=== PATIENT | male | born 1960 | race Caucasian/White ===

== ENCOUNTER 2016-11-28 10:08 | Emergency (ER) | payer OTHER ==
[2016-11-28 10:13] VITALS: RESP 18
--- NOTE | 2016-11-28 10:28 | ED ---
Skin/Abscess/FB HPI - General Chief complaint: Skin/Abscess/Foreign Body Stated complaint: [facility], hand injury Time Seen by Provider: 11/28/16 10:19 Source: patient, RN notes reviewed, old records reviewed Mode of arrival: ambulatory Limitations: no limitations - History of Present Illness Initial comments: This is a 56-year-old male presenting to emergency Department chief complaint of a laceration and pain over his left thumb. 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 Patient reports that he does have range of motion in his thumb. He was sent over here after seeing [facility]. Urine completed drug screen and call testing. Patient was sent here for further evaluation. Patient states that he is right-handed. She reports somewhat diminished sensation over the medial aspect of the thumb distal to the laceration. - Related Data Home Medications Medication Instructions Recorded Confirmed Divalproex Sodium [Depakote ER] 1,500 mg PO DAILY 12/03/13 11/28/16 OLANZapine [ZyPREXA] 10 mg PO DAILY 12/03/13 11/28/16 LORazepam [Ativan] 1 mg PO DAILY 05/15/14 11/28/16 Acetaminophen Tab [Tylenol Tab] 500 - 1,000 mg PO Q6H PRN 11/28/16 11/28/16 Previous Rx's Medication Instructions Recorded Ibuprofen [Motrin] 800 mg PO Q8HR PRN #30 tab 11/23/14 Allergies Allergy/AdvReac Type Severity Reaction Status Date / Time No Known Allergies Allergy Verified 11/28/16 10:48 Review of Systems ROS Statement: Those systems with pertinent positive or pertinent negative responses have been documented in the HPI. ROS Other: All systems not noted in ROS Statement are negative. Past Medical History Past Medical History: Hyperlipidemia Additional Past Medical History / Comment(s): Bipolar disorder, anxiety, SLEEP APNEA History of Any Multi-Drug Resistant Organisms: None Reported Past Surgical History: Appendectomy, Heart Catheterization, Hernia Repair, Orthopedic Surgery Past Anesthesia/Blood Transfusion Reactions: No Reported Reaction Past Psychological History: Anxiety, Bipolar, Depression Smoking Status: Never smoker Past Alcohol Use History: Occasional Past Drug Use History: None Reported - Past Family History Father Family Medical History: Myocardial Infarction ([place]) Additional Family Medical History / Comment(s): CABG AT AGE 50 Brother(s) Family Medical History: Coronary Artery Disease (CAD) Additional Family Medical History / Comment(s): CABG AT AGE 50 General Exam - General Exam Comments Initial Comments: This is a 56-year-old male. No acute distress. Limitations: no limitations Head exam: Present: atraumatic, normocephalic, normal inspection Eye exam: Present: normal appearance, PERRL, EOMI. Absent: scleral icterus, conjunctival injection, periorbital swelling ENT exam: Present: normal exam, mucous membranes moist Neck exam: Present: normal inspection. Absent: tenderness, meningismus, lymphadenopathy Respiratory exam: Present: normal lung sounds bilaterally. Absent: respiratory distress, wheezes, rales, rhonchi, stridor Cardiovascular Exam: Present: regular rate, normal rhythm, normal heart sounds. Absent: systolic murmur, diastolic murmur, rubs, gallop, clicks GI/Abdominal exam: Present: soft, normal bowel sounds. Absent: distended, tenderness, guarding, rebound, rigid Extremities exam: Present: normal inspection, full ROM, normal capillary refill , other (2cm laceration over left thumb. No ttendon involvement. ). Absent: tenderness, pedal edema, joint swelling, calf tenderness Back exam: Present: normal inspection Neurological exam: Present: alert, oriented X3, CN II-XII intact Psychiatric exam: Present: normal affect, normal mood Skin exam: Present: warm, dry, intact, normal color. Absent: rash Course Vital Signs 11/28/16 11/28/16 10:10 11:47 Temperature 98.0 F 98.1 F Pulse Rate 70 67 Respiratory 18 18 Rate Blood Pressure 161/93 147/90 O2 Sat by Pulse 98 95 Oximetry Procedures - Laceration Laceration #1 Indication: laceration Site: hand Size (cm): 1 Description: linear Depth: simple, single layer Anesthetic Used: lidocaine 1% Anesthesia Technique: local infiltration Amount (mls): 3 Pre-repair: wound explored, irrigated extensively Type of Sutures: nylon Size of Sutures: 5-0 Number of Sutures: 4 Technique: simple, interrupted Patient Tolerated Procedure: well, no complications Medical Decision Making - Medical Decision Making This is a 56-year-old male presenting to emergency Department chief complaint of a laceration and pain over his left thumb. 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 Patient reports that he does have range of motion in his thumb. Patient has no fracture of the thumb. Wound was irrigated and clsed with 4 suture. Discussed follow up with PCP and returning for any signs of infection. Patient will be started on keflex and given updated tetanus vaccine. Patient understands treatment plan and will comply - Radiology Data Radiology results: report reviewed Xray is negative for any fracture. Disposition Clinical Impression: Laceration of thumb Disposition: HOME SELF-CARE Condition: Good Instructions: Laceration (ED) Additional Instructions: Please return to the emergency room in 8-10 days to have sutures removed. Please leave wound covered for the first 24-48 hours and then leave open to air after that time. Please use clean soap and water to clean the suture area to prevent scabbing over the top of your sutures. Please watch for any signs of infection which may include but not limited to increased pain, swelling, redness , fever or chills. Please return to the emergency room if any signs of infection do occur. Please return to the emergency room for any other concerns or complications. Referrals: None,Stated [Primary Care Provider] - 1-2 days Time of Disposition: 11:39
[2016-11-28] MEDS ORDERED: DIPH,PERTUS(ACELL)TETVAC-LF 0.5 ML VIAL IM ONE (10:41)
--- NOTE | 2016-11-28 10:49 | XR ---
EXAMINATION TYPE: XR finger LT DATE OF EXAM: 11/28/2016 COMPARISON: NONE HISTORY: Crush injury laceration proximal phalanx TECHNIQUE: Three-view left thumb FINDINGS: There is a subtle lucency on the oblique view at the base of the distal phalanx. Cortical m argins appear smooth. An acute fracture is not felt to be present. Correlate with location of the pat ient's pain. Joint spaces appear preserved. A displaced fracture is not identified. No radiopaque fo reign bodies are evident. Follow-up study can be performed 7-10 days from acute trauma for continued pain. IMPRESSION: 1. Acute fracture is not identified. Follow-up can be performed as clinically indicated.
[2016-11-28 11:48] VITALS: BP 147/90; PULSE 67; TEMP 98.1
--- NOTE | 2016-11-30 07:40 | CDI ---
Documentation Clarification OP Dear RAZIA Arrington: Please do addendum to ED report that describes the laceration of the finger. Please include the length and depth of the repair. Thank you, Jennifer Morales Piece Dyeing Machine Tender If you have any question, Please contact satellite manager at [phone] [facility]
== END 2016-11-28 11:52 | disposition home or self-care (01) ==
LOC: EC 10:08
DX: S61.012A Laceration without foreign body of left thumb without damage to nail, initial encounter (principal); Z23 Encounter for immunization; E78.5 Hyperlipidemia, unspecified; F31.9 Bipolar disorder, unspecified; F41.9 Anxiety disorder, unspecified; Z79.899 Other long term (current) drug therapy; W26.8XXA Contact with other sharp object(s), not elsewhere classified, initial encounter; Y99.0 Civilian activity done for income or pay
CPT/HCPCS: 12001; 90471; 90715; 99283

== ENCOUNTER 2017-11-09 01:12 | Observation (INO) | payer BC ==
--- NOTE | 2017-11-09 01:13 | ED ---
General Adult HPI - General Stated complaint: chest pain Time Seen by Provider: 11/09/17 01:13 - History of Present Illness Initial comments: Davis is a 57-year-old male with past medical history listed below who presents to the emergency department today for evaluation of left-sided chest pain. 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 He reports that he has never had to move this many in one night. He states that while he was doing this task he began to experience some pressure in his chest and pain radiating to his left arm. He began to feel lightheaded and diaphoretic as though he couldn't catch his breath. He states that this scared him because his father had heart disease and at the age of 63 so he came to the ER for further evaluation. Patient reports that this episode occurred approximately one hour prior to arrival in the sitting in the ER has significantly reduced his chest discomfort, shortness of breath and lightheadedness. Patient has a history of hyperlipidemia and is currently untreated, he has no known history of hypertension or diabetes. He denies cigarette smoking or any recreational or illicit drug use. - Related Data Home Medications Medication Instructions Recorded Confirmed Divalproex Sodium [Depakote ER] 1,500 mg PO DAILY 12/03/13 11/09/17 OLANZapine [ZyPREXA] 10 mg PO DAILY 12/03/13 11/09/17 LORazepam [Ativan] 1 mg PO DAILY 05/15/14 11/09/17 Allergies Allergy/AdvReac Type Severity Reaction Status Date / Time No Known Allergies Allergy Verified 11/09/17 03:27 Review of Systems ROS Statement: Those systems with pertinent positive or pertinent negative responses have been documented in the HPI. ROS Other: All systems not noted in ROS Statement are negative. Past Medical History Past Medical History: Hyperlipidemia Additional Past Medical History / Comment(s): Bipolar disorder, anxiety, SLEEP APNEA History of Any Multi-Drug Resistant Organisms: None Reported Past Surgical History: Appendectomy, Heart Catheterization, Hernia Repair, Orthopedic Surgery Past Anesthesia/Blood Transfusion Reactions: No Reported Reaction Past Psychological History: Anxiety, Bipolar, Depression Smoking Status: Never smoker Past Alcohol Use History: Occasional Past Drug Use History: None Reported - Past Family History Father Family Medical History: Myocardial Infarction ([place]) Additional Family Medical History / Comment(s): CABG AT AGE 50 Brother(s) Family Medical History: Coronary Artery Disease (CAD) Additional Family Medical History / Comment(s): CABG AT AGE 50 Mother Family Medical History: Cancer Additional Family Medical History / Comment(s): Liver and abd CA, Breast CA General Exam Limitations: no limitations General appearance: alert, in no apparent distress Head exam: Present: atraumatic, normocephalic Eye exam: Present: normal appearance, PERRL ENT exam: Present: normal exam Neck exam: Present: normal inspection Respiratory exam: Absent: respiratory distress Cardiovascular Exam: Present: regular rate, normal rhythm GI/Abdominal exam: Present: soft. Absent: distended Rectal exam: Present: deferred Extremities exam: Present: normal inspection, full ROM. Absent: tenderness Back exam: Present: normal inspection Neurological exam: Present: alert, oriented X3 Psychiatric exam: Present: normal mood Skin exam: Present: warm, other (skin is pale and moist) Course Vital Signs 11/09/17 11/09/17 01:17 02:58 Temperature 97.6 F Pulse Rate 71 70 Respiratory 18 16 Rate Blood Pressure 149/91 122/76 O2 Sat by Pulse 96 99 Oximetry EKG Findings - EKG Comments: EKG Findings:: EKG obtained at 16 a.m. - rate is 74, rhythm is sinus, normal axis, normal intervals, [place] 184, QRS 92, QTc 424, ST elevations or depressions. No evidence of acute ischemia or infarction. Medical Decision Making - Medical Decision Making Patient was seen and evaluated, history was obtained from the patient Approximately 1 hour prior to arrival the patient experienced exertional chest pain, pressure with radiation to the left arm associated with diaphoresis and lightheadedness Patient with a history of obesity, hyperlipidemia and family history of heart disease Heart score - 4 for history and risk factors Cardiac workup ordered EKG with no significant Troponin negative Chest x-ray no acute findings Considering the patient's risk factors and concerning history I do feel that the patient requires evaluation by cardiology. Patient is in agreement to this. Care was discussed with patient's primary care physician Dr. Kirkland who accepts the patient to the observation unit with consult to cardiology. Admission orders placed. - Lab Data Result diagrams: 11/09/17 01:20 11/09/17 01:20 Lab Results 11/09/17 11/09/17 11/09/17 Range/Units 01:20 01:20 01:20 WBC 6.0 (3.8-10.6) k/uL RBC 5.11 (4.30-5.90) m/uL Hgb 16.4 (13.0-17.5) gm/dL Hct 47.2 (39.0-53.0) % MCV 92.3 (80.0-100.0) fL MCH 32.0 (25.0-35.0) pg MCHC 34.7 (31.0-37.0) g/dL RDW 12.5 (11.5-15.5) % Plt Count 174 (150-450) k/uL Neutrophils % 39 % Lymphocytes % 44 % Monocytes % 9 % Eosinophils % 3 % Basophils % 1 % Neutrophils # 2.3 (1.3-7.7) k/uL Lymphocytes # 2.7 (1.0-4.8) k/uL Monocytes # 0.6 (0-1.0) k/uL Eosinophils # 0.2 (0-0.7) k/uL Basophils # 0.1 (0-0.2) k/uL PT (9.0-12.0) sec INR (<1.2) APTT (22.0-30.0) sec Sodium 139 (137-145) mmol/L Potassium 4.8 (3.5-5.1) mmol/L Chloride 106 (98-107) mmol/L Carbon Dioxide 25 (22-30) mmol/L Anion Gap 8 mmol/L BUN 13 (9-20) mg/dL Creatinine 0.80 (0.66-1.25) mg/dL Est GFR (CKD-EPI)AfAm >90 (>60 ml/min/1.73 sqM) Est GFR (CKD-EPI)NonAf >90 (>60 ml/min/1.73 sqM) Glucose 105 H (74-99) mg/dL Calcium 9.7 (8.4-10.2) mg/dL Magnesium 2.0 (1.6-2.3) mg/dL Total Bilirubin 0.5 (0.2-1.3) mg/dL AST 50 (17-59) U/L ALT 94 H (21-72) U/L Alkaline Phosphatase 59 (38-126) U/L Total Creatine Kinase 173 H (55-170) U/L CK-MB (CK-2) 1.3 (0.0-2.4) ng/mL CK-MB (CK-2) Rel Index 0.8 Troponin I <0.012 (0.000-0.034) ng/mL NT-Pro-B Natriuret Pep pg/mL Total Protein 7.2 (6.3-8.2) g/dL Albumin 4.4 (3.5-5.0) g/dL 11/09/17 11/09/17 Range/Units 01:20 01:20 WBC (3.8-10.6) k/uL RBC (4.30-5.90) m/uL Hgb (13.0-17.5) gm/dL Hct (39.0-53.0) % MCV (80.0-100.0) fL MCH (25.0-35.0) pg MCHC (31.0-37.0) g/dL RDW (11.5-15.5) % Plt Count (150-450) k/uL Neutrophils % % Lymphocytes % % Monocytes % % Eosinophils % % Basophils % % Neutrophils # (1.3-7.7) k/uL Lymphocytes # (1.0-4.8) k/uL Monocytes # (0-1.0) k/uL Eosinophils # (0-0.7) k/uL Basophils # (0-0.2) k/uL PT 10.0 (9.0-12.0) sec INR 1.0 (<1.2) APTT 24.1 (22.0-30.0) sec Sodium (137-145) mmol/L Potassium (3.5-5.1) mmol/L Chloride (98-107) mmol/L Carbon Dioxide (22-30) mmol/L Anion Gap mmol/L BUN (9-20) mg/dL Creatinine (0.66-1.25) mg/dL Est GFR (CKD-EPI)AfAm (>60 ml/min/1.73 sqM) Est GFR (CKD-EPI)NonAf (>60 ml/min/1.73 sqM) Glucose (74-99) mg/dL Calcium (8.4-10.2) mg/dL Magnesium (1.6-2.3) mg/dL Total Bilirubin (0.2-1.3) mg/dL AST (17-59) U/L ALT (21-72) U/L Alkaline Phosphatase (38-126) U/L Total Creatine Kinase (55-170) U/L CK-MB (CK-2) (0.0-2.4) ng/mL CK-MB (CK-2) Rel Index Troponin I (0.000-0.034) ng/mL NT-Pro-B Natriuret Pep 15 pg/mL Total Protein (6.3-8.2) g/dL Albumin (3.5-5.0) g/dL Disposition Clinical Impression: Chest pain Disposition: ADMITTED IP TO THIS HOSP Decision Time: 03:30
[2017-11-09] MEDS ORDERED: ASPIRIN 81 MG PO STA (01:35)
[2017-11-09 01:43] LABS: Basophils # (A) 0.1 k/uL (0-0.2); Basophils % (A) 1 %; Eosinophils # (A) 0.2 k/uL (0-0.7); Eosinophils % (A) 3 %; HCT 47.2 % (39.0-53.0); HGB 16.4 gm/dL (13.0-17.5); Lymphocytes # (A) 2.7 k/uL (1.0-4.8); Lymphocytes % (A) 44 %; MCHC 34.7 g/dL (31.0-37.0); MCV 92.3 fL (80.0-100.0); Monocytes # (A) 0.6 k/uL (0-1.0); Monocytes % (A) 9 %; Neutrophils # (A) 2.3 k/uL (1.3-7.7); Neutrophils % (A) 39 %; Platelet Count 174 k/uL (150-450); RBC 5.11 m/uL (4.30-5.90); RDW 12.5 % (11.5-15.5)
[2017-11-09 01:51] LABS: Partial Thromboplastin Time 24.1 sec (22.0-30.0)
[2017-11-09 01:52] LABS: ALT 94 U/L (21-72); AST 50 U/L (17-59); Albumin 4.4 g/dL (3.5-5.0); Alkaline Phosphatase 59 U/L (38-126); Anion Gap 8 mmol/L; Blood Urea Nitrogen 13 mg/dL (9-20); Calcium 9.7 mg/dL (8.4-10.2); Carbon Dioxide 25 mmol/L (22-30); Chloride 106 mmol/L (98-107); Glucose 105 mg/dL (74-99); Potassium 4.8 mmol/L (3.5-5.1); Sodium 139 mmol/L (137-145); Total Bilirubin 0.5 mg/dL (0.2-1.3); Total Protein 7.2 g/dL (6.3-8.2)
[2017-11-09 01:55] LABS: Creatine Kinase 173 U/L (55-170)
--- NOTE | 2017-11-09 02:02 | XR ---
EXAMINATION TYPE: XR chest 2V DATE OF EXAM: 11/09/2017 COMPARISON: 11/08/2015 HISTORY: Short of breath TECHNIQUE: Frontal and lateral views of the chest are obtained. FINDINGS: Heart and mediastinum are normal. Lungs are clear. Diaphragm is normal. There are chest le ads. Bony thorax is intact. IMPRESSION: Normal chest. No change.
[2017-11-09 02:07] LABS: Creatine Kinase MB 1.3 ng/mL (0.0-2.4); Troponin I <0.012 ng/mL (0.000-0.034)
[2017-11-09] MEDS ORDERED: NALOXONE 0.4 MG/ML 1 ML VIAL IV PRN (02:49)
[2017-11-09] MEDS ORDERED: ACETAMINOPHEN TAB 325 MG TAB PO PRN (02:49)
[2017-11-09 03:36] VITALS: BMI 34.4
[2017-11-09 07:25] LABS: Creatine Kinase 128 U/L (55-170)
[2017-11-09 07:38] LABS: Creatine Kinase MB 1.1 ng/mL (0.0-2.4); Troponin I <0.012 ng/mL (0.000-0.034)
--- NOTE | 2017-11-09 08:01 | P.HPIM ---
History of Present Illness H&P Date: 11/09/17 Chief Complaint: Chest pressure This history and physical an 57-year-old white male came in after doing heavy lifting at work with significant chest pressure. There was radiation to left arm and diaphoresis noted. After evaluation however, the patient was stabilized. He is now admitted for angina type symptoms. He has significant family history of coronary bypass. Catheterization was supposedly done in 2014 which was normal. Review of Systems Constitutional: Denies chills, Denies fever Eyes: denies blurred vision, denies pain Ears, nose, mouth and throat: Denies headache, Denies sore throat Cardiovascular: Reports as per HPI, Reports chest pain, Reports dyspnea on exertion, Reports lightheadedness Respiratory: Denies cough Gastrointestinal: Denies abdominal pain, Denies diarrhea, Denies nausea, Denies vomiting Musculoskeletal: Denies myalgias 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 Past Anesthesia/Blood Transfusion Reactions: No Reported Reaction Past Psychological History: Anxiety, Bipolar, Depression Smoking Status: Never smoker Past Alcohol Use History: Occasional Past Drug Use History: None Reported - Past Family History Mother Family Medical History: Cancer Additional Family Medical History / Comment(s): Liver and abd CA, Breast CA Father Family Medical History: Myocardial Infarction ([place]) Additional Family Medical History / Comment(s): CABG AT AGE 50 Brother(s) Family Medical History: Coronary Artery Disease (CAD) Additional Family Medical History / Comment(s): CABG AT AGE 50 Medications and Allergies Home Medications Medication Instructions Recorded Confirmed Type Divalproex Sodium [Depakote ER] 1,500 mg PO DAILY 12/03/13 11/09/17 History OLANZapine [ZyPREXA] 10 mg PO DAILY 12/03/13 11/09/17 History LORazepam [Ativan] 1 mg PO DAILY 05/15/14 11/09/17 History Allergies Allergy/AdvReac Type Severity Reaction Status Date / Time No Known Allergies Allergy Verified 11/09/17 03:27 Physical Exam Vitals: Vital Signs Temp Pulse Pulse Resp BP BP BP 11/09/17 07:10 98.3 F 68 18 127/84 11/09/17 03:38 18 11/09/17 03:24 97.8 F 70 16 157/85 11/09/17 02:58 70 16 122/76 11/09/17 01:17 97.6 F 71 18 149/91 Pulse Ox 11/09/17 07:10 97 11/09/17 03:38 11/09/17 03:24 98 11/09/17 02:58 99 11/09/17 01:17 96 Intake and Output 11/08/17 11/09/17 11/09/17 22:59 06:59 14:59 Other: # Voids 1 Weight 108.8 kg - Constitutional General appearance: average body habitus - EENT Eyes: EOMI - Neck Neck: no lymphadenopathy - Respiratory Respiratory: bilateral: CTA - Cardiovascular Rhythm: regular Heart sounds: normal: S1, S2 Abnormal Heart Sounds: no S3 Gallop - Gastrointestinal General gastrointestinal: soft, no tenderness - Neurologic Neurologic: CNII-XII intact Results CBC & Chem 7: 11/09/17 01:20 11/09/17 01:20 Labs: Abnormal Lab Results - Last 24 Hours (Table) 11/09/17 11/09/17 Range/Units 01:20 01:20 Glucose 105 H (74-99) mg/dL ALT 94 H (21-72) U/L Total Creatine Kinase 173 H (55-170) U/L Thrombosis Risk Factor Assmnt - Choose All That Apply Each Factor Represents 1 point: Age 41-60 years Thrombosis Risk Factor Assessment Total Risk Factor Score: 1 Thrombosis Risk Factor Assessment Level: Low Risk Assessment and Plan (1) Chest pain Current Visit: Yes Status: Acute Code(s): R07.9 - CHEST PAIN, UNSPECIFIED SNOMED Code(s): 01461155 Plan: Cardiology is probably been consulted. Rule out myocardial infraction from a is a medical perspective. Echocardiogram and stress testing will most likely be done later today. Anticipate discharge in next 24 hours if stress testing is stable. Reconcile medications otherwise. The patient is otherwise full code.
[2017-11-09] MEDS ORDERED: DIVALPROEX ER 500 MG TAB.ER.24H PO SCH (09:00)
[2017-11-09] MEDS ORDERED: OLANZapine 10 MG TAB PO SCH (09:00)
[2017-11-09] MEDS ORDERED: LORazepam 1 MG TAB PO SCH (09:00)
--- NOTE | 2017-11-09 09:21 | ECHOF ---
Referral Reason:cp MEASUREMENTS -------- HEIGHT: 152.4 cm WEIGHT: 108.4 kg BP: 127/84 RVIDd: 2.6 cm (< 3.3) IVSd: 1.2 cm (0.6 - 1.1) LVIDd: 3.2 cm (3.9 - 5.3) LVPWd: 1.0 cm (0.6 - 1.1) IVSs: 1.5 cm LVIDs: 2.5 cm LVPWs: 2.0 cm LA Diam: 3.8 cm (2.7 - 3.8) Ao Diam: 3.3 cm (2.0 - 3.7) AV Cusp: 1.8 cm (1.5 - 2.6) LA Diam: 4.1 cm (2.7 - 3.8) MV EXCURSION: 19.436 mm (> 18.000) MV EF SLOPE: 91 mm/s (70 - 150) EPSS: 0.3 cm MV E Donnie: 0.53 m/s MV DecT: 173 ms MV A Donnie: 0.67 m/s MV E/A Ratio: 0.79 RAP: 5.00 mmHg RVSP: 16.77 mmHg FINDINGS -------- Sinus rhythm. This was a technically good study. LV size, wall thickness and systolic function are normal, with an EF greater than 55%. The left clementina tricular size is normal. The right ventricle is normal in size. The left atrial size is normal. The right atrial size is normal. The aortic valve is trileaflet, and appears structurally normal. No aortic stenosis or regurgitation. Mild mitral annular calcification present. Mild mitral regurgitation is present. Mild tricuspid regurgitation present. There is no evidence of pulmonary hypertension. The right v entricular systolic pressure, as measured by Doppler, is 16.77mmHg. There is no pulmonic regurgitation present. The aortic root size is normal. There is no pericardial effusion. CONCLUSIONS -------- 1. LV size, wall thickness and systolic function are normal, with an EF greater than 55%. 2. The left ventricular size is normal. 3. The right ventricle is normal in size. 4. The left atrial size is normal. 5. The right atrial size is normal. 6. The aortic valve is trileaflet, and appears structurally normal. No aortic stenosis or regurgitati on. 7. Mild mitral annular calcification present. 8. Mild mitral regurgitation is present. 9. Mild tricuspid regurgitation present. 10. There is no evidence of pulmonary hypertension. 11. The right ventricular systolic pressure, as measured by Doppler, is 16.77mmHg. 12. There is no pulmonic regurgitation present. 13. The aortic root size is normal. 14. There is no pericardial effusion. BAND LEADER: Orly Benito RDCS
--- NOTE | 2017-11-09 09:34 | P.CRDCN ---
History of Present Illness History of present illness: Mr. Salas is a pleasant 57-year-old male past medical history significant for dyslipidemia, anxiety, bipolar disorder and sleep apnea. He denies history of coronary artery disease. We've been asked to see him in consultation for symptoms of chest pain. 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 He was also short of breath and diaphoretic. He stopped what he was doing and got onto his [employer] to continue working he continued to feel the symptoms of chest pain he has to quit a bit of twisting of his body and he felt as if the pain was worse with movement however never completely went away when he sat still. He still has a level of discomfort in the described as an ache that is not reproducible on palpation or with movement. He denies associated palpitations, nausea, vomiting or dizziness. He underwent cardiac catheterization in [address] Gibson which revealed normal coronary arteries. EKG reveals sinus mechanism with no acute ST or T wave abnormalities noted. Chest x-ray is negative for acute cardiopulmonary process. Laboratory data reviewed, hemoglobin 16.4, platelets 174, sodium 139, potassium 4.8, magnesium 2.0, creatinine 0.8, creatinine enzymes negative 2, proBNP 15. Cardiac risk factors include significant family history with father and brother both having quadruple bypass in their 50s. Review of Systems At the time of my exam: CONSTITUTIONAL: Denies fever. Denies chills. EYES: Denies blurred vision. Denies vision changes. Denies eye pain. EARS, NOSE, MOUTH & THROAT: Denies headache. Denies sore throat. Denies ear pain. CARDIOVASCULAR: Complains of achy chest pain. Denies shortness of breath. Denies orthopnea. Denies PND. Denies palpitations. RESPIRATORY: Denies cough. GASTROINTESTINAL: Denies abdominal pain. Denies diarrhea. Denies constipation. Denies nausea. Denies vomiting. MUSCULOSKELETAL: Denies myalgias. INTEGUMENTARY: Denies pruitis. Denies rash. NEUROLOGIC: Denies numbness. Denies tingling. Denies weakness. PSYCHIATRIC: Denies anxiety. Denies depression. ENDOCRINE: Denies fatigue. Denies weight change. Denies polydipsia. Denies polyurina. GENITOURINARY: Denies burning, hematuria or urgency with micturation. HEMATOLOGIC: Denies history of anemia. Denies bleeding. 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 Past Anesthesia/Blood Transfusion Reactions: No Reported Reaction Past Psychological History: Anxiety, Bipolar, Depression Smoking Status: Never smoker Past Alcohol Use History: Occasional Past Drug Use History: None Reported - Past Family History Mother Family Medical History: Cancer Additional Family Medical History / Comment(s): Liver and abd CA, Breast CA Father Family Medical History: Myocardial Infarction ([place]) Additional Family Medical History / Comment(s): CABG AT AGE 50 Brother(s) Family Medical History: Coronary Artery Disease (CAD) Additional Family Medical History / Comment(s): CABG AT AGE 50 Medications and Allergies Home Medications Medication Instructions Recorded Confirmed Type Divalproex Sodium [Depakote ER] 1,500 mg PO DAILY 12/03/13 11/09/17 History OLANZapine [ZyPREXA] 10 mg PO DAILY 12/03/13 11/09/17 History LORazepam [Ativan] 1 mg PO DAILY PRN 05/15/14 11/09/17 History Allergies Allergy/AdvReac Type Severity Reaction Status Date / Time No Known Allergies Allergy Verified 11/09/17 08:07 Physical Exam Vitals: Vital Signs Temp Pulse Pulse Resp BP BP BP 11/09/17 07:10 98.3 F 68 18 127/84 11/09/17 03:38 18 11/09/17 03:24 97.8 F 70 16 157/85 11/09/17 02:58 70 16 122/76 11/09/17 01:17 97.6 F 71 18 149/91 Pulse Ox 11/09/17 07:10 97 11/09/17 03:38 11/09/17 03:24 98 11/09/17 02:58 99 11/09/17 01:17 96 Intake and Output 11/08/17 11/09/17 11/09/17 22:59 06:59 14:59 Other: # Voids 1 Weight 108.8 kg Blood pressure 127/84 heart rate 68 afebrile maintaining oxygen saturation GENERAL: This is a 57-year-old male in no apparent distress at the time of my examination. HEENT: Head is atraumatic, normocephalic. Pupils are equal, round. Sclerae anicteric. Conjunctivae are clear. Mucous membranes of the mouth are moist. Neck is supple. There is no jugular venous distention. No carotid bruit is heard. LUNGS: Clear to auscultation no wheezes, rales or rhonchi. No chest wall tenderness is noted on palpation or with deep breathing. HEART: Regular rate and rhythm without murmurs, rubs or gallops. S1 and S2 heard. ABDOMEN: Soft, nontender. Bowel sounds are heard. No organomegaly noted. EXTREMITIES: No evidence of peripheral edema and no calf tenderness noted. VASCULAR: Radial and dorsalis pedis pulses palpated, no evidence of clubbing. NEUROLOGIC: Patient is awake, alert and oriented x3. Results 11/09/17 01:20 11/09/17 01:20 Cardiac Enzymes 11/09/17 11/09/17 11/09/17 Range/Units 01:20 01:20 06:48 AST 50 (17-59) U/L CK-MB (CK-2) 1.3 1.1 (0.0-2.4) ng/mL Troponin I <0.012 <0.012 (0.000-0.034) ng/mL Coagulation 11/09/17 Range/Units 01:20 PT 10.0 (9.0-12.0) sec APTT 24.1 (22.0-30.0) sec CBC 11/09/17 Range/Units 01:20 WBC 6.0 (3.8-10.6) k/uL RBC 5.11 (4.30-5.90) m/uL Hgb 16.4 (13.0-17.5) gm/dL Hct 47.2 (39.0-53.0) % Plt Count 174 (150-450) k/uL Comprehensive Metabolic Panel 11/09/17 Range/Units 01:20 Sodium 139 (137-145) mmol/L Potassium 4.8 (3.5-5.1) mmol/L Chloride 106 (98-107) mmol/L Carbon Dioxide 25 (22-30) mmol/L BUN 13 (9-20) mg/dL Creatinine 0.80 (0.66-1.25) mg/dL Glucose 105 H (74-99) mg/dL Calcium 9.7 (8.4-10.2) mg/dL AST 50 (17-59) U/L ALT 94 H (21-72) U/L Alkaline Phosphatase 59 (38-126) U/L Total Protein 7.2 (6.3-8.2) g/dL Albumin 4.4 (3.5-5.0) g/dL Current Medications Generic Name Dose Route Start Last Admin Trade Name Freq PRN Reason Stop Dose Admin Acetaminophen 650 mg 11/09/17 02:49 Tylenol Tab PO Q6HR PRN Mild Pain or Fever > 100.5 Naloxone HCl 0.2 mg 11/09/17 02:49 Narcan IV Q2M PRN Opioid Reversal Intake and Output 11/08/17 11/09/17 11/09/17 22:59 06:59 14:59 Other: # Voids 1 Weight 108.8 kg 11/09/17 01:20 11/09/17 01:20 Assessment and Plan Assessment: ASSESSMENT Chest pain, atypical. An acute coronary event has been ruled out with no EKG evidence of ischemia and negative cardiac enzymes. Possibility of viscous skeletal component although associated diaphoresis and shortness of breath atypical. Significant family history of coronary artery disease PLAN Obtain 2-D echocardiogram and Doppler study to assess cardiac structure and function. Perform stress echocardiogram to assess for stress induced cardiac ischemia. Stress test is normal he is stable from a cardiac perspective. Thank you kindly for this consultation. The above impression and plan of care have been discussed and directed by the signing physician. Daisy Parmar, nurse practitioner, acting as scribe for signing physician.
[2017-11-09] MEDS ORDERED: DOBUTamine DRIP for NUC MED 500 MG in DEXTROSE/WATER 1 250ML.BAG IV ONE (10:06)
[2017-11-09] MEDS ORDERED: ATROPINE SULFATE 0.1 MG/ML 10ML SYRINGE ONE (10:45)
--- NOTE | 2017-11-09 11:28 | ECHOS ---
STRESS ECHOCARDIOGRAM INDICATIONS: Chest pain. BASELINE HEART RATE: 80 BASELINE BLOOD PRESSURE: 135/71 MAXIMUM HEART RATE: 144 MAXIMUM BLOOD PRESSURE: 212/90 85% MPHR: 139 100% MPHR: 164 MAXIMUM STAGE REACHED: IV TOTAL EXERCISE TIME: 12:10 INDICATION: Chest pain. CLINICAL INFORMATION: Baseline EKG shows sinus rhythm, normal axis, normal intervals. Patient was given intravenous dobutamine over a period of 12 minutes as per protocol. Also received 0.5 mg of atropine and attained 89% of predicted maximal heart rate without chest pain or diagnostic ST-segment depression. Baseline echo shows normal left ventricular size, wall motion, and systolic function. Post dobutamine infusion, there is normal hyperdynamic response of all segments of myocardium noted. CONCLUSION: 1. Negative stress test by EKG criteria. 2. Negative dobutamine echo. MMODL / IJN: [id number] /
[2017-11-09 13:38] LABS: Cholesterol 195 mg/dL (<200); HDL Cholesterol 41 mg/dL (40-60); LDL Cholesterol,Calculated 96 mg/dL (0-99); Triglycerides 291 mg/dL (<150)
[2017-11-09 14:07] LABS: Creatine Kinase MB 0.9 ng/mL (0.0-2.4)
[2017-11-09 14:09] LABS: Troponin I 0.044 ng/mL (0.000-0.034)
[2017-11-10 03:30] VITALS: PULSE 76; RESP 16
--- NOTE | 2017-11-10 08:02 | P.DS ---
Providers Date of admission: 11/09/17 02:51 Attending physician: Cristofer Kirkland Consults: 11/09/17 02:50 Consult Physician Urgent Consulting Provider: [facility] Consult Reason/Comments: chest pain, high risk Do you want consulting provider notified?: Yes Primary care physician: Stated None - Discharge Diagnosis(es) (1) Chest pain Current Visit: Yes Status: Acute Hospital Course: This discharge summary 7-year-old white male essentially admitted for angina. The patient ended up having to be made stress echo which did not show significant coronary artery issue. The patient was watched overnight just to make sure there was no overt change in his enzymatic troponin. The patient is now stable and will be discharged once cleared by cardiology. Patient Condition at Discharge: Stable Plan - Discharge Summary New Discharge Prescriptions: No Action Divalproex Sodium [Depakote ER] 1,500 mg PO DAILY OLANZapine [ZyPREXA] 10 mg PO DAILY LORazepam [Ativan] 1 mg PO DAILY PRN PRN Reason: Anxiety Discharge Medication List Divalproex Sodium [Depakote ER] 1,500 mg PO DAILY 12/03/13 [History] OLANZapine [ZyPREXA] 10 mg PO DAILY 12/03/13 [History] LORazepam [Ativan] 1 mg PO DAILY PRN 05/15/14 [History] Follow up Appointment(s)/Referral(s): None,Stated [Primary Care Provider] - 1 Week Discharge Disposition: HOME SELF-CARE
--- NOTE | 2017-11-10 08:44 | CONS ---
CONSULTATION Davis is a 57-year-old gentleman who is admitted to hospital with atypical chest pain and underwent a dobutamine stress echo yesterday. His dobutamine stress test was negative for ischemia. Patient has remained symptom-free since yesterday. His troponins were less than 0.012, 0.012. However, the subsequent 2 troponins came back at 0.04 and 0.03. The exact etiology for the mild troponin elevation is unclear. Patient has an LDL cholesterol of 96. I talked to patient about his treatment options including an invasive angiography for definitive diagnosis and both the patient and I have opted for watchful waiting and medical therapy at this time. If he has any further episodes of chest pain, I will consider cardiac catheterization on him. PHYSICAL EXAM: Today he is afebrile. Vital signs are stable. Chest exam reveals good air entry bilaterally. Heart exam reveals first and second heart sounds. No gallop. No murmur. Abdomen is soft, nontender. Exam of extremities did not reveal any edema. Peripheral pulses are felt. ASSESSMENT: 1. Atypical chest pain, seems musculoskeletal. 2. Mild troponin elevation of unclear clinical significance. Patient is symptom-free this morning. His dobutamine echo is unremarkable. I am going to discharge the patient home on an aspirin and sublingual nitroglycerin on p.r.n. basis and start him on a small dose of beta earline. I will re-evaluate him in my office in a week's time. If he has chest pains, especially if they become typical, will consider cardiac catheterization on him. MMODL / IJN: [id number] /
[2017-11-10 08:48] VITALS: BP 146/78; TEMP 98.5
[2017-11-10] MEDS ORDERED: ASPIRIN 81 MG PO SCH (09:00)
[2017-11-10] MEDS ORDERED: METOPROLOL SUCCINATE (ER) 50 MG TAB.ER.24H PO SCH (09:00)
== END 2017-11-10 09:39 | disposition home or self-care (01) ==
LOC: EC 01:12 → 3OBS 02:51
PROVIDERS: ADMIT Family Medicine; ATTEND Family Medicine
DX: R07.89 Other chest pain (principal); R07.2 Precordial pain; R42 Dizziness and giddiness; R61 Generalized hyperhidrosis; R06.02 Shortness of breath; R77.8 Other specified abnormalities of plasma proteins; Z82.49 Family history of ischemic heart disease and other diseases of the circulatory system; E78.5 Hyperlipidemia, unspecified; F31.9 Bipolar disorder, unspecified; F41.9 Anxiety disorder, unspecified; G47.30 Sleep apnea, unspecified; Z79.899 Other long term (current) drug therapy; Z80.0 Family history of malignant neoplasm of digestive organs; Z80.3 Family history of malignant neoplasm of breast; E66.9 Obesity, unspecified; Z68.34 Body mass index [BMI] 34.0-34.9, adult; X50.0XXA Overexertion from strenuous movement or load, initial encounter; Y99.0 Civilian activity done for income or pay
CPT/HCPCS: 99285; 36415; 93005; 93306; 93351; 83880; 80061; 80053; 82550; 82553; 83735; 84484; 85025; 85610; 85730; 71046; G0378 ×2; J1250; J0461

== ENCOUNTER 2018-01-17 15:46 | Emergency (ER) | payer BC ==
[2018-01-17] MEDS ORDERED: ONDANSETRON 4 MG ODT STARTER PACK 2 TAB BTL PO STA (16:19)
[2018-01-17] MEDS ORDERED: PANTOPRAZOLE 40 MG/10 ML VIAL IVP STA (16:21)
--- NOTE | 2018-01-17 16:42 | ED ---
Abdominal Pain HPI - General Chief Complaint: Abdominal Pain Stated Complaint: Nauseated Time Seen by Provider: 01/17/18 16:00 Source: patient, RN notes reviewed, old records reviewed Mode of arrival: ambulatory Limitations: no limitations - History of Present Illness Initial Comments: 57-year-old male since return today to complain of nausea. He states that he had spaghetti and Benadryl to symptoms which seem to cause some GI upset. He states he's had no vomiting episodes and no diarrhea. He did take Pepto-Bismol with no relief. Patient's surgical history includes appendectomy and cholecystectomy. He states that he has some epigastric discomfort. He denies any recent fever or chills. Denies any back pain. - Related Data Home Medications Medication Instructions Recorded Confirmed Divalproex Sodium [Depakote ER] 1,500 mg PO HS 12/03/13 01/17/18 OLANZapine [ZyPREXA] 10 mg PO HS 12/03/13 01/17/18 LORazepam [Ativan] 1 mg PO HS PRN 05/15/14 01/17/18 Ibuprofen 800 mg PO Q6H PRN 01/17/18 01/17/18 Previous Rx's Medication Instructions Recorded Famotidine [Pepcid] 20 mg PO BID #20 tablet 01/17/18 Ondansetron Odt [Zofran Odt] 4 mg PO Q8HR PRN #12 tab 01/17/18 Allergies Allergy/AdvReac Type Severity Reaction Status Date / Time No Known Allergies Allergy Verified 01/17/18 16:05 Review of Systems ROS Statement: Those systems with pertinent positive or pertinent negative responses have been documented in the HPI. ROS Other: All systems not noted in ROS Statement are negative. 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 Past Anesthesia/Blood Transfusion Reactions: No Reported Reaction Past Psychological History: Anxiety, Bipolar, Depression Smoking Status: Never smoker Past Alcohol Use History: Occasional Past Drug Use History: None Reported - Past Family History Mother Family Medical History: Cancer Additional Family Medical History / Comment(s): Liver and abd CA, Breast CA Father Family Medical History: Myocardial Infarction ([place]) Additional Family Medical History / Comment(s): CABG AT AGE 50 Brother(s) Family Medical History: Coronary Artery Disease (CAD) Additional Family Medical History / Comment(s): CABG AT AGE 50 General Exam Limitations: no limitations Course Vital Signs 01/17/18 15:50 Temperature 98.0 F Pulse Rate 71 Respiratory 20 Rate Blood Pressure 134/81 O2 Sat by Pulse 95 Oximetry Medical Decision Making - Lab Data Result diagrams: 01/17/18 16:50 01/17/18 16:50 Lab Results 01/17/18 01/17/18 01/17/18 Range/Units 16:50 16:50 16:50 WBC 3.7 L (3.8-10.6) k/uL RBC 4.51 (4.30-5.90) m/uL Hgb 14.9 (13.0-17.5) gm/dL Hct 42.2 (39.0-53.0) % MCV 93.6 (80.0-100.0) fL MCH 33.0 (25.0-35.0) pg MCHC 35.3 (31.0-37.0) g/dL RDW 12.4 (11.5-15.5) % Plt Count 134 L (150-450) k/uL Neutrophils % 42 % Lymphocytes % 41 % Monocytes % 10 % Eosinophils % 3 % Basophils % 1 % Neutrophils # 1.6 (1.3-7.7) k/uL Lymphocytes # 1.5 (1.0-4.8) k/uL Monocytes # 0.4 (0-1.0) k/uL Eosinophils # 0.1 (0-0.7) k/uL Basophils # 0.0 (0-0.2) k/uL Sodium 140 (137-145) mmol/L Potassium 4.6 (3.5-5.1) mmol/L Chloride 110 H (98-107) mmol/L Carbon Dioxide 23 (22-30) mmol/L Anion Gap 7 mmol/L BUN 12 (9-20) mg/dL Creatinine 0.77 (0.66-1.25) mg/dL Est GFR (CKD-EPI)AfAm >90 (>60 ml/min/1.73 sqM) Est GFR (CKD-EPI)NonAf >90 (>60 ml/min/1.73 sqM) Glucose 135 H (74-99) mg/dL Calcium 8.8 (8.4-10.2) mg/dL Total Bilirubin 0.7 (0.2-1.3) mg/dL AST 55 (17-59) U/L ALT 48 (21-72) U/L Alkaline Phosphatase 48 (38-126) U/L Total Protein 6.4 (6.3-8.2) g/dL Albumin 3.6 (3.5-5.0) g/dL Lipase 503 H (23-300) U/L Urine Color Light Yellow Urine Appearance Clear (Clear) Urine pH 7.0 (5.0-8.0) Ur Specific [place] 1.005 (1.001-1.035) Urine Protein Negative (Negative) Urine Glucose (UA) Negative (Negative) Urine Ketones Negative (Negative) Urine Blood Negative (Negative) Urine Nitrite Negative (Negative) Urine Bilirubin Negative (Negative) Urine Urobilinogen <2.0 (<2.0) mg/dL Ur Leukocyte Esterase Trace H (Negative) Urine RBC <1 (0-5) /hpf Urine WBC <1 (0-5) /hpf Disposition Clinical Impression: Gastritis, Elevated lipase, Nausea Disposition: HOME SELF-CARE Condition: Good Instructions: Gastritis (ED) Additional Instructions: Patient should have clear liquid diet for the next 24-48 hours. Follow-up with PCP rechecking was lipase levels. Return to emergency department if any alarming signs or symptoms occur. Prescriptions: Famotidine [Pepcid] 20 mg PO BID #20 tablet Ondansetron Odt [Zofran Odt] 4 mg PO Q8HR PRN #12 tab PRN Reason: Nausea Is patient prescribed a controlled substance at d/c from ED?: No Referrals: Cristofer Kirkland MD [Primary Care Provider] - 1-2 days Time of Disposition: 17:36
[2018-01-17 17:12] LABS: Appearance,Urine Clear (Clear); Bilirubin,Urine Negative (Negative); Blood,Urine Negative (Negative); Color,Urine Light Yellow; Glucose,Urine (UA) Negative (Negative); Ketones,Urine Negative (Negative); Leukocyte Esterase,Urine Trace (Negative); Nitrite,Urine Negative (Negative); Protein,Urine Negative (Negative); RBC,Urine <1 /hpf (0-5); Specific Gravity,Urine 1.005 (1.001-1.035); Urobilinogen,Urine <2.0 mg/dL (<2.0); WBC,Urine <1 /hpf (0-5)
[2018-01-17 17:18] LABS: ALT 48 U/L (21-72); AST 55 U/L (17-59); Albumin 3.6 g/dL (3.5-5.0); Alkaline Phosphatase 48 U/L (38-126); Anion Gap 7 mmol/L; Blood Urea Nitrogen 12 mg/dL (9-20); Calcium 8.8 mg/dL (8.4-10.2); Carbon Dioxide 23 mmol/L (22-30); Chloride 110 mmol/L (98-107); Glucose 135 mg/dL (74-99); Lipase 503 U/L (23-300); Potassium 4.6 mmol/L (3.5-5.1); Sodium 140 mmol/L (137-145); Total Bilirubin 0.7 mg/dL (0.2-1.3); Total Protein 6.4 g/dL (6.3-8.2)
[2018-01-17 17:29] LABS: Basophils % (A) 1 %; Eosinophils # (A) 0.1 k/uL (0-0.7); Eosinophils % (A) 3 %; HCT 42.2 % (39.0-53.0); HGB 14.9 gm/dL (13.0-17.5); Lymphocytes # (A) 1.5 k/uL (1.0-4.8); Lymphocytes % (A) 41 %; MCHC 35.3 g/dL (31.0-37.0); MCV 93.6 fL (80.0-100.0); Mean Platelet Volume 7.9; Monocytes # (A) 0.4 k/uL (0-1.0); Monocytes % (A) 10 %; Neutrophils # (A) 1.6 k/uL (1.3-7.7); Neutrophils % (A) 42 %; Platelet Count 134 k/uL (150-450); RBC 4.51 m/uL (4.30-5.90); RDW 12.4 % (11.5-15.5); WBC 3.7 k/uL (3.8-10.6)
[2018-01-17 18:16] VITALS: BP 125/86; PULSE 60; RESP 16; TEMP 97.9
== END 2018-01-17 18:18 | disposition home or self-care (01) ==
LOC: EC 15:46
DX: K29.70 Gastritis, unspecified, without bleeding (principal); R74.8 Abnormal levels of other serum enzymes; F31.9 Bipolar disorder, unspecified; F41.9 Anxiety disorder, unspecified; Z90.49 Acquired absence of other specified parts of digestive tract; Z98.890 Other specified postprocedural states; Z79.899 Other long term (current) drug therapy
CPT/HCPCS: 36415; 80053; 83690; 85025; 81001; 99284; 96374; S0119; C9113

== ENCOUNTER 2018-05-14 05:04 | Emergency (ER) | payer BC, OTHER ==
[2018-05-14 05:10] VITALS: BP 125/70; PULSE 71; RESP 20; TEMP 97.9
[2018-05-14] MEDS ORDERED: predniSONE 20 MG TAB PO STA (05:41)
[2018-05-14] MEDS ORDERED: diphenhydrAMINE 50 MG CAP PO STA (05:42)
--- NOTE | 2018-05-14 05:45 | ED ---
Skin/Abscess/FB HPI - General Chief complaint: Skin/Abscess/Foreign Body Stated complaint: Rash Time Seen by Provider: 05/14/18 05:17 Source: patient, family Mode of arrival: ambulatory - History of Present Illness Initial comments: This patient is 57-year-old man who presents with complaint of severe itching to the left forearm. To some extent the right forearm is also affected but the left is worse right. 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 Symptoms have been going on for number days now. Patient has not had any other symptoms. MD complaint: rash -: days(s) Tetanus Up to Date: yes Location: LUE, RUE Severity: severe Quality: other (Itching) Consistency: constant Improves with: none Worsens with: none Associated symptoms: denies other symptoms - Related Data Home Medications Medication Instructions Recorded Confirmed Divalproex Sodium [Depakote ER] 1,500 mg PO HS 12/03/13 05/14/18 OLANZapine [ZyPREXA] 10 mg PO HS 12/03/13 05/14/18 LORazepam [Ativan] 1 mg PO HS PRN 05/15/14 05/14/18 Ibuprofen 800 mg PO Q6H PRN 01/17/18 05/14/18 Previous Rx's Medication Instructions Recorded Famotidine [Pepcid] 20 mg PO BID #20 tablet 01/17/18 Triamcinolone 0.5% Cream [Kenalog 1 applic TOPICAL TID #15 gm 05/14/18 0.5% Cream] predniSONE 60 mg PO DAILY #30 tab 05/14/18 Allergies Allergy/AdvReac Type Severity Reaction Status Date / Time No Known Allergies Allergy Verified 05/14/18 05:09 Review of Systems ROS Statement: Those systems with pertinent positive or pertinent negative responses have been documented in the HPI. ROS Other: All systems not noted in ROS Statement are negative. 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 Past Anesthesia/Blood Transfusion Reactions: No Reported Reaction Past Psychological History: Anxiety, Bipolar, Depression Smoking Status: Never smoker Past Alcohol Use History: Occasional Past Drug Use History: None Reported - Past Family History Mother Family Medical History: Cancer Additional Family Medical History / Comment(s): Liver and abd CA, Breast CA Father Family Medical History: Myocardial Infarction ([place]) Additional Family Medical History / Comment(s): CABG AT AGE 50 Brother(s) Family Medical History: Coronary Artery Disease (CAD) Additional Family Medical History / Comment(s): CABG AT AGE 50 General Exam General appearance: alert, in no apparent distress Head exam: Present: atraumatic, normocephalic ENT exam: Present: normal oropharynx, mucous membranes moist Respiratory exam: Present: normal lung sounds bilaterally. Absent: respiratory distress, wheezes, rales, rhonchi, stridor Cardiovascular Exam: Present: regular rate, normal rhythm, normal heart sounds. Absent: systolic murmur, diastolic murmur, rubs, gallop Skin exam: Present: warm, dry, intact, rash (Patient has contact dermatitis to the bilateral forearms, left is worse than right.) Course Vital Signs 05/14/18 05:06 Temperature 97.9 F Pulse Rate 71 Respiratory 20 Rate Blood Pressure 125/70 O2 Sat by Pulse 96 Oximetry Medical Decision Making - Medical Decision Making Patient's 57-year-old man with contact dermatitis to the bilateral forearms. We discussed reducing his exposure, and he will wear long sleeve shirt at work. Also will give a dose of oral steroids here to reduce his symptoms and then change to topical. Discussed further care and follow-up. Disposition Clinical Impression: Contact dermatitis Disposition: HOME SELF-CARE Condition: Good Instructions (If sedation given, give patient instructions): Contact Dermatitis (ED) Prescriptions: predniSONE 60 mg PO DAILY #30 tab Triamcinolone 0.5% Cream [Kenalog 0.5% Cream] 1 applic TOPICAL TID #15 gm Is patient prescribed a controlled substance at d/c from ED?: No Referrals: Cristofer Kirkland MD [Primary Care Provider] - 1-2 days
== END 2018-05-14 05:51 | disposition home or self-care (01) ==
LOC: EC 05:04
DX: L25.9 Unspecified contact dermatitis, unspecified cause (principal); G47.30 Sleep apnea, unspecified; F31.9 Bipolar disorder, unspecified; Z95.818 Presence of other cardiac implants and grafts; Z79.899 Other long term (current) drug therapy
CPT/HCPCS: 99282; J7512

== ENCOUNTER 2018-11-06 01:11 | Emergency (ER) | payer OTHER ==
--- NOTE | 2018-11-06 02:48 | ED ---
Abdominal Pain HPI - General Chief Complaint: Abdominal Pain Stated Complaint: Nausea Time Seen by Provider: 11/06/18 02:26 Source: patient, RN notes reviewed, old records reviewed Mode of arrival: ambulatory Limitations: no limitations - History of Present Illness Initial Comments: This is a 38-year-old male the ER for evaluation. Patient bowel pain and distention with nausea inability to vomiting. Patient has history of hiatal hernia repair, states it to be tonight and that upset his stomach, symptoms of been episodic but progressively worsened tonight. No fevers. No change in bowel movements. MD Complaint: abdominal pain -: hour(s) Location: epigastric Radiation: epigastric Migration to: epigastric Severity: mild Severity scale (1-10): 3 Quality: aching Consistency: constant Improves With: nothing Worsens With: nothing Associated Symptoms: nausea - Related Data Home Medications Medication Instructions Recorded Confirmed Divalproex Sodium [Depakote ER] 1,500 mg PO HS 12/03/13 05/14/18 OLANZapine [ZyPREXA] 10 mg PO HS 12/03/13 05/14/18 LORazepam [Ativan] 1 mg PO HS PRN 05/15/14 05/14/18 Ibuprofen 800 mg PO Q6H PRN 01/17/18 05/14/18 Previous Rx's Medication Instructions Recorded Famotidine [Pepcid] 20 mg PO BID #20 tablet 01/17/18 Triamcinolone 0.5% Cream [Kenalog 1 applic TOPICAL TID #15 gm 05/14/18 0.5% Cream] predniSONE 60 mg PO DAILY #30 tab 05/14/18 Allergies Allergy/AdvReac Type Severity Reaction Status Date / Time No Known Allergies Allergy Verified 11/06/18 01:23 Review of Systems ROS Statement: Those systems with pertinent positive or pertinent negative responses have been documented in the HPI. ROS Other: All systems not noted in ROS Statement are negative. 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 Past Anesthesia/Blood Transfusion Reactions: No Reported Reaction Past Psychological History: Anxiety, Bipolar, Depression Smoking Status: Never smoker Past Alcohol Use History: Occasional Past Drug Use History: None Reported - Past Family History Mother Family Medical History: Cancer Additional Family Medical History / Comment(s): Liver and abd CA, Breast CA Father Family Medical History: Myocardial Infarction ([place]) Additional Family Medical History / Comment(s): CABG AT AGE 50 Brother(s) Family Medical History: Coronary Artery Disease (CAD) Additional Family Medical History / Comment(s): CABG AT AGE 50 General Exam - General Exam Comments Initial Comments: No tenderness Limitations: no limitations General appearance: alert, in no apparent distress Head exam: Present: atraumatic, normocephalic, normal inspection Eye exam: Present: normal appearance, PERRL, EOMI. Absent: scleral icterus, conjunctival injection, periorbital swelling ENT exam: Present: normal exam, mucous membranes moist Neck exam: Present: normal inspection. Absent: tenderness, meningismus, lymphadenopathy Respiratory exam: Present: normal lung sounds bilaterally. Absent: respiratory distress, wheezes, rales, rhonchi, stridor Cardiovascular Exam: Present: regular rate, normal rhythm, normal heart sounds. Absent: systolic murmur, diastolic murmur, rubs, gallop, clicks GI/Abdominal exam: Present: soft, normal bowel sounds. Absent: distended, tenderness, guarding, rebound, rigid Extremities exam: Present: normal inspection, full ROM, normal capillary refill. Absent: tenderness, pedal edema, joint swelling, calf tenderness Back exam: Present: normal inspection Neurological exam: Present: alert, oriented X3, CN II-XII intact Psychiatric exam: Present: normal affect, normal mood Skin exam: Present: warm, dry, intact, normal color. Absent: rash Course Vital Signs 11/06/18 11/06/18 01:21 04:47 Temperature 98 F 98.2 F Pulse Rate 67 70 Respiratory 18 19 Rate Blood Pressure 155/96 148/95 O2 Sat by Pulse 95 98 Oximetry Medical Decision Making - Medical Decision Making 38 male the ER for evaluation of bowel pain. History of bowel pain in surgery secondary to hiatal hernia. He believes is having is acting up. X-rays negative. Symptoms are improved and patient can be discharged home - Radiology Data Radiology results: report reviewed (XR abdominal series is negative for acute disease), image reviewed Disposition Clinical Impression: Abdominal pain, Nausea & vomiting Disposition: HOME SELF-CARE Condition: Good Instructions (If sedation given, give patient instructions): Acute Nausea and Vomiting (ED), Abdominal Pain (ED) Is patient prescribed a controlled substance at d/c from ED?: No Referrals: None,Stated [Primary Care Provider] - 1-2 days
[2018-11-06] MEDS ORDERED: ONDANSETRON 4 MG ODT STARTER PACK 2 TAB BTL PO STA (03:22)
[2018-11-06] MEDS ORDERED: SIMETHICONE 40 MG/0.6 ML DROPS 2,000 MG/30 ML BOTTLE PO STA (03:22)
[2018-11-06] MEDS ORDERED: ONDANSETRON ODT 4 MG TAB PO STA (03:22)
[2018-11-06] MEDS ORDERED: ACET/COD 300 MG/30 MG STARTER PACK 6 TAB BTL PO STA (04:41)
[2018-11-06 04:49] VITALS: BP 148/95; PULSE 70; RESP 19; TEMP 98.2
--- NOTE | 2018-11-06 06:26 | XR ---
INDICATION: Abdominal pain COMPARISON: Abdominal radiograph 12/23/14 FINDINGS: Upright frontal view of the chest and upright and supine frontal views of the abdomen are reviewed. The lungs are clear. The cardiac and mediastinal contours are normal. No evidence of extraluminal air under the diaphragms. The abdominal films demonstrate a nonspecific, nonobstructive bowel gas pattern. No bowel distention or air-fluid levels. There has been previous cholecystectomy. There are surgical clips projecting over the region of the gastroesophageal junction. There are phleboliths in the pelvis. Regional skeleton appears intact. IMPRESSION: Nonspecific, nonobstructive bowel gas pattern.
== END 2018-11-06 04:49 | disposition home or self-care (01) ==
LOC: EC 01:11
DX: R10.13 Epigastric pain (principal); R11.2 Nausea with vomiting, unspecified; F31.9 Bipolar disorder, unspecified; F41.9 Anxiety disorder, unspecified; Z79.899 Other long term (current) drug therapy; Z90.49 Acquired absence of other specified parts of digestive tract; Z98.890 Other specified postprocedural states
CPT/HCPCS: 74022; 99284; S0119

== ENCOUNTER 2018-12-03 18:47 | Observation (INO) | payer OTHER ==
[2018-12-03] MEDS ORDERED: ASPIRIN 81 MG PO STA (19:21)
[2018-12-03] MEDS ORDERED: NITROGLYCERIN SL TABS 0.4 MG TAB SUBLINGUAL STA (19:21)
[2018-12-03 19:30] LABS: Basophils # (A) 0.1 k/uL (0-0.2); Basophils % (A) 1 %; Eosinophils # (A) 0.2 k/uL (0-0.7); Eosinophils % (A) 3 %; HCT 48.4 % (39.0-53.0); HGB 16.6 gm/dL (13.0-17.5); Lymphocytes # (A) 2.8 k/uL (1.0-4.8); Lymphocytes % (A) 42 %; MCH 32.3 pg (25.0-35.0); MCHC 34.3 g/dL (31.0-37.0); Mean Platelet Volume 8.4; Monocytes # (A) 0.5 k/uL (0-1.0); Monocytes % (A) 7 %; Neutrophils % (A) 45 %; Platelet Count 185 k/uL (150-450); RBC 5.15 m/uL (4.30-5.90); RDW 12.6 % (11.5-15.5); WBC 6.6 k/uL (3.8-10.6)
[2018-12-03 19:39] LABS: ALT 50 U/L (21-72); AST 34 U/L (17-59); African American GFR (CKD) >90 (>60 ml/min/1.73 sqM); Albumin 4.2 g/dL (3.5-5.0); Alkaline Phosphatase 65 U/L (38-126); Anion Gap 10 mmol/L; Blood Urea Nitrogen 14 mg/dL (9-20); Calcium 8.9 mg/dL (8.4-10.2); Carbon Dioxide 21 mmol/L (22-30); Chloride 105 mmol/L (98-107); Glucose 176 mg/dL (74-99); Potassium 4.3 mmol/L (3.5-5.1); Sodium 136 mmol/L (137-145); Total Bilirubin 0.4 mg/dL (0.2-1.3); Total Protein 7.1 g/dL (6.3-8.2)
--- NOTE | 2018-12-03 19:39 | ED ---
Chest Pain HPI - General Source: patient Mode of arrival: ambulatory Limitations: no limitations <Markell Sims - Last Filed: 12/03/18 21:21> <Edyta Prado - Last Filed: 12/10/18 22:48> - General Chief Complaint: Chest Pain Stated Complaint: chest pain, heart Hx Time Seen by Provider: 12/03/18 18:59 - History of Present Illness Initial Comments: Patient is a 58-year-old male with history of hypercholesterolemia is presenting to emergency Department with a chief complaint of chest pressure. Patient reports a gradual onset of chest pressure/tightness approximately 7 hours ago that has not resolved. Patient reports he initially developed right upper extremity pain that progressed into left-sided chest discomfort. Patient also reports increased chest discomfort with full inspiration. Patient reports the pressure as increased on exertion and alleviated at rest. At time of onset patient reports diaphoresis but denies nausea or vomiting. Patient really reports lightheadedness but no dizziness. Patient reports a family history of cardiac vascular disease. Patient is not a smoker or diabetic. Patient does not take any statins for cholesterol. Patient had 2 previous cardiac catheterizations. Patient did not take any medication to alleviate the symptoms. Patient denies cough, back pain, abdominal pain. (Markell Sims) - Related Data Home Medications Medication Instructions Recorded Confirmed Divalproex Sodium [Depakote ER] 1,500 mg PO HS 12/03/13 12/03/18 OLANZapine [ZyPREXA] 10 mg PO HS 12/03/13 12/03/18 LORazepam [Ativan] 1 mg PO HS PRN 05/15/14 12/03/18 Previous Rx's Medication Instructions Recorded Aspirin 81 mg PO DAILY 30 Days #30 tab 12/04/18 Atorvastatin [Lipitor] 20 mg PO HS 30 Days #30 tab 12/04/18 Pantoprazole [Protonix] 40 mg PO AC-BID 30 Days #60 12/04/18 tablet. Allergies Allergy/AdvReac Type Severity Reaction Status Date / Time No Known Allergies Allergy Verified 12/03/18 19:51 Review of Systems ROS Other: All systems not noted in ROS Statement are negative. <Markell Sims - Last Filed: 12/03/18 21:21> ROS Other: All systems not noted in ROS Statement are negative. <Edyta Prado - Last Filed: 12/10/18 22:48> ROS Statement: Those systems with pertinent positive or pertinent negative responses have been documented in the HPI. EKG Findings - EKG Comments: EKG Findings:: Normal sinus rhythm. 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 Past Anesthesia/Blood Transfusion Reactions: No Reported Reaction Past Psychological History: Anxiety, Bipolar, Depression Smoking Status: Never smoker Past Alcohol Use History: Occasional Past Drug Use History: None Reported - Past Family History Mother Family Medical History: Cancer Additional Family Medical History / Comment(s): Liver and abd CA, Breast CA Father Family Medical History: Myocardial Infarction ([place]) Additional Family Medical History / Comment(s): CABG AT AGE 50 Brother(s) Family Medical History: Coronary Artery Disease (CAD) Additional Family Medical History / Comment(s): CABG AT AGE 50 <Markell Sims - Last Filed: 12/03/18 21:21> General Exam Limitations: no limitations General appearance: alert, in no apparent distress Head exam: Present: atraumatic, normocephalic, normal inspection Eye exam: Present: normal appearance, PERRL, EOMI. Absent: conjunctival injection Pupils: Present: normal accommodation ENT exam: Present: normal exam, normal oropharynx, mucous membranes moist, TM's normal bilaterally, normal external ear exam Neck exam: Present: normal inspection, full ROM. Absent: lymphadenopathy, thyromegaly Respiratory exam: Present: normal lung sounds bilaterally. Absent: wheezes, chest wall tenderness (Nonreproducible chest discomfort) Cardiovascular Exam: Present: regular rate, normal rhythm, normal heart sounds GI/Abdominal exam: Present: soft, normal bowel sounds. Absent: tenderness, guarding Extremities exam: Present: normal inspection, full ROM, normal capillary refill, other (+2 dorsalis pedis and posterior tibialis bilaterally. +2 ulnar radial pulses bilaterally.) Back exam: Present: normal inspection, full ROM. Absent: CVA tenderness (R), CVA tenderness (L) Neurological exam: Present: alert, oriented X3 Psychiatric exam: Present: normal affect, normal mood Skin exam: Present: warm, intact, normal color <Markell Sims - Last Filed: 12/03/18 21:21> Course Vital Signs 12/03/18 12/03/18 12/03/18 18:52 18:55 19:55 Temperature 97.8 F Pulse Rate 70 66 73 Pulse Rate [ 69 Manugrapher ] Respiratory 18 18 18 Rate Blood Pressure 138/88 121/76 119/66 O2 Sat by Pulse 97 95 Oximetry 12/03/18 12/04/18 23:00 03:00 Temperature 98.1 F Pulse Rate 68 61 Pulse Rate [ Manugrapher ] Respiratory 18 18 Rate Blood Pressure 116/80 128/81 O2 Sat by Pulse 98 98 Oximetry Chest Pain [facility] [place] - Differential Diagnosis ACS - Wells Criteria Clinical Symptoms of DVT: (0) No No Alternative Diagnosis: (0) No Immobilization of Surgery in Previous 4 Weeks: (0) No Previous DVT/PE: (0) No Hemoptysis: (0) No Malignancy: (0) No <Markell Sims - Last Filed: 12/03/18 21:21> <Edyta Prado - Last Filed: 12/10/18 22:48> - [facility] [place] Patient is a 58-year-old male with history of hypercholesterolemia is presenting to emergency Department with a chief complaint of chest tightness. Patient has developed chest tightness, dullness at noon. Patient reports that discomfort is exertional but nonreproducible with palpation. Patient denies syncope, nausea or vomiting.EKG performed and is indicative of normal sinus rhythm. CBC, CMP and troponins are unremarkable. Chest x-ray is unremarkable. Patient has a hard score 5. Patient will be admitted for serial troponins. Patient does not have a primary care. Patient is not treated for hypercholesterolemia. Patient also has a family history of cardiovascular disease. Case was discussed with Dr. Prado. Admitting physician is Dr Forbes. Cardiology consulted. (Markell Sims) I was available for consultation in the emergency department. The history and physical exam were done by the midlevel provider. I was consulted for this patient's care. I reviewed the case midlevel provider and based on their presentation of the patient, I agree with the assessment, medical decision making and plan of care as documented. I evaluated the patient myself and agreed with overnight admission. I called and discussed the case with Dr. Thomas who did accept admission of the patient. We will consult cardiology. Chart was dictated using [employer] software. Attempts were made to correct any dictation errors however some typographical errors may persist. (Edyta Prado) Disposition Is patient prescribed a controlled substance at d/c from ED?: No Time of Disposition: 21:25 <Markell Sims - Last Filed: 12/03/18 21:21> <Edyta Prado - Last Filed: 12/10/18 22:48> Clinical Impression: Chest pain Disposition: ADMITTED IP TO THIS HOSP Condition: Good
[2018-12-03 19:40] LABS: INR 0.9 (<1.2); Partial Thromboplastin Time 25.7 sec (22.0-30.0); Prothrombin Time 10.1 sec (9.0-12.0)
--- NOTE | 2018-12-03 20:22 | XR ---
EXAMINATION TYPE: XR chest 2V DATE OF EXAM: 12/03/2018 COMPARISON: November 09, 2017 HISTORY: Chest pain TECHNIQUE: Frontal and lateral views of the chest are obtained. FINDINGS: Heart and mediastinum are normal. Lungs are clear. Diaphragm is normal. Bony thorax appear s normal. There are chest leads. IMPRESSION: Normal chest. No change.
[2018-12-03] MEDS ORDERED: MORPHINE SULFATE 4 MG/ML SYRINGE IV PRN (21:06)
[2018-12-03] MEDS ORDERED: HYDROmorphone 0.5 MG/0.5 ML SYRINGE IVP PRN (21:06)
[2018-12-03] MEDS ORDERED: IBUPROFEN 400 MG TAB PO PRN (21:06)
[2018-12-03] MEDS ORDERED: ACETAMINOPHEN TAB 325 MG TAB PO PRN (21:06)
[2018-12-03] MEDS ORDERED: ONDANSETRON 4 MG/2 ML VIAL IVP PRN (21:06)
[2018-12-03] MEDS ORDERED: NALOXONE 0.4 MG/ML 1 ML VIAL IV PRN (21:06)
--- NOTE | 2018-12-03 23:13 | P.HPIM ---
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 He experienced some chest discomfort that started today after his big lunch. He tried to rest at home he initially experienced chest pressure left-sided nonradiating rated at 7 out of 10 in severity however with rest started to go down to 4 he decided to go to work at 4 PM however while doing his job he started feeling short of breath sweaty requiring fans and lightheaded he denies any nausea or vomiting. Reports that the pain was around 4-7 described it as pressure-like left-sided nonradiating gets worse with his activity at work and improves a little bit with rest patient for which decided to come to the hospital for evaluation worried that he's having heart attack. Patient had a negative stress test that was done 1 year ago. He denies taking any aspirin or statin at home. At our facility his EKG was unremarkable, vital signs were stable, labs were unremarkable. Review of Systems Pertinent positives as noted in HPI. 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 Past Anesthesia/Blood Transfusion Reactions: No Reported Reaction Past Psychological History: Anxiety, Bipolar, Depression Smoking Status: Never smoker Past Alcohol Use History: Occasional Past Drug Use History: None Reported - Past Family History Mother Family Medical History: Cancer Additional Family Medical History / Comment(s): Liver and abd CA, Breast CA Father Family Medical History: Myocardial Infarction ([place]) Additional Family Medical History / Comment(s): CABG AT AGE 50 Brother(s) Family Medical History: Coronary Artery Disease (CAD) Additional Family Medical History / Comment(s): CABG AT AGE 50 Medications and Allergies Home Medications Medication Instructions Recorded Confirmed Type Divalproex Sodium [Depakote ER] 1,500 mg PO HS 12/03/13 12/03/18 History OLANZapine [ZyPREXA] 10 mg PO HS 12/03/13 12/03/18 History LORazepam [Ativan] 1 mg PO HS PRN 05/15/14 12/03/18 History Allergies Allergy/AdvReac Type Severity Reaction Status Date / Time No Known Allergies Allergy Verified 12/03/18 19:51 Physical Exam Vitals: Vital Signs Temp Pulse Pulse Resp BP Pulse Ox 12/03/18 19:55 73 18 119/66 95 12/03/18 18:55 66 69 18 121/76 12/03/18 18:52 97.8 F 70 18 138/88 97 Intake and Output 12/03/18 12/03/18 12/03/18 06:59 14:59 22:59 Other: Weight 113.398 kg Constitutional: No acute distress, conversant, pleasant Eyes: Anicteric sclerae, moist conjunctiva, no lid-lag Pupils equal round reactive to light ENMT: NC/AT Oropharynx clear, no erythema, or exudates Neck: Supple, FROM, no masses, or JVD No carotid bruits No thyromegaly Lungs: Clear to auscultation Clear to percussion Normal respiratory effort, no accessory muscle use Cardiovascular: Heart regular in rate and rhythm, No murmurs, gallops, or rubs No peripheral edema Abdominal: Soft Nontender, no guarding, rebound or rigidity Abdomen moving with respiration Normoactive bowel sounds No hepatomegaly, No splenomegaly No palpable mass No abdominal wall hernia noted Skin: Normal temperature, tone, texture, turgor No induration No subcutaneous nodules No rash, lesions No ulcers Extremities: No digital cyanosis No clubbing Pedal pulses intact and symmetrical Radial pulses intact and symmetrical No calf tenderness Psychiatric: Alert and oriented to person, place and time Appropriate affect fair judgment Neuro Muscles Strength 5/5 in all 4 extremities Sensation to light touch grossly present throughout Cranial nerves II-XII grossly intact No focal sensory deficits Lymphatics: no palpable cervical or supraclavicular , or inguinal lymph nodes Results CBC & Chem 7: 12/03/18 19:10 12/03/18 19:10 Labs: Abnormal Lab Results - Last 24 Hours (Table) 12/03/18 Range/Units 19:10 Sodium 136 L (137-145) mmol/L Carbon Dioxide 21 L (22-30) mmol/L Glucose 176 H (74-99) mg/dL Assessment and Plan Assessment: 58-year-old male with history of hyperlipidemia not on statin patient doesn't take any aspirin at home patient admitted under observation with anticipated length of stay less than 48 hours due to chest pain rule out acute coronary syndrome. Plan: Chest pain rule out acute coronary syndrome Hyperlipidemia Obesity Plan cafeteria monitor Trend cardiac enzymes Cardiology evaluation Aspirin and statin DVT prophylaxis heparin subcu 3 times a day Preformed a thorough record review from recent hospitalization one year ago patient had stress test done and was negative CODE STATUS full code Discussed with: Patient, ER, RN Anticipated discharge: Less than [address]: Home A total of 60 minutes was spent on the care of this complex patient more than 50% of the time was spent in counseling and care coordination.
[2018-12-03] MEDS ORDERED: ATORVASTATIN 20 MG TAB PO SCH (23:15)
[2018-12-04] MEDS ORDERED: PANTOPRAZOLE 40 MG TABLET PO SCH (08:45)
[2018-12-04] MEDS ORDERED: ASPIRIN 325 MG TAB PO SCH (09:00)
[2018-12-04 09:13] VITALS: RESP 17
[2018-12-04 09:44] VITALS: BMI 35.9
[2018-12-04 10:00] LABS: Cholesterol 193 mg/dL (<200); HDL Cholesterol 43 mg/dL (40-60); LDL Cholesterol,Calculated 103 mg/dL (0-99); Triglycerides 233 mg/dL (<150)
--- NOTE | 2018-12-04 10:31 | P.PN ---
Subjective Progress Note Date: 12/04/18 Patient reports that he is feeling better as the he is being laying in bed for the past 14 hours and there is no such feeling of tightness in the chest, diaphoresis, dizziness or lightheadedness. Patient admits to drinking 4-6 L of caffeinated diet Pepsi on a daily basis and he stated that this could be the reason of his symptoms but reported that this never happened in the past so that prompted him to come to the emergency Department for further evaluation and workup. Patient stated that he has been seen by the nurse practitioner working with the peripatologist but no recommendation were given yet. Nurses report no other issues with him. Patient troponins 2 negative third set is pending. Patient's significant other was updated per his verbal consent. Objective - Vital Signs Vital signs: Vital Signs Temp 98.1 F 12/04/18 08:25 Pulse 67 12/04/18 08:25 Resp 17 12/04/18 08:25 BP 143/78 12/04/18 09:13 Pulse Ox 98 12/04/18 08:25 Intake & Output 12/03/18 12/04/18 12/04/18 18:59 06:59 18:59 Weight 113.398 kg Other: Voiding Method Toilet # Voids 1 - Constitutional General appearance: Present: cooperative, no acute distress - EENT Eyes: Present: EOMI, normal appearance ENT: Present: hearing grossly normal, NA/AT - Neck Neck: Present: normal ROM. Absent: lymphadenopathy, rigidity, stridor, thyromegaly - Respiratory Respiratory: bilateral: CTA, negative: rales, rhonchi, wheezing - Cardiovascular Rhythm: regular Heart sounds: normal: S1, S2 Abnormal Heart Sounds: Absent: systolic murmur, diastolic murmur, S3 Gallop, S4 Gallop - Gastrointestinal General gastrointestinal: Present: normal bowel sounds, soft. Absent: distended, rigid, tenderness - Integumentary Integumentary: Present: normal, normal turgor. Absent: cellulitis, rash, ulcer - Neurologic Neurologic: Present: CNII-XII intact. Absent: focal deficits - Psychiatric Psychiatric: Present: A&O x's 3, appropriate affect, intact judgment & insight - Allied health notes Allied health notes reviewed: nursing - Labs CBC & Chem 7: 12/03/18 19:10 12/03/18 19:10 Labs: Abnormal Lab Results - Last 24 Hours (Table) 12/03/18 12/04/18 Range/Units 19:10 09:00 Sodium 136 L (137-145) mmol/L Carbon Dioxide 21 L (22-30) mmol/L Glucose 176 H (74-99) mg/dL Triglycerides 233 H (<150) mg/dL LDL Cholesterol, Calc 103 H (0-99) mg/dL Assessment and Plan (1) Chest pain Current Visit: Yes Status: Acute Priority: High Code(s): R07.9 - CHEST PAIN, UNSPECIFIED SNOMED Code(s): 07566773 (2) Hyperlipidemia Current Visit: Yes Status: Acute Priority: Medium Code(s): E78.5 - HYPERLIPIDEMIA, UNSPECIFIED SNOMED Code(s): 80047772 (3) Obesity Current Visit: Yes Status: Acute Priority: Medium Code(s): E66.9 - O BESITY, UNSPECIFIED SNOMED Code(s): 219789288 Plan: Patient's third set of troponin will be checked today and there we will wait for cardiology recommendations. I'll the patient can have inpatient workup versus outpatient workup (more appropriate). Patient was counseled in detail regarding avoiding caffeinated products and switching/transitioning from caffeinated soft drinks to decaffeinated once. Patient verbalizes understanding and will try to switch after discharge. Time with Patient: Less than 30
[2018-12-04] MEDS: HEPARIN SODIUM,PORCINE 5,000 UNIT/ML 1 ML VIAL SQ SCH ×2 (10:59→11:46)
[2018-12-04 13:09] VITALS: BP 161/68; PULSE 69; TEMP 98.2
--- NOTE | 2018-12-04 13:14 | P.CRDCN ---
History of Present Illness History of present illness: This is a pleasant 58-year-old male past medical history significant for dyslipidemia, obstructive sleep apnea, hiatal hernia status post repair. We have been asked to see him in consultation secondary to chest discomfort. He states he just underwent a heart catheterization at [facility] that was negative for obstructive disease. He states yesterday while at work he felt a heavy pressure sensation in the left precordial region that radiated across his chest to his right arm. This pain occurred about proximally 30 minutes after eating a baked potato. No specific aggravating or alleviating factor. He continues to have chest pressure at the time of my exam. He also states that during the course of this he felt light headed like he was going to pass out. He is seen and examined sitting up in bed in no acute distress. EKG reveals sinus mechanism with no acute ST or T-wave abnormalities. Chest x-ray is negative for an acute cardiopulmonary process. Laboratory data reviewed, CBC unremarkable, sodium 136, potassium 4.3, creatinine 0.89, magnesium 2.0, cardiac enzymes negative 3, LDL 103, HDL 43. He takes no daily cardiac medications. Most recent echocardiogram obtained November 2017 reveals preserved LV systolic function with ejection fraction 55%. At the time of my exam: CONSTITUTIONAL: Denies fever. Denies chills. EYES: Denies blurred vision. Denies vision changes. Denies eye pain. EARS, NOSE, MOUTH & THROAT: Denies headache. Denies sore throat. Denies ear pain. CARDIOVASCULAR: Denies chest pain. Denies shortness of breath. Denies orthopnea. Denies PND. Denies palpitations. RESPIRATORY: Denies cough. GASTROINTESTINAL: Denies abdominal pain. Denies diarrhea. Denies constipation. Denies nausea. Denies vomiting. MUSCULOSKELETAL: Denies myalgias. INTEGUMENTARY: Denies pruitis. Denies rash. NEUROLOGIC: Denies numbness. Denies tingling. Denies weakness. PSYCHIATRIC: Denies anxiety. Denies depression. ENDOCRINE: Denies fatigue. Denies weight change. Denies polydipsia. Denies polyurina. GENITOURINARY: Denies burning, hematuria or urgency with micturation. HEMATOLOGIC: Denies history of anemia. Denies bleeding. Blood pressure 152/81 heart rate 67 afebrile maintaining oxygen saturation on room air GENERAL: This is a 58-year-old male in no apparent distress at the time of my examination. Obese. HEENT: Head is atraumatic, normocephalic. Pupils are equal, round. Sclerae anicteric. Conjunctivae are clear. Mucous membranes of the mouth are moist. Neck is supple. There is no jugular venous distention. No carotid bruit is heard. LUNGS: Clear to auscultation no wheezes, rales or rhonchi. No chest wall tenderness is noted on palpation or with deep breathing. HEART: Regular rate and rhythm without murmurs, rubs or gallops. S1 and S2 heard. ABDOMEN: Soft, nontender. Bowel sounds are heard. No organomegaly noted. EXTREMITIES: No evidence of peripheral edema and no calf tenderness noted. VASCULAR: Radial and dorsalis pedis pulses palpated, no evidence of clubbing. NEUROLOGIC: Patient is awake, alert and oriented x3. ASSESSMENT Chest pain, atypical. An acute coronary event has been ruled out. PLAN An acute coronary event has been ruled out. Check for orthostatic changes. Obtain report of recent cardiac catheterization. Symptoms suggestive of possible esophageal spasm and gastroesophageal reflux disease. Give Protonix 40 mg twice a day. Increase activity and ambulation in the halls and assess for exertional chest discomfort. If he has no exertional chest discomfort he may be discharged home on Protonix. Thank you kindly for this consultation. Nurse Practitioner note has been reviewed, I agree with a documented findings and plan of care. Patient was seen and examined. 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 Past Anesthesia/Blood Transfusion Reactions: No Reported Reaction Past Psychological History: Anxiety, Bipolar, Depression Smoking Status: Never smoker Past Alcohol Use History: Occasional Past Drug Use History: None Reported - Past Family History Mother Family Medical History: Cancer Additional Family Medical History / Comment(s): Liver and abd CA, Breast CA Father Family Medical History: Myocardial Infarction ([place]) Additional Family Medical History / Comment(s): CABG AT AGE 50 Brother(s) Family Medical History: Coronary Artery Disease (CAD) Additional Family Medical History / Comment(s): CABG AT AGE 50 Medications and Allergies Home Medications Medication Instructions Recorded Confirmed Type Divalproex Sodium [Depakote ER] 1,500 mg PO HS 12/03/13 12/03/18 History OLANZapine [ZyPREXA] 10 mg PO HS 12/03/13 12/03/18 History LORazepam [Ativan] 1 mg PO HS PRN 05/15/14 12/03/18 History Allergies Allergy/AdvReac Type Severity Reaction Status Date / Time No Known Allergies Allergy Verified 12/03/18 19:51 Physical Exam Vitals: Vital Signs Temp Pulse Pulse Resp BP Pulse Ox 12/04/18 03:00 98.1 F 61 18 128/81 98 12/03/18 23:00 68 18 116/80 98 12/03/18 19:55 73 18 119/66 95 12/03/18 18:55 66 69 18 121/76 12/03/18 18:52 97.8 F 70 18 138/88 97 Intake and Output 12/03/18 12/04/18 12/04/18 22:59 06:59 14:59 Other: Weight 113.398 kg Results 12/03/18 19:10 12/03/18 19:10 Cardiac Enzymes 12/03/18 12/03/18 12/04/18 Range/Units 19:10 19:10 00:58 AST 34 (17-59) U/L Troponin I <0.012 <0.012 (0.000-0.034) ng/mL Coagulation 12/03/18 Range/Units 19:10 PT 10.1 (9.0-12.0) sec APTT 25.7 (22.0-30.0) sec CBC 12/03/18 Range/Units 19:10 WBC 6.6 (3.8-10.6) k/uL RBC 5.15 (4.30-5.90) m/uL Hgb 16.6 (13.0-17.5) gm/dL Hct 48.4 (39.0-53.0) % Plt Count 185 (150-450) k/uL Comprehensive Metabolic Panel 12/03/18 Range/Units 19:10 Sodium 136 L (137-145) mmol/L Potassium 4.3 (3.5-5.1) mmol/L Chloride 105 (98-107) mmol/L Carbon Dioxide 21 L (22-30) mmol/L BUN 14 (9-20) mg/dL Creatinine 0.89 (0.66-1.25) mg/dL Glucose 176 H (74-99) mg/dL Calcium 8.9 (8.4-10.2) mg/dL AST 34 (17-59) U/L ALT 50 (21-72) U/L Alkaline Phosphatase 65 (38-126) U/L Total Protein 7.1 (6.3-8.2) g/dL Albumin 4.2 (3.5-5.0) g/dL Current Medications Generic Name Dose Route Start Last Admin Trade Name Freq PRN Reason Stop Dose Admin Acetaminophen 650 mg 12/03/18 21:06 Tylenol Tab PO Q6HR PRN Mild Pain or Fever > 100.5 Aspirin 325 mg 12/04/18 09:00 Aspirin PO DAILY JOSE Atorvastatin Calcium 20 mg 12/03/18 23:15 12/03/18 23:54 Lipitor PO 20 mg HS JOSE Administration Heparin Sodium (Porcine) 5,000 unit 12/04/18 00:00 Heparin SQ Q8HR JOSE Hydromorphone HCl 0.5 mg 12/03/18 21:06 Dilaudid IVP Q3HR PRN Moderate Pain Ibuprofen 400 mg 12/03/18 21:06 Motrin PO Q6HR PRN Mild Pain or Fever > 100.5 Morphine Sulfate 4 mg 12/03/18 21:06 Morphine Sulfate (Inj) IV Q4HR PRN Severe Pain Naloxone HCl 0.2 mg 12/03/18 21:06 Narcan IV Q2M PRN Opioid Reversal Ondansetron HCl 4 mg 12/03/18 21:06 Zofran IVP Q8HR PRN Nausea And Vomiting Intake and Output 12/03/18 12/04/18 12/04/18 22:59 06:59 14:59 Other: Weight 113.398 kg 12/03/18 19:10 12/03/18 19:10
--- NOTE | 2018-12-04 15:22 | P.DS ---
Providers Date of admission: 12/03/18 21:22 Expected date of discharge: 12/04/18 Attending physician: Rico Hidalgo MD Consults: 12/03/18 21:06 Consult Physician Stat Consulting Provider: Gerda Beasley Consult Reason/Comments: Chest pain Do you want consulting provider notified?: Yes Primary care physician: Stated None - Discharge Diagnosis(es) (1) Chest pain Current Visit: Yes Status: Acute Priority: High (2) Hyperlipidemia Current Visit: Yes Status: Acute Priority: Medium (3) Obesity Current Visit: Yes Status: Acute Priority: Medium Hospital Course: Patient was admitted to the hospital under observation status to rule out acute chronic syndrome which was ruled out. He was also referred to cardiology service for further evaluation and management of his atypical chest pain and his presyncopal symptoms. Patient clinically improves significantly with the rest and hydration and was seen by cardiology services who recommended to have patient ambulate in the hallways and if no recurrent symptoms are reported and patient can be discharged home. Recommendation was that this could be esophageal spasms from high caffeine intake in the form of pop that he consumes at least 4-6 lit/day. Patient will be started on proton pump inhibitor for dose for one month and then depending upon his symptoms will be addressed by the PCP. Patient was counseled regarding how to taper himself off caffeinated soft drinks to decaffeinated once and then to slowly take him off all carbonated soft drinks. Patient verbalizes understanding and we'll try to get himself off caffeinated soft drinks after discharge. Patient was also started on low-dose statin which will be continued at discharge and which will need to be further evaluated by the PCP for continuation thereafter. Pertinent Studies: None Procedures: None Patient Condition at Discharge: Good Plan - Discharge Summary Discharge Rx Participant: No New Discharge Prescriptions: New Aspirin 81 mg PO DAILY 30 Days #30 tab Atorvastatin [Lipitor] 20 mg PO HS 30 Days #30 tab Pantoprazole [Protonix] 40 mg PO AC-BID 30 Days #60 tablet. Continue Divalproex Sodium [Depakote ER] 1,500 mg PO HS OLANZapine [ZyPREXA] 10 mg PO HS LORazepam [Ativan] 1 mg PO HS PRN PRN Reason: Anxiety Discharge Medication List Divalproex Sodium [Depakote ER] 1,500 mg PO HS 12/03/13 [History] OLANZapine [ZyPREXA] 10 mg PO HS 12/03/13 [History] LORazepam [Ativan] 1 mg PO HS PRN 05/15/14 [History] Aspirin 81 mg PO DAILY 30 Days #30 tab 12/04/18 [Rx] Atorvastatin [Lipitor] 20 mg PO HS 30 Days #30 tab 12/04/18 [Rx] Pantoprazole [Protonix] 40 mg PO AC-BID 30 Days #60 tablet. 12/04/18 [Rx] Follow up Appointment(s)/Referral(s): None,Stated [Primary Care Provider] - 1-2 days Patient Instructions/Handouts: Chest Pain (ED) Activity/Diet/Wound Care/Special Instructions: Resume usual activities as tolerated.
== END 2018-12-04 16:10 ==
LOC: EC 18:47 → 1SOBS 21:22
PROVIDERS: ADMIT Internal Medicine; ATTEND Internal Medicine
DX: R07.89 Other chest pain (principal); R07.2 Precordial pain; M79.601 Pain in right arm; R55 Syncope and collapse; R61 Generalized hyperhidrosis; R42 Dizziness and giddiness; E78.5 Hyperlipidemia, unspecified; E78.00 Pure hypercholesterolemia, unspecified; F31.9 Bipolar disorder, unspecified; F41.9 Anxiety disorder, unspecified; G47.33 Obstructive sleep apnea (adult) (pediatric); Z79.899 Other long term (current) drug therapy; E66.9 Obesity, unspecified; Z68.35 Body mass index [BMI] 35.0-35.9, adult; Z80.3 Family history of malignant neoplasm of breast; Z82.49 Family history of ischemic heart disease and other diseases of the circulatory system; Z80.0 Family history of malignant neoplasm of digestive organs
CPT/HCPCS: 96372; 99285; 36415; 93005; 80061; 80053; 83735; 84484 ×2; 85025; 85610; 85730; 71046; G0378 ×2; J1644

== ENCOUNTER 2019-03-17 20:44 | Emergency (ER) | payer OTHER ==
[2019-03-17 20:51] VITALS: BP 147/85; PULSE 72; RESP 22; TEMP 98.4
--- NOTE | 2019-03-17 21:13 | ED ---
General Adult HPI - General Chief complaint: Upper Respiratory Infection Stated complaint: cold Time Seen by Provider: 03/17/19 20:54 Source: patient, family Mode of arrival: ambulatory Limitations: no limitations - History of Present Illness Initial comments: Patient is a 58-year-old male presenting to emergency Department with a chief complaint of sinus congestion and cough. Patient reports his symptoms have been ongoing for a little over a week. He reports maxillary sinus pressure with an occasional frontal pressure and states he has a left-sided headache especially with pressure behind his left eye. Patient also reports occasional epistaxis especially after attempting to blow his nose multiple times. Patient does report yellow drainage. Patient has cough with no sputum production. Denies smoking COPD or asthma. Denies taking medication. No wheezing, shortness of breath, or chest pain. - Related Data Home Medications Medication Instructions Recorded Confirmed Divalproex Sodium [Depakote ER] 1,500 mg PO HS 12/03/13 12/03/18 OLANZapine [ZyPREXA] 10 mg PO HS 12/03/13 12/03/18 LORazepam [Ativan] 1 mg PO HS PRN 05/15/14 12/03/18 Previous Rx's Medication Instructions Recorded Aspirin 81 mg PO DAILY 30 Days #30 tab 12/04/18 Atorvastatin [Lipitor] 20 mg PO HS 30 Days #30 tab 12/04/18 Pantoprazole [Protonix] 40 mg PO AC-BID 30 Days #60 12/04/18 tablet. Amoxicillin/Potassium Clav 1 tab PO Q12HR #20 tab 03/17/19 [Augmentin 875-125 Tablet] Amoxicillin/Potassium Clav 1 tab PO Q12HR #20 tab 03/17/19 [Augmentin 875-125 Tablet] Amoxicillin/Potassium Clav 1 tab PO Q12HR #20 tab 03/17/19 [Augmentin 875-125 Tablet] Allergies Allergy/AdvReac Type Severity Reaction Status Date / Time No Known Allergies Allergy Verified 03/17/19 20:51 Review of Systems ROS Statement: Those systems with pertinent positive or pertinent negative responses have been documented in the HPI. ROS Other: All systems not noted in ROS Statement are negative. 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 Past Anesthesia/Blood Transfusion Reactions: No Reported Reaction Past Psychological History: Anxiety, Bipolar, Depression Smoking Status: Never smoker Past Alcohol Use History: Occasional Past Drug Use History: None Reported - Past Family History Mother Family Medical History: Cancer Additional Family Medical History / Comment(s): Liver and abd CA, Breast CA Father Family Medical History: Myocardial Infarction ([place]) Additional Family Medical History / Comment(s): CABG AT AGE 50 Brother(s) Family Medical History: Coronary Artery Disease (CAD) Additional Family Medical History / Comment(s): CABG AT AGE 50 General Exam Limitations: no limitations General appearance: alert, in no apparent distress Head exam: Present: atraumatic, normocephalic, normal inspection Eye exam: Present: normal appearance Pupils: Present: normal accommodation ENT exam: Present: normal exam, normal oropharynx (Yellow drainage from her nose), mucous membranes moist, TM's normal bilaterally, normal external ear exam Neck exam: Present: normal inspection, full ROM. Absent: tenderness, lymphadenopathy Respiratory exam: Present: normal lung sounds bilaterally. Absent: respiratory distress, wheezes, rales Cardiovascular Exam: Present: regular rate, normal rhythm, normal heart sounds Extremities exam: Present: normal inspection, full ROM Back exam: Present: normal inspection, full ROM Neurological exam: Present: alert, oriented X3 Psychiatric exam: Present: normal affect, normal mood Skin exam: Present: warm, dry, intact, normal color Course Vital Signs 03/17/19 20:48 Temperature 98.4 F Pulse Rate 72 Respiratory 22 Rate Blood Pressure 147/85 O2 Sat by Pulse 97 Oximetry Medical Decision Making - Medical Decision Making Patient is a 58-year-old male presenting to the emergency room with chief complaint of sinus congestion and cough. Exam patient does have moderate maxillary sinus tenderness and only mild frontal sinus tenderness. He does have yellow nasal discharge. No signs of epistaxis at this time. Rest of physical examination is unremarkable. I suspect epistaxis to be secondary to the repetitive blowing of the nose. Chest x-rays unremarkable. I suspect the patient has a sinus infection. Patient will be treated with Augmentin. Strict return parameters were discussed the patient was understanding and agreeable. Case discussed with physician. Disposition Clinical Impression: Sinusitis, acute maxillary Disposition: HOME SELF-CARE Condition: Stable Instructions (If sedation given, give patient instructions): Sinusitis (ED) Additional Instructions: Please take prescribed medication as directed. Please follow with primary care. Please return to emergency department if symptoms worsen. Prescriptions: Amoxicillin/Potassium Clav [Augmentin 875-125 Tablet] 1 tab PO Q12HR #20 tab Amoxicillin/Potassium Clav [Augmentin 875-125 Tablet] 1 tab PO Q12HR #20 tab Amoxicillin/Potassium Clav [Augmentin 875-125 Tablet] 1 tab PO Q12HR #20 tab Is patient prescribed a controlled substance at d/c from ED?: No Referrals: None,Stated [Primary Care Provider] - 1-2 days Time of Disposition: 21:54
--- NOTE | 2019-03-17 21:27 | XR ---
EXAMINATION TYPE: XR chest 2V DATE OF EXAM: 03/17/2019 COMPARISON: NONE HISTORY: Cough TECHNIQUE: Frontal and lateral views of the chest are obtained. FINDINGS: There is no focal air space opacity, pleural effusion, or pneumothorax seen. The cardiac silhouette size is within normal limits. The osseous structures are intact. Gaseous distention of s tomach. Right upper quadrant clips likely from prior cholecystectomy. IMPRESSION: No acute cardiopulmonary process.
[2019-03-17] MEDS ORDERED: AMOXIC-POT CLAV 875MG STARTER 2 EACH TABLET PO STA (21:52)
== END 2019-03-17 22:00 | disposition home or self-care (01) ==
LOC: EC 20:44
DX: J01.00 Acute maxillary sinusitis, unspecified (principal); F31.9 Bipolar disorder, unspecified; F41.9 Anxiety disorder, unspecified; Z79.899 Other long term (current) drug therapy
CPT/HCPCS: 71046; 99283

== ENCOUNTER 2019-04-12 12:55 | Emergency (ER) | payer OTHER ==
[2019-04-12 13:24] VITALS: BP 112/72; PULSE 67; RESP 18; TEMP 97.8
--- NOTE | 2019-04-12 15:38 | ED ---
Lower Extremity Injury HPI - General Chief Complaint: Extremity Injury, Lower Stated Complaint: L buttox muscle pain Source: patient Mode of arrival: wheelchair Limitations: no limitations - History of Present Illness Initial Comments: 58-year-old male presents today for chief complaint of left mid buttock pain that shoots down the posterior leg. Patient states this morning woke up with left posterior buttock pain that radiates down his leg sharp burning sensation. Patient denies any low back pain direct trauma or injury. Patient denies fever denies IV drug use history of osteoporosis chronic steroid use or cancer. Patient denies loss of bowel bladder control urinary retention loss of sensation or weakness of the lower extremities patient states he is able to ambulate. Patient denies experiencing this in the past. Patient denies a change to the skin denies any areas of redness. Remaining review of systems negative upon arrival patient is ambulatory appears well, but uncomfortable with specific positions. - Related Data Home Medications Medication Instructions Recorded Confirmed Divalproex Sodium [Depakote ER] 1,500 mg PO HS 12/03/13 12/03/18 OLANZapine [ZyPREXA] 10 mg PO HS 12/03/13 12/03/18 LORazepam [Ativan] 1 mg PO HS PRN 05/15/14 12/03/18 Previous Rx's Medication Instructions Recorded Aspirin 81 mg PO DAILY 30 Days #30 tab 12/04/18 Atorvastatin [Lipitor] 20 mg PO HS 30 Days #30 tab 12/04/18 Pantoprazole [Protonix] 40 mg PO AC-BID 30 Days #60 12/04/18 tablet. Amoxicillin/Potassium Clav 1 tab PO Q12HR #20 tab 03/17/19 [Augmentin 875-125 Tablet] Amoxicillin/Potassium Clav 1 tab PO Q12HR #20 tab 03/17/19 [Augmentin 875-125 Tablet] Amoxicillin/Potassium Clav 1 tab PO Q12HR #20 tab 03/17/19 [Augmentin 875-125 Tablet] predniSONE 50 mg PO DAILY 4 Days #4 tab 04/12/19 Allergies Allergy/AdvReac Type Severity Reaction Status Date / Time No Known Allergies Allergy Verified 04/12/19 13:20 Review of Systems ROS Statement: Those systems with pertinent positive or pertinent negative responses have been documented in the HPI. ROS Other: All systems not noted in ROS Statement are negative. 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 Past Anesthesia/Blood Transfusion Reactions: No Reported Reaction Past Psychological History: Anxiety, Bipolar, Depression Smoking Status: Never smoker Past Alcohol Use History: Occasional Past Drug Use History: None Reported - Past Family History Mother Family Medical History: Cancer Additional Family Medical History / Comment(s): Liver and abd CA, Breast CA Father Family Medical History: Myocardial Infarction ([place]) Additional Family Medical History / Comment(s): CABG AT AGE 50 Brother(s) Family Medical History: Coronary Artery Disease (CAD) Additional Family Medical History / Comment(s): CABG AT AGE 50 General Exam - General Exam Comments Initial Comments: General: The patient is awake and alert, in no distress, and does not appear acutely ill. Eye: Pupils are equal, round and reactive to light, extra-ocular movements are intact. No nystagmus. There is normal conjunctiva bilaterally. No signs of icterus. Cardiovascular: There is a regular rate and rhythm. No murmur, rub or gallop is appreciated. Respiratory: Lungs are clear to auscultation, respirations are non-labored, breath sounds are equal. No wheezes, stridor, rales, or rhonchi. Gastrointestinal: Soft, non-distended, non-tender abdomen without masses or organomegaly noted. T Musculoskeletal: Normal inspection lumbar spine no midline or paravertebral tenderness to patient of the thoracic or lumbar spine. Normal inspection of the buttock bilaterally no skin changes. Patient is tender to palpation of the center of the buttock. He states it causes shooting pain down the leg. Normal ROM of the LE b/l, pain with flexion/extension of the hip of the left leg. Strength 5/5. Sensation intact of the LE including the saddle region. DP and posterior tibial pulses equal bilaterally 2+. Neurological: A&O x 3. CN II-XII intact, There are no obvious motor or sensory deficits. Coordination appears grossly intact. Speech is normal. Skin: Skin is warm and dry and no rashes or lesions are noted. No LE edema/swelling. Psychiatric: Cooperative, appropriate mood & affect, normal judgment. Limitations: no limitations Course Vital Signs 04/12/19 13:22 Temperature 97.8 F Pulse Rate 67 Respiratory 18 Rate Blood Pressure 112/72 O2 Sat by Pulse 96 Oximetry Medical Decision Making - Medical Decision Making 58-year-old male presenting today for chief complaint of left buttock pain. History appears consistent status, versus piriformis syndrome. There is no skin abnormalities noted on skin or neurovascular examination proximal and distal to complaint. Patient is able to ambulate-patient given medications in ER. PResription of prednisone patient is to begin tomorrow, i discussed risk of taking nsaids and steroids, and encouraged patient to avoid this and take tylenol instead. Patient verbalized understanding and is agreeable to outpatient PCP f/u and return parameters as discussed. Discussed case attending provider who is agreeable care plan at discharge at this time. Disposition Clinical Impression: Sciatica, Left buttock pain Disposition: HOME SELF-CARE Condition: Good Instructions (If sedation given, give patient instructions): Sciatica (ED), Piriformis Syndrome (ED) Additional Instructions: Please use medication as discussed. Please follow-up with family doctor in the next 2 days. Please return to emergency room if the symptoms increase or worsen or for any other concerns. Prescriptions: predniSONE 50 mg PO DAILY 4 Days #4 tab Is patient prescribed a controlled substance at d/c from ED?: No Referrals: None,Stated [Primary Care Provider] - 1-2 days Time of Disposition: 15:38
[2019-04-12] MEDS ORDERED: ACET/COD 300 MG/30 MG STARTER PACK 6 TAB BTL PO STA (15:39)
== END 2019-04-12 16:36 | disposition home or self-care (01) ==
LOC: EC 12:55
DX: M54.32 Sciatica, left side (principal); F31.9 Bipolar disorder, unspecified; Z79.899 Other long term (current) drug therapy
CPT/HCPCS: 99283

== ENCOUNTER 2019-06-04 20:14 | Inpatient (IN) | payer OTHER ==
--- NOTE | 2019-06-04 20:49 | ED ---
Psych HPI - General Chief Complaint: Psychiatric Symptoms Stated Complaint: suicidal thoughts Time Seen by Provider: 06/04/19 20:27 Source: patient, police, RN notes reviewed, old records reviewed Mode of arrival: ambulatory - History of Present Illness Initial Comments: Is a 59-year-old male DF for evaluation patient with us today for evaluation regarding psychiatric illness feels depressed feels that he wants to take an overdose and kill himself. He states increased stress family members at home. No recent drug or alcohol abuse MD Complaint: suicidal ideation, feels depressed -: days(s) Associated Psychiatric Symptoms: depression History of same: No Quality: constant Improves With: none Worsens With: medication Context: not taking psychiatric medications Associated Symptoms: denies other symptoms Treatments Prior to Arrival: placed on mental health hold If Self Harm: admits thoughts of self harm - Related Data Home Medications Medication Instructions Recorded Confirmed Divalproex Sodium [Depakote ER] 1,500 mg PO HS 12/03/13 06/05/19 OLANZapine [ZyPREXA] 10 mg PO HS 12/03/13 06/05/19 LORazepam [Ativan] 1 mg PO HS 05/15/14 06/05/19 Allergies Allergy/AdvReac Type Severity Reaction Status Date / Time No Known Allergies Allergy Verified 06/05/19 04:28 Review of Systems ROS Statement: Those systems with pertinent positive or pertinent negative responses have been documented in the HPI. ROS Other: All systems not noted in ROS Statement are negative. 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 Past Anesthesia/Blood Transfusion Reactions: No Reported Reaction Past Psychological History: Anxiety, Bipolar, Depression Smoking Status: Never smoker Past Alcohol Use History: Occasional Past Drug Use History: Marijuana - Past Family History Mother Family Medical History: Cancer Additional Family Medical History / Comment(s): Liver and abd CA, Breast CA Father Family Medical History: Myocardial Infarction ([place]) Additional Family Medical History / Comment(s): CABG AT AGE 50 Brother(s) Family Medical History: Coronary Artery Disease (CAD) Additional Family Medical History / Comment(s): CABG AT AGE 50 General Exam Limitations: no limitations General appearance: alert, in no apparent distress Head exam: Present: atraumatic, normocephalic, normal inspection Eye exam: Present: normal appearance, PERRL, EOMI. Absent: scleral icterus, conjunctival injection, periorbital swelling ENT exam: Present: normal exam, mucous membranes moist Neck exam: Present: normal inspection. Absent: tenderness, meningismus, lymphadenopathy Respiratory exam: Present: normal lung sounds bilaterally. Absent: respiratory distress, wheezes, rales, rhonchi, stridor Cardiovascular Exam: Present: regular rate, normal rhythm, normal heart sounds. Absent: systolic murmur, diastolic murmur, rubs, gallop, clicks GI/Abdominal exam: Present: soft, normal bowel sounds. Absent: distended, tenderness, guarding, rebound, rigid Extremities exam: Present: normal inspection, full ROM, normal capillary refill. Absent: tenderness, pedal edema, joint swelling, calf tenderness Back exam: Present: normal inspection Neurological exam: Present: alert, oriented X3, CN II-XII intact Psychiatric exam: Present: normal affect, normal mood Skin exam: Present: warm, dry, intact, normal color. Absent: rash Course Vital Signs 06/04/19 20:19 Temperature 98.4 F Pulse Rate 75 Respiratory 18 Rate Blood Pressure 185/87 O2 Sat by Pulse 97 Oximetry - Reevaluation(s) Reevaluation #1: Medical records reviewed Patient made medically clear for psychiatric evaluation Medical Decision Making - Medical Decision Making 59 male to the ER for evaluation patient seen and evaluated psychiatry deemed needed inpatient hospitalization. Patient will admit for psychiatric evaluation and treatment - Lab Data Result diagrams: 06/06/19 07:42 06/06/19 07:42 Lab Results 06/04/19 Range/Units 20:30 Urine Opiates Screen Not Detected (NotDetected) Ur Oxycodone Screen Not Detected (NotDetected) Urine Methadone Screen Not Detected (NotDetected) Ur Propoxyphene Screen Not Detected (NotDetected) Ur Barbiturates Screen Not Detected (NotDetected) U Tricyclic Antidepress Not Detected (NotDetected) Ur Phencyclidine Scrn Not Detected (NotDetected) Ur Amphetamines Screen Not Detected (NotDetected) U Methamphetamines Scrn Not Detected (NotDetected) U Benzodiazepines Scrn Not Detected (NotDetected) Urine Cocaine Screen Not Detected (NotDetected) U Marijuana (THC) Screen Not Detected (NotDetected) Disposition Clinical Impression: Depression, Suicidal ideation Disposition: TRANSFER TO PSYCH HOSP/UNIT Condition: Fair Is patient prescribed a controlled substance at d/c from ED?: No
[2019-06-04 20:55] LABS: Amphetamine Screen,Urine Not Detected (NotDetected); Barbiturate Screen,Urine Not Detected (NotDetected); Benzodiazepines Screen,Urine Not Detected (NotDetected); Cocaine Screen,Urine Not Detected (NotDetected); Methadone Screen, Urine Not Detected (NotDetected); Opiate Screen,Urine Not Detected (NotDetected); Oxycodone Screen, Urine Not Detected (NotDetected); Phencyclidine Screen,Urine Not Detected (NotDetected); Tricyclic Antidepressant,Urine Not Detected (NotDetected); Urn Cannabinoid Scrn Not Detected (NotDetected)
[2019-06-05] MEDS ORDERED: ACETAMINOPHEN TAB 325 MG TAB PO PRN (01:01)
[2019-06-05] MEDS ORDERED: MAG HYDROX/AL HYDROX/SIMETH 30 ML CUP PO PRN (01:01)
[2019-06-05] MEDS ORDERED: MAGNESIUM HYDROXIDE 2,400 MG/10 ML CUP PO PRN (01:01)
[2019-06-05] MEDS ORDERED: LORazepam 2 MG/ML INJ IM PRN (01:04)
[2019-06-05] MEDS: LORazepam 1 MG TAB PO PRN (02:27)
[2019-06-05] MEDS ORDERED: ZIPRASIDONE 20 MG VIAL IM PRN (12:24)
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
[2019-06-05] MEDS: lamoTRIgine 25 MG TAB PO SCH ×2 (12:53→21:54)
[2019-06-05] MEDS ORDERED: DIVALPROEX ER 500 MG TAB.ER.24H PO SCH (21:00)
[2019-06-05 21:32] LABS: Hemoglobin A1C 4.7 % (4.0-6.0)
[2019-06-05] MEDS: OLANZapine 10 MG TAB PO SCH (21:54)
[2019-06-06 09:03] LABS: ALT 36 U/L (4-49); AST 29 U/L (17-59); African American GFR (CKD) >90 (>60 ml/min/1.73 sqM); Albumin 3.8 g/dL (3.5-5.0); Alkaline Phosphatase 56 U/L (38-126); Anion Gap 6 mmol/L; Blood Urea Nitrogen 16 mg/dL (9-20); Carbon Dioxide 26 mmol/L (22-30); Chloride 106 mmol/L (98-107); Cholesterol 187 mg/dL (<200); Glucose 96 mg/dL (74-99); HDL Cholesterol 46 mg/dL (40-60); LDL Cholesterol,Calculated 106 mg/dL (0-99); Non-African American GFR(CKD) >90 (>60 ml/min/1.73 sqM); Potassium 4.2 mmol/L (3.5-5.1); Sodium 138 mmol/L (137-145); Total Bilirubin 0.6 mg/dL (0.2-1.3); Total Protein 6.7 g/dL (6.3-8.2); Triglycerides 173 mg/dL (<150)
[2019-06-06 09:06] LABS: Basophils # (A) 0.1 k/uL (0-0.2); Basophils % (A) 1 %; Eosinophils # (A) 0.4 k/uL (0-0.7); Eosinophils % (A) 5 %; HCT 45.3 % (39.0-53.0); HGB 15.5 gm/dL (13.0-17.5); Lymphocytes # (A) 3.8 k/uL (1.0-4.8); Lymphocytes % (A) 48 %; MCH 32.1 pg (25.0-35.0); MCHC 34.2 g/dL (31.0-37.0); Mean Platelet Volume 8.7; Monocytes # (A) 0.4 k/uL (0-1.0); Monocytes % (A) 5 %; Neutrophils % (A) 38 %; Platelet Count 191 k/uL (150-450); RBC 4.82 m/uL (4.30-5.90); RDW 12.2 % (11.5-15.5); WBC 7.9 k/uL (3.8-10.6)
[2019-06-06] MEDS: lamoTRIgine 25 MG TAB PO SCH (09:10)
--- NOTE | 2019-06-06 11:08 | P.PN ---
Progress Note - Text Progress Note Date: 06/06/19 Interval History: Patient was seen wandering the hallway near the nurse's desk and was directable and agreeable to be corrected in the office. He states that he slept better last night and appears to be less tearful this morning. He spoke cheerfully about his coming to visit him last night and claims that most of his family is missing him and he feels bad about what has happened. Patient states that he feels his mood has been gradually improving and claims that "I can think clearer about what happened" and states that his mind doesn't feel as foggy anymore. Patient claims that he has been trying to go to groups and work on his coping skills. He admits to fair energy during the day and good appetite. At this time patient denies any suicidal or homical ideations, intent or plan. Patient denies any auditory, visual hallucinations and denies any paranoia or delusions. Patient denies any side effects from the medications and has been compliant with meds. Patient denies any rash at this time. Mental Status Exam: General Appearance: Patient appears to be stated age is alert, well-built, and attempts to cooperate. Improving hygiene. Behavior: Patient is calmly seated without any agitated behavior. Less irritable today. Speech: Patient's speech is fluent and nonpressured. Mood/Affect: Mood is improving mildly, affect is congruent and less tearful. Suicidality/Homicidality: Patient denies having any suicidal or homicidal ideation intent or plan. Perceptions: Patient denies any visual hallucinations and denies any auditory hallucinations Though content/process: There is no evidence of any delusional thought content and thought process is linear and goal-directed. Memory and concentration: AOX3, grossly intact for the purposes of this session Judgment and insight: Improving mildly. Assessment Bipolar disorder, currently depressed. Plan: -Patient continues to meet criteria for inpatient psychiatric admission for symptom stabilization and safety. Patient has signed adult voluntary form and medication consent and was placed in patient's chart. -Medications: Continue with Zyprexa 10 mg daily at bedtime for mood stabilization/irritability. Will increase Lamictal to 50 mg daily +25 mg daily at bedtime for mood stabilization/depression. At this time patient denies any rash on his skin and is continuing to monitor it. -When necessary Ativan and Geodon for agitation/aggression. -NRT -not need this patient does not smoke -SW on board for discharge planning. Encourage patient to participate in groups to work on coping skills. We'll likely discharge home early next week.
--- NOTE | 2019-06-06 12:06 | P.CONS ---
History of Present Illness - Reason for Consult Consult date: 06/05/19 - History of Present Illness The patient is a 59 yo M with a PMH of HLD (noncompliant with medications) who presented to the ED due to depression and suicidal ideation. The patient reported that he had been having difficulty with his social life with his relationship with his and daughter's boyfriend. He had noted that he had gotten into many arguments and had been feeling down about himself. He was seen and evaluated in the mental health unit on 06/05. He denied any additional complaints. He denied chest pain, shortness breath, nausea, vomiting, fever, or chills. Patient had an an extensive evaluation in the emergency room with laboratory evaluation showed a WBC count of 7.9, hemoglobin 15.5, platelets 191, sodium 138, potassium 4.2, BUN 16, creatinine 0.89, A1c 4.7, and LDL 106. Review of Systems Pertinent positives and negatives as discussed in HPI, a complete review of sys tems was performed and all other systems are negative. 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 He is independent. Smoking Status: Never smoker Past Alcohol Use History: Occasional Past Drug Use History: Marijuana Additional Drug Use History / Comment(s): Pt states he did participate in illegal drugs over 25 yrs ago-none since. - Past Family History Mother Family Medical History: Cancer Additional Family Medical History / Comment(s): Liver and abd CA, Breast CA Father Family Medical History: Myocardial Infarction ([place]) Additional Family Medical History / Comment(s): CABG AT AGE 50 Brother(s) Family Medical History: Coronary Artery Disease (CAD) Additional Family Medical History / Comment(s): CABG AT AGE 50 Medications and Allergies Home Medications Medication Instructions Recorded Confirmed Type Divalproex Sodium [Depakote ER] 1,500 mg PO HS 12/03/13 06/05/19 History OLANZapine [ZyPREXA] 10 mg PO HS 12/03/13 06/05/19 History LORazepam [Ativan] 1 mg PO HS 05/15/14 06/05/19 History Allergies Allergy/AdvReac Type Severity Reaction Status Date / Time No Known Allergies Allergy Verified 06/05/19 04:28 Physical Exam Vitals: Vital Signs Temp Pulse Pulse Resp BP BP Pulse Ox 06/05/19 01:52 98.0 F 72 16 150/97 97 06/04/19 20:19 98.4 F 75 18 185/87 97 Intake and Output 06/05/19 06/05/19 06/05/19 06:59 14:59 22:59 Other: Weight 104.44 kg General: non toxic, no distress, appears at stated age, obese Derm: no unusual rashes/lesions no unusual ecchymoses, warm, dry Head: atraumatic, normocephalic, symmetric Eyes: EOMI, no lid lag, anicteric sclera, pupils equal round reactive to light ENT: Nose and ears atraumatic, no thrush, no pharyngeal erythema Neck: No thyromegaly, no cervical lymphadenopathy, trachea midline, supple Mouth: no lip lesion, mucus membranes moist Cardiovascular: S1S2 reg, no murmur, positive posterior tibial pulse bilateral, no edema, capillary refill less than 2 seconds Lungs: CTA bilateral, no rhonchi, no rales , no accessory muscle use Abdominal: soft, nontender to palpation, no guarding, no appreciable organomegaly, normal bowel sounds Ext: no gross muscle atrophy, muscle strength 5 out of 5 in all 4 extremities grossly, no contractures, Neuro: CN II-XI grossly intact, light touch intact all 4 extremities, finger to nose within normal limits, Psych: Alert, oriented, appropriate affect Results CBC & Chem 7: 06/06/19 07:42 06/06/19 07:42 Assessment and Plan Plan: Depression and suicidal ideation -As per psychiatry HLD -Borderline LDL -Recommended f/u with PMD upon discharge Obesity -Advised on importance of lifestyle modifications Thank you for allowing us to participate in the care of this patient. We will follow peripherally. Do not hesitate to contact us with questions. Someone can be reached from the [facility] hospitalist group at all hours of the day at [phone].
[2019-06-06] MEDS ORDERED: lamoTRIgine 25 MG TAB PO SCH (21:00)
[2019-06-06] MEDS: OLANZapine 10 MG TAB PO SCH (22:03)
[2019-06-07] MEDS: LORazepam 1 MG TAB PO PRN (08:36)
--- NOTE | 2019-06-07 08:42 | XR ---
EXAMINATION TYPE: XR chest 1V portable DATE OF EXAM: 06/07/2019 COMPARISON: 03/17/2019 HISTORY: Chest pain and pressure. Shortness of breath. TECHNIQUE: Single frontal view of the chest is obtained. FINDINGS: There are low lung volumes exaggerating the pulmonary vasculature. There is no focal air sp alla opacity, pleural effusion, or pneumothorax seen. The cardiac silhouette size is within normal li mits. The osseous structures are intact. IMPRESSION: Hypoventilatory lungs. No acute process.
[2019-06-07 09:16] LABS: ALT 44 U/L (4-49); AST 34 U/L (17-59); African American GFR (CKD) >90 (>60 ml/min/1.73 sqM); Albumin 4.6 g/dL (3.5-5.0); Alkaline Phosphatase 68 U/L (38-126); Anion Gap 10 mmol/L; Blood Urea Nitrogen 15 mg/dL (9-20); Calcium 9.6 mg/dL (8.4-10.2); Carbon Dioxide 24 mmol/L (22-30); Chloride 105 mmol/L (98-107); Glucose 111 mg/dL (74-99); Non-African American GFR(CKD) >90 (>60 ml/min/1.73 sqM); Potassium 4.1 mmol/L (3.5-5.1); Sodium 139 mmol/L (137-145); Total Bilirubin 0.8 mg/dL (0.2-1.3); Total Protein 7.8 g/dL (6.3-8.2)
[2019-06-07] MEDS ORDERED: MELATONIN 3 MG TABLET PO PRN (10:27)
--- NOTE | 2019-06-07 10:32 | P.PN ---
Progress Note - Text Progress Note Date: 06/07/19 Interval History: Patient was seen laying in bed this morning and was directable and agreeable to speak with literary writer in the office. Patient appeared to be somewhat lethargic this morning and states that he just took an Ativan 2 hours ago due to anxiety. He states that he woke up early this morning and felt really "off" and described having abdominal pain and feeling nauseous. Chest x-ray and EKG were completed along with troponins at that time. He states that he did not sleep well last nig ht and states that "something was off with my CPAP" And states that it was not working well last night. He claims that yesterday was a much better day for him and also states that he missed breakfast this morning due to feeling tired. Patient was more future oriented this morning. Patient states that he feels his mood has been gradually improving. Patient claims that he has been trying to go to groups and work on his coping skills. He admits to fair energy during the day and good appetite. At this time patient denies any suicidal or homical ideations, intent or plan. Patient denies any auditory, visual hallucinations and denies any paranoia or delusions. Patient denies any side effects from the medications and has been compliant with meds. Patient denies any rash at this time. Mental Status Exam: General Appearance: Patient appears to be stated age is alert, well-built, and attempts to cooperate. Improving hygiene. Fair eye contact. Behavior: Patient is calmly seated without any agitated behavior. Lethargic. Speech: Patient's speech is fluent and nonpressured. Mood/Affect: Mood is improving mildly, affect is congruent Suicidality/Homicidality: Patient denies having any suicidal or homicidal ideation intent or plan. Perceptions: Patient denies any visual hallucinations and denies any auditory hallucinations Though content/process: There is no evidence of any delusional thought content and thought process is linear and goal-directed. [place]. Memory and concentration: AOX3, grossly intact for the purposes of this session Judgment and insight: Improving mildly. Assessment Bipolar disorder, currently depressed. Plan: -Patient continues to meet criteria for inpatient psychiatric admission for symptom stabilization and safety. Patient has signed adult voluntary form and medication consent and was placed in patient's chart. -Medications: Continue with Zyprexa 10 mg daily at bedtime for mood stabilization/irritability. Will continue with Lamictal to 50 mg daily +25 mg daily at bedtime for mood stabilization/depression for today and tomorrow the dose is ordered to be increased to 50 mg twice a day. At this time patient denies any rash on his skin and is continuing to monitor it. -When necessary Ativan and Geodon for agitation/aggression. -Chest x-ray appears to be negative on 06/07, vital signs reviewed. Will review ECG and awaiting troponins. -NRT -not need this patient does not smoke -SW on board for discharge planning. Encourage patient to participate in groups to work on coping skills. We'll likely discharge home early next week.
[2019-06-07] MEDS: lamoTRIgine 25 MG TAB PO SCH (10:55)
[2019-06-07] MEDS ORDERED: lamoTRIgine 25 MG TAB PO SCH (21:00)
[2019-06-07] MEDS: OLANZapine 10 MG TAB PO SCH (21:16)
[2019-06-08] MEDS: lamoTRIgine 25 MG TAB PO SCH ×2 (09:25→21:17)
--- NOTE | 2019-06-08 10:35 | P.PN ---
Progress Note - Text Progress Note Date: 06/08/19 Interval history: Patient is seen in cross coverage today. He reports that he slept well last night. He describes his mood is doing much better. He does describe some tiredness, does not seem to describe any other possible psychotropic medication side effects at this point in time. He talks about having visiting with his connor. Mental status exam: He is alert and cooperative with the interview. His speech is fluent, not rapid or pressured. His mood is improved. His affect shows range. He denies any thoughts of harm to self or others. He denies any bothersome/paranoid thoughts. He denies any hallucinations. Plan: Patient will be maintained on current psychotropic medication regimen. We'll continue to monitor his ongoing response to treatment on monitor for any medication side effects.
[2019-06-08] MEDS: OLANZapine 10 MG TAB PO SCH (21:17)
[2019-06-09 00:57] VITALS: RESP 16
[2019-06-09] MEDS: LORazepam 1 MG TAB PO PRN ×2 (02:05→20:04)
[2019-06-09] MEDS: lamoTRIgine 25 MG TAB PO SCH ×2 (08:57→20:03)
--- NOTE | 2019-06-09 10:54 | P.PN ---
Progress Note - Text Progress Note Date: 06/09/19 Interval history: Patient is seen in [facility] today again. He says he didn't fall asleep until about 4:30 last night. He does describe feeling tired, also received a when necessary Ativan it sounds. He does describe having a runny nose, at home he typically takes a Benadryl which helps. We discussed concern about adding another medication which can cause sedation. I did discuss Plumas nasal spray with him which he refuses at this time, relays that it doesn't help him. He does feel like he'll be ready for discharge tomorrow. He did have a visit with his last night. Mental status exam: He is cooperative with the interview. He does describe feeling tired. He describes his mood is overall improved. He does not verbalize any thoughts of harm to self or others. No evidence of psychosis or agitation. Plan: Patient be maintained on current psychotropic medication regimen. Continue to monitor for any medication side effects and monitor his ongoing response to treatment.
[2019-06-09] MEDS: OLANZapine 10 MG TAB PO SCH (20:02)
[2019-06-10 07:12] VITALS: BP 133/85; PULSE 69; TEMP 97.5
[2019-06-10] MEDS: lamoTRIgine 25 MG TAB PO SCH (08:44)
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
== END 2019-06-10 13:11 | disposition home or self-care (01) | DRG 885 ==
LOC: EC 20:14 → 3MHU 06-05 00:50
PROVIDERS: ADMIT Psychiatry & Neurology Psychiatry; ATTEND Psychiatry & Neurology Psychiatry
DX: F31.30 Bipolar disorder, current episode depressed, mild or moderate severity, unspecified (principal); R45.851 Suicidal ideations; R45.850 Homicidal ideations; E78.5 Hyperlipidemia, unspecified; F41.9 Anxiety disorder, unspecified; G47.33 Obstructive sleep apnea (adult) (pediatric); M62.838 Other muscle spasm; E66.9 Obesity, unspecified; Z68.34 Body mass index [BMI] 34.0-34.9, adult; Z91.14 Patient's other noncompliance with medication regimen; Z79.899 Other long term (current) drug therapy; Z90.49 Acquired absence of other specified parts of digestive tract; Z82.49 Family history of ischemic heart disease and other diseases of the circulatory system; Z80.3 Family history of malignant neoplasm of breast; Z80.0 Family history of malignant neoplasm of digestive organs; Z80.8 Family history of malignant neoplasm of other organs or systems
CPT/HCPCS: 71045; 80053; 80061; 80164; 80306; 82075; 83036; 84443; 84484; 85025; 99285

== ENCOUNTER → 2019-07-29 | Outpatient (CLI) | payer OTHER ==
[2019-07-29 09:26] LABS: Basophils % (A) 1 %; Eosinophils # (A) 0.4 k/uL (0-0.7); Eosinophils % (A) 6 %; HCT 48.8 % (39.0-53.0); HGB 16.6 gm/dL (13.0-17.5); Lymphocytes # (A) 2.4 k/uL (1.0-4.8); Lymphocytes % (A) 37 %; MCH 32.1 pg (25.0-35.0); MCHC 34.1 g/dL (31.0-37.0); MCV 94.2 fL (80.0-100.0); Mean Platelet Volume 8.4; Monocytes # (A) 0.5 k/uL (0-1.0); Monocytes % (A) 8 %; Neutrophils % (A) 46 %; Platelet Count 184 k/uL (150-450); RBC 5.18 m/uL (4.30-5.90); RDW 12.9 % (11.5-15.5); WBC 6.4 k/uL (3.8-10.6)
[2019-07-29 15:33] LABS: African American GFR (CKD) 108.7 (60.0-200.0); Albumin 4.2 g/dL (3.80-4.90); Albumin/Globulin Ratio 1.91 (1.60-3.17); Anion Gap 10.4 mmol/L (4.00-12.00); BUN/Creat Ratio 12.22 Ratio (12.00-20.00); Carbon Dioxide 25.6 mmol/L (21.6-31.8); Chol/HDL Ratio 4.39; Globulin 2.2 g/dL (1.6-3.3); LDL Cholesterol,Calculated 113.2 mg/dL (0.0-131.0); Non-African American GFR(CKD) 93.8 (60.0-200.0); Potassium 4.6 mmol/L (3.5-5.5); Total Bilirubin 0.3 mg/dL (0.2-1.2); Total Protein 6.4 g/dL (6.2-8.2); VLDL Calculation 52.8 mg/dL (5.00-40.00)
[2019-07-29 22:13] LABS: Hemoglobin A1C 5.3 % (4.0-6.0)
== END | disposition home or self-care (01) ==
LOC: LABWHC1 08:45
PROVIDERS: ATTEND Psychiatry & Neurology Psychiatry
DX: Z51.81 Encounter for therapeutic drug level monitoring (principal); Z79.899 Other long term (current) drug therapy
CPT/HCPCS: 36415; 80053; 80061; 80156; 80299; 83036; 84439; 84443; 85025

== ENCOUNTER 2019-09-19 19:37 | Emergency (ER) | payer OTHER ==
[2019-09-19] MEDS ORDERED: MECLIZINE 12.5 MG TAB PO STA (20:20)
--- NOTE | 2019-09-19 20:35 | ED ---
Dizziness HPI - General Chief Complaint: Dizziness Stated Complaint: Dizziness Time Seen by Provider: 09/19/19 20:01 Source: patient Mode of arrival: ambulatory Limitations: no limitations - History of Present Illness Initial Comments: Patient is a 59-year-old male presenting to the emergency Department with complaints of dizziness is intermittent for the past 2-3 days. Patient states he had the same similar episodes approximately 6 months ago and then they went away. Patient denies any trauma or falls. He states he feels some mild sinus pressure and pressure behind his eyes and then he has an episode of lightheadedness. Patient states these episodes last for approximately 20 seconds. He states it is a different feeling than "if you stand up too fast." It is not brought in by turning head to quickly, but rather changing positions. He denies any headaches, changes in vision, chest pain, shortness of breath. He denies any recent illness, congestion, cough. He denies any recent fever, chills, nausea, vomiting. He has no further complaints at this time. - Related Data Previous Rx's Medication Instructions Recorded Melatonin 3 mg PO HS PRN tablet 06/10/19 OLANZapine [ZyPREXA] 10 mg PO HS 28 Days tab 06/10/19 lamoTRIgine [LaMICtal] 100 mg PO DAILY 28 Days tab 06/10/19 Allergies Allergy/AdvReac Type Severity Reaction Status Date / Time No Known Allergies Allergy Verified 09/19/19 20:00 Review of Systems ROS Statement: Those systems with pertinent positive or pertinent negative responses have been documented in the HPI. ROS Other: All systems not noted in ROS Statement are negative. 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 Past Anesthesia/Blood Transfusion Reactions: No Reported Reaction Past Psychological History: Anxiety, Bipolar, Depression Smoking Status: Never smoker Past Alcohol Use History: Occasional Past Drug Use History: None Reported - Past Family History Mother Family Medical History: Cancer Additional Family Medical History / Comment(s): Liver and abd CA, Breast CA Father Family Medical History: Myocardial Infarction (DC) Additional Family Medical History / Comment(s): CABG AT AGE 50 Brother(s) Family Medical History: Coronary Artery Disease (CAD) Additional Family Medical History / Comment(s): CABG AT AGE 50 General Exam - General Exam Comments Initial Comments: GENERAL: Well-appearing, well-nourished and in no acute distress. HEAD: Atraumatic, normocephalic. EYES: Pupils equal round and reactive to light, extraocular movements intact, sclera anicteric, conjunctiva are normal. ENT: TMs normal, nares patent, oropharynx clear without exudates. Moist mucous membranes. NECK: Normal range of motion, supple without lymphadenopathy or JVD. LUNGS: Breath sounds clear to auscultation bilaterally and equal. No wheezes rales or rhonchi. HEART: Regular rate and rhythm without murmurs, rubs or gallops. ABDOMEN: Soft, nontender, normoactive bowel sounds. No guarding, no rebound. No masses appreciated. : Deferred EXTREMITIES: Normal range of motion, no pitting or edema. No clubbing or cyanosis. Strength is 5 out of 5 upper and lower extremities. NEUROLOGICAL: Cranial nerves II through XII grossly intact. Normal speech, normal gait. PSYCH: Normal mood, normal affect. SKIN: Warm, Dry, normal turgor, no rashes or lesions noted. Limitations: no limitations Course Vital Signs 09/19/19 09/19/19 09/19/19 19:57 20:37 21:49 Temperature 98.1 F 98.4 F Pulse Rate 72 69 69 Respiratory 18 17 17 Rate Blood Pressure 161/103 134/104 148/95 O2 Sat by Pulse 96 95 97 Oximetry EKG Findings - EKG Comments: EKG Findings:: EKG shows normal sinus rhythm, incomplete RBBB, no signs of acute ischemia. Similar to previous EKG on 06/07/2019. Ventricular rate 70, NE interval 204, QTC 423. Medical Decision Making - Medical Decision Making Patient is a 59-year-old male here for intermittent dizziness mostly upon changing positions. He has no other complaints. Vitals are stable here. Lab work including EKG shows no acute findings. Patient was given a dose of meclizine in the ER. He has been symptom free while in the ER. I did discuss with patient that this is may be related to vertigo. I did recommend continuing with meclizine for symptom treatment as well as trying Claritin for possible fluid in the ears. I will give patient ENT referral. Patient is agreement with this plan of care. Return parameters were discussed with the patient he verbalized understanding. Case discussed with Dr. Cornell. - Lab Data Result diagrams: 09/19/19 20:25 09/19/19 20:25 Lab Results 09/19/19 09/19/19 09/19/19 Range/Units 20:25 20:25 20:25 WBC 7.5 (3.8-10.6) k/uL RBC 5.19 (4.30-5.90) m/uL Hgb 16.5 (13.0-17.5) gm/dL Hct 49.1 (39.0-53.0) % MCV 94.7 (80.0-100.0) fL MCH 31.7 (25.0-35.0) pg MCHC 33.5 (31.0-37.0) g/dL RDW 12.6 (11.5-15.5) % Plt Count 214 (150-450) k/uL Neutrophils % 53 % Lymphocytes % 31 % Monocytes % 7 % Eosinophils % 6 % Basophils % 1 % Neutrophils # 3.9 (1.3-7.7) k/uL Lymphocytes # 2.4 (1.0-4.8) k/uL Monocytes # 0.5 (0-1.0) k/uL Eosinophils # 0.4 (0-0.7) k/uL Basophils # 0.1 (0-0.2) k/uL Sodium 138 (137-145) mmol/L Potassium 4.3 (3.5-5.1) mmol/L Chloride 109 H (98-107) mmol/L Carbon Dioxide 19 L (22-30) mmol/L Anion Gap 10 mmol/L BUN 16 (9-20) mg/dL Creatinine 0.86 (0.66-1.25) mg/dL Est GFR (CKD-EPI)AfAm >90 (>60 ml/min/1.73 sqM) Est GFR (CKD-EPI)NonAf >90 (>60 ml/min/1.73 sqM) Glucose 94 (74-99) mg/dL Calcium 9.3 (8.4-10.2) mg/dL Total Bilirubin 0.5 (0.2-1.3) mg/dL AST 38 (17-59) U/L ALT 59 H (4-49) U/L Alkaline Phosphatase 73 (38-126) U/L Troponin I <0.012 (0.000-0.034) ng/mL Total Protein 7.5 (6.3-8.2) g/dL Albumin 4.5 (3.5-5.0) g/dL Urine Color Urine Appearance (Clear) Urine pH (5.0-8.0) Ur Specific [place] (1.001-1.035) Urine Protein (Negative) Urine Glucose (UA) (Negative) Urine Ketones (Negative) Urine Blood (Negative) Urine Nitrite (Negative) Urine Bilirubin (Negative) Urine Urobilinogen (<2.0) mg/dL Ur Leukocyte Esterase (Negative) Urine RBC (0-5) /hpf Urine WBC (0-5) /hpf 09/19/19 Range/Units 20:33 WBC (3.8-10.6) k/uL RBC (4.30-5.90) m/uL Hgb (13.0-17.5) gm/dL Hct (39.0-53.0) % MCV (80.0-100.0) fL MCH (25.0-35.0) pg MCHC (31.0-37.0) g/dL RDW (11.5-15.5) % Plt Count (150-450) k/uL Neutrophils % % Lymphocytes % % Monocytes % % Eosinophils % % Basophils % % Neutrophils # (1.3-7.7) k/uL Lymphocytes # (1.0-4.8) k/uL Monocytes # (0-1.0) k/uL Eosinophils # (0-0.7) k/uL Basophils # (0-0.2) k/uL Sodium (137-145) mmol/L Potassium (3.5-5.1) mmol/L Chloride (98-107) mmol/L Carbon Dioxide (22-30) mmol/L Anion Gap mmol/L BUN (9-20) mg/dL Creatinine (0.66-1.25) mg/dL Est GFR (CKD-EPI)AfAm (>60 ml/min/1.73 sqM) Est GFR (CKD-EPI)NonAf (>60 ml/min/1.73 sqM) Glucose (74-99) mg/dL Calcium (8.4-10.2) mg/dL Total Bilirubin (0.2-1.3) mg/dL AST (17-59) U/L ALT (4-49) U/L Alkaline Phosphatase (38-126) U/L Troponin I (0.000-0.034) ng/mL Total Protein (6.3-8.2) g/dL Albumin (3.5-5.0) g/dL Urine Color Light Yellow Urine Appearance Clear (Clear) Urine pH 5.5 (5.0-8.0) Ur Specific [place] 1.013 (1.001-1.035) Urine Protein Negative (Negative) Urine Glucose (UA) Negative (Negative) Urine Ketones Negative (Negative) Urine Blood Negative (Negative) Urine Nitrite Negative (Negative) Urine Bilirubin Negative (Negative) Urine Urobilinogen <2.0 (<2.0) mg/dL Ur Leukocyte Esterase Moderate H (Negative) Urine RBC 1 (0-5) /hpf Urine WBC 1 (0-5) /hpf Disposition Clinical Impression: Dizziness, Vertigo Disposition: HOME SELF-CARE Condition: Stable Instructions (If sedation given, give patient instructions): Dizziness (ED) Additional Instructions: Please return to the Emergency Department if symptoms worsen or any other concerns. Follow-up with ENT as discussed. Trial of meclizine for symptoms. Is patient prescribed a controlled substance at d/c from ED?: No Referrals: Hayley Weaver DO [Primary Care Provider] - 1-2 days Surinder Sandoval DO [Doctor of Osteopathic Medicine] - 1-2 days
[2019-09-19 20:40] VITALS: PULSE 69; RESP 17
[2019-09-19 20:42] LABS: Basophils # (A) 0.1 k/uL (0-0.2); Basophils % (A) 1 %; Eosinophils # (A) 0.4 k/uL (0-0.7); Eosinophils % (A) 6 %; HCT 49.1 % (39.0-53.0); HGB 16.5 gm/dL (13.0-17.5); Lymphocytes # (A) 2.4 k/uL (1.0-4.8); Lymphocytes % (A) 31 %; MCH 31.7 pg (25.0-35.0); MCHC 33.5 g/dL (31.0-37.0); MCV 94.7 fL (80.0-100.0); Mean Platelet Volume 8.5; Monocytes # (A) 0.5 k/uL (0-1.0); Monocytes % (A) 7 %; Neutrophils # (A) 3.9 k/uL (1.3-7.7); Neutrophils % (A) 53 %; Platelet Count 214 k/uL (150-450); RBC 5.19 m/uL (4.30-5.90); RDW 12.6 % (11.5-15.5); WBC 7.5 k/uL (3.8-10.6)
[2019-09-19 20:46] LABS: Appearance,Urine Clear (Clear); Bilirubin,Urine Negative (Negative); Blood,Urine Negative (Negative); Color,Urine Light Yellow; Glucose,Urine (UA) Negative (Negative); Ketones,Urine Negative (Negative); Leukocyte Esterase,Urine Moderate (Negative); Nitrite,Urine Negative (Negative); PH, Urine 5.5 (5.0-8.0); Protein,Urine Negative (Negative); RBC,Urine 1 /hpf (0-5); Specific Gravity,Urine 1.013 (1.001-1.035); Urobilinogen,Urine <2.0 mg/dL (<2.0); WBC,Urine 1 /hpf (0-5)
[2019-09-19 20:50] LABS: ALT 59 U/L (4-49); AST 38 U/L (17-59); African American GFR (CKD) >90 (>60 ml/min/1.73 sqM); Albumin 4.5 g/dL (3.5-5.0); Alkaline Phosphatase 73 U/L (38-126); Anion Gap 10 mmol/L; Blood Urea Nitrogen 16 mg/dL (9-20); Calcium 9.3 mg/dL (8.4-10.2); Carbon Dioxide 19 mmol/L (22-30); Chloride 109 mmol/L (98-107); Glucose 94 mg/dL (74-99); Non-African American GFR(CKD) >90 (>60 ml/min/1.73 sqM); Potassium 4.3 mmol/L (3.5-5.1); Sodium 138 mmol/L (137-145); Total Bilirubin 0.5 mg/dL (0.2-1.3); Total Protein 7.5 g/dL (6.3-8.2)
[2019-09-19 21:52] VITALS: BP 148/95; TEMP 98.4
== END 2019-09-19 21:49 | disposition home or self-care (01) ==
LOC: EC 19:37
DX: R42 Dizziness and giddiness (principal); Z95.5 Presence of coronary angioplasty implant and graft
CPT/HCPCS: 36415; 80053; 81001; 84484; 85025; 93005; 99284

== ENCOUNTER 2019-09-26 23:03 | Emergency (ER) | payer OTHER ==
--- NOTE | 2019-09-26 23:49 | ED ---
Nausea/Vomiting/Diarrhea HPI - General Chief complaint: Nausea/Vomiting/Diarrhea Stated complaint: Nausea, fatigue Time Seen by Provider: 09/26/19 23:22 Source: patient, family Mode of arrival: ambulatory Limitations: no limitations - History of Present Illness Initial comments: This patient is a 59-year-old man who presents with complaint of nausea. The patient states that he also may have had a low-grade temperature earlier at work tonight. The patient was concerned as he did have exposure to his grandson who had a fever approximately 103. He states that he was holding the child while his mother administered ibuprofen and that this was approximately 3 PM. Symptoms started tonight while at work. He does state that the nausea is a little bit better and he did want to take some water to see if that helps. He is not having any accompanying abdominal pain. No vomiting or diarrhea. No change in urination. No scrotal swelling or testicular pain. No sinus symptoms or cough. MD complaint: nausea -: hour(s) Severity scale (1-10): 0 Improves with: none Worsens with: none Context: sick contacts Associated Symptoms: denies other symptoms - Related Data Previous Rx's Medication Instructions Recorded Melatonin 3 mg PO HS PRN tablet 06/10/19 OLANZapine [ZyPREXA] 10 mg PO HS 28 Days tab 06/10/19 lamoTRIgine [LaMICtal] 100 mg PO DAILY 28 Days tab 06/10/19 Ondansetron Odt [Zofran ODT] 4 mg PO Q8HR PRN #10 tab 09/27/19 Allergies Allergy/AdvReac Type Severity Reaction Status Date / Time No Known Allergies Allergy Verified 09/26/19 23:20 Review of Systems ROS Statement: Those systems with pertinent positive or pertinent negative responses have been documented in the HPI. ROS Other: All systems not noted in ROS Statement are negative. Constitutional: Reports: fever (Low-grade) Eyes: Denies: eye discharge ENT: Denies: throat pain, congestion Respiratory: Denies: cough, dyspnea Cardiovascular: Denies: chest pain, palpitations Gastrointestinal: Reports: nausea. 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 Past Anesthesia/Blood Transfusion Reactions: No Reported Reaction Past Psychological History: Anxiety, Bipolar, Depression Smoking Status: Never smoker Past Alcohol Use History: Occasional Past Drug Use History: None Reported - Past Family History Mother Family Medical History: Cancer Additional Family Medical History / Comment(s): Liver and abd CA, Breast CA Father Family Medical History: Myocardial Infarction ([place]) Additional Family Medical History / Comment(s): CABG AT AGE 50 Brother(s) Family Medical History: Coronary Artery Disease (CAD) Additional Family Medical History / Comment(s): CABG AT AGE 50 General Exam Limitations: no limitations General appearance: alert, in no apparent distress Head exam: Present: atraumatic, normocephalic Eye exam: Present: normal appearance. Absent: scleral icterus, conjunctival injection ENT exam: Present: normal oropharynx Neck exam: Present: normal inspection Respiratory exam: Present: normal lung sounds bilaterally. Absent: respiratory distress, wheezes, rales, rhonchi, stridor Cardiovascular Exam: Present: regular rate, normal rhythm, normal heart sounds. Absent: systolic murmur, diastolic murmur, rubs, gallop GI/Abdominal exam: Present: soft. Absent: distended, tenderness, guarding, rebound, mass Extremities exam: Present: normal inspection, normal capillary refill. Absent: pedal edema, calf tenderness Back exam: Present: normal inspection. Absent: CVA tenderness (R), CVA tenderness (L) Neurological exam: Present: alert Skin exam: Present: warm, dry, intact, normal color. Absent: rash Course Vital Signs 09/26/19 23:16 Temperature 98.5 F Pulse Rate 74 Respiratory 20 Rate Blood Pressure 138/86 O2 Sat by Pulse 95 Oximetry - Reevaluation(s) Reevaluation #1: 09/27/19 00:38 I discussed the results with the patient including the urine ketones, and he states that he has not really eaten much today, consistent with the ketones. Medical Decision Making - Lab Data Result diagrams: 09/27/19 00:00 09/27/19 00:00 Lab Results 09/26/19 09/27/19 09/27/19 Range/Units 23:53 00:00 00:00 WBC 7.9 (3.8-10.6) k/uL RBC 5.25 (4.30-5.90) m/uL Hgb 17.3 (13.0-17.5) gm/dL Hct 49.7 (39.0-53.0) % MCV 94.7 (80.0-100.0) fL MCH 32.9 (25.0-35.0) pg MCHC 34.8 (31.0-37.0) g/dL RDW 12.5 (11.5-15.5) % Plt Count 214 (150-450) k/uL Neutrophils % 49 % Lymphocytes % 37 % Monocytes % 8 % Eosinophils % 4 % Basophils % 1 % Neutrophils # 3.9 (1.3-7.7) k/uL Lymphocytes # 2.9 (1.0-4.8) k/uL Monocytes # 0.6 (0-1.0) k/uL Eosinophils # 0.3 (0-0.7) k/uL Basophils # 0.1 (0-0.2) k/uL Sodium 137 (137-145) mmol/L Potassium 4.0 (3.5-5.1) mmol/L Chloride 105 (98-107) mmol/L Carbon Dioxide 23 (22-30) mmol/L Anion Gap 9 mmol/L BUN 12 (9-20) mg/dL Creatinine 0.97 (0.66-1.25) mg/dL Est GFR (CKD-EPI)AfAm >90 (>60 ml/min/1.73 sqM) Est GFR (CKD-EPI)NonAf 86 (>60 ml/min/1.73 sqM) Glucose 95 (74-99) mg/dL Calcium 9.3 (8.4-10.2) mg/dL Total Bilirubin 0.8 (0.2-1.3) mg/dL AST 48 (17-59) U/L ALT 75 H (4-49) U/L Alkaline Phosphatase 86 (38-126) U/L Total Protein 7.9 (6.3-8.2) g/dL Albumin 4.8 (3.5-5.0) g/dL Urine Color Yellow Urine Appearance Clear (Clear) Urine pH 6.0 (5.0-8.0) Ur Specific Serafina 1.022 (1.001-1.035) Urine Protein Negative (Negative) Urine Glucose (UA) Negative (Negative) Urine Ketones 1+ H (Negative) Urine Blood Negative (Negative) Urine Nitrite Negative (Negative) Urine Bilirubin Negative (Negative) Urine Urobilinogen <2.0 (<2.0) mg/dL Ur Leukocyte Esterase Small H (Negative) Urine RBC 1 (0-5) /hpf Urine WBC 2 (0-5) /hpf Ur Squamous Epith Cells <1 (0-4) /hpf Urine Mucus Occasional H (None) /hpf Disposition Clinical Impression: Nausea Disposition: HOME SELF-CARE Condition: Good Instructions (If sedation given, give patient instructions): Acute Nausea and Vomiting (ED) Prescriptions: Ondansetron Odt [Zofran ODT] 4 mg PO Q8HR PRN #10 tab PRN Reason: Nausea Is patient prescribed a controlled substance at d/c from ED?: No Referrals: Hayley Weaver DO [Primary Care Provider] - 1-2 days
[2019-09-27 00:08] LABS: Basophils # (A) 0.1 k/uL (0-0.2); Basophils % (A) 1 %; Eosinophils # (A) 0.3 k/uL (0-0.7); Eosinophils % (A) 4 %; HCT 49.7 % (39.0-53.0); HGB 17.3 gm/dL (13.0-17.5); Lymphocytes # (A) 2.9 k/uL (1.0-4.8); Lymphocytes % (A) 37 %; MCH 32.9 pg (25.0-35.0); MCHC 34.8 g/dL (31.0-37.0); MCV 94.7 fL (80.0-100.0); Mean Platelet Volume 8.2; Monocytes # (A) 0.6 k/uL (0-1.0); Monocytes % (A) 8 %; Neutrophils # (A) 3.9 k/uL (1.3-7.7); Neutrophils % (A) 49 %; Platelet Count 214 k/uL (150-450); RBC 5.25 m/uL (4.30-5.90); RDW 12.5 % (11.5-15.5); WBC 7.9 k/uL (3.8-10.6)
[2019-09-27 00:19] LABS: ALT 75 U/L (4-49); AST 48 U/L (17-59); African American GFR (CKD) >90 (>60 ml/min/1.73 sqM); Albumin 4.8 g/dL (3.5-5.0); Alkaline Phosphatase 86 U/L (38-126); Anion Gap 9 mmol/L; Blood Urea Nitrogen 12 mg/dL (9-20); Calcium 9.3 mg/dL (8.4-10.2); Carbon Dioxide 23 mmol/L (22-30); Chloride 105 mmol/L (98-107); Glucose 95 mg/dL (74-99); Non-African American GFR(CKD) 86 (>60 ml/min/1.73 sqM); Sodium 137 mmol/L (137-145); Total Bilirubin 0.8 mg/dL (0.2-1.3); Total Protein 7.9 g/dL (6.3-8.2)
[2019-09-27 00:23] LABS: Appearance,Urine Clear (Clear); Bilirubin,Urine Negative (Negative); Blood,Urine Negative (Negative); Color,Urine Yellow; Glucose,Urine (UA) Negative (Negative); Ketones,Urine 1+ (Negative); Leukocyte Esterase,Urine Small (Negative); Mucus,Urine Occasional /hpf; Nitrite,Urine Negative (Negative); Protein,Urine Negative (Negative); RBC,Urine 1 /hpf (0-5); Specific Gravity,Urine 1.022 (1.001-1.035); Squamous Epithelial Cell,Urine <1 /hpf (0-4); Urobilinogen,Urine <2.0 mg/dL (<2.0); WBC,Urine 2 /hpf (0-5)
--- NOTE | 2019-09-27 00:27 | XR ---
EXAMINATION TYPE: XR chest 2V DATE OF EXAM: 09/27/2019 COMPARISON: 06/07/2019 HISTORY: Fever TECHNIQUE: 2 views FINDINGS: Heart and mediastinum are normal. Lungs are clear. Diaphragm is normal. Bony thorax appears normal. IMPRESSION: Normal chest. No change compared to old exam.
[2019-09-27 00:54] VITALS: BP 127/91; PULSE 81; RESP 18; TEMP 98.3
== END 2019-09-27 00:54 | disposition home or self-care (01) ==
LOC: EC 23:03
DX: R11.0 Nausea (principal); R82.4 Acetonuria; R50.9 Fever, unspecified; R53.83 Other fatigue; Z90.49 Acquired absence of other specified parts of digestive tract; Z95.5 Presence of coronary angioplasty implant and graft
CPT/HCPCS: 36415; 71046; 80053; 81001; 85025; 99283

== ENCOUNTER → 2019-10-14 | Outpatient (CLI) | payer OTHER ==
[2019-10-14 10:36] LABS: Basophils # (A) 0.1 k/uL (0-0.2); Basophils % (A) 1 %; Eosinophils # (A) 0.6 k/uL (0-0.7); Eosinophils % (A) 7 %; HCT 48.5 % (39.0-53.0); HGB 16.6 gm/dL (13.0-17.5); Lymphocytes # (A) 2.9 k/uL (1.0-4.8); Lymphocytes % (A) 34 %; MCH 32.6 pg (25.0-35.0); MCHC 34.2 g/dL (31.0-37.0); MCV 95.1 fL (80.0-100.0); Mean Platelet Volume 8.5; Monocytes # (A) 0.5 k/uL (0-1.0); Monocytes % (A) 6 %; Neutrophils # (A) 4.3 k/uL (1.3-7.7); Neutrophils % (A) 50 %; Platelet Count 194 k/uL (150-450); RDW 12.6 % (11.5-15.5); WBC 8.6 k/uL (3.8-10.6)
[2019-10-14 11:06] LABS: Potassium 3.7 mmol/L (3.5-5.1)
== END | disposition home or self-care (01) ==
LOC: LABPAT 09:12
PROVIDERS: ATTEND Orthopaedic Surgery
DX: Z01.818 Encounter for other preprocedural examination (principal); M65.332 Trigger finger, left middle finger; M65.342 Trigger finger, left ring finger
CPT/HCPCS: 36415; 80051; 85025

== ENCOUNTER 2019-10-31 12:26 | Day surgery (SDC) | payer OTHER ==
[2019-10-30 10:39] VITALS: BMI 35.9
--- NOTE | 2019-10-30 16:38 | HP ---
HISTORY AND PHYSICAL DATE OF SURGERY: 10/31/2019 Davis Salas is a 59-year-old patient seen with symptomatic left middle finger and left ring finger trigger fingers. After treatment options were discussed, he elected to proceed with surgical release A1 pulleys of both of those digits. Consent was obtained. PAST MEDICAL HISTORY: Depression. PAST SURGICAL HISTORY: Appendectomy, cholecystectomy, herniorrhaphy. DAILY MEDICATIONS: Tegretol. ALLERGIES: None. SOCIAL HISTORY: Denies current tobacco use. PHYSICAL EVALUATION OF THE LEFT HAND: He is tender along the areas of the A1 deep, left middle finger, left ring finger. There is clicking, catching of both of those digits. His perfusion sensation are intact distally. His distal neurovascular exam is intact. Radiographs of the left hand revealed no osseous abnormality. IMPRESSION: 1. Left middle finger trigger finger. 2. Left ring finger trigger finger. PLAN: 1. Release A1 deep, left middle finger. 2. Release A1 deep, left ring finger. MMODL / IJN: [id number] /
[~2019-10-31 12:26] MED LIST: ONDANSETRON 4 MG/2 ML VIAL IVP ONE; fentaNYL (PF) 50 MCG/ML 2 ML AMP IV PRN
[2019-10-31 12:52] VITALS: TEMP 98
[2019-10-31] MEDS ORDERED: ONDANSETRON 4 MG/2 ML VIAL ONE (12:59)
[2019-10-31] MEDS: LACTATED RINGERS 1,000 ML IV SCH ×2 (13:02→14:10)
[2019-10-31] MEDS ORDERED: LIDOCAINE 1% (10MG/ML) FOR IV START INTRADERMA ONE (13:03)
[2019-10-31] MEDS ORDERED: fentaNYL (PF) 50 MCG/ML 2 ML AMP ONE (14:15)
[2019-10-31] MEDS ORDERED: LIDOCAINE 1% INJ 10MG/ML (20 ML MDV) ONE (14:15)
[2019-10-31] MEDS ORDERED: MIDAZOLAM 2 MG/2 ML VIAL ONE (14:15)
[2019-10-31] MEDS ORDERED: PROPOFOL 10 MG/ML 20 ML VIAL IV ONE (14:15)
[2019-10-31] MEDS ORDERED: BUPIVACAINE (PF) 0.25% 30 ML VIAL SQ ONE (14:20)
--- NOTE | 2019-10-31 14:49 | P.OP ---
Date of Procedure: 10/31/19 Preoperative Diagnosis: 1. Left middle finger trigger finger 2. Left ring finger trigger finger Postoperative Diagnosis: Same Procedure(s) Performed: 1. Release A1 deep left middle finger 2. Release A1 deep left ring finger Anesthesia: MAC, local Surgeon: Itz Ivey Estimated Blood Loss (ml): 0 Pathology: none sent Condition: stable Disposition: PACU Indications for Procedure: 51-year-old patient seen with symptomatic left middle finger and left ring finger trigger fingers. After having treatment options discussed with him, he elected to proceed with surgical release and consent was obtained. Operative Findings: See description of procedure Description of Procedure: The patient was taken to the operative suite. The patient received IV sedation by the department of anesthesia. A well-padded tourniquet was placed on the proximal left upper extremity. Left upper extremity was prepped and draped in the normal sterile orthopedic fashion. The extremity was elevated and the tourniquet was insufflated to 250. I infiltrated both the proposed incision sites with 5 mL quarter percent plain Marcaine. Totaling 10 mL quarter percent plain Marcaine. When sufficient local analgesia was noted an incision was made along the area A1 deep left middle finger. I bluntly dissected down to the A1 deep. Identified the A1 deep. I released A1 deep. There was good complete release the deep noted with good excursion of the tendon with no triggering or catching. I now made an incision in the area A1 deep left ring finger. I dissected down to the A1 deep site. I identified the A1 deep. I released the A1 deep. There was good complete release of A1 deep. There was good excursion tendon without triggering or catching. Both wounds were irrigated. Both incisions were repaired with nylon suture. Sterile dressings were applied. The tourniquet was released with immediate capillary refill of all digits noted. The patient was awakened, transferred to recovery stable condition.
[2019-10-31 15:25] VITALS: BP 149/88; PULSE 59; RESP 18
== END 2019-10-31 15:38 | disposition home or self-care (01) ==
LOC: OR 12:26
PROVIDERS: ATTEND Orthopaedic Surgery
DX: M65.332 Trigger finger, left middle finger (principal); M65.342 Trigger finger, left ring finger; Z90.49 Acquired absence of other specified parts of digestive tract; Z98.890 Other specified postprocedural states; K21.9 Gastro-esophageal reflux disease without esophagitis; G47.33 Obstructive sleep apnea (adult) (pediatric); Z99.89 Dependence on other enabling machines and devices; F41.9 Anxiety disorder, unspecified; F31.9 Bipolar disorder, unspecified; Z79.899 Other long term (current) drug therapy; Z88.8 Allergy status to other drugs, medicaments and biological substances
CPT/HCPCS: 26055 ×2; J2250; J0690; J2405; J2001; J3010; J2704

== ENCOUNTER 2019-11-22 15:49 | Emergency (ER) | payer OTHER ==
[2019-11-22 16:10] VITALS: BP 128/83; PULSE 67; RESP 16; TEMP 98.2
[2019-11-22] MEDS ORDERED: KETOROLAC 15 MG/ML 1 ML VIAL IM STA (16:47)
--- NOTE | 2019-11-22 16:52 | ED ---
Upper Extremity HPI - General Chief Complaint: Extremity Injury, Upper Stated Complaint: L Arm Pain Time Seen by Provider: 11/22/19 16:32 Source: patient Mode of arrival: ambulatory Limitations: no limitations - History of Present Illness Initial Comments: Patient is 51-year-old male presenting to emergency Department with a chief complaint of left thumb pain. Patient states he has tetanus follow on his left upper extremity. Patient reports he had a trigger finger release surgery performed and was off work for about 2 weeks. 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 Patient states now his developed inflammation and left lateral epicondyle which she suspects it is secondary to restarting his work. Denies any numbness or tingling. Denies taking medication to alleviate the symptoms. - Related Data Home Medications Medication Instructions Recorded Confirmed OLANZapine [OLANZapine Odt] 15 mg PO 0530 10/30/19 10/31/19 carBAMazepine [TEGretol] 100 mg PO Q12H 10/30/19 10/31/19 Previous Rx's Medication Instructions Recorded HYDROcodone/APAP 5-325MG [[place] 1 tab PO Q6HR PRN 3 Days #12 tab 10/31/19 5-325] Allergies Allergy/AdvReac Type Severity Reaction Status Date / Time lamotrigine [From Lamictal] Allergy Confusion,D Verified 11/22/19 16:10 LUCIANARICECILE ON,RAYMOND NT, Review of Systems ROS Statement: Those systems with pertinent positive or pertinent negative responses have been documented in the HPI. ROS Other: All systems not noted in ROS Statement are negative. 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 Past Anesthesia/Blood Transfusion Reactions: No Reported Reaction Past Psychological History: Anxiety, Bipolar, Depression Smoking Status: Never smoker Past Alcohol Use History: Occasional Past Drug Use History: None Reported - Past Family History Mother Family Medical History: Cancer Additional Family Medical History / Comment(s): Liver and abd CA, Breast CA Father Family Medical History: Myocardial Infarction ([place]) Additional Family Medical History / Comment(s): CABG AT AGE 50 Brother(s) Family Medical History: Coronary Artery Disease (CAD) Additional Family Medical History / Comment(s): CABG AT AGE 50 General Exam Limitations: no limitations General appearance: alert, in no apparent distress Head exam: Present: atraumatic, normocephalic, normal inspection Eye exam: Present: normal appearance, PERRL Pupils: Present: normal accommodation ENT exam: Present: normal exam, normal oropharynx, mucous membranes moist, TM's normal bilaterally Neck exam: Present: normal inspection, full ROM. Absent: tenderness Respiratory exam: Present: normal lung sounds bilaterally. Absent: respiratory distress, wheezes Cardiovascular Exam: Present: regular rate, normal rhythm, normal heart sounds Extremities exam: Present: full ROM (Limited range of motion with full extension), tenderness (Tenderness along the lateral epicondyle on the left upper extremity), normal capillary refill, other (+2 ulnar radial pulses bilateral. Sensation intact. Strength 5/5 left upper extremity.). Absent: normal inspection (Mild erythema to left elbow) Back exam: Present: normal inspection, full ROM. Absent: tenderness Neurological exam: Present: alert, oriented X3 Psychiatric exam: Present: normal affect, normal mood Skin exam: Present: warm, dry, intact, normal color Course Vital Signs 11/22/19 16:07 Temperature 98.2 F Pulse Rate 67 Respiratory 16 Rate Blood Pressure 128/83 O2 Sat by Pulse 95 Oximetry Medical Decision Making - Medical Decision Making Patient is a 59-year-old male presenting to the emergency department with chief complaint of left arm pain. On exam patient has tenderness of the lateral of the condyle. Patient returned back to work after having immobilization of the l eft hand secondary to trigger finger release surgery. He does have a repetitive job where he goes back and forth quite a bit which has caused him to develop the pain there. I suspect patient has lateral epicondylitis. Patient was given anti-inflammatories and ice was applied. X-ray reveals degenerative spurring in both the radial cuticular and the ulna trochlear joints. Babatunde wrap was applied. Patient was advised to follow with clerical support specialist. Strict return prescribed were thoroughly discussed patient is worsening agreeable. Case discussed with physician. Disposition Clinical Impression: Lateral epicondylitis of left elbow, Left arm pain Disposition: HOME SELF-CARE Condition: Stable Instructions (If sedation given, give patient instructions): Tennis Elbow (ED) Additional Instructions: Follow-up with clerical support specialist. Return to emergency department if symptoms worsen. Is patient prescribed a controlled substance at d/c from ED?: No Referrals: Hayley Weaver DO [Primary Care Provider] - 1-2 days Enzo Pineda, PAC [PHYSICIAN LIFESTYLE COORDINATOR] - 1-2 days Time of Disposition: 17:37
--- NOTE | 2019-11-22 17:15 | XR ---
EXAMINATION TYPE: XR forearm LT DATE OF EXAM: 11/22/2019 COMPARISON: NONE HISTORY: 51-year-old male left forearm injury TECHNIQUE: 2 views FINDINGS: Corticated bone fragments at the ulnocarpal joint region. No acute fracture is identified. No elbow j oint effusion. IMPRESSION: No acute osseous abnormality seen. Either an accessory ossicles or sequela of remote injury at the ul cuauhtemoc styloid process of the wrist.
--- NOTE | 2019-11-22 17:22 | XR ---
EXAMINATION TYPE: XR elbow complete LT DATE OF EXAM: 11/22/2019 COMPARISON: NONE HISTORY: 59-year-old male left elbow injury, pain TECHNIQUE: 3 views FINDINGS: There is some mild degenerative spurring at the radial head and some spurring at the coronoid process of the proximal ulna as well. No elbow joint effusion. No acute fracture, subluxation, or dislocatio n seen. IMPRESSION: Degenerative spurring at both radiocapitellar and ulnotrochlear joints. No elbow joint effusion or ac chloe osseous abnormality seen.
== END 2019-11-22 17:55 | disposition home or self-care (01) ==
LOC: EC 15:49
DX: M77.12 Lateral epicondylitis, left elbow (principal); M79.602 Pain in left arm; F41.9 Anxiety disorder, unspecified; F31.9 Bipolar disorder, unspecified; M79.645 Pain in left finger(s); Z79.899 Other long term (current) drug therapy; Z88.8 Allergy status to other drugs, medicaments and biological substances
CPT/HCPCS: 73080; 73090; 96372; 99283; J1885

== ENCOUNTER 2020-01-20 01:27 | Emergency (ER) | payer OTHER ==
[2020-01-20 01:43] VITALS: BP 174/97; PULSE 73; RESP 16; TEMP 97.9
[2020-01-20] MEDS ORDERED: FLUORESCEIN STRIPS 1 MG STRIP LEFT EYE ONE (01:44)
--- NOTE | 2020-01-20 01:47 | ED ---
Eye Problem HPI - General Chief complaint: Eye Problems Stated complaint: Eye Problems Time Seen by Provider: 01/20/20 01:47 Source: patient Mode of arrival: ambulatory Limitations: no limitations - History of Present Illness Initial comments: Davis is a 59-year-old male who presents to the ER today for evaluation of right- sided eye pain. Patient reports that approximately 10 years ago he had a foreign body in his eye and it was retained. Patient reports that since that time he occasionally has episodes of eye pain. Patient states yesterday began r ubbing his eye and felt as though he scratched it. Since that time he reports feeling like there something in his eye he feels scratchy and feels like there is too much pressure in his eyeball. Patient denies any vision changes but does report photosensitivity. Denies any associated headache. - Related Data Home Medications Medication Instructions Recorded Confirmed OLANZapine [OLANZapine Odt] 15 mg PO 0530 10/30/19 10/31/19 carBAMazepine [TEGretol] 100 mg PO Q12H 10/30/19 10/31/19 Previous Rx's Medication Instructions Recorded HYDROcodone/APAP 5-325MG [[place] 1 tab PO Q6HR PRN 3 Days #12 tab 10/31/19 5-325] Allergies Allergy/AdvReac Type Severity Reaction Status Date / Time lamotrigine [From Lamictal] Allergy Confusion,D Verified 01/20/20 01:43 ASHU ON,RAYMOND NT, Review of Systems ROS Statement: Those systems with pertinent positive or pertinent negative responses have been documented in the HPI. ROS Other: All systems not noted in ROS Statement are negative. 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 Past Anesthesia/Blood Transfusion Reactions: No Reported Reaction Past Psychological History: Anxiety, Bipolar, Depression Smoking Status: Never smoker Past Alcohol Use History: Occasional Past Drug Use History: None Reported - Past Family History Mother Family Medical History: Cancer Additional Family Medical History / Comment(s): Liver and abd CA, Breast CA Father Family Medical History: Myocardial Infarction ([place]) Additional Family Medical History / Comment(s): CABG AT AGE 50 Brother(s) Family Medical History: Coronary Artery Disease (CAD) Additional Family Medical History / Comment(s): CABG AT AGE 50 General Exam - General Exam Comments Initial Comments: Physical Exam GENERAL: Patient is well-developed and well-nourished. Patient appears uncomfortable HENT: Normocephalic, Atraumatic. EYES: PERRL, EOMI Fluriscene staining reveals an approximately 2 mm corneal abrasion in the 9 o'clock position PULMONARY: Unlabored respirations. CARDIOVASCULAR: RRR Warm and well perfused extremities ABDOMEN: Non-distended SKIN: No rashes or bruising : Deferred NEUROLOGIC: Alert and oriented Normal speech Normal gait MUSCULOSKELETAL: Moving all extremities with no apparent injury PSYCHIATRIC: No SI/HI Limitations: no limitations Course Vital Signs 01/20/20 01:40 Temperature 97.9 F Pulse Rate 73 Respiratory 16 Rate Blood Pressure 174/97 O2 Sat by Pulse 95 Oximetry Medical Decision Making - Medical Decision Making The patient was seen and evaluated history was obtained from patient Physical exam does reveal a corneal abrasion Sure checked using [facility], pressure in the right eye was noted to be 10, 10, 9 No signs of acute glaucoma Patient to be discharged home with erythromycin ointment will contact Dr Olivares later today Disposition Clinical Impression: Corneal abrasion Disposition: HOME SELF-CARE Condition: Stable Additional Instructions: Call Dr Olivares today for follow up Is patient prescribed a controlled substance at d/c from ED?: No Referrals: Hayley Weaver DO [Primary Care Provider] - 1-2 days Gunner Olivares MD [STAFF PHYSICIAN] - 1-2 days
[2020-01-20] MEDS ORDERED: ERYTHROMYCIN 5 MG/GM OPHTH OINT 3.5 GM TUBE RIGHT EYE STA (02:21)
== END 2020-01-20 02:37 | disposition home or self-care (01) ==
LOC: EC 01:27
DX: S05.01XA Injury of conjunctiva and corneal abrasion without foreign body, right eye, initial encounter (principal); F41.9 Anxiety disorder, unspecified; F31.9 Bipolar disorder, unspecified; Z79.899 Other long term (current) drug therapy; Z88.8 Allergy status to other drugs, medicaments and biological substances; Z95.5 Presence of coronary angioplasty implant and graft; X58.XXXA Exposure to other specified factors, initial encounter; Y93.89 Activity, other specified
CPT/HCPCS: 99283

== ENCOUNTER → 2020-01-29 | Outpatient (CLI) | payer OTHER ==
--- NOTE | 2020-01-29 14:26 | XR ---
EXAMINATION TYPE: XR elbow complete LT DATE OF EXAM: 01/29/2020 CLINICAL HISTORY: Lifting injury yesterday. Pain to mid left elbow. TECHNIQUE: Frontal, lateral and oblique images of the left elbow are obtained. COMPARISON: Left elbow radiograph 11/22/2019. FINDINGS: There is no acute fracture/dislocation evident in the left elbow. No abnormal fat pad sig ns are seen. Small olecranon spur. The overlying soft tissue appears unremarkable. IMPRESSION: There is no acute fracture or dislocation in the left elbow.
== END | disposition home or self-care (01) ==
LOC: RADXRMAIN 14:02
PROVIDERS: ATTEND Emergency Medicine
DX: M77.12 Lateral epicondylitis, left elbow (principal)

== ENCOUNTER → 2020-02-14 | Outpatient (CLI) | payer OTHER ==
--- NOTE | 2020-02-14 15:42 | XR ---
EXAMINATION TYPE: XR elbow complete RT DATE OF EXAM: 02/14/2020 COMPARISON: None HISTORY: Pain TECHNIQUE: Three-view right elbow FINDINGS: Radius aligns normally with the humerus. Posterior olecranon spur is present. No acute frac ture or dislocation is evident. Anterior fat pad is normal. No elevation of posterior fat pad is evid ent. IMPRESSION: 1. Normal three-view right elbow. 2. Follow-up exams can be performed 7-10 days from acute trauma for continued pain.
== END | disposition home or self-care (01) ==
LOC: RADXRMAIN 15:28
PROVIDERS: ATTEND Emergency Medicine
DX: M77.11 Lateral epicondylitis, right elbow (principal)

== ENCOUNTER 2020-03-28 08:53 | Emergency (ER) | payer OTHER ==
[2020-03-28 08:57] VITALS: PULSE 77; RESP 18; TEMP 97.6
[2020-03-28] MEDS ORDERED: ACET/COD 300 MG/30 MG STARTER PACK 6 TAB BTL PO STA (09:08)
[2020-03-28] MEDS ORDERED: AMOXIC-POT CLAV 875MG STARTER PACK 2 TAB BTL PO STA (09:08)
--- NOTE | 2020-03-28 09:13 | ED ---
ENT HPI - General Chief complaint: Dental/Oral Stated complaint: Tooth pain Time Seen by Provider: 03/28/20 08:58 Source: patient Mode of arrival: ambulatory Limitations: no limitations - History of Present Illness Initial comments: Asians 59-year-old male presents to the ER today for evaluation for right lower dental pain. Patient reports one month ago he had multiple molars removed. He states afterwards he noted some swelling and followed up with dentist who said was normal. He states over the past day he is noticed increased pain and swelling to the right lower molar and is concerned for infection. He denies any drainage trismus. Denies any difficulty swallowing. Patient reports no other complaints at this time. He has not been on antibiotics. - Related Data Home Medications Medication Instructions Recorded Confirmed OLANZapine [OLANZapine Odt] 15 mg PO 0530 10/30/19 10/31/19 carBAMazepine [TEGretol] 100 mg PO Q12H 10/30/19 10/31/19 Previous Rx's Medication Instructions Recorded HYDROcodone/APAP 5-325MG [[place] 1 tab PO Q6HR PRN 3 Days #12 tab 10/31/19 5-325] Amoxicillin/Potassium Clav 1 tab PO BID 10 Days #20 tab 03/28/20 [Augmentin 875-125 Tablet] Ibuprofen [Motrin] 600 mg PO Q6HR PRN #20 tab 03/28/20 L.acidoph,Paracasei, B.lactis 1 each PO DAILY #10 capsule 03/28/20 [Probiotic] Allergies Allergy/AdvReac Type Severity Reaction Status Date / Time lamotrigine [From Lamictal] Allergy Confusion,D Verified 03/28/20 08:57 ASHU ON,RAYMOND NT, Review of Systems ROS Statement: Those systems with pertinent positive or pertinent negative responses have been documented in the HPI. ROS Other: All systems not noted in ROS Statement are negative. 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 Past Anesthesia/Blood Transfusion Reactions: No Reported Reaction Past Psychological History: Anxiety, Bipolar, Depression Smoking Status: Never smoker Past Alcohol Use History: Occasional Past Drug Use History: None Reported - Past Family History Mother Family Medical History: Cancer Additional Family Medical History / Comment(s): Liver and abd CA, Breast CA Father Family Medical History: Myocardial Infarction ([place]) Additional Family Medical History / Comment(s): CABG AT AGE 50 Brother(s) Family Medical History: Coronary Artery Disease (CAD) Additional Family Medical History / Comment(s): CABG AT AGE 50 General Exam - General Exam Comments Initial Comments: 59-year-old male. Alert and oriented. No acute distress. Limitations: no limitations General appearance: alert, in no apparent distress Head exam: Present: atraumatic, normocephalic, normal inspection Eye exam: Present: normal appearance ENT exam: Present: normal exam. Absent: mucous membranes moist (Patient has swelling over the right lower jaw and internal examination suture removal of the right lower molars. There is some erythema and induration over the right gumline. No palpable abscess to drain at this time.) Neck exam: Present: normal inspection. Absent: tenderness, meningismus, lymphadenopathy Respiratory exam: Present: normal lung sounds bilaterally. Absent: respiratory distress, wheezes, rales, rhonchi, stridor Cardiovascular Exam: Present: regular rate, normal rhythm, normal heart sounds. Absent: systolic murmur, diastolic murmur, rubs, gallop, clicks GI/Abdominal exam: Present: soft, normal bowel sounds. Absent: distended, tenderness, guarding, rebound, rigid Back exam: Present: normal inspection Neurological exam: Present: alert, oriented X3, CN II-XII intact Psychiatric exam: Present: normal affect, normal mood Course Vital Signs 03/28/20 08:54 Temperature 97.6 F Pulse Rate 77 Respiratory 18 Rate Blood Pressure 154/102 O2 Sat by Pulse 99 Oximetry Medical Decision Making - Medical Decision Making [id number] male presents today with right-sided dental pain. He had right molars removed approximately 10. Symptoms he may be developing dental or gingival infection from where the molars were removed. There is no drainable abscess at this time. At this time Patient will be started on Augmentin. I did offer her incision and drainage of possible abscess but Patient declines this at this time. Discussed if there was more evidence of infection to return to the ER for reevaluation for possible drainage at that time and to follow-up with his dentist. Patient understands treatment plan will comply. Disposition Clinical Impression: Pain, dental Disposition: HOME SELF-CARE Condition: Good Instructions (If sedation given, give patient instructions): Toothache (ED), Dental Abscess (ED) Additional Instructions: Patient was to do Listerine rinses. Take the antibiotic as prescribed, motrin and tylenol for pain. Return to emergency department if the area of swelling becomes worse that may need drainage at that time. Patient can follow-up with your dentist. [facility] [place] [address] [place] [address] [phone] (existing clients only) For new clients: [phone] 1st consult: $50 (includes Xrays) Usually 30% less then private dentist for visits after. [employer] Have to pay $50 for Xrays anmd rest is covered. [phone] Prescriptions: Amoxicillin/Potassium Clav [Augmentin 875-125 Tablet] 1 tab PO BID 10 Days #20 tab Ibuprofen [Motrin] 600 mg PO Q6HR PRN #20 tab PRN Reason: Pain L.acidoph,Paracasei, B.lactis [Probiotic] 1 each PO DAILY #10 capsule Is patient prescribed a controlled substance at d/c from ED?: No Referrals: Hayley Weaver DO [Primary Care Provider] - 1-2 days Time of Disposition: 09:11
[2020-03-28 09:25] VITALS: BP 142/102
== END 2020-03-28 09:26 | disposition home or self-care (01) ==
LOC: EC 08:53
DX: K08.89 Other specified disorders of teeth and supporting structures (principal); Z53.29 Procedure and treatment not carried out because of patient's decision for other reasons; Z79.899 Other long term (current) drug therapy; Z88.8 Allergy status to other drugs, medicaments and biological substances
CPT/HCPCS: 99282

== ENCOUNTER → 2020-04-17 | Outpatient (CLI) | payer OTHER ==
[2020-04-17 15:30] LABS: Basophils # (A) 0.1 k/uL (0-0.2); Basophils % (A) 1 %; Eosinophils # (A) 0.3 k/uL (0-0.7); Eosinophils % (A) 2 %; HCT 49.4 % (39.0-53.0); HGB 16.8 gm/dL (13.0-17.5); Lymphocytes % (A) 19 %; MCH 33.1 pg (25.0-35.0); MCV 97.4 fL (80.0-100.0); Monocytes # (A) 0.7 k/uL (0-1.0); Monocytes % (A) 6 %; Neutrophils # (A) 7.8 k/uL (1.3-7.7); Neutrophils % (A) 71 %; Platelet Count 228 k/uL (150-450); RBC 5.07 m/uL (4.30-5.90); RDW 12.7 % (11.5-15.5)
[2020-04-17 15:52] LABS: Potassium 4.3 mmol/L (3.5-5.1)
== END | disposition home or self-care (01) ==
LOC: LABPAT 14:37
PROVIDERS: ATTEND Orthopaedic Surgery
DX: M65.351 Trigger finger, right little finger (principal)
CPT/HCPCS: 36415; 80051; 85025

== ENCOUNTER 2020-04-26 23:31 | Emergency (ER) | payer OTHER ==
[2020-04-26 23:42] VITALS: RESP 20
[2020-04-26] MEDS ORDERED: KETOROLAC 15 MG/ML 1 ML VIAL IM STA (23:45)
[2020-04-26] MEDS ORDERED: MORPHINE SULFATE 4 MG/ML SYRINGE IM STA (23:45)
[2020-04-26] MEDS ORDERED: KETOROLAC 15 MG/ML 1 ML VIAL ONE (23:51)
[2020-04-26] MEDS ORDERED: AMOXIC-POT CLAV 875MG STARTER PACK 2 TAB BTL PO STA (23:58)
[2020-04-26] MEDS ORDERED: ACET/COD 300 MG/30 MG STARTER PACK 6 TAB BTL PO STA (23:58)
--- NOTE | 2020-04-26 23:59 | ED ---
General Adult HPI - General Chief complaint: Dental/Oral Stated complaint: r tooth pain Source: patient Mode of arrival: ambulatory Limitations: no limitations - History of Present Illness Initial comments: 59-year-old male patient presents to the emergency department today for evaluation of right sided dental pain. Patient states symptoms started approximately 4 hours ago. States he did have a short period of pain a couple of days ago but it did resolve. Patient states he did have tooth removed from the area approximately 6 weeks ago. Patient states that he was doing fine until a few days ago when symptoms started. He denies any fever or chills. Denies any facial swelling. Denies any trismus or difficulty swallowing. Denies nausea or vomiting. Patient denies any recent rash, cough, shortness of breath, chest pain, abdominal pain, diarrhea, constipation, back pain, numbness, tingling, dizziness, weakness, hematuria, dysuria, urinary urgency, urinary frequency, headache, visual changes, or any other complaints. - Related Data Home Medications Medication Instructions Recorded Confirmed OLANZapine [OLANZapine Odt] 15 mg PO 0530 10/30/19 10/31/19 carBAMazepine [TEGretol] 100 mg PO Q12H 10/30/19 10/31/19 Previous Rx's Medication Instructions Recorded HYDROcodone/APAP 5-325MG [[place] 1 tab PO Q6HR PRN 3 Days #12 tab 10/31/19 5-325] Amoxicillin/Potassium Clav 1 tab PO BID 10 Days #20 tab 03/28/20 [Augmentin 875-125 Tablet] Ibuprofen [Motrin] 600 mg PO Q6HR PRN #20 tab 03/28/20 L.acidoph,Paracasei, B.lactis 1 each PO DAILY #10 capsule 03/28/20 [Probiotic] Acetaminophen-Codeine 300-30mg 1 tab PO Q6H PRN #12 tablet 04/26/20 [Tylenol #3] Amoxic-Pot Clav 875-125Mg 1 tab PO Q12HR #20 tablet 04/26/20 [Augmentin 875-125] Allergies Allergy/AdvReac Type Severity Reaction Status Date / Time No Known Allergies Allergy Verified 04/26/20 23:49 Review of Systems ROS Statement: Those systems with pertinent positive or pertinent negative responses have been documented in the HPI. ROS Other: All systems not noted in ROS Statement are negative. 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 Past Anesthesia/Blood Transfusion Reactions: No Reported Reaction Past Psychological History: Anxiety, Bipolar, Depression Smoking Status: Never smoker Past Alcohol Use History: Occasional Past Drug Use History: None Reported - Past Family History Mother Family Medical History: Cancer Additional Family Medical History / Comment(s): Liver and abd CA, Breast CA Father Family Medical History: Myocardial Infarction ([place]) Additional Family Medical History / Comment(s): CABG AT AGE 50 Brother(s) Family Medical History: Coronary Artery Disease (CAD) Additional Family Medical History / Comment(s): CABG AT AGE 50 General Exam Limitations: no limitations General appearance: alert, in no apparent distress, other (This is a well- developed, well-nourished adult male patient in no acute distress. Vital signs upon presentation are temperature 97.9F, pulse 75, respirations 20, blood pressure 172/101, pulse ox 96% on room air.) ENT exam: Present: normal exam, normal oropharynx, mucous membranes moist, other (Patient has dental caries, borderline dentition. He does have areas where dental extraction has taken place, no erythema, no swelling.) Neck exam: Present: normal inspection, full ROM. Absent: tenderness, meningismus, lymphadenopathy Respiratory exam: Present: normal lung sounds bilaterally. Absent: respiratory distress, wheezes, rales, rhonchi, stridor Cardiovascular Exam: Present: regular rate, normal rhythm, normal heart sounds. Absent: systolic murmur, diastolic murmur, rubs, gallop, clicks Neurological exam: Present: alert, oriented X3, CN II-XII intact Psychiatric exam: Present: normal affect, normal mood Skin exam: Present: warm, dry, intact, normal color. Absent: rash Course Vital Signs 04/26/20 04/27/20 23:39 00:44 Temperature 97.9 F 98.2 F Pulse Rate 75 78 Respiratory 20 20 Rate Blood Pressure 172/101 156/88 O2 Sat by Pulse 96 98 Oximetry Medical Decision Making - Medical Decision Making 59-year-old male patient presents to the emergency department today for evaluation of right-sided dental pain. Physical examination is unremarkable. No evidence for dental abscess. He did have recent dental extraction. We will treat with pain medication and antibiotics Reina instructed follow up with dentistry as soon as possible. Return parameters were discussed in detail. He verbalizes understanding and agrees with this plan. Disposition Clinical Impression: Pain, dental Disposition: HOME SELF-CARE Condition: Good Instructions (If sedation given, give patient instructions): Toothache (ED) Additional Instructions: Follow-up with dentistry as soon as possible. Take medications as directed. Follow-up through primary care physician for recheck in 1-2 days. Return to the emergency department immediately for any new, worsening, or concerning symptoms. Prescriptions: Amoxic-Pot Clav 875-125Mg [Augmentin 875-125] 1 tab PO Q12HR #20 tablet Acetaminophen-Codeine 300-30mg [Tylenol #3] 1 tab PO Q6H PRN #12 tablet PRN Reason: Pain Is patient prescribed a controlled substance at d/c from ED?: Yes When asked, does pt state using other controlled substances?: No If prescribed controlled substance>3 days was MAPS reviewed?: Prescribed <3 Days If opioid is for acute pain is fill amount 7 days or less?: Yes If Rx opioid, was Start Talking consent form obtained?: Yes Referrals: Hayley Weaver DO [Primary Care Provider] - 1-2 days Time of Disposition: 23:59
[2020-04-27 00:45] VITALS: BP 156/88; PULSE 78; TEMP 98.2
== END 2020-04-27 00:44 | disposition home or self-care (01) ==
LOC: EC 23:31
DX: K08.89 Other specified disorders of teeth and supporting structures (principal); Z79.899 Other long term (current) drug therapy
CPT/HCPCS: 99282; J1885

== ENCOUNTER 2020-04-29 17:39 | Emergency (ER) | payer OTHER ==
[2020-04-29 17:44] VITALS: BP 171/96; PULSE 96; RESP 18; TEMP 97.9
--- NOTE | 2020-04-29 18:53 | ED ---
General Adult HPI - General Chief complaint: Skin/Abscess/Foreign Body Stated complaint: rash Time Seen by Provider: 04/29/20 18:09 Source: patient Mode of arrival: ambulatory Limitations: no limitations - History of Present Illness Initial comments: 59-year-old male presents to the emergency department for a chief. Patient states he had a rash around his back yesterday and has spread to all over his body. States that it is very itchy. States that showering makes this worse. Patient did start to new medications 2 days before this started. They were Augmentin and Tylenol 3 for dental infection. Patient has an appointment with his dentist tomorrow. Patient denies any swelling of the lips tongue or throat. Denies shortness of breath. Denies fevers.Patient has no other complaints at this time including shortness of breath, chest pain, abdominal pain, nausea or vomiting, headache, or visual changes. - Related Data Home Medications Medication Instructions Recorded Confirmed OLANZapine [OLANZapine Odt] 15 mg PO 0530 10/30/19 10/31/19 carBAMazepine [TEGretol] 100 mg PO Q12H 10/30/19 10/31/19 Previous Rx's Medication Instructions Recorded HYDROcodone/APAP 5-325MG [[place] 1 tab PO Q6HR PRN 3 Days #12 tab 10/31/19 5-325] Amoxicillin/Potassium Clav 1 tab PO BID 10 Days #20 tab 03/28/20 [Augmentin 875-125 Tablet] Ibuprofen [Motrin] 600 mg PO Q6HR PRN #20 tab 03/28/20 L.acidoph,Paracasei, B.lactis 1 each PO DAILY #10 capsule 03/28/20 [Probiotic] Acetaminophen-Codeine 300-30mg 1 tab PO Q6H PRN #12 tablet 04/26/20 [Tylenol #3] Amoxic-Pot Clav 875-125Mg 1 tab PO Q12HR #20 tablet 04/26/20 [Augmentin 875-125] Clindamycin [Cleocin] 300 mg PO Q8H 7 Days #42 cap 04/29/20 Allergies Allergy/AdvReac Type Severity Reaction Status Date / Time lamotrigine [From Lamictal] Allergy Confusion Verified 04/29/20 17:44 Review of Systems ROS Statement: Those systems with pertinent positive or pertinent negative responses have been documented in the HPI. ROS Other: All systems not noted in ROS Statement are negative. 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 Past Anesthesia/Blood Transfusion Reactions: No Reported Reaction Past Psychological History: Anxiety, Bipolar, Depression Smoking Status: Never smoker Past Alcohol Use History: Occasional Past Drug Use History: None Reported - Past Family History Mother Family Medical History: Cancer Additional Family Medical History / Comment(s): Liver and abd CA, Breast CA Father Family Medical History: Myocardial Infarction ([place]) Additional Family Medical History / Comment(s): CABG AT AGE 50 Brother(s) Family Medical History: Coronary Artery Disease (CAD) Additional Family Medical History / Comment(s): CABG AT AGE 50 General Exam Limitations: no limitations General appearance: alert Head exam: Present: atraumatic Eye exam: Present: normal appearance, PERRL, EOMI ENT exam: Present: normal exam, mucous membranes moist Neck exam: Present: normal inspection, full ROM. Absent: tenderness, meningismus, lymphadenopathy Respiratory exam: Present: normal lung sounds bilaterally. Absent: respiratory distress, wheezes, rales, rhonchi, stridor Cardiovascular Exam: Present: regular rate, normal rhythm, normal heart sounds. Absent: systolic murmur, diastolic murmur, rubs, gallop, clicks GI/Abdominal exam: Present: soft, normal bowel sounds. Absent: distended, tenderness, guarding, rebound, rigid Skin exam: Present: other (Patient has erythematous plaque like lesions that coalesce worst on the low back consistent with hives. These are blanchable.) Course Vital Signs 04/29/20 17:41 Temperature 97.9 F Pulse Rate 96 Respiratory 18 Rate Blood Pressure 171/96 O2 Sat by Pulse 98 Oximetry Medical Decision Making - Medical Decision Making Patient started 2 new medications 2 days before he developed hives. Rash is consistent with hives given appearance, worsening with heat, and pruritus. Has not taken Benadryl. However he is driving home so will take this when he gets home. I did discontinue the 2 new medications Augmentin and Tylenol 3 although it is impossible to tell which medication cause this reaction. We will start patient on clindamycin instead. He will follow up with his dentist tomorrow. He will follow-up with his doctor as well. He will return for any worsening symptoms such as swelling of the lips tongue or throat. Disposition Clinical Impression: Urticaria Disposition: HOME SELF-CARE Condition: Good Instructions (If sedation given, give patient instructions): Urticaria (ED) Additional Instructions: Your rash is consistent with hives. Take Benadryl for itching but do not drive while taking this. Try to use cool water for bathing as heat will worsen this. Discontinue Tylenol 3 and Augmentin. Start clindamycin instead. Follow-up with your doctor. If you develop worsening symptoms or any swelling of the lips tongue or throat return to the emergency room. Prescriptions: Clindamycin [Cleocin] 300 mg PO Q8H 7 Days #42 cap Is patient prescribed a controlled substance at d/c from ED?: No Referrals: Hayley Weaver DO [Primary Care Provider] - 1-2 days Time of Disposition: 18:52
== END 2020-04-29 19:02 | disposition home or self-care (01) ==
LOC: EC 17:39
DX: L50.9 Urticaria, unspecified (principal); F32.9 Major depressive disorder, single episode, unspecified; Z79.899 Other long term (current) drug therapy; Z88.8 Allergy status to other drugs, medicaments and biological substances
CPT/HCPCS: 99282

== ENCOUNTER → 2020-05-26 | Outpatient (CLI) | payer OTHER ==
--- NOTE | 2020-05-26 20:33 | CT ---
EXAMINATION TYPE: CT facial bones w con DATE OF EXAM: 05/26/2020 COMPARISON: None HISTORY: abscess post tooth extraction, facial numbness CT DLP: 569.1 mGycm CONTRAST: 100 mL of Isovue 300 The paranasal sinuses are examined in the axial plane at 2 mm thick sections. Reconstructed images i n the coronal plane were obtained. There is dental amalgam scatter artifact. There is mild mucosal thickening within the left maxillary sinus. All mucosal thickenings within sca ttered ethmoid air cells. The sphenoid sinuses are clear. The frontal sinuses are clear. Mastoid a ir cells are clear. The septum is evaluated. There is septal deviation to the left. The ostiomeatal units are patent. No discrete abscess is identified. IMPRESSIONS: 1. Scattered minimal mucosal thickening left maxillary sinus and bilateral ethmoid air cells. 2. No discrete abscess is identified.
== END | disposition home or self-care (01) ==
LOC: RADCTMAIN 16:47
PROVIDERS: ATTEND Internal Medicine Infectious Disease
DX: J34.89 Other specified disorders of nose and nasal sinuses (principal); Z88.0 Allergy status to penicillin; Z88.8 Allergy status to other drugs, medicaments and biological substances
CPT/HCPCS: 70487; Q9967

== ENCOUNTER 2020-06-07 10:11 | Emergency (ER) | payer OTHER ==
[2020-06-07 10:21] VITALS: BP 186/102; PULSE 72; RESP 20; TEMP 98.6
[2020-06-07] MEDS ORDERED: HYDROmorphone 1 MG/ML 1 ML SYRINGE IM STA (10:32)
--- NOTE | 2020-06-07 10:44 | ED ---
Fall HPI - General Chief Complaint: Fall Stated Complaint: fall/shoulder pain Time Seen by Provider: 06/07/20 10:22 Source: patient, RN notes reviewed Mode of arrival: ambulatory Limitations: no limitations - History of Present Illness Initial Comments: 60-year-old male presents emergency Department chief complaint of slip and fall on Monday. Patient states he slipped on some ice he states he didn't twist his ankle was ankle has improved he states he fell onto his left shoulder mental left mid upper arm pain. Patient states he can move states is very painful. Patient states that he no head injury no loss conscious. Patient states he took some pain medication which was getting him through the day but states that the pain has become unbearable. No significant swelling or discoloration of his left arm. Chest pain abdominal pain. No shortness breath. - Related Data Home Medications Medication Instructions Recorded Confirmed OLANZapine [OLANZapine Odt] 15 mg PO 0530 10/30/19 10/31/19 carBAMazepine [TEGretol] 100 mg PO Q12H 10/30/19 10/31/19 Previous Rx's Medication Instructions Recorded HYDROcodone/APAP 5-325MG [[place] 1 tab PO Q6HR PRN 3 Days #12 tab 10/31/19 5-325] Amoxicillin/Potassium Clav 1 tab PO BID 10 Days #20 tab 03/28/20 [Augmentin 875-125 Tablet] Ibuprofen [Motrin] 600 mg PO Q6HR PRN #20 tab 03/28/20 L.acidoph,Paracasei, B.lactis 1 each PO DAILY #10 capsule 03/28/20 [Probiotic] Acetaminophen-Codeine 300-30mg 1 tab PO Q6H PRN #12 tablet 04/26/20 [Tylenol #3] Amoxic-Pot Clav 875-125Mg 1 tab PO Q12HR #20 tablet 04/26/20 [Augmentin 875-125] Clindamycin [Cleocin] 300 mg PO Q8H 7 Days #42 cap 04/29/20 HYDROcodone/APAP 5-325MG [[place] 5] 1 each PO Q6HR PRN #12 tab 06/07/20 Ibuprofen [Motrin] 600 mg PO Q8HR PRN #30 tab 06/07/20 Allergies Allergy/AdvReac Type Severity Reaction Status Date / Time lamotrigine [From Lamictal] Allergy Confusion Verified 06/07/20 10:21 Review of Systems ROS Statement: Those systems with pertinent positive or pertinent negative responses have been documented in the HPI. ROS Other: All systems not noted in ROS Statement are negative. 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 Past Anesthesia/Blood Transfusion Reactions: No Reported Reaction Past Psychological History: Anxiety, Bipolar, Depression Smoking Status: Never smoker Past Alcohol Use History: Occasional Past Drug Use History: None Reported - Past Family History Mother Family Medical History: Cancer Additional Family Medical History / Comment(s): Liver and abd CA, Breast CA Father Family Medical History: Myocardial Infarction ([place]) Additional Family Medical History / Comment(s): CABG AT AGE 50 Brother(s) Family Medical History: Coronary Artery Disease (CAD) Additional Family Medical History / Comment(s): CABG AT AGE 50 General Exam Limitations: no limitations General appearance: alert, in no apparent distress Head exam: Present: atraumatic, normocephalic, normal inspection Eye exam: Present: normal appearance, PERRL, EOMI. Absent: scleral icterus, conjunctival injection, periorbital swelling ENT exam: Present: normal exam, normal oropharynx, mucous membranes moist Neck exam: Present: normal inspection, full ROM. Absent: tenderness, meningismus, lymphadenopathy Respiratory exam: Present: normal lung sounds bilaterally. Absent: respiratory distress, wheezes, rales, rhonchi, stridor Cardiovascular Exam: Present: regular rate, normal rhythm, normal heart sounds. Absent: systolic murmur, diastolic murmur, rubs, gallop, clicks Extremities exam: Present: other (Tenderness to left mid humeral region neurovascular intact patient does have good range of motion but reports moderate discomfort.) Back exam: Present: full ROM, tenderness, paraspinal tenderness, vertebral tenderness Course Vital Signs 06/07/20 10:19 Temperature 98.6 F Pulse Rate 72 Respiratory 20 Rate Blood Pressure 186/102 O2 Sat by Pulse 99 Oximetry Medical Decision Making - Medical Decision Making X-rays reviewed, no acute fracture dislocation patient injuries concern for ligamentous or muscle tear. Patient will be placed in a sling will follow-up with orthopedics this week was provided pain relief is neurovascularly intact return parameters were discussed. Disposition Clinical Impression: Fall, Left shoulder strain Disposition: HOME SELF-CARE Condition: Stable Instructions (If sedation given, give patient instructions): Shoulder Sprain (ED) Additional Instructions: Please follow-up with orthopedics for further evaluation.Please return to the Emergency Department if symptoms worsen or any other concerns. Prescriptions: Ibuprofen [Motrin] 600 mg PO Q8HR PRN #30 tab PRN Reason: Pain HYDROcodone/APAP 5-325MG [Bromide 5] 1 each PO Q6HR PRN #12 tab PRN Reason: Pain Is patient prescribed a controlled substance at d/c from ED?: Yes When asked, does pt state using other controlled substances?: No If prescribed controlled substance>3 days was MAPS reviewed?: Prescribed <3 Days If opioid is for acute pain is fill amount 7 days or less?: Yes If Rx opioid, was Start Talking consent form obtained?: Yes Referrals: Hayley Weaver DO [Primary Care Provider] - 1-2 days Tal Murry MD [STAFF PHYSICIAN] - 1-2 days Time of Disposition: 11:07
--- NOTE | 2020-06-07 11:52 | XR ---
EXAMINATION TYPE: XR humerus LT DATE OF EXAM: 06/07/2020 CLINICAL HISTORY: Pain. TECHNIQUE: Two views of the left humerus are obtained. COMPARISON: Left elbow x-ray January 29, 2020. FINDINGS: There is no acute fracture or dislocation seen in the left humerus. The left shoulder breanna nt appears within normal limits. Visualized portion of the left elbow joint show some spurring. The o verlying soft tissue appears within normal limits. IMPRESSION: As above.
== END 2020-06-07 11:15 | disposition home or self-care (01) ==
LOC: EC 10:11
DX: S46.912A Strain of unspecified muscle, fascia and tendon at shoulder and upper arm level, left arm, initial encounter (principal); W00.0XXA Fall on same level due to ice and snow, initial encounter; E78.5 Hyperlipidemia, unspecified; F31.9 Bipolar disorder, unspecified; F41.9 Anxiety disorder, unspecified; Z90.49 Acquired absence of other specified parts of digestive tract; Z95.5 Presence of coronary angioplasty implant and graft
CPT/HCPCS: 73060; 99283; 96372; J1170

== ENCOUNTER 2020-06-24 08:18 | Emergency (ER) | payer OTHER ==
[2020-06-24 08:42] VITALS: BP 144/94; PULSE 77; RESP 18; TEMP 98
--- NOTE | 2020-06-24 09:01 | ED ---
Upper Extremity HPI - General Chief Complaint: Extremity Injury, Upper Stated Complaint: L Shoulder Injury Time Seen by Provider: 06/24/20 08:43 Source: patient, RN notes reviewed Mode of arrival: ambulatory Limitations: no limitations - History of Present Illness Initial Comments: This a 60-year-old male presents emergency Department chief complaint of left shoulder pain. Patient's had pain for last 3 weeks after a fall. Patient states that he slipped on some ice and fell. Patient was seen in the ER and negative x-rays. Patient follow-up with Dr. Ivey and which she is instructed to have an MRI. Patient states he is scheduled for an MRI 5 days ago but states that he received phone call stating this was unable to be completed. He states he surgical back but no answer. Patient states is a follow-up appointment on Monday with orthopedics but states he still has not had his MRI. He states that it's very painful when he tries to sleep or when he moves it. He is [id number]. Patient states that he has limited range of motion secondary to pain patient offers no other complaints aside no paresthesias. - Related Data Home Medications Medication Instructions Recorded Confirmed OLANZapine [OLANZapine Odt] 15 mg PO 0530 10/30/19 10/31/19 carBAMazepine [TEGretol] 100 mg PO Q12H 10/30/19 10/31/19 Previous Rx's Medication Instructions Recorded HYDROcodone/APAP 5-325MG [[place] 1 tab PO Q6HR PRN 3 Days #12 tab 10/31/19 5-325] Amoxicillin/Potassium Clav 1 tab PO BID 10 Days #20 tab 03/28/20 [Augmentin 875-125 Tablet] Ibuprofen [Motrin] 600 mg PO Q6HR PRN #20 tab 03/28/20 L.acidoph,Paracasei, B.lactis 1 each PO DAILY #10 capsule 03/28/20 [Probiotic] Acetaminophen-Codeine 300-30mg 1 tab PO Q6H PRN #12 tablet 04/26/20 [Tylenol #3] Amoxic-Pot Clav 875-125Mg 1 tab PO Q12HR #20 tablet 04/26/20 [Augmentin 875-125] Clindamycin [Cleocin] 300 mg PO Q8H 7 Days #42 cap 04/29/20 HYDROcodone/APAP 5-325MG [[place] 5] 1 each PO Q6HR PRN #12 tab 06/07/20 Ibuprofen [Motrin] 600 mg PO Q8HR PRN #30 tab 06/07/20 HYDROcodone/APAP 10-325MG [[place] 1 tab PO Q6HR PRN 3 Days #12 tab 06/24/20 10-325] Allergies Allergy/AdvReac Type Severity Reaction Status Date / Time amoxicillin Allergy Rash/Hives Verified 06/24/20 08:42 lamotrigine [From Lamictal] Allergy Confusion Verified 06/24/20 08:42 Review of Systems ROS Statement: Those systems with pertinent positive or pertinent negative responses have been documented in the HPI. ROS Other: All systems not noted in ROS Statement are negative. 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 Past Anesthesia/Blood Transfusion Reactions: No Reported Reaction Past Psychological History: Anxiety, Bipolar, Depression Smoking Status: Never smoker Past Alcohol Use History: Occasional Past Drug Use History: None Reported - Past Family History Mother Family Medical History: Cancer Additional Family Medical History / Comment(s): Liver and abd CA, Breast CA Father Family Medical History: Myocardial Infarction ([place]) Additional Family Medical History / Comment(s): CABG AT AGE 50 Brother(s) Family Medical History: Coronary Artery Disease (CAD) Additional Family Medical History / Comment(s): CABG AT AGE 50 General Exam Limitations: no limitations General appearance: alert, in no apparent distress Head exam: Present: atraumatic, normocephalic, normal inspection Eye exam: Present: normal appearance, PERRL, EOMI. Absent: scleral icterus, conjunctival injection, periorbital swelling ENT exam: Present: normal exam, normal oropharynx, mucous membranes moist Neck exam: Present: normal inspection, full ROM. Absent: tenderness, meningismus, lymphadenopathy Respiratory exam: Present: normal lung sounds bilaterally. Absent: respiratory distress, wheezes, rales, rhonchi, stridor Cardiovascular Exam: Present: regular rate, normal rhythm, normal heart sounds. Absent: systolic murmur, diastolic murmur, rubs, gallop, clicks Extremities exam: Present: other (Left shoulder limited range of motion secondary to pain. [employer] Strength equal bilaterally neurovascular intact with cap refill less than 2 seconds of all digits. There is tenderness over the anterior she'll lateral portion no posterior shoulder or scapular tenderness) Back exam: Present: full ROM. Absent: tenderness Neurological exam: Present: alert, oriented X3, reflexes normal. Absent: motor sensory deficit Skin exam: Present: warm, dry, intact, normal color. Absent: rash Course Vital Signs 06/24/20 08:38 Temperature 98.0 F Pulse Rate 77 Respiratory 18 Rate Blood Pressure 144/94 O2 Sat by Pulse 95 Oximetry Medical Decision Making - Medical Decision Making 60-year-old presented for left shoulder pain which is been ongoing and old injury. I did contact MRI and they stated that his insurance has not arthritis his MRI. He has no emergent medical condition for similar MRI. Patient has a follow-up appointment on Monday with his orthopedic surgeon. Patient provided pain relief will be discharged in stable condition. Disposition Clinical Impression: Unspecified injury of muscle(s) and tendon(s) of the rotator cuff of left shoulder, initial encounter Disposition: HOME SELF-CARE Condition: Stable Instructions (If sedation given, give patient instructions): Rotator Cuff Injury (ED) Additional Instructions: Please return to the Emergency Department if symptoms worsen or any other concerns. Prescriptions: HYDROcodone/APAP 10-325MG [[place] 10-325] 1 tab PO Q6HR PRN 3 Days #12 tab PRN Reason: pain Is patient prescribed a controlled substance at d/c from ED?: Yes When asked, does pt state using other controlled substances?: No If prescribed controlled substance>3 days was MAPS reviewed?: Prescribed <3 Days If opioid is for acute pain is fill amount 7 days or less?: Yes If Rx opioid, was Start Talking consent form obtained?: Yes Referrals: Sapna Bishop DO [Primary Care Provider] - 1-2 days Time of Disposition: 09:12
[2020-06-24] MEDS ORDERED: HYDROcodone/APAP 10-325MG 1 EACH TAB PO ONE (09:14)
== END 2020-06-24 09:29 | disposition home or self-care (01) ==
LOC: EC 08:18
DX: S46.002A Unspecified injury of muscle(s) and tendon(s) of the rotator cuff of left shoulder, initial encounter (principal); E78.5 Hyperlipidemia, unspecified; G47.30 Sleep apnea, unspecified; F41.9 Anxiety disorder, unspecified; Z79.1 Long term (current) use of non-steroidal anti-inflammatories (NSAID); W00.0XXA Fall on same level due to ice and snow, initial encounter
CPT/HCPCS: 99283

== ENCOUNTER 2020-06-28 00:39 | Emergency (ER) | payer OTHER ==
--- NOTE | 2020-06-28 00:50 | ED ---
SOB HPI - General Chief Complaint: Shortness of Breath Stated Complaint: SOB Time Seen by Provider: 06/28/20 00:49 Source: patient, RN notes reviewed, old records reviewed Mode of arrival: ambulatory Limitations: no limitations - History of Present Illness Initial Comments: This is a 60-year-old male DF for evaluation patient Dese for evaluation regards to shortness of breath cough and congestion. He isn't bodyaches and pains. No fevers. Patient has no significant history of breathing difficulty patient has never smoked he does have sleep apnea but no significant history of heart disease. No no recent travel history or sick contacts, mild cough MD Complaint: shortness of breath, cough -: days(s) (2) Severity: mild Quality: aching Consistency: constant Improves With: nothing Worsens With: exertion, movement Known History Of: other (none) Context: recent URI, recent illness Associated Symptoms: cough, sputum production Treatments Prior to Arrival: none - Related Data Home Medications Medication Instructions Recorded Confirmed OLANZapine [OLANZapine Odt] 15 mg PO 0530 10/30/19 10/31/19 carBAMazepine [TEGretol] 100 mg PO Q12H 10/30/19 10/31/19 Previous Rx's Medication Instructions Recorded HYDROcodone/APAP 5-325MG [[place] 1 tab PO Q6HR PRN 3 Days #12 tab 10/31/19 5-325] Amoxicillin/Potassium Clav 1 tab PO BID 10 Days #20 tab 03/28/20 [Augmentin 875-125 Tablet] Ibuprofen [Motrin] 600 mg PO Q6HR PRN #20 tab 03/28/20 L.acidoph,Paracasei, B.lactis 1 each PO DAILY #10 capsule 03/28/20 [Probiotic] Acetaminophen-Codeine 300-30mg 1 tab PO Q6H PRN #12 tablet 04/26/20 [Tylenol #3] Amoxic-Pot Clav 875-125Mg 1 tab PO Q12HR #20 tablet 04/26/20 [Augmentin 875-125] Clindamycin [Cleocin] 300 mg PO Q8H 7 Days #42 cap 04/29/20 HYDROcodone/APAP 5-325MG [[place] 5] 1 each PO Q6HR PRN #12 tab 06/07/20 Ibuprofen [Motrin] 600 mg PO Q8HR PRN #30 tab 06/07/20 HYDROcodone/APAP 10-325MG [[place] 1 tab PO Q6HR PRN 3 Days #12 tab 06/24/20 10-325] Allergies Allergy/AdvReac Type Severity Reaction Status Date / Time amoxicillin Allergy Rash/Hives Verified 06/28/20 00:45 lamotrigine [From Lamictal] Allergy Confusion Verified 06/28/20 00:45 Review of Systems ROS Statement: Those systems with pertinent positive or pertinent negative responses have been documented in the HPI. ROS Other: All systems not noted in ROS Statement are negative. 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 Past Anesthesia/Blood Transfusion Reactions: No Reported Reaction Past Psychological History: Anxiety, Bipolar, Depression Smoking Status: Never smoker Past Alcohol Use History: None Reported Past Drug Use History: None Reported - Past Family History Mother Family Medical History: Cancer Additional Family Medical History / Comment(s): Liver and abd CA, Breast CA Father Family Medical History: Myocardial Infarction ([place]) Additional Family Medical History / Comment(s): CABG AT AGE 50 Brother(s) Family Medical History: Coronary Artery Disease (CAD) Additional Family Medical History / Comment(s): CABG AT AGE 50 General Exam General appearance: alert, in no apparent distress Head exam: Present: atraumatic, normocephalic, normal inspection Eye exam: Present: normal appearance, PERRL, EOMI. Absent: scleral icterus, conjunctival injection, periorbital swelling ENT exam: Present: normal exam, mucous membranes moist Neck exam: Present: normal inspection. Absent: tenderness, meningismus, l ymphadenopathy Respiratory exam: Present: normal lung sounds bilaterally. Absent: respiratory distress, wheezes, rales, rhonchi, stridor Cardiovascular Exam: Present: regular rate, normal rhythm, normal heart sounds. Absent: systolic murmur, diastolic murmur, rubs, gallop, clicks GI/Abdominal exam: Present: soft, normal bowel sounds. Absent: distended, tenderness, guarding, rebound, rigid Extremities exam: Present: normal inspection, full ROM, normal capillary refill. Absent: tenderness, pedal edema, joint swelling, calf tenderness Back exam: Present: normal inspection Neurological exam: Present: alert, oriented X3, CN II-XII intact Psychiatric exam: Present: normal affect, normal mood Skin exam: Present: warm, dry, intact, normal color. Absent: rash Course Vital Signs 06/28/20 06/28/20 06/28/20 00:41 01:50 02:13 Temperature 97.4 F L Pulse Rate 76 68 68 Respiratory 17 16 Rate Blood Pressure 146/87 141/70 O2 Sat by Pulse 95 97 Oximetry - Reevaluation(s) Reevaluation #1: 06/28/20 01:01 Medical record is reviewed Reevaluation #2: 06/28/20 03:06 Patient pulse ox monitored here in the ER with no change even with movement. Reevaluation #3: 06/28/20 03:06 Patient is in no distress denying any significant current complaints Reevaluation #4: 06/28/20 03:06 Patient is informed of results, Questions have been answered Medical Decision Making - Medical Decision Making 60 male to the ER for evaluation of severe shortness of breath. Patient has no significant travel history sick contacts, x-ray CT chest negative here in the ER labwork is normal patient can be discharged home - Lab Data Result diagrams: 06/28/20 01:38 06/28/20 01:38 Lab Results 06/28/20 06/28/20 06/28/20 Range/Units 00:52 01:38 01:38 WBC 7.3 (3.8-10.6) k/uL RBC 4.89 (4.30-5.90) m/uL Hgb 16.5 (13.0-17.5) gm/dL Hct 46.3 (39.0-53.0) % MCV 94.7 (80.0-100.0) fL MCH 33.7 (25.0-35.0) pg MCHC 35.6 (31.0-37.0) g/dL RDW 12.7 (11.5-15.5) % Plt Count 165 (150-450) k/uL MPV 8.0 Neutrophils % 53 % Lymphocytes % 33 % Monocytes % 8 % Eosinophils % 4 % Basophils % 1 % Neutrophils # 3.9 (1.3-7.7) k/uL Lymphocytes # 2.4 (1.0-4.8) k/uL Monocytes # 0.5 (0-1.0) k/uL Eosinophils # 0.3 (0-0.7) k/uL Basophils # 0.1 (0-0.2) k/uL PT 9.4 (9.0-12.0) sec INR 0.9 (<1.2) APTT 22.4 (22.0-30.0) sec D-Dimer 0.30 (<0.60) mg/L FEU Sodium (137-145) mmol/L Potassium (3.5-5.1) mmol/L Chloride (98-107) mmol/L Carbon Dioxide (22-30) mmol/L Anion Gap mmol/L BUN (9-20) mg/dL Creatinine (0.66-1.25) mg/dL Est GFR (CKD-EPI)AfAm (>60 ml/min/1.73 sqM) Est GFR (CKD-EPI)NonAf (>60 ml/min/1.73 sqM) Glucose (74-99) mg/dL Plasma Lactic Acid Bryan (0.7-2.0) mmol/L Calcium (8.4-10.2) mg/dL Magnesium (1.6-2.3) mg/dL Total Bilirubin (0.2-1.3) mg/dL AST (17-59) U/L ALT (4-49) U/L Alkaline Phosphatase (38-126) U/L Lactate Dehydrogenase (313-618) U/L Creatine Kinase (55-170) U/L C-Reactive Protein (<10.0) mg/L NT-Pro-B Natriuret Pep pg/mL Total Protein (6.3-8.2) g/dL Albumin (3.5-5.0) g/dL Coronavirus (PCR) Not Detected (Not Detectd) 06/28/20 06/28/20 06/28/20 Range/Units 01:38 01:38 01:38 WBC (3.8-10.6) k/uL RBC (4.30-5.90) m/uL Hgb (13.0-17.5) gm/dL Hct (39.0-53.0) % MCV (80.0-100.0) fL MCH (25.0-35.0) pg MCHC (31.0-37.0) g/dL RDW (11.5-15.5) % Plt Count (150-450) k/uL MPV Neutrophils % % Lymphocytes % % Monocytes % % Eosinophils % % Basophils % % Neutrophils # (1.3-7.7) k/uL Lymphocytes # (1.0-4.8) k/uL Monocytes # (0-1.0) k/uL Eosinophils # (0-0.7) k/uL Basophils # (0-0.2) k/uL PT (9.0-12.0) sec INR (<1.2) APTT (22.0-30.0) sec D-Dimer (<0.60) mg/L FEU Sodium 137 (137-145) mmol/L Potassium 3.9 (3.5-5.1) mmol/L Chloride 107 (98-107) mmol/L Carbon Dioxide 22 (22-30) mmol/L Anion Gap 8 mmol/L BUN 13 (9-20) mg/dL Creatinine 0.67 (0.66-1.25) mg/dL Est GFR (CKD-EPI)AfAm >90 (>60 ml/min/1.73 sqM) Est GFR (CKD-EPI)NonAf >90 (>60 ml/min/1.73 sqM) Glucose 121 H (74-99) mg/dL Plasma Lactic Acid Bryan 1.5 (0.7-2.0) mmol/L Calcium 9.3 (8.4-10.2) mg/dL Magnesium 2.2 (1.6-2.3) mg/dL Total Bilirubin 0.4 (0.2-1.3) mg/dL AST 44 (17-59) U/L ALT 78 H (4-49) U/L Alkaline Phosphatase 91 (38-126) U/L Lactate Dehydrogenase (313-618) U/L Creatine Kinase 128 (55-170) U/L C-Reactive Protein (<10.0) mg/L NT-Pro-B Natriuret Pep 20 pg/mL Total Protein 7.3 (6.3-8.2) g/dL Albumin 4.4 (3.5-5.0) g/dL Coronavirus (PCR) (Not Detectd) 06/28/20 Range/Units 01:38 WBC (3.8-10.6) k/uL RBC (4.30-5.90) m/uL Hgb (13.0-17.5) gm/dL Hct (39.0-53.0) % MCV (80.0-100.0) fL MCH (25.0-35.0) pg MCHC (31.0-37.0) g/dL RDW (11.5-15.5) % Plt Count (150-450) k/uL MPV Neutrophils % % Lymphocytes % % Monocytes % % Eosinophils % % Basophils % % Neutrophils # (1.3-7.7) k/uL Lymphocytes # (1.0-4.8) k/uL Monocytes # (0-1.0) k/uL Eosinophils # (0-0.7) k/uL Basophils # (0-0.2) k/uL PT (9.0-12.0) sec INR (<1.2) APTT (22.0-30.0) sec D-Dimer (<0.60) mg/L FEU Sodium (137-145) mmol/L Potassium (3.5-5.1) mmol/L Chloride (98-107) mmol/L Carbon Dioxide (22-30) mmol/L Anion Gap mmol/L BUN (9-20) mg/dL Creatinine (0.66-1.25) mg/dL Est GFR (CKD-EPI)AfAm (>60 ml/min/1.73 sqM) Est GFR (CKD-EPI)NonAf (>60 ml/min/1.73 sqM) Glucose (74-99) mg/dL Plasma Lactic Acid Bryan (0.7-2.0) mmol/L Calcium (8.4-10.2) mg/dL Magnesium (1.6-2.3) mg/dL Total Bilirubin (0.2-1.3) mg/dL AST (17-59) U/L ALT (4-49) U/L Alkaline Phosphatase (38-126) U/L Lactate Dehydrogenase 510 (313-618) U/L Creatine Kinase (55-170) U/L C-Reactive Protein <5.0 (<10.0) mg/L NT-Pro-B Natriuret Pep pg/mL Total Protein (6.3-8.2) g/dL Albumin (3.5-5.0) g/dL Coronavirus (PCR) (Not Detectd) - EKG Data -: EKG Interpreted by Me (EKG is sinus rhythm 66 [place] 210 QRS 92 QTC 425) - Radiology Data Radiology results: report reviewed (Chest x-ray and CT chest negative for acute disease), image reviewed Disposition Clinical Impression: Obesity, Dyspnea Disposition: HOME SELF-CARE Condition: Good Instructions (If sedation given, give patient instructions): Dyspnea (ED) Is patient prescribed a controlled substance at d/c from ED?: No Referrals: Sapna Bishop DO [Primary Care Provider] - 1-2 days
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
[2020-06-28] MEDS ORDERED: SODIUM CHLORIDE 0.9% 1,000 ML IV STA (01:27)
[2020-06-28] MEDS ORDERED: IPRATROPIUM-ALBUTEROL 3 ML NEB INHALATION STA (01:27)
[2020-06-28 01:50] LABS: Basophils # (A) 0.1 k/uL (0-0.2); Basophils % (A) 1 %; Eosinophils # (A) 0.3 k/uL (0-0.7); Eosinophils % (A) 4 %; HCT 46.3 % (39.0-53.0); HGB 16.5 gm/dL (13.0-17.5); Lymphocytes # (A) 2.4 k/uL (1.0-4.8); Lymphocytes % (A) 33 %; MCH 33.7 pg (25.0-35.0); MCHC 35.6 g/dL (31.0-37.0); MCV 94.7 fL (80.0-100.0); Monocytes # (A) 0.5 k/uL (0-1.0); Monocytes % (A) 8 %; Neutrophils # (A) 3.9 k/uL (1.3-7.7); Neutrophils % (A) 53 %; Platelet Count 165 k/uL (150-450); RBC 4.89 m/uL (4.30-5.90); RDW 12.7 % (11.5-15.5); WBC 7.3 k/uL (3.8-10.6)
[2020-06-28 01:52] VITALS: RESP 16
[2020-06-28 02:06] LABS: D-Dimer 0.3 mg/L FEU (<0.60); INR 0.9 (<1.2); Partial Thromboplastin Time 22.4 sec (22.0-30.0); Prothrombin Time 9.4 sec (9.0-12.0)
--- NOTE | 2020-06-28 02:23 | CT ---
EXAM: CT Angiography Chest With Intravenous Contrast CLINICAL HISTORY: Shortness of breath. TECHNIQUE: Axial computed tomographic angiography images of the chest with intravenous contrast. CTDI is 20.97 mGy and DLP is 600.6 mGy-cm. This CT exam was performed using one or more of the following dose reduction techniques: automated exposure control, adjustment of the mA and/or kV according to patient size, and/or use of iterative reconstruction technique. MIP reconstructed images were created and reviewed. COMPARISON: 06/28/2020. FINDINGS: Pulmonary arteries: Central pulmonary arteries are within normal limits. Peripheral branch of the pulmonary arteries are within normal is. Aorta: Thoracic aorta is unremarkable. No thoracic aortic aneurysm. Lungs: Minimal subsegmental atelectasis is noted in the mid lower lung zones. The airways patent. No mass. Pleural space: Unremarkable. No significant effusion. No pneumothorax. Heart: Unremarkable. No cardiomegaly. No significant pericardial effusion. No evidence of RV dysfunction. Thyroid: Thyroid gland is unremarkable. Bones/joints: No acute fracture. No dislocation. Soft tissues: Unremarkable. Lymph nodes: Unremarkable. No enlarged lymph nodes. Liver: Fatty infiltration of the liver. Other findings: Hypoaeration. IMPRESSION: 1. No central peripheral pulmonary emboli detected. 2. Hypoaeration.
[2020-06-28 02:37] LABS: C Reactive Protein <5.0 mg/L (<10.0); LDH 510 U/L (313-618)
[2020-06-28 02:58] LABS: ALT 78 U/L (4-49); AST 44 U/L (17-59); African American GFR (CKD) >90 (>60 ml/min/1.73 sqM); Albumin 4.4 g/dL (3.5-5.0); Alkaline Phosphatase 91 U/L (38-126); Anion Gap 8 mmol/L; Blood Urea Nitrogen 13 mg/dL (9-20); Calcium 9.3 mg/dL (8.4-10.2); Carbon Dioxide 22 mmol/L (22-30); Chloride 107 mmol/L (98-107); Creatine Kinase 128 U/L (55-170); Glucose 121 mg/dL (74-99); Magnesium 2.2 mg/dL (1.6-2.3); Non-African American GFR(CKD) >90 (>60 ml/min/1.73 sqM); Potassium 3.9 mmol/L (3.5-5.1); Sodium 137 mmol/L (137-145); Total Bilirubin 0.4 mg/dL (0.2-1.3); Total Protein 7.3 g/dL (6.3-8.2)
[2020-06-28 03:32] VITALS: BP 150/84; PULSE 63; TEMP 98
== END 2020-06-28 03:25 | disposition home or self-care (01) ==
LOC: EC 00:39
DX: E66.9 Obesity, unspecified (principal); R06.00 Dyspnea, unspecified; E78.5 Hyperlipidemia, unspecified; G47.30 Sleep apnea, unspecified; Z20.822 Contact with and (suspected) exposure to COVID-19; F32.9 Major depressive disorder, single episode, unspecified
CPT/HCPCS: 36415; 94640; 93005; 85379; 83880; 80053; 82550; 83605; 83615; 83735; 84484; 85025; 85610; 85730; 86140; 87635; 71045; 71275; 99285; 96360; Q9967

== ENCOUNTER → 2020-07-13 | Outpatient (CLI) | payer OTHER | END | disposition home or self-care (01) | LOC: RADMRIMAIN 14:42 | PROVIDERS: ATTEND Orthopaedic Surgery | DX: M25.512 Pain in left shoulder (principal) ==

== ENCOUNTER → 2020-08-03 | Outpatient (CLI) | payer OTHER ==
--- NOTE | 2020-08-04 04:29 | MR ---
EXAMINATION TYPE: MR shoulder LT wo con DATE OF EXAM: 08/03/2020 COMPARISON: None HISTORY: Left shoulder pain and limited range of movement for 6 weeks due to falling on ice. Multiplanar multiecho imaging of the left shoulder was performed without contrast. The biceps tendon is intact. Subscapularis tendon is intact. [place] appear intact. There is increased signal in the large area of the supraspinatus tendon near the attachment on the gr eater tuberosity of the humerus. There is no retraction. I do not see definite full-thickness defect. There is some fluid signal in the greater tuberosity humerus consistent with edema and degenerative cyst formation. This measures 1 cm. There is minor spurring at the AC joint. There is no significant subacromial impingement. There is no evidence of a fracture. Scapula is intact. IMPRESSION: There is some increased fluid signal in the supraspinatus tendon consistent with tendinitis. No full- thickness tear. Increased signal in the greater tuberosity consistent with edema that could be bone bruise are degene rative cyst formation. No fracture seen. No significant subacromial impingement.
== END | disposition home or self-care (01) ==
LOC: RADMRIMAIN 17:36
PROVIDERS: ATTEND Orthopaedic Surgery
DX: M25.512 Pain in left shoulder (principal)

== ENCOUNTER → 2020-08-25 | Outpatient (CLI) | payer OTHER ==
[2020-08-25 15:28] LABS: Basophils # (A) 0.09 X 10*3/uL (0.00-0.10); Basophils % (A) 1.3 %; Eosinophils # (A) 0.45 X 10*3/uL (0.04-0.35); Eosinophils % (A) 6.6 %; HCT 47.4 % (39.6-50.0); HGB 16.5 g/dL (13.0-17.0); Lymphocytes # (A) 2.21 X 10*3/uL (0.90-5.00); Lymphocytes % (A) 32.5 %; MCH 32.7 pg (27.0-32.0); MCHC 34.8 g/dL (32.0-37.0); MCV 93.9 fL (80.0-97.0); Mean Platelet Volume 11.8 fL (9.5-12.2); Monocytes # (A) 0.71 X 10*3/uL (0.20-1.00); Monocytes % (A) 10.5 %; Neutrophils % (A) 48.7 %; Platelet Count 217 X 10*3/uL (140-440); RBC 5.05 X 10*6/uL (4.40-5.60); RDW 11.9 % (11.5-14.5); WBC 6.79 X 10*3/uL (4.50-10.00)
[2020-08-25 17:10] LABS: Hemoglobin A1C 5.1 % (4.0-6.0)
[2020-08-25 18:33] LABS: African American GFR (CKD) 95.1 (60.0-200.0); Albumin 4.5 g/dL (3.80-4.90); Albumin/Globulin Ratio 1.8 (1.60-3.17); Anion Gap 14.5 mmol/L (4.00-12.00); Calcium 9.1 mg/dL (8.7-10.3); Carbon Dioxide 18.5 mmol/L (21.6-31.8); Chol/HDL Ratio 7.24; Globulin 2.5 g/dL (1.6-3.3); Potassium 4.2 mmol/L (3.5-5.5); Total Bilirubin 0.4 mg/dL (0.2-1.2)
[2020-08-25 22:19] LABS: Carbamazepine (Tegretol) 4.8 ug/mL (4.0-12.0)
== END | disposition home or self-care (01) ==
LOC: LABWHC1 09:38
PROVIDERS: ATTEND Psychiatry & Neurology Psychiatry
DX: Z79.899 Other long term (current) drug therapy (principal)
CPT/HCPCS: 36415; 80053; 80061; 80156; 80299; 83036; 83721; 84439; 84443; 85025

== ENCOUNTER 2020-08-29 13:00 | Emergency (ER) | payer OTHER ==
[2020-08-29 13:09] VITALS: BP 175/94; PULSE 74; RESP 18; TEMP 97.6
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
== END 2020-08-29 14:02 | disposition home or self-care (01) ==
LOC: EC 13:00
DX: M25.521 Pain in right elbow (principal); E78.5 Hyperlipidemia, unspecified; G47.30 Sleep apnea, unspecified; V43.52XA Car driver injured in collision with other type car in traffic accident, initial encounter; Y92.410 Unspecified street and highway as the place of occurrence of the external cause
CPT/HCPCS: 99283

== ENCOUNTER 2020-10-28 13:24 | Emergency (ER) | payer OTHER ==
[2020-10-28 13:29] VITALS: BP 150/90; PULSE 69; RESP 17; TEMP 98
[2020-10-28] MEDS ORDERED: ACET/COD 300 MG/30 MG STARTER PACK 6 TAB BTL PO STA (13:44)
--- NOTE | 2020-10-28 13:45 | ED ---
Back Pain HPI - General Chief Complaint: Back Pain/Injury Stated Complaint: Back Pain Time Seen by Provider: 10/28/20 13:31 Source: patient, RN notes reviewed Limitations: no limitations - History of Present Illness Initial Comments: 60-year-old male presents emergency Department with chief complaint of back pain. 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 Patient states that last night 7 he twisted and felt a strain in his back. Patient states that he felt some tightening his back he denies any bowel bladder incontinence or retention or saddle anesthesias no pain rates on his legs. Patient states that he has no pain at rest only pain with movement. - Related Data Home Medications Medication Instructions Recorded Confirmed OLANZapine [OLANZapine Odt] 15 mg PO 0530 10/30/19 10/31/19 carBAMazepine [TEGretol] 100 mg PO Q12H 10/30/19 10/31/19 Previous Rx's Medication Instructions Recorded HYDROcodone/APAP 5-325MG [[place] 1 tab PO Q6HR PRN 3 Days #12 tab 10/31/19 5-325] Amoxicillin/Potassium Clav 1 tab PO BID 10 Days #20 tab 03/28/20 [Augmentin 875-125 Tablet] Ibuprofen [Motrin] 600 mg PO Q6HR PRN #20 tab 03/28/20 L.acidoph,Paracasei, B.lactis 1 each PO DAILY #10 capsule 03/28/20 [Probiotic] Acetaminophen-Codeine 300-30mg 1 tab PO Q6H PRN #12 tablet 04/26/20 [Tylenol #3] Amoxic-Pot Clav 875-125Mg 1 tab PO Q12HR #20 tablet 04/26/20 [Augmentin 875-125] Clindamycin [Cleocin] 300 mg PO Q8H 7 Days #42 cap 04/29/20 HYDROcodone/APAP 5-325MG [[place] 5] 1 each PO Q6HR PRN #12 tab 06/07/20 Ibuprofen [Motrin] 600 mg PO Q8HR PRN #30 tab 06/07/20 HYDROcodone/APAP 10-325MG [[place] 1 tab PO Q6HR PRN 3 Days #12 tab 06/24/20 10-325] Cyclobenzaprine [Flexeril] 10 mg PO TID PRN #15 tab 10/28/20 Ibuprofen [Motrin] 600 mg PO Q8HR PRN #20 tab 10/28/20 Allergies Allergy/AdvReac Type Severity Reaction Status Date / Time amoxicillin Allergy Rash/Hives Verified 10/28/20 13:29 lamotrigine [From Lamictal] Allergy Confusion Verified 10/28/20 13:29 Review of Systems ROS Statement: Those systems with pertinent positive or pertinent negative responses have been documented in the HPI. ROS Other: All systems not noted in ROS Statement are negative. 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, esphogus reconstruction Past Anesthesia/Blood Transfusion Reactions: No Reported Reaction Past Psychological History: Anxiety, Bipolar, Depression Smoking Status: Never smoker Past Alcohol Use History: Occasional Past Drug Use History: None Reported - Past Family History Mother Family Medical History: Cancer Additional Family Medical History / Comment(s): Liver and abd CA, Breast CA Father Family Medical History: Myocardial Infarction ([place]) Additional Family Medical History / Comment(s): CABG AT AGE 50 Brother(s) Family Medical History: Coronary Artery Disease (CAD) Additional Family Medical History / Comment(s): CABG AT AGE 50 General Exam Limitations: no limitations General appearance: alert, in no apparent distress Head exam: Present: atraumatic, normocephalic, normal inspection Neck exam: Present: normal inspection, full ROM. Absent: tenderness, meningismus, lymphadenopathy Respiratory exam: Present: normal lung sounds bilaterally. Absent: respiratory distress, wheezes, rales, rhonchi, stridor Cardiovascular Exam: Present: regular rate, normal rhythm, normal heart sounds. Absent: systolic murmur, diastolic murmur, rubs, gallop, clicks GI/Abdominal exam: Present: soft, normal bowel sounds. Absent: distended, tenderness, guarding, rebound, rigid Extremities exam: Present: normal inspection, full ROM. Absent: tenderness, pedal edema, calf tenderness Back exam: Present: normal inspection, full ROM, tenderness, muscle spasm, paraspinal tenderness. Absent: vertebral tenderness Neurological exam: Present: alert, oriented X3, CN II-XII intact, reflexes normal. Absent: motor sensory deficit Course Vital Signs 10/28/20 13:26 Temperature 98.0 F Pulse Rate 69 Respiratory 17 Rate Blood Pressure 150/90 O2 Sat by Pulse 94 L Oximetry Medical Decision Making - Medical Decision Making Patient presented for back strain. Patient has no red flag symptoms. He is neurologically intact. Patient right pain control, muscle relaxers will follow- up with workman's injury and return for worsening change symptoms. Disposition Clinical Impression: Back strain Disposition: HOME SELF-CARE Condition: Stable Instructions (If sedation given, give patient instructions): Low Back Strain (ED), Thoracic Back Strain (ED) Additional Instructions: Please return to the Emergency Department if symptoms worsen or any other concerns. Prescriptions: Cyclobenzaprine [Flexeril] 10 mg PO TID PRN #15 tab PRN Reason: Muscle Spasm Ibuprofen [Motrin] 600 mg PO Q8HR PRN #20 tab PRN Reason: Pain Is patient prescribed a controlled substance at d/c from ED?: No Referrals: Chris Bishop MD [Primary Care Provider] - 1-2 days Time of Disposition: 13:44
== END 2020-10-28 13:59 | disposition home or self-care (01) ==
LOC: EC 13:24
DX: S39.012A Strain of muscle, fascia and tendon of lower back, initial encounter (principal); X58.XXXA Exposure to other specified factors, initial encounter; E78.5 Hyperlipidemia, unspecified; G47.30 Sleep apnea, unspecified; Z99.81 Dependence on supplemental oxygen; Z95.5 Presence of coronary angioplasty implant and graft; F32.9 Major depressive disorder, single episode, unspecified
CPT/HCPCS: 99283

== ENCOUNTER 2020-12-01 05:42 | Observation (INO) | payer OTHER ==
[2020-12-01] MEDS ORDERED: MORPHINE SULFATE 4 MG/ML SYRINGE IV PRN (05:44)
[2020-12-01] MEDS ORDERED: NITROGLYCERIN SL TABS 0.4 MG TAB SUBLINGUAL PRN (05:44)
--- NOTE | 2020-12-01 05:46 | ED ---
Chest Pain HPI - General Stated Complaint: Chest Pain Time Seen by Provider: 12/01/20 05:44 - Related Data Home Medications Medication Instructions Recorded Confirmed OLANZapine [OLANZapine Odt] 15 mg PO 0530 10/30/19 10/31/19 carBAMazepine [TEGretol] 100 mg PO Q12H 10/30/19 10/31/19 Previous Rx's Medication Instructions Recorded HYDROcodone/APAP 5-325MG [[place] 1 tab PO Q6HR PRN 3 Days #12 tab 10/31/19 5-325] Amoxicillin/Potassium Clav 1 tab PO BID 10 Days #20 tab 03/28/20 [Augmentin 875-125 Tablet] Ibuprofen [Motrin] 600 mg PO Q6HR PRN #20 tab 03/28/20 L.acidoph,Paracasei, B.lactis 1 each PO DAILY #10 capsule 03/28/20 [Probiotic] Acetaminophen-Codeine 300-30mg 1 tab PO Q6H PRN #12 tablet 04/26/20 [Tylenol #3] Amoxic-Pot Clav 875-125Mg 1 tab PO Q12HR #20 tablet 04/26/20 [Augmentin 875-125] Clindamycin [Cleocin] 300 mg PO Q8H 7 Days #42 cap 04/29/20 HYDROcodone/APAP 5-325MG [[place] 5] 1 each PO Q6HR PRN #12 tab 06/07/20 Ibuprofen [Motrin] 600 mg PO Q8HR PRN #30 tab 06/07/20 HYDROcodone/APAP 10-325MG [[place] 1 tab PO Q6HR PRN 3 Days #12 tab 06/24/20 10-325] Cyclobenzaprine [Flexeril] 10 mg PO TID PRN #15 tab 10/28/20 Ibuprofen [Motrin] 600 mg PO Q8HR PRN #20 tab 10/28/20 Allergies Allergy/AdvReac Type Severity Reaction Status Date / Time amoxicillin Allergy Rash/Hives Verified 10/28/20 13:29 lamotrigine [From Lamictal] Allergy Confusion Verified 10/28/20 13:29 Review of Systems ROS Statement: Those systems with pertinent positive or pertinent negative responses have been documented in the HPI. ROS Other: All systems not noted in ROS Statement are negative. 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, esphogus reconstruction Past Anesthesia/Blood Transfusion Reactions: No Reported Reaction Past Psychological History: Anxiety, Bipolar, Depression Smoking Status: Never smoker Past Alcohol Use History: Occasional Past Drug Use History: None Reported - Past Family History Mother Family Medical History: Cancer Additional Family Medical History / Comment(s): Liver and abd CA, Breast CA Father Family Medical History: Myocardial Infarction ([place]) Additional Family Medical History / Comment(s): CABG AT AGE 50 Brother(s) Family Medical History: Coronary Artery Disease (CAD) Additional Family Medical History / Comment(s): CABG AT AGE 50 Disposition Clinical Impression: Chest pain Disposition: ADMITTED IP TO THIS [facility] Condition: Undetermined Is patient prescribed a controlled substance at d/c from ED?: No Referrals: Chris Bishop MD [Primary Care Provider] - 1-2 days
[2020-12-01 08:45] VITALS: RESP 16
[2020-12-01] MEDS ORDERED: amLODIPine 5 MG TAB PO SCH (09:00)
[2020-12-01] MEDS ORDERED: ATORVASTATIN 10 MG TAB PO SCH (09:00)
--- NOTE | 2020-12-01 09:34 | P.CRDCN ---
History of Present Illness History of present illness: HISTORY OF PRESENTING ILLNESS This is a pleasant 60-year-old male past medical history significant for hypertension, dyslipidemia and bipolar disorder. 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 He did see Dr. Gibson in 2015 underwent cardiac catheterization revealing no significant CAD. We have been asked to see in consultation for chest pain. Went to an outside facility with symptoms of sharp discomfort in the midsternal region that radiated to the right anterior chest wall intermittently. He continues to have discomfort that is relieved only by IV morphine. Currently his pain is 3 out of 10. It is mildly reproducible with deep inspiration. He denies associated shortness of breath, dizziness, palpitations, nausea, vomiting or diaphoresis. There are no old records from [facility]. EKG obtained here reveals sinus bradycardia heart rate of 55. There are no acute ST or T wave abnormalities noted. Laboratory data obtained here, troponin negative 1. Current daily cardiac medications include atorvastatin 10 mg daily, prazosin 1 mg at bedtime as needed and amlodipine/benazepril 5/10 mg daily. REVIEW OF SYSTEMS At the time of my exam: CONSTITUTIONAL: Denies fever or chills. CARDIOVASCULAR: Complains of chest pain. Denies shortness of breath, orthopnea, PND or palpitations. RESPIRATORY: Denies cough. GASTROINTESTINAL: Denies abdominal pain, diarrhea, constipation, nausea or v omiting. MUSCULOSKELETAL: Denies myalgias. NEUROLOGIC: Denies numbness, tingling, headache or weakness. ENDOCRINE: Denies fatigue, weight change, polydipsia or polyurina. GENITOURINARY: Denies burning, hematuria or urgency with micturation. HEMATOLOGIC: Denies history of anemia or bleeding. PHYSICAL EXAMINATION Blood pressure 146/85 heart rate 56 afebrile and maintaining oxygen saturation on room air. CONSTITUTIONAL: No apparent distress. HEENT: Head is normocephalic. Pupils are equal, round. Sclerae anicteric. Mucous membranes of the mouth are moist. No JVD. No carotid bruit. CHEST EXAMINATION: Lungs are clear to auscultation. No chest wall tenderness is noted on palpation or with deep breathing. HEART EXAMINATION: Regular rate and rhythm. S1, S2 heard. No murmurs, gallops or rub. ABDOMEN: Soft, nontender. EXTREMITIES: 2+ peripheral pulses, no lower extremity edema and no calf tenderness. NEUROLOGIC EXAMINATION: Patient is awake, alert and oriented x3. ASSESSMENT Chest pain, atypical Hypertension Dyslipidemia Bipolar disorder PLAN Pain is atypical for angina. Patient had a normal cardiac catheterization in 2015 and a normal stress test in 2018. Pain seems to be related to underlying musculoskeletal injury. Echocardiogram has been obtained and will be reviewed. Patient can be discharged this afternoon after serial troponins. Follow-up in the office with Dr. Garcia next week. Thank you kindly for this consultation. Nurse Practitioner note has been reviewed, I agree with a documented findings and plan of care. Patient was seen and examined. 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, esphogus reconstruction Past Anesthesia/Blood Transfusion Reactions: No Reported Reaction Past Psychological History: Anxiety, Bipolar, Depression Smoking Status: Never smoker Past Alcohol Use History: Occasional Past Drug Use History: None Reported - Past Family History Mother Family Medical History: Cancer Additional Family Medical History / Comment(s): Liver and abd CA, Breast CA Father Family Medical History: Myocardial Infarction ([place]) Additional Family Medical History / Comment(s): CABG AT AGE 50 Brother(s) Family Medical History: Coronary Artery Disease (CAD) Additional Family Medical History / Comment(s): CABG AT AGE 50 Medications and Allergies Home Medications Medication Instructions Recorded Confirmed Type Atorvastatin Calcium [Lipitor] 10 mg PO DAILY 12/01/20 12/01/20 History Baclofen 10 mg PO BID PRN 12/01/20 12/01/20 History FLUoxetine HCL [PROzac] 20 mg PO DAILY@1200 12/01/20 12/01/20 History OLANZapine 20 mg PO DAILY 12/01/20 12/01/20 History Prazosin [Minipress] 1 mg PO HS PRN 12/01/20 12/01/20 History amLODIPine BESYLATE/BENAZEPRIL 1 cap PO DAILY 12/01/20 12/01/20 History [Lotrel 5-10 MG] carBAMazepine [TEGretol XR] 200 mg PO BID 12/01/20 12/01/20 History Allergies Allergy/AdvReac Type Severity Reaction Status Date / Time amoxicillin Allergy Rash/Hives Verified 12/01/20 08:21 lamotrigine [From Lamictal] AdvReac Confusion Verified 12/01/20 08:21 Physical Exam Vitals: Vital Signs Temp Pulse Resp BP Pulse Ox 12/01/20 05:55 97.9 F 58 L 18 144/98 95 Intake and Output 11/30/20 12/01/20 12/01/20 22:59 06:59 14:59 Other: Weight 117.934 kg Results Cardiac Enzymes 12/01/20 Range/Units 06:42 Troponin I <0.012 (0.000-0.034) ng/mL Current Medications Generic Name Dose Route Start Last Admin Trade Name Freq PRN Reason Stop Dose Admin Aspirin 325 mg 12/02/20 09:00 Aspirin 325 Mg Tab PO DAILY JOSE Morphine Sulfate 4 mg 12/01/20 05:44 Morphine Sulfate 4 Mg/Ml Syringe IV Q4HR PRN Chest Pain Nitroglycerin 0.4 mg 12/01/20 05:44 Nitroglycerin Sl Tabs 0.4 Mg Tab SUBLINGUAL Q5M PRN Chest Pain Intake and Output 11/30/20 12/01/20 12/01/20 22:59 06:59 14:59 Other: Weight 117.934 kg
[2020-12-01 09:39] LABS: African American GFR (CKD) >90 (>60 ml/min/1.73 sqM); Anion Gap 7 mmol/L; Blood Urea Nitrogen 15 mg/dL (9-20); Carbon Dioxide 25 mmol/L (22-30); Chloride 106 mmol/L (98-107); Glucose 94 mg/dL (74-99); Non-African American GFR(CKD) >90 (>60 ml/min/1.73 sqM); Sodium 138 mmol/L (137-145)
[2020-12-01 11:21] VITALS: BP 131/85; PULSE 68; TEMP 98.5
--- NOTE | 2020-12-01 11:27 | ECHOF ---
Referral Reason:cp MEASUREMENTS -------- HEIGHT: 157.5 cm WEIGHT: 117.9 kg BP: RVIDd: 2.9 cm (< 3.3) IVSd: 1.4 cm (0.6 - 1.1) LVIDd: 4.4 cm (3.9 - 5.3) LVPWd: 1.5 cm (0.6 - 1.1) IVSs: 1.8 cm LVIDs: 3.9 cm LVPWs: 1.4 cm LA Diam: 4.1 cm (2.7 - 3.8) Ao Diam: 3.2 cm (2.0 - 3.7) AV Cusp: 2.4 cm (1.5 - 2.6) MV EXCURSION: 18.742 mm (> 18.000) MV EF SLOPE: 111 mm/s (70 - 150) EPSS: 0.1 cm MV E Donnie: 0.59 m/s MV DecT: 193 ms MV A Donnie: 0.61 m/s MV E/A Ratio: 0.97 RAP: 5.00 mmHg RVSP: 19.09 mmHg FINDINGS -------- Sinus rhythm. Morbid Obesity The left ventricular size is normal. There is moderate concentric left ventricular hypertrophy. O verall left ventricular systolic function is normal with, an EF between 55 - 60 %. The right ventricle is normal in size. The left atrium is mildly dilated. The right atrial size is normal. There is mild aortic valve sclerosis. There is no evidence of aortic regurgitation. Mild mitral regurgitation is present. Mild tricuspid regurgitation present. Right ventricular systolic pressure is normal at < 35 mmHg. There is no pulmonic regurgitation present. Echo free space represents a pericardial fat pad. CONCLUSIONS -------- 1. The left ventricular size is normal. 2. There is moderate concentric left ventricular hypertrophy. 3. Overall left ventricular systolic function is normal with, an EF between 55 - 60 %. 4. The right ventricle is normal in size. 5. The left atrium is mildly dilated. 6. The right atrial size is normal. 7. There is mild aortic valve sclerosis. 8. Mild mitral regurgitation is present. 9. Mild tricuspid regurgitation present. 10. Echo free space represents a pericardial fat pad. 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
[2020-12-01 20:28] LABS: Chol/HDL Ratio 5.09
[2020-12-02] MEDS ORDERED: ASPIRIN 325 MG TAB PO SCH (09:00)
[2020-12-02] MEDS ORDERED: ASPIRIN 81 MG PO SCH (09:00)
== END 2020-12-01 11:37 | disposition home or self-care (01) ==
LOC: EC 05:42 → 1SOBS 05:44
PROVIDERS: ADMIT Family Medicine; ATTEND Family Medicine
DX: R07.89 Other chest pain (principal); I10 Essential (primary) hypertension; E78.5 Hyperlipidemia, unspecified; R00.1 Bradycardia, unspecified; F31.9 Bipolar disorder, unspecified; F41.9 Anxiety disorder, unspecified; G47.30 Sleep apnea, unspecified; Z98.890 Other specified postprocedural states; Z79.899 Other long term (current) drug therapy; Z88.0 Allergy status to penicillin; Z90.49 Acquired absence of other specified parts of digestive tract; Z80.3 Family history of malignant neoplasm of breast; Z82.49 Family history of ischemic heart disease and other diseases of the circulatory system; Z80.0 Family history of malignant neoplasm of digestive organs
CPT/HCPCS: 99285; 93005; 93306; 80061; 80048; 84484; G0378

== ENCOUNTER 2021-01-28 03:28 | Emergency (ER) | payer OTHER ==
[2021-01-28] MEDS ORDERED: TOPICAL SKIN ADHESIVE 1 EACH AMP TOPICAL ONE (04:06)
--- NOTE | 2021-01-28 04:06 | XR ---
EXAMINATION TYPE: XR hand complete LT DATE OF EXAM: 01/28/2021 COMPARISON: NONE HISTORY: Laceration at the base of the thumb TECHNIQUE: 3 views FINDINGS: I see no fracture nor dislocation. Metacarpals are intact. Carpal bones are intact. There i s minor spurring at the DIP joints. IMPRESSION: Minor degenerative changes. No fracture. No evidence of foreign body.
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
[2021-01-28] MEDS ORDERED: Acetaminophen-Codeine 300-30mg TAB PO STA (04:15)
[2021-01-28] MEDS ORDERED: CEPHALEXIN 500MG STARTER PACK 4 CAP BTL PO STA (04:15)
[2021-01-28] MEDS ORDERED: CEPHALEXIN 500 MG CAP PO STA (04:15)
[2021-01-28] MEDS ORDERED: ACET/COD 300 MG/30 MG STARTER PACK 6 TAB BTL PO STA (04:15)
[2021-01-28 04:50] VITALS: BP 138/78; PULSE 67; RESP 20; TEMP 97.7
== END 2021-01-28 04:49 | disposition home or self-care (01) ==
LOC: EC 03:28
DX: S61.412A Laceration without foreign body of left hand, initial encounter (principal); E78.5 Hyperlipidemia, unspecified; F41.9 Anxiety disorder, unspecified; F31.9 Bipolar disorder, unspecified; Z90.49 Acquired absence of other specified parts of digestive tract; X78.1XXA Intentional self-harm by knife, initial encounter
CPT/HCPCS: 12001; 99283

== ENCOUNTER 2021-03-24 03:48 | Emergency (ER) | payer OTHER ==
[2021-03-24 03:55] VITALS: RESP 18; TEMP 97.6
[2021-03-24] MEDS ORDERED: SODIUM CHLORIDE 0.9% 1,000 ML IV STA (04:32)
[2021-03-24] MEDS ORDERED: MECLIZINE 12.5 MG TAB PO STA (04:33)
[2021-03-24] MEDS ORDERED: METOCLOPRAMIDE 5 MG/ML 2 ML VIAL IVP STA (04:33)
--- NOTE | 2021-03-24 04:35 | ED ---
General Adult HPI - General Chief complaint: Nausea/Vomiting/Diarrhea Stated complaint: Nausea, dizziness, wants Covid test Time Seen by Provider: 03/24/21 04:07 Source: patient, RN notes reviewed Mode of arrival: ambulatory Limitations: no limitations - History of Present Illness Initial comments: Patient is a pleasant 40-year-old male presenting to the emergency department with concerns for dizziness. Onset of symptoms was when he woke around 8:00 last night. 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 Patient feels dizzy like spinning type sensation. Patient did vomit twice. No headache. No ear problems. No history of similar symptoms previously. Symptoms are positional. - Related Data Home Medications Medication Instructions Recorded Confirmed Atorvastatin Calcium [Lipitor] 10 mg PO DAILY 12/01/20 12/01/20 Baclofen 10 mg PO BID PRN 12/01/20 12/01/20 FLUoxetine HCL [PROzac] 20 mg PO DAILY@1200 12/01/20 12/01/20 OLANZapine 20 mg PO DAILY 12/01/20 12/01/20 Prazosin [Minipress] 1 mg PO HS PRN 12/01/20 12/01/20 amLODIPine BESYLATE/BENAZEPRIL 1 cap PO DAILY 12/01/20 12/01/20 [Lotrel 5-10 MG] carBAMazepine [TEGretol XR] 200 mg PO BID 12/01/20 12/01/20 Allergies Allergy/AdvReac Type Severity Reaction Status Date / Time amoxicillin Allergy Rash/Hives Verified 03/24/21 03:54 lamotrigine [From Lamictal] AdvReac Confusion Verified 03/24/21 03:54 Review of Systems ROS Statement: Those systems with pertinent positive or pertinent negative responses have been documented in the HPI. ROS Other: All systems not noted in ROS Statement are negative. Constitutional: Denies: fever Eyes: Denies: eye pain ENT: Denies: ear pain Respiratory: Denies: cough Cardiovascular: Denies: chest pain Endocrine: Denies: fatigue Gastrointestinal: Denies: abdominal pain Genitourinary: Denies: dysuria Musculoskeletal: Denies: back pain Skin: Denies: rash Neurological: Reports: vertigo. 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, esphogus reconstruction Past Anesthesia/Blood Transfusion Reactions: No Reported Reaction Past Psychological History: Anxiety, Bipolar, Depression Smoking Status: Never smoker Past Alcohol Use History: Occasional Past Drug Use History: None Reported - Past Family History Mother Family Medical History: Cancer Additional Family Medical History / Comment(s): Liver and abd CA, Breast CA Father Family Medical History: Myocardial Infarction ([place]) Additional Family Medical History / Comment(s): CABG AT AGE 50 Brother(s) Family Medical History: Coronary Artery Disease (CAD) Additional Family Medical History / Comment(s): CABG AT AGE 50 General Exam Limitations: no limitations General appearance: alert, in no apparent distress Head exam: Present: normocephalic Eye exam: Present: normal appearance, PERRL, EOMI ENT exam: Present: TM's normal bilaterally Neck exam: Present: normal inspection Respiratory exam: Present: normal lung sounds bilaterally Cardiovascular Exam: Present: regular rate, normal rhythm GI/Abdominal exam: Present: soft. Absent: tenderness Extremities exam: Present: normal inspection Neurological exam: Present: alert, oriented X3, CN II-XII intact. Absent: motor sensory deficit Expanded Neurological exam: Present: protecting the airway Speech: Present: fluid speech Cranial nerves: EOM's Intact: Normal Cerebellar function: Finger to Nose: Normal Sensory exam: Upper Extremity Light Touch: Normal, Lower Extremity Light Touch: Normal Motor strength exam: RUE: 5, LUE: 5, RLE: 5, LLE: 5 Eye Response: (4) open spontaneously Motor Response: (6) obeys commands Verbal Response: (5) oriented Psychiatric exam: Present: normal affect, normal mood Skin exam: Present: normal color Course Vital Signs 03/24/21 03:52 Temperature 97.6 F Pulse Rate 70 Respiratory 18 Rate Blood Pressure 159/102 O2 Sat by Pulse 98 Oximetry Medical Decision Making - Medical Decision Making Patient reevaluated and symptom-free. Patient updated on results and need for follow-up. - Lab Data Result diagrams: 03/24/21 04:51 12/15/21 04:51 Lab Results 03/24/21 03/24/21 03/24/21 Range/Units 04:51 04:51 04:51 WBC 7.0 (3.8-10.6) k/uL RBC 4.98 (4.30-5.90) m/uL Hgb 16.8 (13.0-17.5) gm/dL Hct 49.0 (39.0-53.0) % MCV 98.3 (80.0-100.0) fL MCH 33.8 (25.0-35.0) pg MCHC 34.3 (31.0-37.0) g/dL RDW 12.7 (11.5-15.5) % Plt Count 210 (150-450) k/uL MPV 8.1 Neutrophils % 57 % Lymphocytes % 29 % Monocytes % 7 % Eosinophils % 4 % Basophils % 1 % Neutrophils # 4.0 (1.3-7.7) k/uL Lymphocytes # 2.0 (1.0-4.8) k/uL Monocytes # 0.5 (0-1.0) k/uL Eosinophils # 0.3 (0-0.7) k/uL Basophils # 0.0 (0-0.2) k/uL PT 10.0 (9.0-12.0) sec INR 0.9 (<1.2) APTT 23.2 (22.0-30.0) sec Sodium (137-145) mmol/L Potassium (3.5-5.1) mmol/L Chloride (98-107) mmol/L Carbon Dioxide (22-30) mmol/L Anion Gap mmol/L BUN (9-20) mg/dL Creatinine (0.66-1.25) mg/dL Est GFR (CKD-EPI)AfAm (>60 ml/min/1.73 sqM) Est GFR (CKD-EPI)NonAf (>60 ml/min/1.73 sqM) Glucose (74-99) mg/dL Calcium (8.4-10.2) mg/dL Total Bilirubin (0.2-1.3) mg/dL AST (17-59) U/L ALT (4-49) U/L Alkaline Phosphatase (38-126) U/L Total Protein (6.3-8.2) g/dL Albumin (3.5-5.0) g/dL Coronavirus (PCR) Not Detected (Not Detectd) 03/24/21 Range/Units 04:51 WBC (3.8-10.6) k/uL RBC (4.30-5.90) m/uL Hgb (13.0-17.5) gm/dL Hct (39.0-53.0) % MCV (80.0-100.0) fL MCH (25.0-35.0) pg MCHC (31.0-37.0) g/dL RDW (11.5-15.5) % Plt Count (150-450) k/uL MPV Neutrophils % % Lymphocytes % % Monocytes % % Eosinophils % % Basophils % % Neutrophils # (1.3-7.7) k/uL Lymphocytes # (1.0-4.8) k/uL Monocytes # (0-1.0) k/uL Eosinophils # (0-0.7) k/uL Basophils # (0-0.2) k/uL PT (9.0-12.0) sec INR (<1.2) APTT (22.0-30.0) sec Sodium 138 (137-145) mmol/L Potassium 3.9 (3.5-5.1) mmol/L Chloride 106 (98-107) mmol/L Carbon Dioxide 26 (22-30) mmol/L Anion Gap 6 mmol/L BUN 10 (9-20) mg/dL Creatinine 0.73 (0.66-1.25) mg/dL Est GFR (CKD-EPI)AfAm >90 (>60 ml/min/1.73 sqM) Est GFR (CKD-EPI)NonAf >90 (>60 ml/min/1.73 sqM) Glucose 96 (74-99) mg/dL Calcium 8.7 (8.4-10.2) mg/dL Total Bilirubin 0.3 (0.2-1.3) mg/dL AST 39 (17-59) U/L ALT 70 H (4-49) U/L Alkaline Phosphatase 79 (38-126) U/L Total Protein 6.4 (6.3-8.2) g/dL Albumin 3.7 (3.5-5.0) g/dL Coronavirus (PCR) (Not Detectd) - Radiology Data Radiology results: report reviewed (Computed tomography scan of brain shows no acute process) Disposition Clinical Impression: Vertigo Disposition: HOME SELF-CARE Condition: Stable Instructions (If sedation given, give patient instructions): Acute Nausea and Vomiting (ED), Vertigo (ED) Additional Instructions: Please follow-up with primary care physician in the next day or 2 for recheck. [id number] Antivert if needed for dizziness. Return for vomiting, increased dizziness, weakness or confusion, worsening symptoms or any other concerns. Is patient prescribed a controlled substance at d/c from ED?: No Referrals: Chris Bishop MD [Primary Care Provider] - 1-2 days Time of Disposition: 06:03
[2021-03-24 05:25] LABS: Basophils % (A) 1 %; Eosinophils # (A) 0.3 k/uL (0-0.7); Eosinophils % (A) 4 %; HGB 16.8 gm/dL (13.0-17.5); Lymphocytes % (A) 29 %; MCH 33.8 pg (25.0-35.0); MCHC 34.3 g/dL (31.0-37.0); MCV 98.3 fL (80.0-100.0); Mean Platelet Volume 8.1; Monocytes # (A) 0.5 k/uL (0-1.0); Monocytes % (A) 7 %; Neutrophils % (A) 57 %; Platelet Count 210 k/uL (150-450); RBC 4.98 m/uL (4.30-5.90); RDW 12.7 % (11.5-15.5)
--- NOTE | 2021-03-24 05:37 | CT ---
EXAMINATION TYPE: CT brain wo con DATE OF EXAM: 03/24/2021 COMPARISON: None HISTORY: vertigo CT DLP: 1142.4 mGycm Automated exposure control for dose reduction was used. Ventricles have normal size. There is no mass effect nor midline shift. There is no sign of intracran ial hemorrhage. Calvarium is intact. The skull base is intact. There is normal aeration of the mastoi d sinuses. IMPRESSION: Negative unenhanced head CT scan.
[2021-03-24 05:38] LABS: ALT 70 U/L (4-49); AST 39 U/L (17-59); African American GFR (CKD) >90 (>60 ml/min/1.73 sqM); Albumin 3.7 g/dL (3.5-5.0); Alkaline Phosphatase 79 U/L (38-126); Anion Gap 6 mmol/L; Blood Urea Nitrogen 10 mg/dL (9-20); Calcium 8.7 mg/dL (8.4-10.2); Carbon Dioxide 26 mmol/L (22-30); Chloride 106 mmol/L (98-107); Glucose 96 mg/dL (74-99); Non-African American GFR(CKD) >90 (>60 ml/min/1.73 sqM); Potassium 3.9 mmol/L (3.5-5.1); Sodium 138 mmol/L (137-145); Total Bilirubin 0.3 mg/dL (0.2-1.3); Total Protein 6.4 g/dL (6.3-8.2)
[2021-03-24 05:39] LABS: INR 0.9 (<1.2); Partial Thromboplastin Time 23.2 sec (22.0-30.0)
[2021-03-24 06:46] VITALS: BP 147/91; PULSE 74
== END 2021-03-24 06:45 | disposition home or self-care (01) ==
LOC: EC 03:48
DX: R42 Dizziness and giddiness (principal); Z20.822 Contact with and (suspected) exposure to COVID-19; I10 Essential (primary) hypertension; E78.5 Hyperlipidemia, unspecified; F31.9 Bipolar disorder, unspecified; F41.9 Anxiety disorder, unspecified; Z79.899 Other long term (current) drug therapy
CPT/HCPCS: 36415; 80053; 85025; 85610; 85730; 87635; 70450; 99284; 96374; 96361; J2765

== ENCOUNTER 2021-06-27 18:05 | Emergency (ER) | payer OTHER ==
[2021-06-27 18:21] VITALS: TEMP 98.4
[2021-06-27] MEDS ORDERED: SODIUM CHLORIDE 0.9% 1,000 ML IV STA (19:09)
[2021-06-27] MEDS ORDERED: diphenhydrAMINE 50 MG/ML 1 ML VIAL IVP STA (19:09)
[2021-06-27] MEDS ORDERED: PANTOPRAZOLE 40 MG/10 ML VIAL IVP STA (19:09)
[2021-06-27] MEDS ORDERED: ONDANSETRON 4 MG/2 ML VIAL IVP STA (19:09)
[2021-06-27] MEDS ORDERED: MORPHINE SULFATE 4 MG/ML SYRINGE IV STA (19:09)
[2021-06-27 19:33] LABS: Basophils # (A) 0.2 k/uL (0-0.2); Basophils % (A) 2 %; Eosinophils # (A) 0.3 k/uL (0-0.7); Eosinophils % (A) 4 %; HGB 16.9 gm/dL (13.0-17.5); Lymphocytes # (A) 2.8 k/uL (1.0-4.8); Lymphocytes % (A) 33 %; MCH 32.9 pg (25.0-35.0); MCHC 34.5 g/dL (31.0-37.0); MCV 95.2 fL (80.0-100.0); Mean Platelet Volume 8.1; Monocytes # (A) 0.6 k/uL (0-1.0); Monocytes % (A) 7 %; Neutrophils # (A) 4.4 k/uL (1.3-7.7); Neutrophils % (A) 52 %; Platelet Count 239 k/uL (150-450); RBC 5.15 m/uL (4.30-5.90); RDW 12.5 % (11.5-15.5); WBC 8.4 k/uL (3.8-10.6)
--- NOTE | 2021-06-27 19:36 | ED ---
General Adult HPI - General Chief complaint: Abdominal Pain Stated complaint: Abd pain Time Seen by Provider: 06/27/21 19:00 Source: patient, RN notes reviewed, old records reviewed Mode of arrival: ambulatory Limitations: no limitations - History of Present Illness Initial comments: Patient is a 61-year-old male with past medical history remarkable for cholecystectomy, appendectomy, hypertension, sleep apnea presents with Department complaining of worsening right upper quadrant abdominal pain. Patient states he has had this pain before and it usually will go away. However today it is more persistent. Is been there for 3 or 4 days. Scribes as an achy pain located in the right upper quadrant that does not radiate. Denies any right shoulder pain associated with it. Denies any shortness of breath. Denies any dysuria or hematuria. Denies any constipation or diarrhea. Denies any nausea or vomiting but does endorse lack of appetite. Denies any fevers, chills, sick contacts. His no other acute complaints at this time. Presents as he is concerned because the pain is not improved. - Related Data Home Medications Medication Instructions Recorded Confirmed Atorvastatin Calcium [Lipitor] 10 mg PO DAILY 12/01/20 06/27/21 Baclofen 10 mg PO BID PRN 12/01/20 06/27/21 OLANZapine 20 mg PO HS 12/01/20 06/27/21 carBAMazepine [TEGretol XR] 200 mg PO BID 12/01/20 06/27/21 Hydrochlorothiazide 12.5 mg PO DAILY 06/27/21 06/27/21 [hydroCHLOROthiazide] amLODIPine BESYLATE/BENAZEPRIL 1 cap PO DAILY 06/27/21 06/27/21 [Lotrel 10-40 MG] busPIRone HCl [Buspar] 10 mg PO DAILY 06/27/21 06/27/21 Previous Rx's Medication Instructions Recorded Famotidine 10 mg PO DAILY 7 Days #7 tab 06/27/21 Mag Hydrox/Al Hydrox/Simeth 30 ml PO BID PRN #300 ml 06/27/21 [Maalox] Allergies Allergy/AdvReac Type Severity Reaction Status Date / Time amoxicillin Allergy Rash/Hives Verified 06/27/21 20:12 lamotrigine [From Lamictal] AdvReac Confusion Verified 06/27/21 20:12 Review of Systems ROS Statement: Those systems with pertinent positive or pertinent negative responses have been documented in the HPI. Review of Systems: CONST: Denies fever EYES: Denies blurry vision ENT: Denies nasal congestion C/V: Denies Chest pain RESP: Denies shortness of breath GI: Endorses abdominal pain : Denies dysuria SKIN: Denies rash. MSK: Denies joint pain. NEURO: Denies headache ROS Other: All systems not noted in ROS Statement are negative. 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, esphogus reconstruction Past Anesthesia/Blood Transfusion Reactions: No Reported Reaction Past Psychological History: Anxiety, Bipolar, Depression Smoking Status: Never smoker Past Alcohol Use History: Occasional Past Drug Use History: None Reported - Past Family History Mother Family Medical History: Cancer Additional Family Medical History / Comment(s): Liver and abd CA, Breast CA Father Family Medical History: Myocardial Infarction ([place]) Additional Family Medical History / Comment(s): CABG AT AGE 50 Brother(s) Family Medical History: Coronary Artery Disease (CAD) Additional Family Medical History / Comment(s): CABG AT AGE 50 General Exam - General Exam Comments Initial Comments: General: Appears in no acute distress. HEAD: Normal with no signs of head trauma. EYES: PERRLA, EOMI, conjunctiva normal, no discharge. ENT: Hearing grossly intact, normal oropharynx. RESPIRATORY: Clear breath sounds bilaterally. No wheezes, rales, or rhonchi. C/V: Regular rate and rhythm. S1 and S2 auscultated, no edema, peripheral pulses 2+ and intact throughout ABD: Abdomen is soft, nondistended. Patient is mildly tender to palpation in the right upper quadrant as well as epigastric region. No CVA tenderness to percussion. No rebound tenderness. No peritoneal signs. No guarding. EXT: Normal range of motion, no obvious deformity SKIN: No rashes or lesions observed on exposed skin. NEURO: Alert and oriented 4. Limitations: no limitations Course Vital Signs 06/27/21 06/27/21 18:19 20:24 Temperature 98.4 F Pulse Rate 76 61 Respiratory 16 18 Rate Blood Pressure 152/82 155/77 O2 Sat by Pulse 96 94 L Oximetry Medical Decision Making - Medical Decision Making Based on the patient's presentation and physical exam, I'm concerned for possible troponin pathology for his current symptoms. He'll receive a GI cocktail in addition to abdominal laboratory studies. We also obtain a screening EKG and troponin As the patient is having epigastric abdominal pain is of the age for atypical presentation for ACS is possible. CT abdomen and pelvis will be obtained. Patient was in agreement this plan. Patient's EKG shows no signs of acute ischemia. Laboratory studies are remarkable for a mildly elevated ALT of 62. Negative troponin. Urinalysis does show large amount leukocyte esterase as well as 26 WBCs but no clinical signs of UTI no nitrites and rare bacteria. Remainder the labs are unremarkable. CT abdomen and pelvis showed no acute intra-abdominal process. There are bilateral fat filled little hernias, but no other findings. On reevaluation come patient is feeling improved. He is tolerating oral intake. His no other acute complaints at this time. Discussed results with him. Believe it is safer and be discharged home with possible EGD outpatient. Patient was in agreement this plan. He will follow-up with his PCP for EGD referral. I will provide the patient with a prescription for famotidine, Maalox. I instructed the patient to follow up with their PCP in the next 3 days. I explained that the patient should return to the emergency department if they experience any worsening symptoms. Strict return precautions were discussed with the patient. The patient expressed understanding of these instructions. I answered all questions that the patient had. The patient was discharged home in good condition with their prescriptions and follow up information. - Lab Data Result diagrams: 06/27/21 19:23 06/27/21 19:23 Lab Results 06/27/21 06/27/21 06/27/21 Range/Units 19:23 19:23 19:23 WBC 8.4 (3.8-10.6) k/uL RBC 5.15 (4.30-5.90) m/uL Hgb 16.9 (13.0-17.5) gm/dL Hct 49.0 (39.0-53.0) % MCV 95.2 (80.0-100.0) fL MCH 32.9 (25.0-35.0) pg MCHC 34.5 (31.0-37.0) g/dL RDW 12.5 (11.5-15.5) % Plt Count 239 (150-450) k/uL MPV 8.1 Neutrophils % 52 % Lymphocytes % 33 % Monocytes % 7 % Eosinophils % 4 % Basophils % 2 % Neutrophils # 4.4 (1.3-7.7) k/uL Lymphocytes # 2.8 (1.0-4.8) k/uL Monocytes # 0.6 (0-1.0) k/uL Eosinophils # 0.3 (0-0.7) k/uL Basophils # 0.2 (0-0.2) k/uL Sodium 137 (137-145) mmol/L Potassium 4.2 (3.5-5.1) mmol/L Chloride 105 (98-107) mmol/L Carbon Dioxide 22 (22-30) mmol/L Anion Gap 10 mmol/L BUN 10 (9-20) mg/dL Creatinine 0.78 (0.66-1.25) mg/dL Est GFR (CKD-EPI)AfAm >90 (>60 ml/min/1.73 sqM) Est GFR (CKD-EPI)NonAf >90 (>60 ml/min/1.73 sqM) Glucose 93 (74-99) mg/dL Plasma Lactic Acid [place] (0.7-2.0) mmol/L Calcium 8.7 (8.4-10.2) mg/dL Total Bilirubin 0.5 (0.2-1.3) mg/dL AST 37 (17-59) U/L ALT 62 H (4-49) U/L Alkaline Phosphatase 89 (38-126) U/L Troponin I (0.000-0.034) ng/mL Total Protein 7.4 (6.3-8.2) g/dL Albumin 4.3 (3.5-5.0) g/dL Amylase 96 (30-110) U/L Lipase 66 (23-300) U/L Urine Color Yellow Urine Appearance Clear (Clear) Urine pH 6.0 (5.0-8.0) Ur Specific [place] 1.015 (1.001-1.035) Urine Protein Trace H (Negative) Urine Glucose (UA) Negative (Negative) Urine Ketones Negative (Negative) Urine Blood Negative (Negative) Urine Nitrite Negative (Negative) Urine Bilirubin Negative (Negative) Urine Urobilinogen <2.0 (<2.0) mg/dL Ur Leukocyte Esterase Large H (Negative) Urine RBC 2 (0-5) /hpf Urine WBC 26 H (0-5) /hpf Urine Bacteria Rare H (None) /hpf Urine Mucus Rare H (None) /hpf 06/27/21 06/27/21 Range/Units 19:23 19:23 WBC (3.8-10.6) k/uL RBC (4.30-5.90) m/uL Hgb (13.0-17.5) gm/dL Hct (39.0-53.0) % MCV (80.0-100.0) fL MCH (25.0-35.0) pg MCHC (31.0-37.0) g/dL RDW (11.5-15.5) % Plt Count (150-450) k/uL MPV Neutrophils % % Lymphocytes % % Monocytes % % Eosinophils % % Basophils % % Neutrophils # (1.3-7.7) k/uL Lymphocytes # (1.0-4.8) k/uL Monocytes # (0-1.0) k/uL Eosinophils # (0-0.7) k/uL Basophils # (0-0.2) k/uL Sodium (137-145) mmol/L Potassium (3.5-5.1) mmol/L Chloride (98-107) mmol/L Carbon Dioxide (22-30) mmol/L Anion Gap mmol/L BUN (9-20) mg/dL Creatinine (0.66-1.25) mg/dL Est GFR (CKD-EPI)AfAm (>60 ml/min/1.73 sqM) Est GFR (CKD-EPI)NonAf (>60 ml/min/1.73 sqM) Glucose (74-99) mg/dL Plasma Lactic Acid [place] 1.3 (0.7-2.0) mmol/L Calcium (8.4-10.2) mg/dL Total Bilirubin (0.2-1.3) mg/dL AST (17-59) U/L ALT (4-49) U/L Alkaline Phosphatase (38-126) U/L Troponin I <0.012 (0.000-0.034) ng/mL Total Protein (6.3-8.2) g/dL Albumin (3.5-5.0) g/dL Amylase (30-110) U/L Lipase (23-300) U/L Urine Color Urine Appearance (Clear) Urine pH (5.0-8.0) Ur Specific [place] (1.001-1.035) Urine Protein (Negative) Urine Glucose (UA) (Negative) Urine Ketones (Negative) Urine Blood (Negative) Urine Nitrite (Negative) Urine Bilirubin (Negative) Urine Urobilinogen (<2.0) mg/dL Ur Leukocyte Esterase (Negative) Urine RBC (0-5) /hpf Urine WBC (0-5) /hpf Urine Bacteria (None) /hpf Urine Mucus (None) /hpf - EKG Data -: EKG Interpreted by Me EKG Comments: 12-lead Electrocardiogram Interpretation Note EKG was reviewed and interpreted by myself. 12-lead ECG performed at 1945 is interpreted by me as revealing normal sinus rhythm at a rate of 71 beats per minute. [place] is normal. MI interval is 103 ms, QRS durations 101 ms, QTc is 435 ms.. There were no ST or T wave abnormalities to suggest myocardial ischemia or injury. R wave progression across the precordium was satisfactory. By my interpretation this EKG is non-diagnostic for acute ischemia. Disposition Clinical Impression: Abdominal pain of unknown etiology Disposition: HOME SELF-CARE Condition: Good Instructions (If sedation given, give patient instructions): Abdominal Pain (ED) Prescriptions: Famotidine 10 mg PO DAILY 7 Days #7 tab Mag Hydrox/Al Hydrox/Simeth [Maalox] 30 ml PO BID PRN #300 ml PRN Reason: Dyspepsia Is patient prescribed a controlled substance at d/c from ED?: No Referrals: Chris Bishop MD [Primary Care Provider] - 1-2 days
[2021-06-27 19:42] LABS: ALT 62 U/L (4-49); AST 37 U/L (17-59); African American GFR (CKD) >90 (>60 ml/min/1.73 sqM); Albumin 4.3 g/dL (3.5-5.0); Alkaline Phosphatase 89 U/L (38-126); Amylase 96 U/L (30-110); Anion Gap 10 mmol/L; Blood Urea Nitrogen 10 mg/dL (9-20); Calcium 8.7 mg/dL (8.4-10.2); Carbon Dioxide 22 mmol/L (22-30); Chloride 105 mmol/L (98-107); Glucose 93 mg/dL (74-99); Lipase 66 U/L (23-300); Non-African American GFR(CKD) >90 (>60 ml/min/1.73 sqM); Potassium 4.2 mmol/L (3.5-5.1); Sodium 137 mmol/L (137-145); Total Bilirubin 0.5 mg/dL (0.2-1.3); Total Protein 7.4 g/dL (6.3-8.2)
[2021-06-27 20:01] LABS: Appearance,Urine Clear (Clear); Bacteria,Urine Rare /hpf; Bilirubin,Urine Negative (Negative); Blood,Urine Negative (Negative); Color,Urine Yellow; Glucose,Urine (UA) Negative (Negative); Ketones,Urine Negative (Negative); Leukocyte Esterase,Urine Large (Negative); Mucus,Urine Rare /hpf; Nitrite,Urine Negative (Negative); Protein,Urine Trace (Negative); RBC,Urine 2 /hpf (0-5); Specific Gravity,Urine 1.015 (1.001-1.035); Urobilinogen,Urine <2.0 mg/dL (<2.0); WBC,Urine 26 /hpf (0-5)
--- NOTE | 2021-06-27 20:24 | CT ---
EXAMINATION TYPE: CT abdomen pelvis w con CT DLP: 1758.9 mGycm, Automated exposure control for dose reduction was used. DATE OF EXAM: 06/27/2021 8:05 PM COMPARISON: CT abdomen pelvis most recent from 12/03/2013 . CLINICAL INDICATION:Male, 61 years old with history of abdominal pain; Right upper quadrant pain. TECHNIQUE: Standard CT of the abdomen and pelvis following the administration of 100 cc of Isovue 3 00 IV contrast material. Coronal and sagittal reformats were performed. FINDINGS: LOWER CHEST: Unremarkable ABDOMEN LIVER: Unremarkable GALLBLADDER AND BILE DUCTS: The gallbladder is surgically absent. PANCREAS: Lipomatous pseudohypertrophy changes. SPLEEN: Unremarkable. ADRENAL GLANDS: Unremarkable. KIDNEYS AND URETERS: No evidence of hydronephrosis or renal calculus. The ureters are unremarkable. PELVIS BLADDER: Unremarkable REPRODUCTIVE: Unremarkable. ABDOMEN & PELVIS STOMACH AND BOWEL: Surgical clips seen near the gastroesophageal junction. No evidence of bowel obstr uction. PERITONEUM: No evidence of pneumoperitoneum or free fluid. VASCULATURE: No evidence of aortic aneurysm. MUSCULOSKELETAL: No acute osseous abnormalities LYMPH NODES: No gross evidence for lymphadenopathy. SOFT TISSUE/ABDOMINAL WALL: Bilateral fat filled inguinal hernias. IMPRESSION: 1. No evidence for acute intra-abdominal process. 2. Bilateral fat filled inguinal hernias 3. Postsurgical changes to the gastroesophageal junction.
[2021-06-27 20:25] VITALS: BP 155/77; PULSE 61; RESP 18
== END 2021-06-27 21:11 | disposition home or self-care (01) ==
LOC: EC 18:05
DX: R10.11 Right upper quadrant pain (principal); E78.5 Hyperlipidemia, unspecified; I10 Essential (primary) hypertension; F31.9 Bipolar disorder, unspecified; F41.9 Anxiety disorder, unspecified; Z90.49 Acquired absence of other specified parts of digestive tract
CPT/HCPCS: 99284; 96374; 96375 ×3; 96361; 36415; 93005; 80053; 82150; 83605; 83690; 84484; 85025; 81001; 87086; 74177; J2270; J1200; J2405; C9113; Q9967

== ENCOUNTER 2021-08-04 01:56 | Emergency (ER) | payer OTHER ==
[2021-08-04 02:08] VITALS: BP 149/87; PULSE 83; RESP 16; TEMP 97.8
--- NOTE | 2021-08-04 02:26 | XR ---
EXAMINATION TYPE: XR elbow complete RT DATE OF EXAM: 08/04/2021 COMPARISON: NONE HISTORY: Elbow pain TECHNIQUE: FINDINGS: There is no sign of fracture nor dislocation. Joint spaces are normal. There is spurring of the olecranon process of the ulna. There is no sign of elbow joint effusion. IMPRESSION: No fracture seen. No adverse change.
[2021-08-04] MEDS ORDERED: KETOROLAC 15 MG/ML 1 ML VIAL IM STA (04:22)
--- NOTE | 2021-08-04 04:34 | ED ---
General Adult HPI - General Chief complaint: Extremity Injury, Upper Stated complaint: RT elbow pain Source: patient Mode of arrival: ambulatory Limitations: no limitations - History of Present Illness Initial comments: Davis is a 61-year-old male with a history of tennis elbow the right elbow. He saw his primary care for this a couple weeks ago he received a steroid shot reported that his pain was much better however he was then lifting heavier objects at work and the pain is becoming worse. Patient presents today for evaluation of pain and requesting a work note with lifting restrictions to prevent worsening of the elbow pain. - Related Data Home Medications Medication Instructions Recorded Confirmed Atorvastatin Calcium [Lipitor] 10 mg PO DAILY 12/01/20 06/27/21 Baclofen 10 mg PO BID PRN 12/01/20 06/27/21 OLANZapine 20 mg PO HS 12/01/20 06/27/21 carBAMazepine [TEGretol XR] 200 mg PO BID 12/01/20 06/27/21 Hydrochlorothiazide 12.5 mg PO DAILY 06/27/21 06/27/21 [hydroCHLOROthiazide] amLODIPine BESYLATE/BENAZEPRIL 1 cap PO DAILY 06/27/21 06/27/21 [Lotrel 10-40 MG] busPIRone HCl [Buspar] 10 mg PO DAILY 06/27/21 06/27/21 Previous Rx's Medication Instructions Recorded Famotidine 10 mg PO DAILY 7 Days #7 tab 06/27/21 Mag Hydrox/Al Hydrox/Simeth 30 ml PO BID PRN #300 ml 06/27/21 [Maalox] Ondansetron Odt [Zofran ODT] 4 mg PO Q8HR PRN #10 tab 07/13/21 Allergies Allergy/AdvReac Type Severity Reaction Status Date / Time amoxicillin Allergy Rash/Hives Verified 08/04/21 02:05 lamotrigine [From Lamictal] AdvReac Confusion Verified 08/04/21 02:05 Review of Systems ROS Statement: Those systems with pertinent positive or pertinent negative responses have been documented in the HPI. ROS Other: All systems not noted in ROS Statement are negative. 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, esphogus reconstruction Past Anesthesia/Blood Transfusion Reactions: No Reported Reaction Past Psychological History: Anxiety, Bipolar, Depression Smoking Status: Never smoker Past Alcohol Use History: None Reported Past Drug Use History: None Reported - Past Family History Mother Family Medical History: Cancer Additional Family Medical History / Comment(s): Liver and abd CA, Breast CA Father Family Medical History: Myocardial Infarction ([place]) Additional Family Medical History / Comment(s): CABG AT AGE 50 Brother(s) Family Medical History: Coronary Artery Disease (CAD) Additional Family Medical History / Comment(s): CABG AT AGE 50 General Exam - General Exam Comments Initial Comments: Physical Exam GENERAL: Patient is well-developed and well-nourished. Patient is nontoxic and well-hydrated and is in no distress. HENT: Normocephalic, Atraumatic. EYES: PERRL, EOMI PULMONARY: Unlabored respirations. CARDIOVASCULAR: RRR Warm and well perfused extremities ABDOMEN: Non-distended SKIN: No rashes or bruising : Deferred NEUROLOGIC: Alert and oriented Normal speech Normal gait MUSCULOSKELETAL: Moving all extremities with no apparent injury There is no redness or swelling of the elbow no signs of infection, septic arthritis or gout PSYCHIATRIC: No SI/HI Limitations: no limitations Course Vital Signs 08/04/21 02:05 Temperature 97.8 F Pulse Rate 83 Respiratory 16 Rate Blood Pressure 149/87 O2 Sat by Pulse 98 Oximetry Medical Decision Making - Medical Decision Making The patient was seen and evaluated, his pain was treated with Toradol and he was provided with a work note limiting lifting to less than 5 pounds as well as referral to Dr. Ivey to discuss treatment of tennis elbow. Disposition Clinical Impression: Right tennis elbow Disposition: HOME SELF-CARE Condition: Stable Instructions (If sedation given, give patient instructions): Tennis Elbow (ED) Is patient prescribed a controlled substance at d/c from ED?: No Referrals: Chris Bishop MD [Primary Care Provider] - 1-2 days Itz Ivey DO [Doctor of Osteopathic Medicine] - 1-2 days
== END 2021-08-04 04:40 | disposition home or self-care (01) ==
LOC: EC 01:56
DX: M77.11 Lateral epicondylitis, right elbow (principal); I10 Essential (primary) hypertension; E78.5 Hyperlipidemia, unspecified; F31.9 Bipolar disorder, unspecified; F41.9 Anxiety disorder, unspecified; Z79.899 Other long term (current) drug therapy
CPT/HCPCS: 96372; 99283

== ENCOUNTER → 2021-10-26 | Outpatient (CLI) | payer OTHER ==
--- NOTE | 2021-10-26 10:10 | CT ---
EXAMINATION TYPE: CT cervical spine wo con CT DLP: 877 mGycm, Automated exposure control for dose reduction was used. DATE OF EXAM: 10/26/2021 10:00 AM COMPARISON: No direct comparisons. CLINICAL INDICATION:Male, 61 years old with history of S13.4XXA SPRAIN LIGAMENTS S30.0XXA CONTUSION C ERVI; PHH, Pain after fall TECHNIQUE: Axial CT images from the skull base to the inferior aspect of T2 we obtained without intra venous contrast. Coronal and sagittal reformatted images were also reviewed. FINDINGS: Fracture: None. Osseous structures: Unremarkable Vertebral alignment: Straightening of the cervical spine which may be due to this patient position ve rsus muscle spasm. Spinal canal/Neural Foramina: No evidence of significant spinal canal narrowing. No evidence for sign ificant neural foraminal stenosis. Neck soft tissues: Prevertebral soft tissues are within normal limits. Other: The airway is patent. The lung apices are clear. IMPRESSION: No evidence of cervical spine fracture.
--- NOTE | 2021-10-26 10:17 | XR ---
EXAM TYPE: LUMBAR SPINE X RAY SERIES COMPARISON: NONE HISTORY: Pain TECHNIQUE: 3 views are submitted. FINDINGS: Alignment is anatomic. The pedicles are intact. The transverse processes are intact. There is no h ypertrophic and degenerative changes spine. Severe facet arthropathy lower lumbar spine. Suspect fora dilan encroachment. Anterior hypertrophic spurring. No spondylolisthesis. Surgical clip right upper q uadrant. Gastric bubble distended. IMPRESSION: 1. Multilevel degenerative disc disease with severe facet arthropathy mid and lower lumbar spine.
== END | disposition home or self-care (01) ==
LOC: RADCTMAIN 09:27
PROVIDERS: ATTEND Emergency Medicine
DX: S30.0XXA Contusion of lower back and pelvis, initial encounter (principal); M51.26 Other intervertebral disc displacement, lumbar region; M47.816 Spondylosis without myelopathy or radiculopathy, lumbar region
CPT/HCPCS: 72100; 72125

== ENCOUNTER 2022-04-12 16:11 | Emergency (ER) | payer OTHER ==
--- NOTE | 2022-04-12 17:09 | ED ---
General Adult HPI - General Chief complaint: Psychiatric Symptoms Stated complaint: EPS eval Time Seen by Provider: 04/12/22 16:50 Source: patient, family ( helps provide history), RN notes reviewed Mode of arrival: ambulatory Limitations: no limitations - History of Present Illness Initial comments: Patient is a pleasant 61-year-old male presenting to the emergency department with concern for mental breakdown. Patient does have history of bipolar and has not been taking this medication regularly over the past week or 2. Patient has been agitated. Patient is not sleeping. Patient has been persevering. Patient does have a history of similar episode a couple years ago. Patient denies suicidal ideation however states that the patient keeps stating that he just wants to . - Related Data Home Medications Medication Instructions Recorded Confirmed OLANZapine 20 mg PO HS 12/01/20 04/12/22 busPIRone HCl [Buspar] 10 mg PO BID 06/27/21 04/12/22 amLODIPine BESYLATE/BENAZEPRIL 1 cap PO DAILY 04/12/22 04/12/22 [Lotrel 5-20 mg Capsule] carBAMazepine [TEGretol] 200 mg PO BID 04/12/22 04/12/22 Allergies Allergy/AdvReac Type Severity Reaction Status Date / Time amoxicillin Allergy Rash/Hives Verified 04/12/22 17:48 lamotrigine [From Lamictal] AdvReac Confusion Verified 04/12/22 17:48 Review of Systems ROS Statement: Those systems with pertinent positive or pertinent negative responses have been documented in the HPI. ROS Other: All systems not noted in ROS Statement are negative. 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, esphogus reconstruction Past Anesthesia/Blood Transfusion Reactions: No Reported Reaction Past Psychological History: Anxiety, Bipolar, Depression Smoking Status: Never smoker Past Alcohol Use History: None Reported Past Drug Use History: None Reported - Past Family History Mother Family Medical History: Cancer Additional Family Medical History / Comment(s): Liver and abd CA, Breast CA Father Family Medical History: Myocardial Infarction ([place]) Additional Family Medical History / Comment(s): CABG AT AGE 50 Brother(s) Family Medical History: Coronary Artery Disease (CAD) Additional Family Medical History / Comment(s): CABG AT AGE 50 General Exam Limitations: no limitations General appearance: alert, anxious Head exam: Present: normocephalic Eye exam: Present: normal appearance Neck exam: Present: normal inspection Respiratory exam: Present: normal lung sounds bilaterally Cardiovascular Exam: Present: regular rate, normal rhythm GI/Abdominal exam: Present: soft. Absent: tenderness Extremities exam: Present: normal inspection. Absent: pedal edema, calf tenderness Neurological exam: Present: alert Psychiatric exam: Present: flat affect Skin exam: Present: normal color Course Vital Signs 04/12/22 04/12/22 16:20 17:14 Temperature 97.5 F L Pulse Rate 80 77 Respiratory 34 H 26 H Rate Blood Pressure 129/83 139/68 O2 Sat by Pulse 99 100 Oximetry Medical Decision Making - Medical Decision Making Patient was seen by mental health services with plans for discharge. Patient denies suicidal thoughts. Was pt. sent in by a medical professional or institution? @ -n Did you speak to anyone other than the patient for history? @ -Additional history from family Did you review nursing and triage notes? @ -Gas and agree Were old charts reviewed? @ -n Differential Diagnosis? @ -Differential includes but is not limited to psychiatric complaints, medical problems, depression, other EKG interpreted by me (3pts min.)? @ -[none] X-rays interpreted by me (1pt min.)? @ -[none] CT interpreted by me (1pt min.)? @ -[none] U/S interpreted by me (1pt. min.)? @ -[none] What testing was considered but not performed? (CT, X-rays, U/S, labs)? Why? @ n What meds were considered but not given? Why? @ -Ativan was considered earlier however patient needed to be seen by psychiatric department who states patient is no longer anxious Did you discuss the management of the patient with other professionals? @ -Discussed with psychiatric nurse Did you reconcile home meds? @ -[none] Was smoking cessation discussed for >3mins.? @ -[none] Was critical care preformed (if so, how long)? @ -[none] Were there social determinants of health that impacted care today? How? (Homelessness, low income, unemployed, alcoholism, drug addiction, transportation, low edu. Level, literacy, decrease access to med. care, m[facility], rehab)? @ -n Was there de-escalation of care discussed even if they declined? (Discuss DNR or withdrawal of care, Hospice)? @ -n What co-morbidities impacted this encounter? (DM, HTN, Smoking, COPD, CAD, Cancer, CVA, Hep., AIDS, mental health diagnosis, sleep apnea, morbid obesity)? @ -Previous history of bipolar Was patient admitted / discharged? @ -Discharge Undiagnosed new problem with uncertain prognosis? @ -Chronic problem with uncertain prognosis Drug Therapy requiring intensive monitoring for toxicity (Heparin, Nitro, Insulin, Cardizem)? @ -n Were any procedures done? @ -n Diagnosis/symptom? @ -Bipolar Acute, or Chronic, or Acute on Chronic? @ -Chronic Uncomplicated (without systemic symptoms) or Complicated (systemic symptoms)? @ -Uncomplicated Side effects of treatment? @ -[none] Exacerbation, Progression, or Severe Exacerbation] @ -Exacerbation Poses a threat to life or bodily function? @ -[no] - Lab Data Lab Results 04/12/22 Range/Units 17:59 Urine Opiates Screen Not Detected (NotDetected) Ur Oxycodone Screen Not Detected (NotDetected) Urine Methadone Screen Not Detected (NotDetected) Ur Propoxyphene Screen Not Detected (NotDetected) Ur Barbiturates Screen Not Detected (NotDetected) U Tricyclic Antidepress Not Detected (NotDetected) Ur Phencyclidine Scrn Not Detected (NotDetected) Ur Amphetamines Screen Not Detected (NotDetected) U Methamphetamines Scrn Not Detected (NotDetected) U Benzodiazepines Scrn Not Detected (NotDetected) Urine Cocaine Screen Not Detected (NotDetected) U Marijuana (THC) Screen Not Detected (NotDetected) Disposition Clinical Impression: Bipolar disorder Disposition: HOME SELF-CARE Condition: Stable Instructions (If sedation given, give patient instructions): Bipolar Disorder (ED) Additional Instructions: Please do follow-up with [facility] physician and mental health services as directed. Return for thoughts of self-harm, worsening symptoms or other concerns. Is patient prescribed a controlled substance at d/c from ED?: No Referrals: Chris Bishop MD [Primary Care Provider] - 1-2 days Time of Disposition: 19:02
[2022-04-12 17:15] VITALS: PULSE 77
[2022-04-12 18:15] LABS: Amphetamine Screen,Urine Not Detected (NotDetected); Barbiturate Screen,Urine Not Detected (NotDetected); Benzodiazepines Screen,Urine Not Detected (NotDetected); Cocaine Screen,Urine Not Detected (NotDetected); Methadone Screen, Urine Not Detected (NotDetected); Opiate Screen,Urine Not Detected (NotDetected); Oxycodone Screen, Urine Not Detected (NotDetected); Phencyclidine Screen,Urine Not Detected (NotDetected); Tricyclic Antidepressant,Urine Not Detected (NotDetected); Urn Cannabinoid Scrn Not Detected (NotDetected)
[2022-04-12 19:13] VITALS: BP 136/81; RESP 20; TEMP 97.8
== END 2022-04-12 19:16 | disposition home or self-care (01) ==
LOC: EC 16:11
DX: F31.9 Bipolar disorder, unspecified (principal); F41.9 Anxiety disorder, unspecified; I10 Essential (primary) hypertension; G47.30 Sleep apnea, unspecified; Z88.0 Allergy status to penicillin; Z88.8 Allergy status to other drugs, medicaments and biological substances
CPT/HCPCS: 80306; 82075; 99285

== ENCOUNTER 2022-07-20 20:33 | Emergency (ER) | payer OTHER ==
[2022-07-20 20:52] VITALS: BP 170/100; PULSE 70; RESP 14; TEMP 98.1
[2022-07-20] MEDS ORDERED: DEXAMETHASONE SOD PHOSPHATE 10 MG/ML 1 ML VIAL IM STA (21:48)
[2022-07-20] MEDS ORDERED: ORPHENADRINE 30 MG/ML 2 ML VIAL IM STA (21:48)
[2022-07-20] MEDS ORDERED: KETOROLAC 15 MG/ML 1 ML VIAL IM STA (21:48)
--- NOTE | 2022-07-20 22:20 | ED ---
Back Pain HPI - General Chief Complaint: Back Pain/Injury Stated Complaint: Back Injury Time Seen by Provider: 07/20/22 21:42 Source: patient Limitations: no limitations - History of Present Illness Initial Comments: Patient is a 62-year-old male presenting with chief complaint of back injury. Patient states that he was moving heavy boxes and strained his right lower back. No loss of bowel or bladder control or saddle paresthesia. Pain is mainly on the right side, no midline tenderness. No radiation of pain down the leg. No numbness or tingling. No urinary symptoms. - Related Data Home Medications Medication Instructions Recorded Confirmed OLANZapine 20 mg PO HS 12/01/20 04/12/22 busPIRone HCl [Buspar] 10 mg PO BID 06/27/21 04/12/22 amLODIPine BESYLATE/BENAZEPRIL 1 cap PO DAILY 04/12/22 04/12/22 [Lotrel 5-20 mg Capsule] carBAMazepine [TEGretol] 200 mg PO BID 04/12/22 04/12/22 Previous Rx's Medication Instructions Recorded Cyclobenzaprine [Flexeril] 10 mg PO HS PRN #15 tab 07/20/22 Lidocaine 5% Patch [Lidoderm 5% 1 patch TOPICAL DAILY PRN #1 pack 07/20/22 Patch] Allergies Allergy/AdvReac Type Severity Reaction Status Date / Time amoxicillin Allergy Rash/Hives Verified 04/12/22 17:48 lamotrigine [From Lamictal] AdvReac Confusion Verified 04/12/22 17:48 Review of Systems ROS Statement: Those systems with pertinent positive or pertinent negative responses have been documented in the HPI. ROS Other: All systems not noted in ROS Statement are negative. 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, esphogus reconstruction Past Anesthesia/Blood Transfusion Reactions: No Reported Reaction Past Psychological History: Anxiety, Bipolar, Depression Smoking Status: Never smoker Past Alcohol Use History: None Reported Past Drug Use History: None Reported - Past Family History Mother Family Medical History: Cancer Additional Family Medical History / Comment(s): Liver and abd CA, Breast CA Father Family Medical History: Myocardial Infarction ([place]) Additional Family Medical History / Comment(s): CABG AT AGE 50 Brother(s) Family Medical History: Coronary Artery Disease (CAD) Additional Family Medical History / Comment(s): CABG AT AGE 50 General Exam Limitations: no limitations General appearance: alert, in no apparent distress Head exam: Present: atraumatic, normocephalic, normal inspection Eye exam: Present: normal appearance Neck exam: Present: normal inspection, full ROM Back exam: Present: normal inspection, paraspinal tenderness. Absent: vertebral tenderness Neurological exam: Present: alert, oriented X3, CN II-XII intact Psychiatric exam: Present: normal affect, normal mood Skin exam: Present: warm, dry, intact, normal color. Absent: rash Course Vital Signs 07/20/22 20:48 Temperature 98.1 F Pulse Rate 70 Respiratory 14 Rate Blood Pressure 170/100 O2 Sat by Pulse 99 Oximetry Medical Decision Making - Medical Decision Making Was pt. sent in by a medical professional or institution (, PA, BACTERIOLOGIST PHARMACEUTICAL, urgent care, hospital, or senior care...) When possible be specific @ -No Did you speak to anyone other than the patient for history (EMS, parent, family, police, friend...)? What history was obtained from this source @ -No Did you review nursing and triage notes (agree or disagree)? Why? @ -I reviewed and agree with nursing and triage notes Were old charts reviewed (outside hosp., previous admission, EMS record, old EKG, old radiological studies, urgent care reports/EKG's, senior care records)? Report findings @ -No old charts were reviewed Differential Diagnosis (chest pain, altered mental status, abdominal pain women, abdominal pain men, vaginal bleeding, weakness, fever, dyspnea, syncope, headache, dizziness, GI bleed, back pain, seizure, CVA, palpatations, mental health, musculoskeletal)? @ - MDM Differential Back Pain: Strain, zoster, cauda equina syndrome, epidural abscess, vertebral osteomyelitis, discitis, fracture, subluxation, disc herniation, DJD, spinal stenosis, dissection, AAA, pancreatitis, peptic ulcer disease, pyelonephritis, kidney stone this is not meant to be an all-inclusive list. EKG interpreted by me (3pts min.). @ -As above X-rays interpreted by me (1pt min.). @ -None done CT interpreted by me (1pt min.). @ -None done U/S interpreted by me (1pt. min.). @ -None done What testing was considered but not performed or refused? (CT, X-rays, U/S, labs)? Why? @ -None What meds were considered but not given or refused? Why? @ -None Did you discuss the management of the patient with other professionals (professionals i.e. DrJs, PA, BACTERIOLOGIST PHARMACEUTICAL, lab, RT, psych nurse, social work job titles, obedience trainer, teacher, licensed loan officer, medical case worker)? Give summary @ -No Was smoking cessation discussed for >3mins.? @ -No Was critical care preformed (if so, how long)? @ -No Were there social determinants of health that impacted care today? How? (Homelessness, low income, unemployed, alcoholism, drug addiction, transportation, low edu. Level, literacy, decrease access to med. care, shelter, rehab)? @ -No Was there de-escalation of care discussed even if they declined (Discuss DNR or withdrawal of care, Hospice)? DNR status @ -No What co-morbidities impacted this encounter? (DM, HTN, Smoking, COPD, CAD, Cancer, CVA, ARF, Chemo, Hep., AIDS, mental health diagnosis, sleep apnea, morbid obesity)? @ -None Was patient admitted / discharged? Hospital course, mention meds given and route, prescriptions, significant lab abnormalities, going to OR and other pertinent info. @ -Patient is a 62-year-old male presenting with chief complaint of left-sided back pain after moving heavy objects at work. On physical examination there is left-sided paraspinal muscle tenderness. No alarm symptoms. Patient reports improvement after pain medication. Provided with work note. Educated on supportive treatment at home. Follow-up with PCP. Report back to ER with any new or worsening symptoms. Discussed return parameters and answered all questions. Patient conveyed verbal understanding and agreed to the plan. I discussed this case in detail with my attending Dr. Brantley Undiagnosed new problem with uncertain prognosis? @ -No Drug Therapy requiring intensive monitoring for toxicity (Heparin, Nitro, Insulin, Cardizem)? @ -No Were any procedures done? @ -No Diagnosis/symptom? @ -Mechanical back pain Acute, or Chronic, or Acute on Chronic? @ -Acute Uncomplicated (without systemic symptoms) or Complicated (systemic symptoms)? @ -Uncomplicated Side effects of treatment? @ -No Exacerbation, Progression, or Severe Exacerbation? @ -No Poses a threat to life or bodily function? How? (Chest pain, [place], [place], pneumonia, PE, COPD, DKA, ARF, appy, cholecystitis, CVA, Diverticulitis, Homicidal, Suicidal, threat to staff... and all critical care pts) @ -No Disposition Clinical Impression: Mechanical back pain Disposition: HOME SELF-CARE Condition: Good Instructions (If sedation given, give patient instructions): Acute Low Back Pain (ED) Additional Instructions: Follow-up with PCP. Report back to ER with any new or worsening symptoms. Take medication as prescribed. Motrin and Tylenol as needed for pain control. Prescriptions: Cyclobenzaprine [Flexeril] 10 mg PO HS PRN #15 tab PRN Reason: Spasms Lidocaine 5% Patch [Lidoderm 5% Patch] 1 patch TOPICAL DAILY PRN #1 pack PRN Reason: Pain Is patient prescribed a controlled substance at d/c from ED?: No Referrals: Chris Bishop MD [Primary Care Provider] - 1-2 days Time of Disposition: 22:19
== END 2022-07-20 22:47 | disposition home or self-care (01) ==
LOC: EC 20:33
DX: M54.9 Dorsalgia, unspecified (principal); I10 Essential (primary) hypertension; F41.9 Anxiety disorder, unspecified; F31.9 Bipolar disorder, unspecified; Z88.0 Allergy status to penicillin; Z88.8 Allergy status to other drugs, medicaments and biological substances; Z79.899 Other long term (current) drug therapy; X50.0XXA Overexertion from strenuous movement or load, initial encounter
CPT/HCPCS: 99283; 96372 ×3; J1100; J2360; J1885

== ENCOUNTER 2023-01-29 16:28 | Emergency (ER) | payer OTHER ==
[2023-01-29] MEDS ORDERED: DEXAMETHASONE SOD PHOSPHATE 10 MG/ML 1 ML VIAL IM STA (16:39)
[2023-01-29] MEDS ORDERED: KETOROLAC 15 MG/ML 1 ML VIAL IM STA (16:39)
[2023-01-29] MEDS ORDERED: ORPHENADRINE 30 MG/ML 2 ML VIAL IM STA (16:39)
[2023-01-29] MEDS ORDERED: LIDOCAINE 5% PATCH TOPICAL SCH (16:45)
--- NOTE | 2023-01-29 16:58 | ED ---
Back Pain HPI - General Chief Complaint: Back Pain/Injury Stated Complaint: lower back pain Time Seen by Provider: 01/29/23 16:33 Source: patient Limitations: no limitations - History of Present Illness Initial Comments: 62-year-old male presenting with chief complaint of lower back pain with radiation to the right hip. Pain started this morning. Denies any injury or trauma. No loss of bowel or bladder control or saddle paresthesia. No dysuria, hematuria, fever, chills, nausea, vomiting. - Related Data Home Medications Medication Instructions Recorded Confirmed OLANZapine 20 mg PO HS 12/01/20 04/12/22 busPIRone HCl [Buspar] 10 mg PO BID 06/27/21 04/12/22 amLODIPine BESYLATE/BENAZEPRIL 1 cap PO DAILY 04/12/22 04/12/22 [Lotrel 5-20 mg Capsule] carBAMazepine [TEGretol] 200 mg PO BID 04/12/22 04/12/22 Previous Rx's Medication Instructions Recorded Cyclobenzaprine [Flexeril] 10 mg PO HS PRN #15 tab 07/20/22 Lidocaine 5% Patch [Lidoderm 5% 1 patch TOPICAL DAILY PRN #1 pack 07/20/22 Patch] Cyclobenzaprine [Flexeril] 10 mg PO TID PRN #15 tab 01/29/23 Lidocaine 5% Patch [Lidoderm 5% 1 patch TOPICAL DAILY PRN #30 patch 01/29/23 Patch] Allergies Allergy/AdvReac Type Severity Reaction Status Date / Time amoxicillin Allergy Rash/Hives Verified 01/29/23 16:31 lamotrigine [From Lamictal] AdvReac Confusion Verified 01/29/23 16:31 Review of Systems ROS Statement: Those systems with pertinent positive or pertinent negative responses have been documented in the HPI. ROS Other: All systems not noted in ROS Statement are negative. 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, esphogus reconstruction Past Anesthesia/Blood Transfusion Reactions: No Reported Reaction Past Psychological History: Anxiety, Bipolar, Depression Smoking Status: Never smoker Past Alcohol Use History: None Reported Past Drug Use History: None Reported - Past Family History Mother Family Medical History: Cancer Additional Family Medical History / Comment(s): Liver and abd CA, Breast CA Father Family Medical History: Myocardial Infarction ([place]) Additional Family Medical History / Comment(s): CABG AT AGE 50 Brother(s) Family Medical History: Coronary Artery Disease (CAD) Additional Family Medical History / Comment(s): CABG AT AGE 50 General Exam Limitations: no limitations General appearance: alert, in no apparent distress Head exam: Present: atraumatic, normocephalic, normal inspection Eye exam: Present: normal appearance, EOMI Neck exam: Present: normal inspection, full ROM Respiratory exam: Present: normal lung sounds bilaterally. Absent: respiratory distress, wheezes, rales, rhonchi, stridor Cardiovascular Exam: Present: regular rate, normal rhythm, normal heart sounds. Absent: systolic murmur, diastolic murmur, rubs, gallop, clicks Back exam: Present: normal inspection Neurological exam: Present: alert, oriented X3 Psychiatric exam: Present: normal affect, normal mood Skin exam: Present: warm, dry, intact, normal color. Absent: rash Course Vital Signs 01/29/23 01/29/23 16:30 18:27 Temperature 97.6 F 97.2 F L Pulse Rate 87 81 Respiratory 18 17 Rate Blood Pressure 165/108 158/87 O2 Sat by Pulse 100 98 Oximetry Medical Decision Making - Medical Decision Making Was pt. sent in by a medical professional or institution (, PA, TECHNICAL ENGINEER, urgent care, hospital, or prison...) When possible be specific @ -No Did you speak to anyone other than the patient for history (EMS, parent, family, police, friend...)? What history was obtained from this source @ -No Did you review nursing and triage notes (agree or disagree)? Why? @ -I reviewed and agree with nursing and triage notes Were old charts reviewed (outside hosp., previous admission, EMS record, old EKG, old radiological studies, urgent care reports/EKG's, prison records)? Report findings @ -No old charts were reviewed Differential Diagnosis (chest pain, altered mental status, abdominal pain women, abdominal pain men, vaginal bleeding, weakness, fever, dyspnea, syncope, headache, dizziness, GI bleed, back pain, seizure, CVA, palpatations, mental health, musculoskeletal)? @ - MDM Differential Back Pain: Strain, zoster, cauda equina syndrome, epidural abscess, vertebral osteomyelitis, discitis, fracture, subluxation, disc herniation, DJD, spinal stenosis, dissection, AAA, pancreatitis, peptic ulcer disease, pyelonephritis, kidney stone this is not meant to be an all-inclusive list. EKG interpreted by me (3pts min.). @ -As above X-rays interpreted by me (1pt min.). @ -None done CT interpreted by me (1pt min.). @ -None done U/S interpreted by me (1pt. min.). @ -None done What testing was considered but not performed or refused? (CT, X-rays, U/S, labs)? Why? @ -None What meds were considered but not given or refused? Why? @ -None Did you discuss the management of the patient with other professionals (professionals i.e. , PA, TECHNICAL ENGINEER, lab, RT, psych nurse, social and human services assistant, bit tripoler, teacher, border patrol officer, case management manager)? Give summary @ -No Was smoking cessation discussed for >3mins.? @ -No Was critical care preformed (if so, how long)? @ -No Were there social determinants of health that impacted care today? How? (Homelessness, low income, unemployed, alcoholism, drug addiction, transportation, low edu. Level, literacy, decrease access to med. care, [facility], rehab)? @ -No Was there de-escalation of care discussed even if they declined (Discuss DNR or withdrawal of care, Hospice)? DNR status @ -No What co-morbidities impacted this encounter? (DM, HTN, Smoking, COPD, CAD, Cancer, CVA, ARF, Chemo, Hep., AIDS, mental health diagnosis, sleep apnea, morbid obesity)? @ -None Was patient admitted / discharged? Hospital course, mention meds given and route, prescriptions, significant lab abnormalities, going to OR and other pertinent info. @ -62-year-old male presenting with chief complaint of low back pain with radiation to the right hip. Started today. No injury or trauma. Physical exam is conducted. No red flag symptoms. Patient reports improvement after Toradol, Norflex, Decadron, and lidocaine patch. Patient is sent a prescription for cyclobenzaprine and lidocaine patches at home. Educated on supportive management at home. Follow-up with PCP. Report back to ER with any new or worsening symptoms. Discussed return parameters and answered all questions. Patient conveyed verbal understanding and agreed to the plan. I discussed this case in detail with my attending Dr. Brantley Undiagnosed new problem with uncertain prognosis? @ -No Drug Therapy requiring intensive monitoring for toxicity (Heparin, Nitro, In sulin, Cardizem)? @ -No Were any procedures done? @ -No Diagnosis/symptom? @ -Lower Back pain Acute, or Chronic, or Acute on Chronic? @ -Acute Uncomplicated (without systemic symptoms) or Complicated (systemic symptoms)? @ -Uncomplicated Side effects of treatment? @ -No Exacerbation, Progression, or Severe Exacerbation? @ -No Poses a threat to life or bodily function? How? (Chest pain, USA, [place], pneumonia, PE, COPD, DKA, ARF, appy, cholecystitis, CVA, Diverticulitis, Homicidal, Suicidal, threat to staff... and all critical care pts) @ -No Disposition Clinical Impression: Mechanical back pain Disposition: HOME SELF-CARE Condition: Good Instructions (If sedation given, give patient instructions): Acute Low Back Pain (ED) Additional Instructions: Follow-up with PCP. Report back to ER with any new or worsening symptoms. Take Motrin and Tylenol as needed for pain control. Do not take cyclobenzaprine before driving or operating heavy machinery as it may cause drowsiness. Prescriptions: Cyclobenzaprine [Flexeril] 10 mg PO TID PRN #15 tab PRN Reason: Spasms Lidocaine 5% Patch [Lidoderm 5% Patch] 1 patch TOPICAL DAILY PRN #30 patch PRN Reason: Pain Is patient prescribed a controlled substance at d/c from ED?: No Referrals: Chris Bishop MD [Primary Care Provider] - 1-2 days Time of Disposition: 17:50
[2023-01-29] MEDS ORDERED: CYCLOBENZAPRINE 10MG STARTER 3 TAB BTL PO STA (17:40)
[2023-01-29 18:38] VITALS: BP 158/87; PULSE 81; RESP 17; TEMP 97.2
== END 2023-01-29 18:27 | disposition home or self-care (01) ==
LOC: EC 16:28
DX: M54.50 Low back pain, unspecified (principal); I10 Essential (primary) hypertension; F31.9 Bipolar disorder, unspecified; F41.9 Anxiety disorder, unspecified; Z79.899 Other long term (current) drug therapy; Z88.0 Allergy status to penicillin; Z88.8 Allergy status to other drugs, medicaments and biological substances
CPT/HCPCS: 99283; 96372 ×3; J1100; J2360; J1885

== ENCOUNTER 2023-04-18 17:22 | Emergency (ER) | payer OTHER ==
[2023-04-18] MEDS ORDERED: KETOROLAC 15 MG/ML 1 ML VIAL IM STA (18:07)
--- NOTE | 2023-04-18 18:36 | ED ---
Upper Extremity HPI - General Chief Complaint: Extremity Injury, Upper Stated Complaint: [facility]- Right arm injury Time Seen by Provider: 04/18/23 18:01 Source: patient, RN notes reviewed Mode of arrival: ambulatory Limitations: no limitations - History of Present Illness Initial Comments: Patient is 62-year-old male presented ER with chief complaint of right forearm pain. Patient reports at 9:30 this morning he was at work and had a 150 pound bag landed on his right forearm. Patient states he was trying to lift the bag off of the conveyor belt. Patient states he was seen at [facility] prior to ER. Consider sent him to ER to rule out compartment syndrome. He reports his pain is 9 out of 10 and is made worse with flexion of elbow. Denies paresthesias. Patient denies any other injuries. - Related Data Home Medications Medication Instructions Recorded Confirmed OLANZapine 20 mg PO HS 12/01/20 04/12/22 busPIRone HCl [Buspar] 10 mg PO BID 06/27/21 04/12/22 amLODIPine BESYLATE/BENAZEPRIL 1 cap PO DAILY 04/12/22 04/12/22 [Lotrel 5-20 mg Capsule] carBAMazepine [TEGretol] 200 mg PO BID 04/12/22 04/12/22 Previous Rx's Medication Instructions Recorded Cyclobenzaprine [Flexeril] 10 mg PO HS PRN #15 tab 07/20/22 Lidocaine 5% Patch [Lidoderm 5% 1 patch TOPICAL DAILY PRN #1 pack 07/20/22 Patch] Cyclobenzaprine [Flexeril] 10 mg PO TID PRN #15 tab 01/29/23 Lidocaine 5% Patch [Lidoderm 5% 1 patch TOPICAL DAILY PRN #30 patch 01/29/23 Patch] Allergies Allergy/AdvReac Type Severity Reaction Status Date / Time amoxicillin Allergy Rash/Hives Verified 01/29/23 16:31 lamotrigine [From Lamictal] AdvReac Confusion Verified 01/29/23 16:31 Review of Systems ROS Statement: Those systems with pertinent positive or pertinent negative responses have been documented in the HPI. ROS Other: All systems not noted in ROS Statement are negative. 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, esphogus reconstruction Past Anesthesia/Blood Transfusion Reactions: No Reported Reaction Past Psychological History: Anxiety, Bipolar, Depression Smoking Status: Never smoker Past Alcohol Use History: None Reported Past Drug Use History: None Reported - Past Family History Mother Family Medical History: Cancer Additional Family Medical History / Comment(s): Liver and abd CA, Breast CA Father Family Medical History: Myocardial Infarction ([place]) Additional Family Medical History / Comment(s): CABG AT AGE 50 Brother(s) Family Medical History: Coronary Artery Disease (CAD) Additional Family Medical History / Comment(s): CABG AT AGE 50 General Exam Limitations: no limitations General appearance: alert, in no apparent distress Head exam: Present: atraumatic, normocephalic, normal inspection Respiratory exam: Present: normal lung sounds bilaterally. Absent: respiratory distress, wheezes, rales, rhonchi, stridor Cardiovascular Exam: Present: regular rate, normal rhythm, normal heart sounds. Absent: systolic murmur, diastolic murmur, rubs, gallop, clicks Extremities exam: Present: normal inspection, normal capillary refill, other (right elbow pain with flexion. 2+ right radial pulse. tender to touch dorsal lateral aspect of right elbow. sensation intact.) Neurological exam: Present: alert, oriented X3, CN II-XII intact Psychiatric exam: Present: normal affect, normal mood Skin exam: Present: warm, dry, intact, normal color. Absent: rash Course Vital Signs 04/18/23 04/18/23 17:28 19:40 Temperature 98.8 F 98.0 F Pulse Rate 81 74 Respiratory 16 18 Rate Blood Pressure 164/87 158/89 O2 Sat by Pulse 98 96 Oximetry Medical Decision Making - Medical Decision Making Was pt. sent in by a medical professional or institution (RAZIA Elias, UNIX MANAGER, urgent care, hospital, or care home...) When possible be specific @ -Urgent care for possible compartment syndrome. Did you speak to anyone other than the patient for history (EMS, parent, family, police, friend...)? What history was obtained from this source @ -No Did you review nursing and triage notes (agree or disagree)? Why? @ -I reviewed and agree with nursing and triage notes Were old charts reviewed (outside hosp., previous admission, EMS record, old EKG, old radiological studies, urgent care reports/EKG's, care home records)? Report findings @ -No old charts were reviewed Differential Diagnosis (chest pain, altered mental status, abdominal pain women, abdominal pain men, vaginal bleeding, weakness, fever, dyspnea, syncope, headache, dizziness, GI bleed, back pain, seizure, CVA, palpatations, mental health, musculoskeletal)? @ -Differential Musculoskeletal: Muscular strain, contusion, ligament sprain, fracture, arthritis, septic arthritis, bursitis, cellulitis, muscle spasm, nerve compression, DVT, arterial occlusion, herpes zoster, electrolyte abnormality, tumor.... This is not meant to be in all inclusive list EKG interpreted by me (3pts min.). @ -None X-rays interpreted by me (1pt min.). @ -X-ray of right elbow and forearm are negative for acute osseous pathology. CT interpreted by me (1pt min.). @ -None done U/S interpreted by me (1pt. min.). @ -None done What testing was considered but not performed or refused? (CT, X-rays, U/S, labs)? Why? @ -None What meds were considered but not given or refused? Why? @ -None Did you discuss the management of the patient with other professionals (professionals i.e. , PA, UNIX MANAGER, lab, RT, psych nurse, social worker psychiatric, weaving inspector, teacher, security officer, case checker)? Give summary @ -No Was smoking cessation discussed for >3mins.? @ -No Was critical care preformed (if so, how long)? @ -No Were there social determinants of health that impacted care today? How? (Homel essness, low income, unemployed, alcoholism, drug addiction, transportation, low edu. Level, literacy, decrease access to med. care, assisted, rehab)? @ -No Was there de-escalation of care discussed even if they declined (Discuss DNR or withdrawal of care, Hospice)? DNR status @ -No What co-morbidities impacted this encounter? (DM, HTN, Smoking, COPD, CAD, Cancer, CVA, ARF, Chemo, Hep., AIDS, mental health diagnosis, sleep apnea, morbid obesity)? @ -None Was patient admitted / discharged? Hospital course, mention meds given and route, prescriptions, significant lab abnormalities, going to OR and other pertinent info. @ -Discharge. Patient is a 62-year-old male presented ER with chief complaint of left forearm injury. Vitals stable. Physical exam is significant for tenderness to right proximal forearm pain is worse with flexion of elbow. Patient has full active ROM or right upper extremity. Sensation intact. 2+ right radial pulse. Patient's skin warm to touch without signs of pallor. X-rays of right elbow and forearm are negative for acute osseous pathology. Patient received IM Toradol for pain control in the ER. I discussed imaging findings with patient. I advised him continue taking [id number] analgesics for pain control. I advised patient to refrain from lifting heavy objects until pain subsides. Return parameters were discussed. Patient be discharged in stable condition with follow-up to PCP. Patient expressed understanding and agreement with care plan. Undiagnosed new problem with uncertain prognosis? @ -No Drug Therapy requiring intensive monitoring for toxicity (Heparin, Nitro, Insulin, Cardizem)? @ -No Were any procedures done? @ -No Diagnosis/symptom? @ -Right forearm injury/ muscle contusion Acute, or Chronic, or Acute on Chronic? @ -Acute Uncomplicated (without systemic symptoms) or Complicated (systemic symptoms)? @ -Uncomplicated Side effects of treatment? @ -No Exacerbation, Progression, or Severe Exacerbation? @ -No Poses a threat to life or bodily function? How? (Chest pain, [place], [place], pneumonia, PE, COPD, DKA, ARF, appy, cholecystitis, CVA, Diverticulitis, Homicidal, Suicidal, threat to staff... and all critical care pts) @ -No - Radiology Data Radiology results: report reviewed, image reviewed Disposition Clinical Impression: Muscle contusion Disposition: HOME SELF-CARE Condition: Stable Instructions (If sedation given, give patient instructions): Compartment Syndrome (DC) Additional Instructions: Please return to the ER for any new or worsening symptoms. Is patient prescribed a controlled substance at d/c from ED?: No Referrals: Chris Bishop MD [Primary Care Provider] - 1-2 days Time of Disposition: 19:34
--- NOTE | 2023-04-18 19:21 | XR ---
EXAMINATION TYPE: XR forearm RT, XR elbow complete RT DATE OF EXAM: 04/18/2023 7:06 PM CLINICAL INDICATION:Male, 62 years old with history of pain; [facility] COMPARISON: 08/04/2021. TECHNIQUE: XR forearm RT, XR elbow complete RT; was examined in AP and lateral projections. And addit ional oblique imaging of the elbow. FINDINGS: No acute osseous pathology, soft tissue swelling or joint dislocations are seen. Enthesoph yte formation of the olecranon at the triceps insertion. IMPRESSION: No evidence of acute fracture.
[2023-04-18 19:59] VITALS: BP 158/89; PULSE 74; RESP 18; TEMP 98
== END 2023-04-18 19:42 | disposition home or self-care (01) ==
LOC: EC 17:22
DX: S50.11XA Contusion of right forearm, initial encounter (principal); I10 Essential (primary) hypertension; G47.30 Sleep apnea, unspecified; F41.9 Anxiety disorder, unspecified; F31.9 Bipolar disorder, unspecified; Z79.899 Other long term (current) drug therapy; Z88.0 Allergy status to penicillin; Z88.8 Allergy status to other drugs, medicaments and biological substances; X58.XXXA Exposure to other specified factors, initial encounter
CPT/HCPCS: 73080; 73090; 99283; 96372; J1885

== ENCOUNTER 2023-08-26 04:46 | Inpatient (IN) | payer OTHER ==
--- NOTE | 2023-08-26 05:31 | ED ---
General Adult HPI - General Chief complaint: Extremity Injury, Upper Stated complaint: rt elbow pain Time Seen by Provider: 08/26/23 05:00 Source: patient Mode of arrival: ambulatory Limitations: no limitations - History of Present Illness Initial comments: Dictation was produced using [employer] dictation software. please excuse any grammatical, word or spelling errors. Chief Complaint: 63-year-old male with elbow pain History of Present Illness: Patient 63-year-old male presents emergency department elbow pain. Patient states his pain has been ongoing for the last 2 days. He went to bed with elbow pain. States that he could not sleep because elbow pain was severe. 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 Denies any trauma to the elbow. Denies any fever, chills, night sweats or constitutional symptoms. No numbness tingling paresthesias to the hand. Patient states that he has s pain at the outside of the elbow whenever he tries to bend. Does not feel like there is any pain in the elbow joint. States that his elbow appeared to be more swollen yesterday however the swelling significantly decreased. The ROS documented in this emergency department record has been reviewed and confirmed by me. Those systems with pertinent positive or negative responses have been documented in the HPI. All other systems are other negative and/or noncontributory. - Related Data Home Medications Medication Instructions Recorded Confirmed OLANZapine 20 mg PO HS 12/01/20 04/12/22 busPIRone HCl [Buspar] 10 mg PO BID 06/27/21 04/12/22 amLODIPine BESYLATE/BENAZEPRIL 1 cap PO DAILY 04/12/22 04/12/22 [Lotrel 5-20 mg Capsule] carBAMazepine [TEGretol] 200 mg PO BID 04/12/22 04/12/22 Previous Rx's Medication Instructions Recorded Cyclobenzaprine [Flexeril] 10 mg PO HS PRN #15 tab 07/20/22 Lidocaine 5% Patch [L[place]oderm 5% 1 patch TOPICAL DAILY PRN #1 pack 07/20/22 Patch] Cyclobenzaprine [Flexeril] 10 mg PO TID PRN #15 tab 01/29/23 Lidocaine 5% Patch [L[place]oderm 5% 1 patch TOPICAL DAILY PRN #30 patch 01/29/23 Patch] HYDROcodone/APAP 5-325MG [[place] 1 tab PO Q6HR PRN 3 Days #12 tab 08/26/23 5-325] clindamycin HCL [Cleocin] 300 mg PO Q8HR 5 Days #15 cap 08/26/23 Allergies Allergy/AdvReac Type Severity Reaction Status Date / Time amoxicillin Allergy Rash/Hives Verified 08/26/23 04:54 lamotrigine [From Lamictal] AdvReac Confusion Verified 08/26/23 04:54 Review of Systems ROS Statement: Those systems with pertinent positive or pertinent negative responses have been documented in the HPI. ROS Other: All systems not noted in ROS Statement are negative. 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, esphogus reconstruction Past Anesthesia/Blood Transfusion Reactions: No Reported Reaction Past Psychological History: Anxiety, Bipolar, Depression Smoking Status: Never smoker Past Alcohol Use History: Occasional Past Drug Use History: None Reported - Past Family History Mother Family Medical History: Cancer Additional Family Medical History / Comment(s): Liver and abd CA, Breast CA Father Family Medical History: Myocardial Infarction ([place]) Additional Family Medical History / Comment(s): CABG AT AGE 50 Brother(s) Family Medical History: Coronary Artery Disease (CAD) Additional Family Medical History / Comment(s): CABG AT AGE 50 General Exam - General Exam Comments Initial Comments: General: Well-appearing, nontoxic, no acute distress. Head: Normocephalic, atraumatic Eyes: PERRLA, EOMI ENT: Airway patent Chest: Nonlabored breathing Skin: No visual rash, normal skin tone Neuro: Alert and oriented 3 Musculoskeletal: No gross abnormalities Right upper extremity: Erythema with very small area minimal fluctuance over the right elbow, exquisitely tender to touch Limitations: no limitations Course Vital Signs 08/26/23 04:54 Temperature 97.6 F Pulse Rate 74 Respiratory 20 Rate Blood Pressure 151/75 O2 Sat by Pulse 99 Oximetry Medical Decision Making - Medical Decision Making Was pt. sent in by a medical professional or institution (, PA, SOLAR POWER INSTALLER, urgent care, hospital, or group home...) When possible be specific @ -[No] Did you speak to anyone other than the patient for history (EMS, parent, family, police, friend...)? What history was obtained from this source @ -[No] Did you review nursing and triage notes (agree or disagree)? Why? @ -[I reviewed and agree with nursing and triage notes] Were old charts reviewed (outside hosp., previous admission, EMS record, old EKG, old radiological studies, urgent care reports/EKG's, group home records)? Report findings @ -[No old charts were reviewed] Differential Diagnosis (chest pain, altered mental status, abdominal pain women, abdominal pain men, vaginal bleeding, musculoskeletal, weakness, fever, dyspnea, syncope, headache, dizziness, GI bleed, back pain, seizure, CVA, palpatations, mental health)? @ -[not applicable] EKG interpreted by me (3pts min.). @ -[None done] X-rays interpreted by me (1pt min.). @ -X-ray of the elbow shows no acute process CT interpreted by me (1pt min.). @ -[None done] U/S interpreted by me (1pt. min.). @ -[None done] What testing was considered but not performed or refused? (CT, X-rays, U/S, labs)? Why? @ -[None] What meds were considered but not given or refused? Why? @ -[None] Did you discuss the management of the patient with other professionals (professionals i.e. , PA, SOLAR POWER INSTALLER, lab, RT, psych nurse, secondary social studies teacher, marketing writer, teacher, special weapons and tactics officer, gearcase assembler)? Give summary @ -[No] Was smoking cessation discussed for >3mins.? @ -[No] Was critical care preformed (if so, how long)? @ -[No] Were there social determinants of health that impacted care today? How? (Homelessness, low income, unemployed, alcoholism, drug addiction, transportation, low edu. Level, literacy, decrease access to med. care, skilled nursing, re hab)? @ -[No] Was there de-escalation of care discussed even if they declined (Discuss DNR or withdrawal of care, Hospice)? DNR status @ -[No] What co-morbidities impacted this encounter? (DM, HTN, Smoking, COPD, CAD, Cancer, CVA, ARF, Chemo, Hep., AIDS, mental health diagnosis, sleep apnea, morbi d obesity)? @ -[None] Was patient admitted / discharged? Hospital course, mention meds given and ro sleetmute, prescriptions, significant lab abnormalities, going to OR and other pertinent info. @ -63-year-old male presents emergency department with right elbow pain. Vital signs upon arrival are within acceptable limits. Patient has no fever. Vital signs are stable. Laboratory evaluation obtained. No leukocytosis. CRP is 3.3. Rest of labs within acceptable limits. Clinical presentation consistent with bursitis. Unclear if patient has infected bursitis versus just inflammatory bursitis. He has point tenderness to his elbow however his elbow range of motion appears to be intact. Patient was given antibiotics and pain medications. Given return precautions otherwise advised follow-up with primary care doctor. At this point. Low suspicion of septic joint. Undiagnosed new problem with uncertain prognosis? @ -[No] Drug Therapy requiring intensive monitoring for toxicity (Heparin, Nitro, Insulin, Cardizem)? @ -[No] Were any procedures done? @ -[No] Diagnosis/symptom? Acute, or Chronic, or Acute on Chronic? Uncomplicated (without systemic symptoms) or Complicated (systemic symptoms)? @ -Elbow bursitis Side effects of treatment? @ -[No] Exacerbation, Progression, or Severe Exacerbation? @ -[No] Poses a threat to life or bodily function? How? (Chest pain, [place], CA, pneumonia, PE, COPD, DKA, ARF, appy, cholecystitis, CVA, Diverticulitis, Homicidal, S uicidal, threat to staff... and all critical care pts) @ -[No] - Lab Data Result diagrams: 08/26/23 05:34 08/26/23 05:34 Lab Results 08/26/23 08/26/23 Range/Units 05:34 05:34 WBC 10.0 (3.8-10.6) k/uL RBC 4.94 (4.30-5.90) m/uL Hgb 16.0 (13.0-17.5) gm/dL Hct 47.1 (39.0-53.0) % MCV 95.5 (80.0-100.0) fL MCH 32.4 (25.0-35.0) pg MCHC 33.9 (31.0-37.0) g/dL RDW 12.2 (11.5-15.5) % Plt Count 166 (150-450) k/uL MPV 8.9 Neutrophils % 73 % Lymphocytes % 13 % Monocytes % 9 % Eosinophils % 2 % Basophils % 1 % Neutrophils # 7.3 (1.3-7.7) k/uL Lymphocytes # 1.3 (1.0-4.8) k/uL Monocytes # 0.9 (0-1.0) k/uL Eosinophils # 0.2 (0-0.7) k/uL Basophils # 0.1 (0-0.2) k/uL ESR Cancelled Sodium 135 L (137-145) mmol/L Potassium 4.1 (3.5-5.1) mmol/L Chloride 107 (98-107) mmol/L Carbon Dioxide 17 L (22-30) mmol/L Anion Gap 11 mmol/L BUN 22 H (9-20) mg/dL Creatinine 0.88 (0.66-1.25) mg/dL Est GFR (CKD-EPI)AfAm >90 (>60 ml/min/1.73 sqM) Est GFR (CKD-EPI)NonAf >90 (>60 ml/min/1.73 sqM) Glucose 119 H (74-99) mg/dL Calcium 9.0 (8.4-10.2) mg/dL C-Reactive Protein 3.3 H (<1.0) mg/dL Disposition Clinical Impression: Bursitis Disposition: HOME SELF-CARE Condition: Fair Instructions (If sedation given, give patient instructions): Elbow Bursitis (ED) Prescriptions: clindamycin HCL [Cleocin] 300 mg PO Q8HR 5 Days #15 cap HYDROcodone/APAP 5-325MG [[place] 5-325] 1 tab PO Q6HR PRN 3 Days #12 tab PRN Reason: Severe Pain Is patient prescribed a controlled substance at d/c from ED?: Yes If prescribed controlled substance>3 days was MAPS reviewed?: Prescribed <3 Days Referrals: Chris Bishop MD [Primary Care Provider] - 1-2 days Time of Disposition: 06:27
[2023-08-26 05:47] LABS: Basophils # (A) 0.1 k/uL (0-0.2); Basophils % (A) 1 %; Eosinophils # (A) 0.2 k/uL (0-0.7); Eosinophils % (A) 2 %; HCT 47.1 % (39.0-53.0); Lymphocytes # (A) 1.3 k/uL (1.0-4.8); Lymphocytes % (A) 13 %; MCH 32.4 pg (25.0-35.0); MCHC 33.9 g/dL (31.0-37.0); MCV 95.5 fL (80.0-100.0); Mean Platelet Volume 8.9; Monocytes # (A) 0.9 k/uL (0-1.0); Monocytes % (A) 9 %; Neutrophils # (A) 7.3 k/uL (1.3-7.7); Neutrophils % (A) 73 %; Platelet Count 166 k/uL (150-450); RBC 4.94 m/uL (4.30-5.90); RDW 12.2 % (11.5-15.5)
[2023-08-26 06:00] LABS: African American GFR (CKD) >90 (>60 ml/min/1.73 sqM); Anion Gap 11 mmol/L; Blood Urea Nitrogen 22 mg/dL (9-20); C Reactive Protein 3.3 mg/dL (<1.0); Carbon Dioxide 17 mmol/L (22-30); Chloride 107 mmol/L (98-107); Glucose 119 mg/dL (74-99); Non-African American GFR(CKD) >90 (>60 ml/min/1.73 sqM); Potassium 4.1 mmol/L (3.5-5.1); Sodium 135 mmol/L (137-145)
[2023-08-26] MEDS: MORPHINE SULFATE 4 MG/ML SYRINGE IV STA (06:17)
--- NOTE | 2023-08-26 06:17 | XR ---
EXAMINATION TYPE: XR elbow complete RT DATE OF EXAM: 08/26/2023 CLINICAL HISTORY: elbow pain TECHNIQUE: Frontal, lateral and oblique images of the right elbow are obtained. COMPARISON: Right elbow x-ray April 18, 2023 FINDINGS: There is no acute fracture/dislocation evident in the right elbow. No abnormal fat pad si gns are seen. Small bony projection or enthesopathy from the olecranon redemonstrated . Moderate ulno humeral joint spurring is again seen. The overlying soft tissue appears unremarkable. IMPRESSION: As above.
[2023-08-26] MEDS ORDERED: NALOXONE 0.4 MG/ML 1 ML VIAL IV PRN (06:52)
[2023-08-26] MEDS ORDERED: VANCOMYCIN IV PER PHARMACY 1 EACH MISC MISCELLANE PRN (06:54)
--- NOTE | 2023-08-26 06:54 | ED ---
Medical Decision Making - Medical Decision Making Patient initially agreed to be discharged however nurses went to bring patient his discharge paperwork. Patient states that he is too much pain to given patient's significant symptoms raises a suspicion of serious infection. Patient be admitted observation consultation to orthopedic surgery. Patient given IV antibiotics. - Lab Data Result diagrams: 08/26/23 05:34 08/26/23 05:34 Lab Results 08/26/23 08/26/23 Range/Units 05:34 05:34 WBC 10.0 (3.8-10.6) k/uL RBC 4.94 (4.30-5.90) m/uL Hgb 16.0 (13.0-17.5) gm/dL Hct 47.1 (39.0-53.0) % MCV 95.5 (80.0-100.0) fL MCH 32.4 (25.0-35.0) pg MCHC 33.9 (31.0-37.0) g/dL RDW 12.2 (11.5-15.5) % Plt Count 166 (150-450) k/uL MPV 8.9 Neutrophils % 73 % Lymphocytes % 13 % Monocytes % 9 % Eosinophils % 2 % Basophils % 1 % Neutrophils # 7.3 (1.3-7.7) k/uL Lymphocytes # 1.3 (1.0-4.8) k/uL Monocytes # 0.9 (0-1.0) k/uL Eosinophils # 0.2 (0-0.7) k/uL Basophils # 0.1 (0-0.2) k/uL ESR Cancelled Sodium 135 L (137-145) mmol/L Potassium 4.1 (3.5-5.1) mmol/L Chloride 107 (98-107) mmol/L Carbon Dioxide 17 L (22-30) mmol/L Anion Gap 11 mmol/L BUN 22 H (9-20) mg/dL Creatinine 0.88 (0.66-1.25) mg/dL Est GFR (CKD-EPI)AfAm >90 (>60 ml/min/1.73 sqM) Est GFR (CKD-EPI)NonAf >90 (>60 ml/min/1.73 sqM) Glucose 119 H (74-99) mg/dL Calcium 9.0 (8.4-10.2) mg/dL C-Reactive Protein 3.3 H (<1.0) mg/dL Disposition Clinical Impression: Bursitis Disposition: ADMITTED IP TO THIS HOSP Condition: Fair Instructions (If sedation given, give patient instructions): Elbow Bursitis (ED) Prescriptions: clindamycin HCL [Cleocin] 300 mg PO Q8HR 5 Days #15 cap HYDROcodone/APAP 5-325MG [[place] 5-325] 1 tab PO Q6HR PRN 3 Days #12 tab PRN Reason: Severe Pain Referrals: Chris Bishop MD [Primary Care Provider] - 1-2 days
[2023-08-26] MEDS: SODIUM CHLORIDE 0.9% 1,000 ML IV SCH (07:34)
[2023-08-26] MEDS: HYDROmorphone 1 MG/ML 1 ML SYRINGE IVP STA (07:56)
[2023-08-26] MEDS: VANCOMYCIN 1,750 MG in SODIUM CHLORIDE 0.9% 500 ML 500 ML IVPB ONE (08:38)
--- NOTE | 2023-08-26 09:39 | P.CNOR ---
History of Present Illness - [facility] Consult date: 08/26/23 History of present illness: The patient is a very pleasant relatively healthy right-hand dominant male who is presently in the process of being admitted to internal medicine with right elbow cellulitis and septic olecranon bursitis. The patient denies any history of trauma to the right elbow but states he had pain several days ago when going to sleep. He woke up and had significant pain and redness in the elbow. He presented to the emergency department and was found to have cellulitis and a presumed septic olecranon bursitis. The patient denies feeling systemically ill. 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, esphogus reconstruction Past Anesthesia/Blood Transfusion Reactions: No Reported Reaction Past Psychological History: Anxiety, Bipolar, Depression Smoking Status: Never smoker Past Alcohol Use History: Occasional Past Drug Use History: None Reported - Past Family History Mother Family Medical History: Cancer Additional Family Medical History / Comment(s): Liver and abd CA, Breast CA Father Family Medical History: Myocardial Infarction ([place]) Additional Family Medical History / Comment(s): CABG AT AGE 50 Brother(s) Family Medical History: Coronary Artery Disease (CAD) Additional Family Medical History / Comment(s): CABG AT AGE 50 Medications and Allergies Home Medications Medication Instructions Recorded Confirmed Type OLANZapine 20 mg PO HS 12/01/08/26/23 History carBAMazepine [TEGretol] 200 mg PO BID 04/12/22 08/26/23 History HYDROcodone/APAP 5-325MG [[place] 1 tab PO Q6HR PRN 3 Days #12 tab 08/26/23 Rx 5-325] Prazosin [Minipress] 1 mg PO HS 08/26/23 08/26/23 History amLODIPine BESYLATE/BENAZEPRIL 1 cap PO DAILY 08/26/23 08/26/23 History [Lotrel 5-40 MG] busPIRone HCL 15 mg PO BID 08/26/23 08/26/23 History clindamycin HCL [Cleocin] 300 mg PO Q8HR 5 Days #15 cap 08/26/23 Rx hydrALAZINE HCL 10 mg PO BID 08/26/23 08/26/23 History Allergies Allergy/AdvReac Type Severity Reaction Status Date / Time amoxicillin Allergy Anaphylaxis Verified 08/26/23 08:31 lamotrigine [From Lamictal] Allergy Rash/Hives Verified 08/26/23 08:31 Physical Examination The patient is resting comfortably on a hospital gurney. He is alert and able to answer questions. His head is normocephalic and atraumatic. He demonstrates nonlabored breathing with symmetric chest expansion. His abdomen is nonobese. A focused exam of the right upper extremity was conducted. On inspection there is swelling and erythema over the posterior aspect of the right elbow. There is swelling and fluctuance within the olecranon bursa. He has no pain with passive range of motion of the elbow joint.His arm and forearm are soft. Motor and sensory function are intact in the right upper extremity. Results X-rays of the right elbow show arthritic changes but no foreign bodies or sign of deep infection. - Labs Labs: Abnormal Lab Results - Last 24 Hours (Table) 08/26/23 Range/Units 05:34 Sodium 135 L (137-145) mmol/L Carbon Dioxide 17 L (22-30) mmol/L BUN 22 H (9-20) mg/dL Glucose 119 H (74-99) mg/dL C-Reactive Protein 3.3 H (<1.0) mg/dL H & H 08/26/23 Range/Units 05:34 Hgb 16.0 (13.0-17.5) gm/dL Hct 47.1 (39.0-53.0) % Result Diagrams: 08/26/23 05:34 08/26/23 05:34 Assessment and Plan Assessment: Right elbow cellulitis and presumed septic olecranon bursitis Plan: I discussed treatment options with the patient in the emergency department. I recommended an aspiration of the olecranon bursa to both decrease the infectious burden in the bursa and also to send to the lab for cultures to help infectious disease guide antibiotic treatment. 2 mL of cloudy brown fluid was aspirated from the olecranon bursa. This fluid was placed in a Vacutainer tube without additives and on a culture swab and orders were placed for cultures. The patient is going to be admitted to internal medicine. Infectious disease has been consulted for antibiotic recommendations. I would like to see how the patient responds to IV antibiotics over the next 24 hours. If he fails to improve or gets worse he may need an I&D but at this time of no plans for surgical intervention. We will monitor his process while he is an inpatient. PROCEDURE: Verbal consent for a right elbow aspiration was obtained. The skin over the right olecranon was prepped with alcohol and ChloraPrep. Using sterile technique an 18-gauge needle was inserted into the olecranon bursa and 2 mL of brown cloudy fluid was aspirated. The needle was withdrawn and a Band-Aid was applied. The fluid was placed in a red top Vacutainer tube without additives and a small amount was also placed on a culture swab. Both specimens were then sent to the lab. The patient tolerated the aspiration well. Time with Patient: Greater than 30
[2023-08-26] MEDS: MORPHINE SULFATE 4 MG/ML SYRINGE IV PRN (10:56)
--- NOTE | 2023-08-26 11:42 | P.HPIM ---
History of Present Illness Patient is admitted for right olecranon bursitis which is infected and the patient received vancomycin and morphine shortly after the patient had some hives in the left arm morphine is being held at this time and vancomycin is being held at this time. Patient has of getting better patient will be given a dose of Benadryl at this time patient would not require any steroids but if he has more allergic reaction will need steroids at the time. Infectious disease was consulted as patient is allergic to penicillins as well and may need daptomycin. REVIEW OF SYSTEMS: CONSTITUTIONAL: No fever, no malaise, no fatigue. HEENT: No recent visual problems or hearing problems. Denied any sore throat. CARDIOVASCULAR: No chest pain, orthopnea, PND, no palpitations, no syncope. PULMONARY: No shortness of breath, no cough, no hemoptysis. GASTROINTESTINAL: No diarrhea, no nausea, no vomiting, no abdominal pain. NEUROLOGICAL: No headaches, no weakness, no numbness. HEMATOLOGICAL: Denies any bleeding or petechiae. GENITOURINARY: Denies any burning micturition, frequency, or urgency. MUSCULOSKELETAL/RHEUMATOLOGICAL: As mentioned in HPI ENDOCRINE: Denies any polyuria or polydipsia. The rest of the 14-point review of systems is negative. PHYSICAL EXAMINATION: GENERAL: The patient is alert and oriented x3, not in any acute distress. Well developed, well nourished. HEENT: Pupils are round and equally reacting to light. EOMI. No scleral icterus. No conjunctival pallor. Normocephalic, atraumatic. No pharyngeal erythema. No thyromegaly. CARDIOVASCULAR: S1 and S2 present. No murmurs, rubs, or gallops. PULMONARY: Chest is clear to auscultation, no wheezing or crackles. ABDOMEN: Soft, nontender, nondistended, normoactive bowel sounds. No palpable organomegaly. MUSCULOSKELETAL: Redness and swelling in the right elbow joint, olecranial bursitis significant tenderness EXTREMITIES: No cyanosis, clubbing, or pedal edema. NEUROLOGICAL: Gross neurological examination did not reveal any focal deficits. SKIN: No rashes. Assessment and plan -Right olecranon bursitis with infection and cellulitis: Antibiotics are being held at this time because of possible allergic reaction to vancomycin patient ma y need daptomycin, infectious disease will be consulted, sample from the bursa was collected and sent in for culture. -Allergic reaction: Unsure whether it is due to morphine or vancomycin both of which are being held at this time Benadryl, if needed will use steroids as well. -Hyperlipidemia -Sleep apnea 5-bipolar/anxiety disorder For above-mentioned chronic medical problems patient will be resumed on appropriate home medications DVT prophylaxis: Early ambulation 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, esphogus reconstruction Past Anesthesia/Blood Transfusion Reactions: No Reported Reaction Past Psychological History: Anxiety, Bipolar, Depression Smoking Status: Never smoker Past Alcohol Use History: Occasional Past Drug Use History: None Reported - Past Family History Mother Family Medical History: Cancer Additional Family Medical History / Comment(s): Liver and abd CA, Breast CA Father Family Medical History: Myocardial Infarction ([place]) Additional Family Medical History / Comment(s): CABG AT AGE 50 Brother(s) Family Medical History: Coronary Artery Disease (CAD) Additional Family Medical History / Comment(s): CABG AT AGE 50 Medications and Allergies Home Medications Medication Instructions Recorded Confirmed Type OLANZapine 20 mg PO HS 12/01/20 08/26/23 History carBAMazepine [TEGretol] 200 mg PO BID 04/12/22 08/26/23 History HYDROcodone/APAP 5-325MG [[place] 1 tab PO Q6HR PRN 3 Days #12 tab 08/26/23 Rx 5-325] Prazosin [Minipress] 1 mg PO HS 08/26/23 08/26/23 History amLODIPine BESYLATE/BENAZEPRIL 1 cap PO DAILY 08/26/23 08/26/23 History [Lotrel 5-40 MG] busPIRone HCL 15 mg PO BID 08/26/23 08/26/23 History clindamycin HCL [Cleocin] 300 mg PO Q8HR 5 Days #15 cap 08/26/23 Rx hydrALAZINE HCL 10 mg PO BID 08/26/23 08/26/23 History Allergies Allergy/AdvReac Type Severity Reaction Status Date / Time amoxicillin Allergy Anaphylaxis Verified 08/26/23 08:31 lamotrigine [From Lamictal] Allergy Rash/Hives Verified 08/26/23 08:31 Physical Exam Vitals: Vital Signs Temp Pulse Pulse Resp BP BP Pulse Ox 08/26/23 10:35 98.0 F 62 16 150/70 96 08/26/23 09:27 70 18 128/60 98 08/26/23 08:41 68 18 128/78 95 08/26/23 04:54 97.6 F 74 20 151/75 99 Intake and Output 08/25/23 08/26/23 08/26/23 22:59 06:59 14:59 Other: Weight 108.862 kg Results CBC & Chem 7: 08/26/23 05:34 08/26/23 05:34 Labs: Abnormal Lab Results - Last 24 Hours (Table) 08/26/23 Range/Units 05:34 Sodium 135 L (137-145) mmol/L Carbon Dioxide 17 L (22-30) mmol/L BUN 22 H (9-20) mg/dL Glucose 119 H (74-99) mg/dL C-Reactive Protein 3.3 H (<1.0) mg/dL
[2023-08-26] MEDS: carBAMazepine 200 MG TAB PO SCH (12:36)
[2023-08-26] MEDS: FAMOTIDINE 20 MG TAB PO SCH (12:36)
[2023-08-26] MEDS: diphenhydrAMINE 50 MG/ML 1 ML VIAL IVP STA (12:36)
[2023-08-26] MEDS: HYDROmorphone 1 MG/ML 1 ML SYRINGE IVP PRN (17:38)
[2023-08-26] MEDS: OLANZapine 10 MG TAB PO SCH (19:58)
[2023-08-26] MEDS: busPIRone HCl 5 MG TAB PO SCH (19:58)
[2023-08-26] MEDS: PRAZOSIN 1 MG CAP PO SCH (19:58)
[2023-08-27] MEDS: VANCOMYCIN 1,750 MG in SODIUM CHLORIDE 0.9% 500 ML 500 ML IVPB SCH (03:33)
--- NOTE | 2023-08-27 08:55 | P.PN ---
Subjective Progress Note Date: 08/27/23 Davis feels his elbow pain has improved. he denies fevers or chills. He is able to easily move his elbow and only has pain when he touches his olecranon. He states that he has made significant improvement over the last 24 hours. Objective - Vital Signs Vital signs: Vital Signs Temp 98.2 F 08/27/23 07:05 Pulse 62 08/27/23 07:05 Resp 17 08/27/23 07:05 BP 115/70 08/27/23 07:05 Pulse Ox 95 08/27/23 07:05 FiO2 Intake & Output 08/26/23 08/27/23 08/27/23 18:59 06:59 18:59 Intake Total 236 Balance 236 Weight 108.862 kg Intake: Oral 236 Other: # Voids 2 2 - Exam the patient is sitting up at bedside. He is alert and able to answer questions. The dressing over his right elbow was removed. There is erythema and warmth over the olecranon and mild swelling no fluctuance. There are no open wounds. He has no pain with passive range of motion of the elbow. His arm and forearm are soft. - Labs CBC & Chem 7: 08/26/23 05:34 08/26/23 05:34 Assessment and Plan Assessment: Resolving right elbow cellulitis and septic olecranon bursitis Plan: The patient has clinically improved over the last 24 hours with aspiration of t he olecranon bursa and IV antibiotics. Since he is improved and there is no fluctuance on exam I have no plans for surgical intervention. Would recommend continued antibiotics under the care of infectious disease. Cultures from the aspiration of the olecranon bursa are pending. The patient does not have any open wounds requiring dressing changes at this time but will defer wound care to infectious disease. I will plan on seeing the patient tomorrow and if he continues to do well he can discharge from an orthopedic standpoint. I will make the patient nothing by mouth after midnight tonight on the small chance that his clinical condition worsens and he needs a formal I&D but have no plans for this present time.
[2023-08-27 09:31] LABS: HCT 43.1 % (39.6-50.0); HGB 14.8 g/dL (13.0-17.0); MCH 32.9 pg (27.0-32.0); MCHC 34.3 g/dL (32.0-37.0); MCV 95.8 FL (80.0-97.0); Mean Platelet Volume 11.4 FL (9.5-12.2); NRBC Per 100 WBC 0 X 10*3/uL (0.00-0.01); Platelet Count 151 X 10*3/uL (140-440); RDW 11.9 % (11.5-14.5); WBC 8.81 X 10*3/uL (4.50-10.00)
--- NOTE | 2023-08-27 09:31 | P.CONS ---
History of Present Illness - Reason for Consult Consult date: 08/26/23 - History of Present Illness Patient is a 63-year-old male with a past medical history significant for hypertension hyperlipidemia sleep apnea bipolar disorder anxiety presenting to the hospital for evaluation of right elbow pain that has been going on for 2 days patient denies any history of any trauma noticed the pain while he was at work initially was mostly pain describing it to be sharp moderate to severe intensity without any radiation subsequently patient noticed to have increasing swelling and redness to the right elbow area symptom getting worse for the last few days for the patient present to the hospital patient denies any fever or any chills and no fever was recorded on presentation to the hospital patient was not tachycardic hypotensive or hypoxic patient did have a white count of 10,000 c reatinine was 0.88 CRP was 3.3 sed rate of 9 patient did have the elbow x-ray no acute fracture dislocation no abdominal fat pad signs seen, patient has been evaluated by orthopedics he did have aspirated on the right elbow patient was empirically started on vancomycin concerning for right elbow olecranon bursitis infectious he was consulted for further management of antibiotic therapy patient did have a some hives developing on to the right forearm with vancomycin infusion also received morphine Vanco was put on hold pending my evaluation 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, esphogus reconstruction Past Anesthesia/Blood Transfusion Reactions: No Reported Reaction Past Psychological History: Anxiety, Bipolar, Depression Smoking Status: Never smoker Past Alcohol Use History: Occasional Past Drug Use History: None Reported - Past Family History Mother Family Medical History: Cancer Additional Family Medical History / Comment(s): Liver and abd CA, Breast CA Father Family Medical History: Myocardial Infarction ([place]) Additional Family Medical History / Comment(s): CABG AT AGE 50 Brother(s) Family Medical History: Coronary Artery Disease (CAD) Additional Family Medical History / Comment(s): CABG AT AGE 50 Medications and Allergies Home Medications Medication Instructions Recorded Confirmed Type OLANZapine 20 mg PO HS 12/01/20 08/26/23 History carBAMazepine [TEGretol] 200 mg PO BID 04/12/22 08/26/23 History HYDROcodone/APAP 5-325MG [Iuka 1 tab PO Q6HR PRN 3 Days #12 tab 08/26/23 Rx 5-325] Prazosin [Minipress] 1 mg PO HS 08/26/23 08/26/23 History amLODIPine BESYLATE/BENAZEPRIL 1 cap PO DAILY 08/26/23 08/26/23 History [Lotrel 5-40 MG] busPIRone HCL 15 mg PO BID 08/26/23 08/26/23 History clindamycin HCL [Cleocin] 300 mg PO Q8HR 5 Days #15 cap 08/26/23 Rx hydrALAZINE HCL 10 mg PO BID 08/26/23 08/26/23 History Allergies Allergy/AdvReac Type Severity Reaction Status Date / Time amoxicillin Allergy Anaphylaxis Verified 08/26/23 08:31 lamotrigine [From Lamictal] Allergy Rash/Hives Verified 08/26/23 08:31 Physical Exam Vitals: Vital Signs Temp Pulse Pulse Resp BP BP Pulse Ox 08/26/23 13:15 98.0 F 74 17 147/76 98 08/26/23 10:35 98.0 F 62 16 150/70 96 08/26/23 09:27 70 18 128/60 98 08/26/23 08:41 68 18 128/78 95 08/26/23 04:54 97.6 F 74 20 151/75 99 Intake and Output 08/26/23 08/26/23 08/26/23 06:59 14:59 22:59 Intake Total 118 Balance 118 Intake: Oral 118 Other: # Voids 2 Weight 108.862 kg Results CBC & Chem 7: 08/26/23 05:34 08/26/23 05:34 Labs: Abnormal Lab Results - Last 24 Hours (Table) 08/26/23 Range/Units 05:34 Sodium 135 L (137-145) mmol/L Carbon Dioxide 17 L (22-30) mmol/L BUN 22 H (9-20) mg/dL Glucose 119 H (74-99) mg/dL C-Reactive Protein 3.3 H (<1.0) mg/dL Assessment and Plan Plan: 1patient presented hospital with the right elbow pain swelling and redness likely representing septic olecranon bursitis likely from gram-positive skin marquis no history of any trauma or any skin breakdown s/p aspirate with cultures pending. 2patient with rash to the arm with a question of possible related to morphine versus "red man" syndrome both nursing staff and patient has been educated advise Benadryl and Vanco to be infused slowly. 3vancomycin pharmacy to dose target trough of 15 while watching kidney function and Vanco trough closely. We will follow on clinical condition and cultures to further adjust medication if needed Thank you for this consultation we will follow the patient along with you Dictation was produced using [employer] dictation software. please excuse any grammatical, word or spelling errors. Time with Patient: Greater than 30
[2023-08-27 09:52] LABS: BUN/Creat Ratio 13.25 Ratio (12.00-20.00); Blood Urea Nitrogen 10.6 mg/dL (9.0-27.0); Calcium 8.3 mg/dL (8.7-10.3); Carbon Dioxide 21.7 mmol/L (21.6-31.8); Chloride 107 mmol/L (96-109); Glucose 123 mg/dL (70-110); Potassium 4.2 mmol/L (3.5-5.5); Sodium 137 mmol/L (135-145)
--- NOTE | 2023-08-27 14:19 | P.PN ---
Subjective Progress Note Date: 08/27/23 Patient is admitted for right olecranon bursitis which is infected and the patient received vancomycin and morphine shortly after the patient had some hives in the left arm morphine is being held at this time and vancomycin is being held at this time. Patient has of getting better patient will be given a dose of Benadryl at this time patient would not require any steroids but if he has more allergic reaction will need steroids at the time. Infectious disease was consulted as patient is allergic to penicillins as well and may need daptomycin. 08/27/2023 Patient is evaluated in follow-up today on the medical floor. Patient significant improvement in his redness and swelling to the right elbow he is status post an aspirate taken from orthopedics and sent for culturing. He will be a tentative I&D to the right elbow tomorrow pending clinical improvement. Patient continues on IV antibiotics pending the cultures. As tolerated IV vancomycin at reduced rate and will continue this medication. Review of Systems Constitutional: Denied any fatigue denied any fever. Cardio vascular: denied any chest pain, palpitations Gastrointestinal: denied any nausea, vomiting, diarrhea Pulmonary: Denied any shortness of breath cough Neurologic denied any new focal deficits All inpatient medications were reviewed and appropriate changes in these medications as dictated in the interval history and assessment and plan. PHYSICAL EXAMINATION: GENERAL: The patient is alert and oriented x3, not in any acute distress. Well developed, well nourished. HEENT: Pupils are round and equally reacting to light. EOMI. No scleral icterus. No conjunctival pallor. Normocephalic, atraumatic. No pharyngeal erythema. No thyromegaly. CARDIOVASCULAR: S1 and S2 present. No murmurs, rubs, or gallops. PULMONARY: Chest is clear to auscultation, no wheezing or crackles. ABDOMEN: Soft, nontender, nondistended, normoactive bowel sounds. No palpable organomegaly. MUSCULOSKELETAL: Redness and swelling in the right elbow joint, olecranial bursitis significant tenderness EXTREMITIES: No cyanosis, clubbing, or pedal edema. NEUROLOGICAL: Gross neurological examination did not reveal any focal deficits. SKIN: No rashes. Assessment and plan -Right olecranon bursitis with infection and cellulitis: sample from the bursa was collected and sent in for culture. ID following and patient continues on IV vancomycin. -Allergic reaction: Unsure whether it is due to morphine or vancomycin. Patient is now tolerating IV vancomycin and morphine has been discontinued. -Hyperlipidemia -Sleep apnea -bipolar/anxiety disorder For above-mentioned chronic medical problems patient will be resumed on appropriate home medications DVT prophylaxis: Early ambulation The impression and plan of care has been dictated by Juliana Turner, Nurse Practitioner as directed. Dr. Jesús MD I have performed a history and physical examination and medical decision making of this patient, discussed the same with the dictator, and agree with the dictators assessment and plan as written, documented as a scribe. Based on total visit time, I have performed more than 50% of this visit. Objective - Vital Signs Vital signs: Vital Signs Temp 98.2 F 08/27/23 02:00 Pulse 75 08/27/23 02:00 Resp 17 08/27/23 02:00 BP 144/71 08/27/23 02:00 Pulse Ox 99 08/27/23 02:00 FiO2 Intake & Output 08/26/23 08/27/23 08/27/23 18:59 06:59 18:59 Intake Total 236 Balance 236 Weight 108.862 kg Intake: Oral 236 Other: # Voids 2 2 - Labs CBC & Chem 7: 08/27/23 04:07 08/27/23 04:07 Assessment and Plan Time with Patient: Less than 30
--- NOTE | 2023-08-27 17:17 | P.PN ---
Subjective Progress Note Date: 08/27/23 Principal diagnosis: Reason for follow-up right elbow olecranon bursitis Patient is a 63-year-old male with a past medical history significant for hypertension hyperlipidemia sleep apnea bipolar disorder anxiety presenting to the hospital for evaluation of right elbow pain, patient be diagnosed with septic right elbow olecranon bursitis did have aspiration of the right elbow. On today's evaluation that is 08/27/2023,the patient denies any fever or any chills, patient is breathing comfortably on room air, the patient denies chest pain shortness of breath and no significant cough, patient denies abdominal pain, no nausea vomiting or diarrhea. Patient be complaining of more pain to the right elbow area there is no drainage. Patient white count is 8.81, creatinine 0.8 cultures currently pending Objective - Vital Signs Vital signs: Vital Signs Temp 98.7 F 08/27/23 14:50 Pulse 72 08/27/23 14:50 Resp 16 08/27/23 14:50 BP 136/78 08/27/23 14:50 Pulse Ox 96 08/27/23 14:50 FiO2 Intake & Output 08/26/23 08/27/23 08/27/23 18:59 06:59 18:59 Intake Total 236 200 Balance 236 200 Weight 108.862 kg Intake: Oral 236 200 Other: # Voids 2 2 3 - Exam GENERAL DESCRIPTION: Middle-age male lying in bed in no distress RESPIRATORY SYSTEM: Unlabored breathing , decreased breath sounds at bases HEART: S1 S2 regular rate and rhythm , ABDOMEN: Soft , no tenderness EXTREMITIES: Right elbow did have swelling fluctuation and tenderness - Labs CBC & Chem 7: 08/27/23 04:07 08/27/23 04:07 Labs: Abnormal Lab Results - Last 24 Hours (Table) 08/27/23 08/27/23 Range/Units 04:07 04:07 MCH 32.9 H (27.0-32.0) pg Glucose 123 H (70-110) mg/dL Calcium 8.3 L (8.7-10.3) mg/dL Assessment and Plan (1) Olecranon bursitis, right elbow Current Visit: Yes Status: Acute Code(s): M70.21 - OLECRANON BURSITIS, RIGHT ELBOW SNOMED Code(s): 113761854288511 (2) Penicillin allergy Current Visit: Yes Status: Acute Code(s): Z88.0 - ALLERGY STATUS TO PENICILLIN SNOMED Code(s): 45122118 Plan: 1patient presented hospital with the right elbow pain swelling and redness likely representing septic olecranon bursitis likely from gram-positive skin marquis no history of any trauma or any skin breakdown s/p aspirate with cultures pending. 2patient still have significant swelling redness to the right elbow area and possibly benefit from surgical I&D and deep culture possibly scheduled for tomorrow morning, patient to continue with vancomycin pharmacy to dose target trough of 15 while watching kidney function and Vanco trough closely. Dictation was produced using [employer] dictation software. please excuse any grammatical, word or spelling errors. Time with Patient: Less than 30
[2023-08-27] MEDS: HEPARIN SODIUM,PORCINE 5,000 UNIT/ML 1 ML VIAL SQ SCH (20:20)
--- NOTE | 2023-08-28 07:48 | P.PN ---
Progress Note - Text Progress Note Date: 08/28/23 the patient states he feels terrible this morning. He says his elbow pain is getting worse. On exam his erythema warmth and mild fluctuance over the olecranon. Since he is not improved despite IV antibiotics and an aspiration we will plan for surgical I&D later today. He is to remain nothing by mouth until surgery. Following surgery I will transition all wound care, dressing changes, choice of antibiotic, and follow-up to infectious disease with Dr. Rodriguez.
[2023-08-28] MEDS: LACTATED RINGERS 1,000 ML IV ONE ×2 (10:11→16:10)
[2023-08-28 10:41] LABS: Blood Urea Nitrogen 8.4 mg/dL (9.0-27.0); Calcium 7.8 mg/dL (8.7-10.3); Carbon Dioxide 21.5 mmol/L (21.6-31.8); Chloride 108 mmol/L (96-109); Glucose 103 mg/dL (70-110); Potassium 3.7 mmol/L (3.5-5.5); Sodium 140 mmol/L (135-145)
[2023-08-28] MEDS ORDERED: ONDANSETRON 4 MG/2 ML VIAL ONE (16:11)
[2023-08-28] MEDS: ONDANSETRON 4 MG/2 ML VIAL IVP ONE (16:21)
[2023-08-28] MEDS: DEXAMETHASONE SOD PHOSPHATE 4 MG/ML 1 ML VIAL IVP ONE (16:21)
[2023-08-28] MEDS ORDERED: fentaNYL (PF) 50 MCG/ML 2 ML AMP ONE (16:43)
[2023-08-28] MEDS ORDERED: PROPOFOL 10 MG/ML 20 ML VIAL IV ONE (16:43)
[2023-08-28] MEDS ORDERED: MIDAZOLAM 2 MG/2 ML VIAL ONE (16:43)
[2023-08-28] MEDS ORDERED: LIDOCAINE 1% INJ 10MG/ML (20 ML MDV) ONE (16:43)
[2023-08-28] MEDS: ceFAZolin 1,000 MG in SODIUM CHLORIDE 0.9% 1,000 ML IRRIGATION ONE (17:00)
--- NOTE | 2023-08-28 17:26 | P.OP ---
Date of Procedure: 08/28/23 Preoperative Diagnosis: Right elbow septic olecranon bursitis and cellulitis Postoperative Diagnosis: same Procedure(s) Performed: Right elbow Irrigation and debridement/bursectomy (An excisional debridement using a scalpel of all nonviable skin, subcutaneous tissue, and bursal tissue was performed down to the level of the olecranon) Anesthesia: NATALY Surgeon: Mark Allen Estimated Blood Loss (ml): 25 IV fluids (ml): 200 Pathology: other (Cultures) Disposition: PACU Indications for Procedure: This description is an 63-year-old male who is been admitted to internal medicine with septic olecranon bursitis. He has failed to improve with IV antibiotics and aspirations of the decision was made to take him for formal I&D in the operating room. I met with the patient and his to discuss treatment options and the potential risks and complications. Potential risks and complications discussed included but certainly not limited to risks of anesthesia, continued or worsened infection, damage to local blood vessels or nerves, delayed wound healing, wound necrosis, continued or worsened infection, need for further surgery, chronic pain, chronic swelling, limited use of the right arm, medical complications and possibly loss of life or limb. The patient his voiced understanding of these potential complications were also understanding that there are other less common complications possible. Operative Findings: Small amount of purulence in the olecranon bursa Description of Procedure: The patient was identified in preoperative holding and the correct right arm was marked with my initials. I reviewed the consent form with the patient and his . All their questions were answered. The patient was then brought back to the operating room. He was positioned on his gurney where general anesthetic was given. Once the patient was under anesthesia he was left on the gurney and his right arm was prepped and draped in the standard sterile fashion. Prior to starting surgery timeout was performed identifying the correct patient, operative extremity, and procedure. I began by outlining a several centimeter long incision over the tip of the olecranon starting just proximal to the olecranon, curving radially over the tip of the olecranon to avoid the ulnar nerve and the point of the olecranon and then extending distally over the ulna. Skin incision was made a scalpel and dissection was carried down carefully to the subcutaneous tissue. Immediately upon opening the bursa there is a small amount of purulence. This was swabbed and sent for culture. At this point an excisional debridement was formed using a scalpel. All nonviable skin, subcutaneous tissue, and bursal tissue was excised using the scalpel down to the olecranon. The wound appeared clean at this point. 1 L of sterile saline was used to irrigate the wound. The incision was then loosely reapproximated using 3-0 nylon horizontal mattress sutures. A sterile dressing was applied followed by an Babatunde wrap. The drapes were taken down and the patient was brought to recovery having tolerated the procedure well. Plan: I would like to leave the patient's surgical dressing in place until tomorrow or Monday. At that point he can be changed by infectious disease. I will defer wound care, dressing changes, and antibiotic to infectious disease. We will follow peripherally.
[2023-08-28] MEDS: hydrALAZINE HCL 20 MG/ML 1 ML VIAL IVP ONE (17:32)
[2023-08-28] MEDS: HYDROmorphone 0.5 MG/0.5 ML SYRINGE IVP ONE ×3 (17:38→18:18)
[2023-08-28] MEDS: KETOROLAC 15 MG/ML 1 ML VIAL IVP PRN (20:23)
[2023-08-29] MEDS: VANCOMYCIN TROUGH DUE 1 EACH MISC MISCELLANE ONE (04:50)
--- NOTE | 2023-08-29 07:59 | P.PN ---
Subjective patient is doing better this morning. He has minimal pain in his right elbow. He states that his elbow itches. Objective - Vital Signs Vital signs: Vital Signs Temp 97.9 F 08/29/23 03:50 Pulse 75 08/29/23 03:50 Resp 16 08/29/23 03:50 BP 132/66 08/29/23 03:50 Pulse Ox 96 08/29/23 03:50 FiO2 Intake & Output 08/28/23 08/29/23 08/29/23 18:59 06:59 18:59 Intake Total 401 Output Total 25 Balance 376 Intake: IV 401 Output: Estimated Blood Loss 25 Other: # Voids 1 - Exam the patient is resting comfortably in bed. He is in no apparent distress. The dressing over his right arm is intact with no drainage or strike through. His hand is swollen. He is able to move all of his fingers in the right hand. Sensation is intact to light touch throughout the right hand. - Labs CBC & Chem 7: 08/27/23 04:07 08/28/23 06:43 Labs: Abnormal Lab Results - Last 24 Hours (Table) 08/28/23 Range/Units 06:43 Carbon Dioxide 21.5 L (21.6-31.8) mmol/L BUN 8.4 L (9.0-27.0) mg/dL Calcium 7.8 L (8.7-10.3) mg/dL Microbiology - Last 24 Hours (Table) 08/26/23 09:45 Gram Stain - Final Cyst Wound Culture - Final Staphylococcus aureus 08/26/23 09:45 Gram Stain - Final Cyst Body Fluid Culture - Final Staphylococcus aureus Assessment and Plan Assessment: postoperative day #1 status post right elbow I&D for septic olecranon bursitis and cellulitis Plan: Patient appears to be doing well this morning. His cultures are growing MSSA from the elbow aspiration, deep cultures from surgery are pending. I will defer dressing changes, wound care, and choice of antibiotic to Dr. Rodriguez. The patient is okay to discharge an orthopedic standpoint. He'll need follow-up in the office in 2 weeks for suture removal.
--- NOTE | 2023-08-29 08:18 | P.PN ---
Subjective Progress Note Date: 08/28/23 Pt for I+D with Ortho today, he is feeling improved since starting antibiotics. Pt afebrile and cultures growing MSSA. Objective - Vital Signs Vital signs: Vital Signs Temp 97.9 F 08/29/23 03:50 Pulse 75 08/29/23 03:50 Resp 16 08/29/23 03:50 BP 132/66 08/29/23 03:50 Pulse Ox 96 08/29/23 03:50 FiO2 Intake & Output 08/28/23 08/29/23 08/29/23 18:59 06:59 18:59 Intake Total 401 Output Total 25 Balance 376 Intake: IV 401 Output: Estimated Blood Loss 25 Other: # Voids 1 - Exam Gen: well developed, NAD CV: RRR, no murmur Lungs: Normal effort, clear throughout Skin: elbow with erythema, induration, tenderness to palpation - Labs CBC & Chem 7: 08/27/23 04:07 08/28/23 06:43 Labs: Abnormal Lab Results - Last 24 Hours (Table) 08/28/23 Range/Units 06:43 Carbon Dioxide 21.5 L (21.6-31.8) mmol/L BUN 8.4 L (9.0-27.0) mg/dL Calcium 7.8 L (8.7-10.3) mg/dL Microbiology - Last 24 Hours (Table) 08/26/23 09:45 Gram Stain - Final Cyst Wound Culture - Final Staphylococcus aureus 08/26/23 09:45 Gram Stain - Final Cyst Body Fluid Culture - Final Staphylococcus aureus Assessment and Plan Plan: Continue with IV vancomycin, drainage per Ortho. ID following. Discharge planning.
--- NOTE | 2023-08-29 13:11 | P.PN ---
Subjective Progress Note Date: 08/28/23 Principal diagnosis: Reason for follow-up right elbow olecranon bursitis Patient is a 63-year-old male with a past medical history significant for hypertension hyperlipidemia sleep apnea bipolar disorder anxiety presenting to the hospital for evaluation of right elbow pain, patient be diagnosed with septic right elbow olecranon bursitis did have aspiration of the right elbow. On today's evaluation that is 08/28/2023,the patient remains to be afebrile, patient is on room air not requiring supplemental oxygen and denies any shortness of breath no chest pain or cough.Patient denies having any nausea or vomiting, no abdominal pain and no diarrhea still complaining of pain to the right elbow area and is currently waiting for surgery Patient did have a creatinine 0.7 no CBC was done today Objective - Vital Signs Vital signs: Vital Signs Temp 98.3 F 08/28/23 07:00 Pulse 68 08/28/23 07:00 Resp 17 08/28/23 07:00 BP 128/75 08/28/23 07:00 Pulse Ox 97 08/28/23 07:00 FiO2 Intake & Output 08/27/23 08/28/23 08/28/23 18:59 06:59 18:59 Intake Total 300 Balance 300 Intake: Oral 300 Other: # Voids 3 1 - Exam GENERAL DESCRIPTION: Middle-age male lying in bed in no distress RESPIRATORY SYSTEM: Unlabored breathing , decreased breath sounds at bases HEART: S1 S2 regular rate and rhythm , ABDOMEN: Soft , no tenderness EXTREMITIES: Right elbow did have swelling fluctuation and tenderness - Labs CBC & Chem 7: 08/27/23 04:07 08/28/23 06:43 Labs: Abnormal Lab Results - Last 24 Hours (Table) 08/28/23 Range/Units 06:43 Carbon Dioxide 21.5 L (21.6-31.8) mmol/L BUN 8.4 L (9.0-27.0) mg/dL Calcium 7.8 L (8.7-10.3) mg/dL Microbiology - Last 24 Hours (Table) 08/26/23 09:45 Gram Stain - Preliminary Cyst Body Fluid Culture - Preliminary Presumptive Staph aureus 08/26/23 09:45 Gram Stain - Preliminary Cyst Wound Culture - Preliminary Presumptive Staph aureus Assessment and Plan (1) Olecranon bursitis, right elbow Current Visit: Yes Status: Acute Code(s): M70.21 - OLECRANON BURSITIS, RIGHT ELBOW SNOMED Code(s): 794239052621775 (2) Penicillin allergy Current Visit: Yes Status: Acute Code(s): Z88.0 - ALLERGY STATUS TO PENI CILLIN SNOMED Code(s): 60883975 Plan: 1patient presented hospital with the right elbow pain swelling and redness likely representing septic olecranon bursitis likely from gram-positive skin marquis no history of any trauma or any skin breakdown s/p aspirate with cultures pending. 2patient still have significant swelling redness to the right elbow area and patient is scheduled for debridement and culture as per discussion with the orthopedics. Continue with vancomycin while waiting for the culture to finalize and monitor clinical course closely Dictation was produced using [employer] dictation software. please excuse any grammatical, word or spelling errors. Time with Patient: Less than 30
--- NOTE | 2023-08-29 13:12 | P.PN ---
Subjective Progress Note Date: 08/29/23 Principal diagnosis: Reason for follow-up right elbow olecranon bursitis Patient is a 63-year-old male with a past medical history significant for hypertension hyperlipidemia sleep apnea bipolar disorder anxiety presenting to the hospital for evaluation of right elbow pain, patient be diagnosed with septic right elbow olecranon bursitis did have aspiration of the right elbow.Patient is status post right elbow bursectomy I&D and deep culture completed on 08/28/2023. On today's evaluation that is 08/29/2023, the patient continues to be afebrile, the patient is on room air and breathing comfortably, the Pt denies having any chest pain or cough, the patient denies having any abdominal pain no vomiting or any diarrhea pain to the right elbow has decreased in intensity denies any drainage. Local culture finalized with MSSA and vancomycin trough low at 13.0 Objective - Vital Signs Vital signs: Vital Signs Temp 97.9 F 08/29/23 07:00 Pulse 69 08/29/23 07:00 Resp 16 08/29/23 07:00 BP 127/83 08/29/23 07:00 Pulse Ox 98 08/29/23 07:00 FiO2 Intake & Output 08/28/23 08/29/23 08/29/23 18:59 06:59 18:59 Intake Total 401 118 Output Total 25 Balance 376 118 Intake: IV 401 Oral 118 Output: Estimated Blood Loss 25 Other: # Voids 1 - Exam GENERAL DESCRIPTION: Middle-age male lying in bed in no distress RESPIRATORY SYSTEM: Unlabored breathing , decreased breath sounds at bases HEART: S1 S2 regular rate and rhythm , ABDOMEN: Soft , no tenderness EXTREMITIES: Right elbow incision is intact, still has some swelling redness but no drainage - Labs CBC & Chem 7: 08/27/23 04:07 08/28/23 06:43 Labs: Microbiology - Last 24 Hours (Table) 08/26/23 09:45 Gram Stain - Final Cyst Wound Culture - Final Staphylococcus aureus 08/26/23 09:45 Gram Stain - Final Cyst Body Fluid Culture - Final Staphylococcus aureus Assessment and Plan (1) Olecranon bursitis, right elbow Current Visit: Yes Status: Acute Code(s): M70.21 - OLECRANON BURSITIS, RIGHT ELBOW SNOMED Code(s): 059319263525500 (2) Penicillin allergy Current Visit: Yes Status: Acute Code(s): Z88.0 - ALLERGY STATUS TO PENICILLIN SNOMED Code(s): 95555070 Plan: 1patient presented hospital with the right elbow pain swelling and redness likely representing septic olecranon bursitis likely from gram-positive skin marquis no history of any trauma or any skin breakdown s/p aspirate with cultures grew MSSA. 2patient is s/p right elbow bursectomy, cultures are showing MSSA I will discontinue vancomycin start the patient on cefazolin 2 g every 8 hours will keep him on IV cefazolin 1 day and plan to finish therapy with oral Keflex hopefully tomorrow no need for IV antibiotic on discharge this was explained to the patient Dictation was produced using [employer] dictation software. please excuse any grammatical, word or spelling errors. Time with Patient: Less than 30
[2023-08-30] MEDS: ACETAMINOPHEN TAB 325 MG TAB PO PRN (00:26)
[2023-08-30] MEDS: diphenhydrAMINE 25 MG CAP PO PRN (03:26)
[2023-08-30 07:46] LABS: African American GFR (CKD) >90 (>60 ml/min/1.73 sqM); Non-African American GFR(CKD) >90 (>60 ml/min/1.73 sqM)
[2023-08-30 07:53] VITALS: BP 168/84; PULSE 64; RESP 14; TEMP 97.9
--- NOTE | 2023-08-30 08:51 | P.PN ---
Subjective Progress Note Date: 08/29/23 Pt s/p I+D and reports significant improvement in elbow pain today. He denies fever, chills, sweats. Pt continues on cefazolin per ID. Objective - Vital Signs Vital signs: Vital Signs Temp 97.9 F 08/30/23 07:52 Pulse 64 08/30/23 07:52 Resp 14 08/30/23 07:52 BP 168/84 08/30/23 07:52 Pulse Ox 98 08/30/23 07:52 FiO2 Intake & Output 08/29/23 08/30/23 08/30/23 18:59 06:59 18:59 Intake Total 236 Balance 236 Intake: Oral 236 Other: Voiding Method Toilet # Voids 1 1 - Exam Gen: well developed, NAD CV: RRR, no murmur Lungs: Normal effort, clear throughout Skin: elbow wrapped in gauze, nontender - Labs CBC & Chem 7: 08/27/23 04:07 08/30/23 06:47 Labs: Abnormal Lab Results - Last 24 Hours (Table) 08/30/23 Range/Units 06:47 Creatinine 0.63 L (0.66-1.25) mg/dL Microbiology - Last 24 Hours (Table) 08/28/23 17:05 Gram Stain - Preliminary Elbow - Right Wound Culture - Preliminary Assessment and Plan Plan: Continue with IV cefazolin. ID following. Continue remainder of home medications. Local wound care. Discharge planning.
--- NOTE | 2023-09-01 14:58 | P.PN ---
Subjective Progress Note Date: 08/30/23 Principal diagnosis: Reason for follow-up right elbow olecranon bursitis Patient is a 63-year-old male with a past medical history significant for hypertension hyperlipidemia sleep apnea bipolar disorder anxiety presenting to the hospital for evaluation of right elbow pain, patient be diagnosed with septic right elbow olecranon bursitis did have aspiration of the right elbow.Patient is status post right elbow bursectomy I&D and deep culture completed on 08/28/2023. On today's evaluation that is 08/30/2023, Patient is afebrile patient is currently on room air and denies having any shortness of breath, the patient denies any chest pain or cough, the patient denies any nausea vomiting did not have any abdominal pain and no diarrhea patient pain to be right elbow has decreased in intensity no drainage feeling better wants to go home. Patient did have creatinine 0.63 Objective - Vital Signs Vital signs: Vital Signs Temp 97.9 F 08/30/23 07:52 Pulse 64 08/30/23 07:52 Resp 14 08/30/23 07:52 BP 168/84 08/30/23 07:52 Pulse Ox 98 08/30/23 07:52 FiO2 Intake & Output 08/29/23 08/30/23 08/30/23 18:59 06:59 18:59 Intake Total 236 118 Balance 236 118 Intake: Oral 236 118 Other: Voiding Method Toilet Toilet # Voids 1 1 - Exam GENERAL DESCRIPTION: Middle-age male lying in bed in no distress RESPIRATORY SYSTEM: Unlabored breathing , decreased breath sounds at bases HEART: S1 S2 regular rate and rhythm , ABDOMEN: Soft , no tenderness EXTREMITIES: Right elbow incision is intact, still has some swelling redness but no drainage - Labs CBC & Chem 7: 08/27/23 04:07 08/30/23 06:47 Labs: Abnormal Lab Results - Last 24 Hours (Table) 08/30/23 Range/Units 06:47 Creatinine 0.63 L (0.66-1.25) mg/dL Microbiology - Last 24 Hours (Table) 08/28/23 17:05 Gram Stain - Preliminary Elbow - Right Wound Culture - Preliminary Assessment and Plan (1) Olecranon bursitis, right elbow Status: Acute Code(s): M70.21 - OLECRANON BURSITIS, RIGHT ELBOW SNOMED Code(s): 673518447234137 (2) Penicillin allergy Status: Acute Code(s): Z88.0 - ALLERGY STATUS TO PENICILLIN SNOMED Code(s): 29303280 Plan: 1patient presented hospital with the right elbow pain swelling and redness likely representing septic olecranon bursitis likely from gram-positive skin patricia ra no history of any trauma or any skin breakdown s/p aspirate with cultures grew MSSA. 2patient is s/p right elbow bursectomy, cultures are showing MSSA patient seem to have shown clinical improvement with the cefazolin we will finish therapy with oral Keflex prescription sent to the pharmacy and close outpatient follow- up Dictation was produced using [employer] dictation software. please excuse any grammatical, word or spelling errors. Time with Patient: Less than 30
== END 2023-08-30 13:38 | disposition home or self-care (01) | DRG 315 ==
LOC: EC 04:46 → 6NMEDSUR 06:52 → OBSVTOIN 06:53 → 6NMEDSUR 08:14
PROVIDERS: ADMIT Family Medicine; ATTEND Family Medicine
PROC: 0MT30ZZ Resection of Right Elbow Bursa and Ligament, Open Approach (ICD-10-PCS; principal; 2023-08-28 12:00)
DX: M71.121 Other infective bursitis, right elbow (principal); B95.61 Methicillin susceptible Staphylococcus aureus infection as the cause of diseases classified elsewhere; E78.5 Hyperlipidemia, unspecified; F17.210 Nicotine dependence, cigarettes, uncomplicated; F31.9 Bipolar disorder, unspecified; F41.9 Anxiety disorder, unspecified; G47.30 Sleep apnea, unspecified; I10 Essential (primary) hypertension; T36.8X5A Adverse effect of other systemic antibiotics, initial encounter; T40.2X5A Adverse effect of other opioids, initial encounter; L03.113 Cellulitis of right upper limb; Z79.899 Other long term (current) drug therapy; Z88.0 Allergy status to penicillin
CPT/HCPCS: 36415; 80048; 80202; 82565; 85025; 85027; 85652; 86140; 87070; 87075; 87077; 87186; 87205; 96365; 96375; 99285

== ENCOUNTER 2024-01-03 09:26 | Emergency (ER) | payer OTHER ==
[2024-01-03] MEDS: CYCLOBENZAPRINE 10 MG TAB PO STA (10:37)
[2024-01-03] MEDS: KETOROLAC 15 MG/ML 1 ML VIAL IM STA (10:37)
--- NOTE | 2024-01-03 10:38 | ED ---
Back Pain HPI - General Chief Complaint: Back Pain/Injury Stated Complaint: Lower back pain R side Time Seen by Provider: 01/03/24 10:37 Source: patient, RN notes reviewed Limitations: no limitations - History of Present Illness Initial Comments: 63-year-old male presented to the ER with a chief complaint of right lumbar back pain. Patient states this has been intermittent for the past 5 to 6 months. He states that will, for couple of days and then go away for a few weeks. He states today he started to have a flare of his pain. He denies any immaturities or traumas. He has not seen a social media marketing specialist for this. Denies any saddle paresthesias, bowel or bladder incontinence, fevers or chills. Denies any urinary complaints. He has taken moderate Tylenol with no relief. He does report pain is worse with sitting up or laying down. Patient is still able to ambulate. Paresthesias or radiation of pain to lower extremities. - Related Data Home Medications Medication Instructions Recorded Confirmed OLANZapine 20 mg PO HS 12/01/20 01/03/24 carBAMazepine [TEGretol] 600 mg PO DAILY 04/12/22 01/03/24 Prazosin [Minipress] 1 mg PO HS 08/26/23 01/03/24 amLODIPine BESYLATE/BENAZEPRIL 1 cap PO DAILY 08/26/23 01/03/24 [Lotrel 5-40 MG] busPIRone HCL 15 mg PO BID 08/26/23 01/03/24 hydrALAZINE HCL 10 mg PO BID 08/26/23 01/03/24 Multivitamins, Thera [Multivitamin 1 tab PO DAILY 01/03/24 01/03/24 (formulary)] carBAMazepine 200 mg PO HS 01/03/24 01/03/24 Previous Rx's Medication Instructions Recorded Cyclobenzaprine [Flexeril] 10 mg PO TID PRN #15 tab 01/03/24 Ketorolac [Toradol] 10 mg PO Q8HR #15 tab 01/03/24 Allergies Allergy/AdvReac Type Severity Reaction Status Date / Time albuterol Allergy Rash/Hives Verified 01/03/24 12:12 amoxicillin Allergy Rash/Hives Verified 01/03/24 12:12 lamotrigine [From Lamictal] Allergy Rash/Hives Verified 09/25/24 12:12 Review of Systems ROS Statement: Those systems with pertinent positive or pertinent negative responses have been documented in the HPI. ROS Other: All systems not noted in ROS Statement are negative. 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, esphogus reconstruction Past Anesthesia/Blood Transfusion Reactions: No Reported Reaction Past Psychological History: Anxiety, Bipolar, Depression Smoking Status: Never smoker Past Alcohol Use History: Occasional Past Drug Use History: None Reported - Past Family History Mother Family Medical History: Cancer Additional Family Medical History / Comment(s): Liver and abd CA, Breast CA Father Family Medical History: Myocardial Infarction (CT) Additional Family Medical History / Comment(s): CABG AT AGE 50 Brother(s) Family Medical History: Coronary Artery Disease (CAD) Additional Family Medical History / Comment(s): CABG AT AGE 50 General Exam Limitations: no limitations General appearance: alert, in no apparent distress Neck exam: Present: normal inspection. Absent: tenderness, meningismus, lymphadenopathy Respiratory exam: Present: normal lung sounds bilaterally. Absent: respiratory distress, wheezes, rales, rhonchi, stridor Cardiovascular Exam: Present: regular rate, normal rhythm, normal heart sounds. Absent: systolic murmur, diastolic murmur, rubs, gallop, clicks Back exam: Present: normal inspection, paraspinal tenderness (Right lumbar) Neurological exam: Present: alert, oriented X3, CN II-XII intact Skin exam: Present: warm, dry, intact, normal color. Absent: rash Course Vital Signs 01/03/24 01/03/24 01/03/24 09:27 13:50 14:55 Temperature 97.6 F 97.6 F 98 F Pulse Rate 69 65 70 Respiratory 20 18 18 Rate Blood Pressure 164/91 163/93 156/89 O2 Sat by Pulse 99 99 99 Oximetry Medical Decision Making - Medical Decision Making Was pt. sent in by a medical professional or institution (, PA, ASSISTANT FITNESS MANAGER, urgent care, hospital, or care home...) When possible be specific @ -No Did you speak to anyone other than the patient for history (EMS, parent, family, police, friend...)? What history was obtained from this source @ -No Did you review nursing and triage notes (agree or disagree)? Why? @ -I reviewed and agree with nursing and triage notes Were old charts reviewed (outside hosp., previous admission, EMS record, old EKG, old radiological studies, urgent care reports/EKG's, care home records)? Report findings @ -No old charts were reviewed Differential Diagnosis (chest pain, altered mental status, abdominal pain women, abdominal pain men, vaginal bleeding, weakness, fever, dyspnea, syncope, headache, dizziness, GI bleed, back pain, seizure, CVA, palpatations, mental health, musculoskeletal)? @ -Differential Back Pain:Strain, zoster, cauda equina syndrome, epidural abscess, vertebral osteomyelitis, discitis, fracture, subluxation, disc herniation, DJD, spinal stenosis, dissection, AAA, pancreatitis, peptic ulcer disease, pyelonephritis, kidney stone, this is not meant to be an all-inclusive list. EKG interpreted by me (3pts min.). @ -None done X-rays interpreted by me (1pt min.). @ -Lumbar spine x-rays interpreted by me negative for acute osseous process. CT interpreted by me (1pt min.). @ -None done U/S interpreted by me (1pt. min.). @ -None done What testing was considered but not performed or refused? (CT, X-rays, U/S, labs)? Why? @ -None What meds were considered but not given or refused? Why? @ -None Did you discuss the management of the patient with other professionals (dewayne triana i.e. , PA, ASSISTANT FITNESS MANAGER, lab, RT, psych nurse, social media marketing specialist, plastic fabricator, teacher, environmental conservation officer, adult protective caseworker)? Give summary @ -No Was smoking cessation discussed for >3mins.? @ -No Was critical care preformed (if so, how long)? @ -No Were there social determinants of health that impacted care today? How? (Homelessness, low income, unemployed, alcoholism, drug addiction, transportation, low edu. Level, literacy, decrease access to med. care, [facility], rehab)? @ -No Was there de-escalation of care discussed even if they declined (Discuss DNR or withdrawal of care, Hospice)? DNR status @ -No What co-morbidities impacted this encounter? (DM, HTN, Smoking, COPD, CAD, Cancer, CVA, ARF, Chemo, Hep., AIDS, mental health diagnosis, sleep apnea, morbid obesity)? @ -None Was patient admitted / discharged? Hospital course, mention meds given and route, prescriptions, significant lab abnormalities, going to OR and other pertinent info. @ -Discharged. 63-year-old male presented to the ER with a chief complaint of back pain. History and physical exam completed. Vitals within normal limits. Patient in no signs of acute distress. No red flag back pain symptoms today could have cauda equina syndrome. Pain is reproducible to right paraspinal muscles. Bilateral lower extremities neurovascular intact. Pain is worse with movement. No overlying skin changes. X-rays obtained negative for acute process. Urinalysis obtained to rule out calculus which is negative. Patient received IM Toradol and Flexeril for symptom control in the ER. On reevaluation, patient resting comfortably in exam room no signs of acute distress. Patient reporting mild improvement of pain. He is eager for discharge. Flexeril and toradol prescribed. Strict return parameters discussed. Patient discharged in stable condition with follow-up to PCP. Patient verbally expressed understanding and agreed with care plan. Case discussed with ED attending, . Undiagnosed new problem with uncertain prognosis? @ -No Drug Therapy requiring intensive monitoring for toxicity (Heparin, Nitro, Insulin, Cardizem)? @ -No Were any procedures done? @ -No Diagnosis/symptom? @ -back pain Acute, or Chronic, or Acute on Chronic? @ -Acute Uncomplicated (without systemic symptoms) or Complicated (systemic symptoms)? @ -Uncomplicated Side effects of treatment? @ -No Exacerbation, Progression, or Severe Exacerbation? @ -No Poses a threat to life or bodily function? How? (Chest pain, USA, CT, pneumonia, PE, COPD, DKA, ARF, appy, cholecystitis, CVA, Diverticulitis, Homicidal, Suicidal, threat to staff... and all critical care pts) @ -No - Lab Data Lab Results 01/03/24 Range/Units 10:55 Urine Color Light Yellow Urine Appearance Clear (Clear) Urine pH 6.5 (5.0-8.0) Ur Specific [place] 1.011 (1.001-1.035) Urine Protein Negative (Negative) Urine Glucose (UA) Negative (Negative) Urine Ketones Negative (Negative) Urine Blood Negative (Negative) Urine Nitrite Negative (Negative) Urine Bilirubin Negative (Negative) Urine Urobilinogen <2.0 (<2.0) mg/dL Ur Leukocyte Esterase Negative (Negative) - Radiology Data Radiology results: report reviewed, image reviewed Disposition Clinical Impression: Back pain Disposition: HOME SELF-CARE Condition: Stable Instructions (If sedation given, give patient instructions): Acute Low Back Pain (ED) Additional Instructions: Follow-up PCP. Return to ER for any new or worsening concerns. Prescriptions: Cyclobenzaprine [Flexeril] 10 mg PO TID PRN #15 tab PRN Reason: Muscle Spasm Ketorolac [Toradol] 10 mg PO Q8HR #15 tab Is patient prescribed a controlled substance at d/c from ED?: No Referrals: Chris Bishop MD [Primary Care Provider] - 1-2 days Time of Disposition: 14:36
[2024-01-03 11:18] LABS: Appearance,Urine Clear (Clear); Bilirubin,Urine Negative (Negative); Blood,Urine Negative (Negative); Color,Urine Light Yellow; Glucose,Urine (UA) Negative (Negative); Ketones,Urine Negative (Negative); Leukocyte Esterase,Urine Negative (Negative); Nitrite,Urine Negative (Negative); PH, Urine 6.5 (5.0-8.0); Protein,Urine Negative (Negative); Specific Gravity,Urine 1.011 (1.001-1.035); Urobilinogen,Urine <2.0 mg/dL (<2.0)
--- NOTE | 2024-01-03 13:24 | XR ---
EXAMINATION TYPE: XR lumbar spine 2 or 3V DATE OF EXAM: 01/03/2024 COMPARISON: 10/26/2021 HISTORY: Right-sided lumbar pain TECHNIQUE: 3 view lumbar spine FINDINGS: 5 lumbar type vertebral bodies. Pedicles are intact. Disc heights are preserved. Vertebral body heights are preserved. Mild spondylosis is present at L1-2 on the right. No significant interval change is evident. IMPRESSION: 1. Spondylosis. 2. No acute osseous abnormality lumbar spine. [facility], , 01/03/2024 1:22 PM
[2024-01-03 13:50] VITALS: RESP 18
[2024-01-03 14:58] VITALS: BP 156/89; PULSE 70; TEMP 98
== END 2024-01-03 14:57 | disposition home or self-care (01) ==
LOC: EC 09:26
CPT/HCPCS: 72100; 81003

== ENCOUNTER 2024-01-09 17:20 | Emergency (ER) | payer OTHER ==
[2024-01-09 17:33] VITALS: BP 161/76; PULSE 80; RESP 18; TEMP 98
--- NOTE | 2024-01-09 17:39 | ED ---
Wound/Laceration HPI - General Chief Complaint: Wound/Laceration Stated Complaint: L Hand Injury Time Seen by Provider: 01/09/24 17:38 Source: patient, RN notes reviewed Mode of arrival: ambulatory Limitations: no limitations - History of Present Illness Initial Comments: this is a 63-year-old male who presents emergency department chief complaint of a laceration to his left index finger while he was at work this afternoon. States that he was moving a minimal piece of sheet metal when he injured his left finger. Patient denies loss of mobility or paresthesias. Last tetanus vaccination was last week. denies blood thinner use. - Related Data Home Medications Medication Instructions Recorded Confirmed OLANZapine 20 mg PO HS 12/01/20 01/03/24 carBAMazepine [TEGretol] 600 mg PO DAILY 04/12/22 01/03/24 Prazosin [Minipress] 1 mg PO HS 08/26/23 01/03/24 amLODIPine BESYLATE/BENAZEPRIL 1 cap PO DAILY 08/26/23 01/03/24 [Lotrel 5-40 MG] busPIRone HCL 15 mg PO BID 08/26/23 01/03/24 hydrALAZINE HCL 10 mg PO BID 08/26/23 01/03/24 Multivitamins, Thera [Multivitamin 1 tab PO DAILY 01/03/24 01/03/24 (formulary)] carBAMazepine 200 mg PO HS 01/03/24 01/03/24 Previous Rx's Medication Instructions Recorded Cyclobenzaprine [Flexeril] 10 mg PO TID PRN #15 tab 01/03/24 Ketorolac [Toradol] 10 mg PO Q8HR #15 tab 01/03/24 Allergies Allergy/AdvReac Type Severity Reaction Status Date / Time albuterol Allergy Rash/Hives Verified 01/09/24 17:33 amoxicillin Allergy Rash/Hives Verified 01/09/24 17:33 lamotrigine [From Lamictal] Allergy Rash/Hives Verified 01/09/24 17:33 Review of Systems ROS Statement: Those systems with pertinent positive or pertinent negative responses have been documented in the HPI. ROS Other: All systems not noted in ROS Statement are negative. 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, esphogus reconstruction Past Anesthesia/Blood Transfusion Reactions: No Reported Reaction Past Psychological History: Anxiety, Bipolar, Depression Smoking Status: Never smoker Past Alcohol Use History: Occasional Past Drug Use History: None Reported - Past Family History Mother Family Medical History: Cancer Additional Family Medical History / Comment(s): Liver and abd CA, Breast CA Father Family Medical History: Myocardial Infarction ([place]) Additional Family Medical History / Comment(s): CABG AT AGE 50 Brother(s) Family Medical History: Coronary Artery Disease (CAD) Additional Family Medical History / Comment(s): CABG AT AGE 50 General Exam - General Exam Comments Initial Comments: Visual Physical Exam Vital signs reviewed General: Well-appearing, nontoxic, no acute distress. Head: Normocephalic, atraumatic Eyes: PERRLA, EOMI ENT: Airway patent Chest: Nonlabored breathing Skin: No visual rash, normal skin tone Neuro: Alert and oriented 3 Musculoskeletal: No gross abnormalities Limitations: no limitations General appearance: alert, in no apparent distress Eye exam: Present: normal appearance, PERRL, EOMI. Absent: scleral icterus, conjunctival injection, periorbital swelling Neck exam: Present: normal inspection. Absent: tenderness, meningismus, lymphadenopathy Respiratory exam: Present: normal lung sounds bilaterally. Absent: respiratory distress, wheezes, rales, rhonchi, stridor Cardiovascular Exam: Present: regular rate, normal rhythm, normal heart sounds. Absent: systolic murmur, diastolic murmur, rubs, gallop, clicks GI/Abdominal exam: Present: soft, normal bowel sounds. Absent: distended, tenderness, guarding, rebound, rigid Right Hand Wrist exam: Present: laceration (2nd digit laceration of the distal digit aprox. 1 cm) Neuro motor exam: Present: wrist extension intact, thumb opposition intact, thumb IP flexion intact, thumb adduction intact Vascular: Present: normal capillary refill, radial pulse (2+). Absent: vascular compromise Back exam: Present: normal inspection Neurological exam: Present: alert, oriented X3, CN II-XII intact Skin exam: Present: warm, dry, intact, normal color. Absent: rash Course Vital Signs 01/09/24 17:30 Temperature 98.0 F Pulse Rate 80 Respiratory 18 Rate Blood Pressure 161/76 O2 Sat by Pulse 97 Oximetry Medical Decision Making - Medical Decision Making Was pt. sent in by a medical professional or institution (RAZIA Elias, MEDICAL RECORD TECHNICIAN, urgent care, hospital, or residential...) When possible be specific @ -No Did you speak to anyone other than the patient for history (EMS, parent, family, police, friend...)? What history was obtained from this source @ -No Did you review nursing and triage notes (agree or disagree)? Why? @ -I reviewed and agree with nursing and triage notes Were old charts reviewed (outside hosp., previous admission, EMS record, old EKG, old radiological studies, urgent care reports/EKG's, residential records)? Report findings @ -No old charts were reviewed Differential Diagnosis (chest pain, altered mental status, abdominal pain women, abdominal pain men, vaginal bleeding, weakness, fever, dyspnea, syncope, headache, dizziness, GI bleed, back pain, seizure, CVA, palpatations, mental health, musculoskeletal)? @ -Laceration, skin avulsion, this list is not all inclusive EKG interpreted by me (3pts min.). @ -None X-rays interpreted by me (1pt min.). @ -None done CT interpreted by me (1pt min.). @ -None done U/S interpreted by me (1pt. min.). @ -None done What testing was considered but not performed or refused? (CT, X-rays, U/S, labs)? Why? @ -None What meds were considered but not given or refused? Why? @ -None Did you discuss the management of the patient with other professionals (professionals i.e. RAZIA Elias, MEDICAL RECORD TECHNICIAN, lab, RT, psych nurse, social media project manager, ela teacher, teacher, bsa officer, briefcase sewer)? Give summary @ -No Was smoking cessation discussed for >3mins.? @ -No Was critical care preformed (if so, how long)? @ -No Were there social determinants of health that impacted care today? How? (Homelessness, low income, unemployed, alcoholism, drug addiction, transportation, low edu. Level, literacy, decrease access to med. care, penitentiary, rehab)? @ -No Was there de-escalation of care discussed even if they declined (Discuss DNR or withdrawal of care, Hospice)? DNR status @ -No What co-morbidities impacted this encounter? (DM, HTN, Smoking, COPD, CAD, Cancer, CVA, ARF, Chemo, Hep., AIDS, mental health diagnosis, sleep apnea, morbid obesity)? @ -None Was patient admitted / discharged? Hospital course, mention meds given and [place], prescriptions, significant lab abnormalities, going to OR and other pertinent info. @ -Discharge. 63-year-old male with laceration to left index finger. On examination patient noted to have 1 cm laceration to the distal finger that is not actively bleeding. Patient is neurovascularly intact. Due to the size of patient's injury this is not necessary for suture repair. Exofin topical adhes alexy applied over area. Patient is stable for discharge. discussed with Dr. Whitney Undiagnosed new problem with uncertain prognosis? @ -No Drug Therapy requiring intensive monitoring for toxicity (Heparin, Nitro, Insulin, Cardizem)? @ -No Were any procedures done? @ -No Diagnosis/symptom? @ -Laceration Acute, or Chronic, or Acute on Chronic? @ -Acute Uncomplicated (without systemic symptoms) or Complicated (systemic symptoms)? @ -Uncomplicated Side effects of treatment? @ -No Exacerbation, Progression, or Severe Exacerbation? @ -No Poses a threat to life or bodily function? How? (Chest pain, [place], [place], pneumonia, PE, COPD, DKA, ARF, appy, cholecystitis, CVA, Diverticulitis, Homicidal, Suicidal, threat to staff... and all critical care pts) @ -No Disposition Clinical Impression: Laceration Disposition: HOME SELF-CARE Condition: Good Instructions (If sedation given, give patient instructions): Skin Adhesive Care (ED) Additional Instructions: Please return to the Emergency Department if symptoms worsen or any other concerns. Is patient prescribed a controlled substance at d/c from ED?: No Referrals: Chirs Bishop MD [Primary Care Provider] - 1-2 days Time of Disposition: 18:27
[2024-01-09] MEDS: LIDOCAINE 1% INJ 10MG/ML (20 ML MDV) SQ ONE (18:22)
[2024-01-09] MEDS: TOPICAL SKIN ADHESIVE 1 EACH AMP TOPICAL ONE (18:22)
== END 2024-01-09 18:45 | disposition home or self-care (01) ==
LOC: EC 17:20
DX: S60.922A Unspecified superficial injury of left hand, initial encounter
CPT/HCPCS: 99283

== ENCOUNTER 2024-09-16 01:04 | Emergency (ER) | payer OTHER ==
[2024-09-16 01:12] VITALS: RESP 18
[2024-09-16] MEDS ORDERED: TOPICAL SKIN ADHESIVE 1 EACH AMP TOPICAL ONE (01:50)
--- NOTE | 2024-09-16 01:54 | ED ---
General Adult HPI - General Chief complaint: Fall Stated complaint: Fall Time Seen by Provider: 09/16/24 01:41 Source: patient Mode of arrival: ambulatory Limitations: no limitations - History of Present Illness Initial comments: Patient is a pleasant 64-year-old gentleman presenting today for head injury. He states he rolled out of bed, got his feet tangled in his sheets and hit the left side of his head on the ground. He denies loss of consciousness, seizures, nausea, vomiting, dizziness. Denies numbness, weakness or slurred speech. Does endorse headache to the left side of his head. Is not on blood thinners. Denies alcohol use. Denies head injury. Skin abrasion to left knee, denies additional injuries. Last Tdap was in 2020. - Related Data Home Medications Medication Instructions Recorded Confirmed OLANZapine 20 mg PO HS 12/01/20 01/03/24 carBAMazepine [TEGretol] 600 mg PO DAILY 04/12/22 01/03/24 Prazosin [Minipress] 1 mg PO HS 08/26/23 01/03/24 amLODIPine BESYLATE/BENAZEPRIL 1 cap PO DAILY 08/26/23 01/03/24 [Lotrel 5-40 MG] busPIRone HCL 15 mg PO BID 08/26/23 01/03/24 hydrALAZINE HCL 10 mg PO BID 08/26/23 01/03/24 Multivitamins, Thera [Multivitamin 1 tab PO DAILY 01/03/24 01/03/24 (formulary)] carBAMazepine 200 mg PO HS 01/03/24 01/03/24 Previous Rx's Medication Instructions Recorded Cyclobenzaprine [Flexeril] 10 mg PO TID PRN #15 tab 01/03/24 Ketorolac [Toradol] 10 mg PO Q8HR #15 tab 01/03/24 Allergies Allergy/AdvReac Type Severity Reaction Status Date / Time albuterol Allergy Rash/Hives Verified 09/16/24 01:13 amoxicillin Allergy Rash/Hives Verified 09/16/24 01:13 lamotrigine [From Lamictal] Allergy Rash/Hives Verified 09/16/24 01:13 Review of Systems ROS Statement: Those systems with pertinent positive or pertinent negative responses have been documented in the HPI. ROS Other: All systems not noted in ROS Statement are negative. 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, esphogus reconstruction Past Anesthesia/Blood Transfusion Reactions: No Reported Reaction Past Psychological History: Anxiety, Bipolar, Depression Smoking Status: Never smoker Past Alcohol Use History: Occasional Past Drug Use History: None Reported - Past Family History Mother Family Medical History: Cancer Additional Family Medical History / Comment(s): Liver and abd CA, Breast CA Father Family Medical History: Myocardial Infarction ([place]) Additional Family Medical History / Comment(s): CABG AT AGE 50 Brother(s) Family Medical History: Coronary Artery Disease (CAD) Additional Family Medical History / Comment(s): CABG AT AGE 50 General Exam - General Exam Comments Initial Comments: PE: CONSTITUTIONAL: No apparent distress, well appearing SKIN: Warm, dry, no jaundice, hives or petechiae, abrasion to left knee EYES: Pupils are equally round, extraocular movements intact without nystagmus, clear conjunctiva, non-icteric sclera HENT: Normocephalic, contusion to left forehead, superficial linear abrasion to left eyebrow, moist mucus membranes, oropharynx clear without exudates NECK: , Full range of motion, normal appearance, no midline spinal tenderness to palpation, able to move her neck through full range of motion without radiculopathy or midline neck pain PULMONARY: Clear to auscultation without wheezes, rhonchi, or rales, normal excursion, no accessory muscle use and no stridor CARDIOVASCULAR: Regular rate, rhythm, normal S1 and S2. No appreciated murmurs, rubs or gallops. Strong radial pulses with intact distal perfusion. No lower extremity edema GASTROINTESTINAL: Soft, active bowel sounds throughout, non-tender, non- distended, no palpable masses, no rebound or guarding. No hepatosplenomegaly GENITOURINARY: MUSCULOSKELETAL: Extremities have no gross deformity, no edema, redness, or swelling. Able to range left lower extremity through full range of motion without pain or difficulty, no joint effusion or swelling, no bony tenderness to palpation NEUROLOGIC:_a/o x 3, GCS 15, normal mentation and speech. Moves all extremities x 4 without motor or sensory deficit PSYCHIATRIC:_normal mood and affect, thought process is clear and linear Limitations: no limitations Course Vital Signs 09/16/24 09/16/24 01:07 01:20 Temperature 97.6 F 98.0 F Pulse Rate 75 71 Respiratory 18 18 Rate Blood Pressure 162/90 168/53 O2 Sat by Pulse 96 95 Oximetry Medical Decision Making - Medical Decision Making Was pt. sent in by a medical professional or institution (, PA, OFFSET PRINTER, urgent care, hospital, or half-way...) When possible be specific @ -[No] Did you speak to anyone other than the patient for history (EMS, parent, family, police, friend...)? What history was obtained from this source @ -[No] Did you review nursing and triage notes (agree or disagree)? Why? @ -[I reviewed and agree with nursing and triage notes] Were old charts reviewed (outside hosp., previous admission, EMS record, old EKG, old radiological studies, urgent care reports/EKG's, half-way records)? Report findings @ -[Medical records reviewed] Differential Diagnosis (chest pain, altered mental status, abdominal pain women, abdominal pain men, vaginal bleeding, weakness, fever, dyspnea, syncope, headache, dizziness, GI bleed, back pain, seizure, CVA, palpatations, mental health, musculoskeletal)? @Differential diagnosis remains broad over top considerations include contusion, laceration, skull fracture, traumatic intracranial hemorrhage this is not inclusive list EKG interpreted by me (3pts min.). @ -[As above] X-rays interpreted by me (1pt min.). @ -[None done] CT interpreted by me (1pt min.). @ -Personally reviewed CT brain I see no evidence of hemorrhage or skull fracture I agree with radiologist interpretation U/S interpreted by me (1pt. min.). @ -[None done] What testing was considered but not performed or refused? (CT, X-rays, U/S, labs)? Why? @ -[None] What meds were considered but not given or refused? Why? @ -[None] Did you discuss the management of the patient with other professionals (professionals i.e. , PA, OFFSET PRINTER, lab, RT, psych nurse, marriage and family social worker, mucker operator, teacher, chief safety officer, catalytic case operator)? Give summary @ -[No] Was smoking cessation discussed for >3mins.? @ -[No] Was critical care preformed (if so, how long)? @ -[No] Were there social determinants of health that impacted care today? How? (Homelessness, low income, unemployed, alcoholism, drug addiction, transportation, low edu. Level, literacy, decrease access to med. care, long term, rehab)? @ -[No] Was there de-escalation of care discussed even if they declined (Discuss DNR or withdrawal of care, Hospice)? @ -[No] What co-morbidities impacted this encounter? (DM, HTN, Smoking, COPD, CAD, Cancer, CVA, ARF, Chemo, Hep., AIDS, mental health diagnosis, sleep apnea, morbid obesity)? @ -[None] Was patient admitted / discharged? Hospital course, mention meds given and route, prescriptions, significant lab abnormalities, going to OR and other pertinent info. @ -[hospital course] this is a pleasant 64-year-old gentleman presenting today for abrasion to left forehead out of after falling out of bed hitting his head on his dresser. Due to location of contusion and left temporal region will obtain CT brain to ensure no skull fracture or intracranial hemorrhage. Dermabond applied to left for head abrasion. With exception of abrasion to left knee, leg is otherwise atraumatic. Undiagnosed new problem with uncertain prognosis? @ -[No] Drug Therapy requiring intensive monitoring for toxicity (Heparin, Nitro, Insulin, Cardizem)? @ -[No] Were any procedures done? @ -[No] Diagnosis/symptom? @Contusion, abrasion, head injury Acute, or Chronic, or Acute on Chronic? Acute Uncomplicated (without systemic symptoms) or Complicated (systemic symptoms)? @On complicated Side effects of treatment? @ -[No] Exacerbation, Progression, or Severe Exacerbation? @ -[No] Poses a threat to life or bodily function? How? (Chest pain, [place], [place], pneumonia, PE, COPD, DKA, ARF, appy, cholecystitis, CVA, Diverticulitis, Homicidal, Suicidal, threat to staff... and all critical care pts) @ -[No] Disposition Clinical Impression: Head injury, Contusion Disposition: HOME SELF-CARE Condition: Good Instructions (If sedation given, give patient instructions): Head Injury (ED) Additional Instructions: Every disease is a spectrum and a small chance still exists that a serious condition could develop, for this reason, please monitor yourself closely for new, changing or worsening symptoms, symptoms that persist beyond 48 hours, fever, severe headache, confusion, changes in vision, slurred speech, nausea vomiting, signs of infection in your wounds, such as discharge, redness, swelling or fever inability to tolerate/keep down fluids or your medications, inability to follow up with outpatient providers as instructed and should you experience these symptoms or should you have any further concerns for your wellbeing please return to the ED or call 911 immediately. PLEASE call your primary care physician as soon as possible to arrange / discuss plan for followup appointment. Appointment in the next 1-3 days is strongly encouraged if possible. PLEASE let us know here before you leave if there is anything further we can do to be of any assistance. Take care and feel Better! Is patient prescribed a controlled substance at d/c from ED?: No Referrals: Bill Riley [Primary Care Provider] - 1-2 days
--- NOTE | 2024-09-16 02:37 | CT ---
EXAM: CT Head Without Intravenous Contrast CLINICAL HISTORY: ITS.REASON CT Reason: hit left side of head TECHNIQUE: Axial computed tomography images of the head/brain without intravenous contrast. This CT exam was performed using one or more of the following dose reduction techniques: automated exposure control, adjustment of the mA and/or kV according to patient size, and/or use of iterative reconstruction technique. COMPARISON: No relevant prior studies available. FINDINGS: Brain: Unremarkable. No hemorrhage. No significant white matter disease. No edema. Ventricles: Unremarkable. No ventriculomegaly. Bones/joints: Unremarkable. No acute fracture. Soft tissues: Left periorbital soft tissue swelling. Sinuses: Unremarkable as visualized. No acute sinusitis. Mastoid air cells: Unremarkable as visualized. No mastoid effusion. IMPRESSION: Left periorbital soft tissue swelling. No acute intracranial hemorrhage.
[2024-09-16] MEDS: BACITRACIN OINT 1 EACH PACKET TOPICAL ONE (03:08)
[2024-09-16 03:41] VITALS: BP 144/95; PULSE 64; TEMP 97.7
== END 2024-09-16 03:41 | disposition home or self-care (01) ==
LOC: EC 01:04
DX: S00.83XA Contusion of other part of head, initial encounter (principal); S80.212A Abrasion, left knee, initial encounter; Z88.0 Allergy status to penicillin; Z88.8 Allergy status to other drugs, medicaments and biological substances; W06.XXXA Fall from bed, initial encounter
CPT/HCPCS: 70450; 99284

== ENCOUNTER 2024-10-21 12:38 | Emergency (ER) | payer OTHER ==
--- NOTE | 2024-10-21 12:59 | ED ---
Nausea/Vomiting/Diarrhea HPI - General Chief complaint: Nausea/Vomiting/Diarrhea Stated complaint: Nausea Time Seen by Provider: 10/21/24 12:45 Source: patient, RN notes reviewed, old records reviewed Mode of arrival: ambulatory Limitations: no limitations - History of Present Illness Initial comments: 64-year-old male presented to ER for evaluation of nausea. Patient reports for the past 3 days he has been extremely nauseous. He denies actually vomiting as he has had esophageal surgery in the past which limits his ability to vomit. Patient also is endorsing a achy left upper quadrant abdominal discomfort along with diarrhea. He denies any melena, hematochezia. Patient reports he also feels mildly dizzy but denies any headache, double blurry vision, one-sided weakness, slurred speech, chest pain or shortness of breath. He denies fevers. He has not taken anything for his current symptoms. He states given nauseousness he has been unable to eat or drink. No prior abdominal surgeries. - Related Data Home Medications Medication Instructions Recorded Confirmed OLANZapine 20 mg PO HS 12/01/20 01/03/24 carBAMazepine [TEGretol] 600 mg PO DAILY 04/12/22 01/03/24 Prazosin [Minipress] 1 mg PO HS 08/26/23 01/03/24 amLODIPine BESYLATE/BENAZEPRIL 1 cap PO DAILY 08/26/23 01/03/24 [Lotrel 5-40 MG] busPIRone HCL 15 mg PO BID 08/26/23 01/03/24 hydrALAZINE HCL 10 mg PO BID 08/26/23 01/03/24 Multivitamins, Thera [Multivitamin 1 tab PO DAILY 01/03/24 01/03/24 (formulary)] carBAMazepine 200 mg PO HS 01/03/24 01/03/24 Previous Rx's Medication Instructions Recorded Cyclobenzaprine [Flexeril] 10 mg PO TID PRN #15 tab 01/03/24 Ketorolac [Toradol] 10 mg PO Q8HR #15 tab 01/03/24 Ondansetron Odt [Zofran Odt] 4 mg PO Q8HR PRN #10 tab 10/21/24 Allergies Allergy/AdvReac Type Severity Reaction Status Date / Time albuterol Allergy Rash/Hives Verified 10/21/24 12:42 amoxicillin Allergy Rash/Hives Verified 10/21/24 12:42 lamotrigine [From Lamictal] Allergy Rash/Hives Verified 10/21/24 12:42 Review of Systems ROS Statement: Those systems with pertinent positive or pertinent negative responses have been documented in the HPI. ROS Other: All systems not noted in ROS Statement are negative. 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, esphogus reconstruction Past Anesthesia/Blood Transfusion Reactions: No Reported Reaction Past Psychological History: Anxiety, Bipolar, Depression Smoking Status: Never smoker Past Alcohol Use History: Occasional Past Drug Use History: None Reported - Past Family History Mother Family Medical History: Cancer Additional Family Medical History / Comment(s): Liver and abd CA, Breast CA Father Family Medical History: Myocardial Infarction ([place]) Additional Family Medical History / Comment(s): CABG AT AGE 50 Brother(s) Family Medical History: Coronary Artery Disease (CAD) Additional Family Medical History / Comment(s): CABG AT AGE 50 General Exam Limitations: no limitations General appearance: alert, in no apparent distress Eye exam: Present: normal appearance, PERRL, EOMI. Absent: scleral icterus, conjunctival injection, periorbital swelling Pupils: Present: normal accommodation ENT exam: Present: normal exam, normal oropharynx, mucous membranes moist Respiratory exam: Present: normal lung sounds bilaterally. Absent: respiratory distress, wheezes, rales, rhonchi, stridor Cardiovascular Exam: Present: regular rate, normal rhythm, normal heart sounds. Absent: systolic murmur, diastolic murmur, rubs, gallop, clicks GI/Abdominal exam: Present: soft, tenderness (luq), normal bowel sounds, hernia (Umbilical) Extremities exam: Present: normal inspection, full ROM, normal capillary refill. Absent: tenderness, pedal edema, joint swelling, calf tenderness Neurological exam: Present: alert, oriented X3, CN II-XII intact Skin exam: Present: warm, dry, intact, normal color. Absent: rash Course Vital Signs 10/21/24 10/21/24 12:40 13:38 Temperature 97.5 F L Pulse Rate 89 86 Respiratory 20 15 Rate Blood Pressure 182/111 136/90 O2 Sat by Pulse 99 97 Oximetry Medical Decision Making - Medical Decision Making Was pt. sent in by a medical professional or institution (RAZIA Elias, EQUITIES ANALYST, urgent care, hospital, or long term...) When possible be specific @ -[No] Did you speak to anyone other than the patient for history (EMS, parent, family, police, friend...)? What history was obtained from this source @ -[No] Did you review nursing and triage notes (agree or disagree)? Why? @ -[I reviewed and agree with nursing and triage notes] Were old charts reviewed (outside hosp., previous admission, EMS record, old EKG, old radiological studies, urgent care reports/EKG's, long term records)? Report findings @ -[No old charts were reviewed] Differential Diagnosis (chest pain, altered mental status, abdominal pain women, abdominal pain men, vaginal bleeding, weakness, fever, dyspnea, syncope, headache, dizziness, GI bleed, back pain, seizure, CVA, palpatations, mental health, musculoskeletal)? @ -[not applicable] EKG interpreted by me (3pts min.). @ -[As above] X-rays interpreted by me (1pt min.). @ -[None done] CT interpreted by me (1pt min.). @ -[None done] U/S interpreted by me (1pt. min.). @ -[None done] What testing was considered but not performed or refused? (CT, X-rays, U/S, labs)? Why? @ -[None] What meds were considered but not given or refused? Why? @ -[None] Did you discuss the management of the patient with other professionals (professionals i.e. RAZIA Elias, EQUITIES ANALYST, lab, RT, psych nurse, social media sr strategy manager, calculation clerk, teacher, hearing officer, family preservation caseworker)? Give summary @ -[No] Was smoking cessation discussed for >3mins.? @ -[No] Was critical care preformed (if so, how long)? @ -[No] Were there social determinants of health that impacted care today? How? (Homelessness, low income, unemployed, alcoholism, drug addiction, transportation, low edu. Level, literacy, decrease access to med. care, intermediate, rehab)? @ -[No] Was there de-escalation of care discussed even if they declined (Discuss DNR or withdrawal of care, Hospice)? DNR status @ -[No] What co-morbidities impacted this encounter? (DM, HTN, Smoking, COPD, CAD, Cancer, CVA, ARF, Chemo, Hep., AIDS, mental health diagnosis, sleep apnea, morbid obesity)? @ -[None] Was patient admitted / discharged? Hospital course, mention meds given and route, prescriptions, significant lab abnormalities, going to OR and other pertinent info. @ -[hospital course] Undiagnosed new problem with uncertain prognosis? @ -[No] Drug Therapy requiring intensive monitoring for toxicity (Heparin, Nitro, Insulin, Cardizem)? @ -[No] Were any procedures done? @ -[No] Diagnosis/symptom? @ -[default] Acute, or Chronic, or Acute on Chronic? @ -[default] Uncomplicated (without systemic symptoms) or Complicated (systemic symptoms)? @ -[default] Side effects of treatment? @ -[No] Exacerbation, Progression, or Severe Exacerbation? @ -[No] Poses a threat to life or bodily function? How? (Chest pain, [place], [place], pneumonia, PE, COPD, DKA, ARF, appy, cholecystitis, CVA, Diverticulitis, Homicidal, Suicidal, threat to staff... and all critical care pts) @ -[No] - Lab Data Result diagrams: 10/21/24 13:08 10/21/24 13:08 Lab Results 10/21/24 10/21/24 10/21/24 Range/Units 13:08 13:08 13:08 WBC 6.90 (4.50-10.00) 10*3/uL RBC 5.03 (4.40-5.60) 10*6/uL Hgb 17.0 (13.0-17.0) g/dL Hct 45.7 (39.6-50.0) % MCV 90.9 (80.0-97.0) fL MCH 33.8 H (27.0-32.0) pg MCHC 37.2 H (32.0-37.0) g/dL Plt Count 186 (140-440) 10*3/uL MPV 10.4 (9.5-12.2) fL Immature Gran % (Auto) 0.7 % Neutrophils % 69.5 % Lymphocytes % 20.4 % Monocytes % 7.1 % Eosinophils % 1.7 % Basophils % 0.6 % Immature Gran # 0.05 H (0.00-0.04) 10*3/uL Neutrophils # 4.79 (1.80-7.70) 10*3/uL Lymphocytes # 1.41 (0.90-5.00) 10*3/uL Monocytes # 0.49 (0.20-1.00) 10*3/uL Eosinophils # 0.12 (0.04-0.35) 10*3/uL Basophils # 0.04 (0.00-0.10) 10*3/uL PT 11.1 (10.0-12.5) sec INR 1.0 (<1.2) APTT 22.9 (22.0-30.0) sec Sodium 133 L (137-145) mmol/L Potassium 3.7 (3.5-5.1) mmol/L Chloride 100 (98-107) mmol/L Carbon Dioxide 21 L (22-30) mmol/L Anion Gap 12 mmol/L BUN 9 (9-20) mg/dL Creatinine 0.59 L (0.66-1.25) mg/dL Est GFR (CKD-EPI)AfAm >90 (>60 ml/min/1.73 sqM) Est GFR (CKD-EPI)NonAf >90 (>60 ml/min/1.73 sqM) Glucose 195 H (74-99) mg/dL Calcium 9.1 (8.4-10.2) mg/dL Total Bilirubin 0.7 (0.2-1.3) mg/dL AST 37 (17-59) U/L ALT 50 H (4-49) U/L Alkaline Phosphatase 69 (38-126) U/L Troponin I (0.000-0.034) ng/mL Total Protein 6.9 (6.3-8.2) g/dL Albumin 4.5 (3.5-5.0) g/dL Amylase 77 (30-110) U/L Lipase 88 (23-300) U/L Urine Color Urine Appearance (Clear) Urine pH (5.0-8.0) Ur Specific [place] (1.001-1.035) Urine Protein (Negative) Urine Glucose (UA) (Negative) Urine Ketones (Negative) Urine Blood (Negative) Urine Nitrite (Negative) Urine Bilirubin (Negative) Urine Urobilinogen (<2.0) mg/dL Ur Leukocyte Esterase (Negative) 10/21/24 10/21/24 Range/Units 13:08 13:14 WBC (4.50-10.00) 10*3/uL RBC (4.40-5.60) 10*6/uL Hgb (13.0-17.0) g/dL Hct (39.6-50.0) % MCV (80.0-97.0) fL MCH (27.0-32.0) pg MCHC (32.0-37.0) g/dL Plt Count (140-440) 10*3/uL MPV (9.5-12.2) fL Immature Gran % (Auto) % Neutrophils % % Lymphocytes % % Monocytes % % Eosinophils % % Basophils % % Immature Gran # (0.00-0.04) 10*3/uL Neutrophils # (1.80-7.70) 10*3/uL Lymphocytes # (0.90-5.00) 10*3/uL Monocytes # (0.20-1.00) 10*3/uL Eosinophils # (0.04-0.35) 10*3/uL Basophils # (0.00-0.10) 10*3/uL PT (10.0-12.5) sec INR (<1.2) APTT (22.0-30.0) sec Sodium (137-145) mmol/L Potassium (3.5-5.1) mmol/L Chloride (98-107) mmol/L Carbon Dioxide (22-30) mmol/L Anion Gap mmol/L BUN (9-20) mg/dL Creatinine (0.66-1.25) mg/dL Est GFR (CKD-EPI)AfAm (>60 ml/min/1.73 sqM) Est GFR (CKD-EPI)NonAf (>60 ml/min/1.73 sqM) Glucose (74-99) mg/dL Calcium (8.4-10.2) mg/dL Total Bilirubin (0.2-1.3) mg/dL AST (17-59) U/L ALT (4-49) U/L Alkaline Phosphatase (38-126) U/L Troponin I <0.012 (0.000-0.034) ng/mL Total Protein (6.3-8.2) g/dL Albumin (3.5-5.0) g/dL Amylase (30-110) U/L Lipase (23-300) U/L Urine Color Colorless Urine Appearance Clear (Clear) Urine pH 6.5 (5.0-8.0) Ur Specific [place] 1.003 (1.001-1.035) Urine Protein Negative (Negative) Urine Glucose (UA) 1+ H (Negative) Urine Ketones Negative (Negative) Urine Blood Negative (Negative) Urine Nitrite Negative (Negative) Urine Bilirubin Negative (Negative) Urine Urobilinogen <2.0 (<2.0) mg/dL Ur Leukocyte Esterase Negative (Negative) - EKG Data -: EKG Interpreted by Me EKG Comments: EKG taken at 12: 49 showing a sinus rhythm with first-degree AV block. No ST segment elevations or depressions. No T wave inversions. Ventricular rate 85, WA interval 218, QRS duration 98, QT/QTc 368/410. Disposition Clinical Impression: Nausea Disposition: HOME SELF-CARE Condition: Stable Instructions (If sedation given, give patient instructions): Acute Nausea and Vomiting (ED) Additional Instructions: Follow-up closely with PCP. Return to the ER for any new or worsening concerns. Prescriptions: Ondansetron Odt [Zofran Odt] 4 mg PO Q8HR PRN #10 tab PRN Reason: Nausea Is patient prescribed a controlled substance at d/c from ED?: No Referrals: Bill Riley [Primary Care Provider] - 1-2 days Time of Disposition: 14:56
[2024-10-21] MEDS: ONDANSETRON 4 MG/2 ML VIAL IVP STA (13:07)
[2024-10-21 13:25] LABS: Basophils # (A) 0.04 10*3/uL (0.00-0.10); Basophils % (A) 0.6 %; Eosinophils # (A) 0.12 10*3/uL (0.04-0.35); Eosinophils % (A) 1.7 %; HCT 45.7 % (39.6-50.0); HGB 17.0 g/dL (13.0-17.0); Lymphocytes # (A) 1.41 10*3/uL (0.90-5.00); Lymphocytes % (A) 20.4 %; MCH 33.8 pg (27.0-32.0); MCHC 37.2 g/dL (32.0-37.0); MCV 90.9 fL (80.0-97.0); Monocytes # (A) 0.49 10*3/uL (0.20-1.00); Monocytes % (A) 7.1 %; Neutrophils # (A) 4.79 10*3/uL (1.80-7.70); Neutrophils % (A) 69.5 %; Platelet Count 186 10*3/uL (140-440); RBC 5.03 10*6/uL (4.40-5.60); RDW 11.2 % (11.5-14.5); WBC 6.90 10*3/uL (4.50-10.00)
[2024-10-21 13:26] LABS: Bilirubin,Urine Negative (Negative); Blood,Urine Negative (Negative); Color,Urine Colorless; Glucose,Urine (UA) 1+ (Negative); Ketones,Urine Negative (Negative); Leukocyte Esterase,Urine Negative (Negative); Nitrite,Urine Negative (Negative); PH, Urine 6.5 (5.0-8.0); Protein,Urine Negative (Negative); Specific Gravity,Urine 1.003 (1.001-1.035); Urobilinogen,Urine <2.0 mg/dL (<2.0)
[2024-10-21 13:33] LABS: ALT 50 U/L (4-49); AST 37 U/L (17-59); African American GFR (CKD) >90 (>60 ml/min/1.73 sqM); Albumin 4.5 g/dL (3.5-5.0); Alkaline Phosphatase 69 U/L (38-126); Amylase 77 U/L (30-110); Anion Gap 12 mmol/L; Blood Urea Nitrogen 9 mg/dL (9-20); Calcium 9.1 mg/dL (8.4-10.2); Carbon Dioxide 21 mmol/L (22-30); Chloride 100 mmol/L (98-107); Glucose 195 mg/dL (74-99); INR 1.0 (<1.2); Lipase 88 U/L (23-300); Non-African American GFR(CKD) >90 (>60 ml/min/1.73 sqM); Partial Thromboplastin Time 22.9 sec (22.0-30.0); Potassium 3.7 mmol/L (3.5-5.1); Prothrombin Time 11.1 sec (10.0-12.5); Sodium 133 mmol/L (137-145); Total Protein 6.9 g/dL (6.3-8.2)
[2024-10-21] MEDS: SODIUM CHLORIDE 0.9% 1,000 ML IV ONE (14:17)
--- NOTE | 2024-10-21 14:29 | CT ---
EXAMINATION TYPE: CT abdomen pelvis w con CT DLP: 1675 mGycm, Automated exposure control for dose reduction was used. DATE OF EXAM: 10/21/2024 2:22 PM COMPARISON: CT abdomen pelvis 06/27/2021 CLINICAL INDICATION:Male, 64 years old with history of LUQ abd pain/n; luq pain TECHNIQUE: Standard CT of the abdomen and pelvis following the administration of 100 cc of Isovue 3 00 IV contrast material. Coronal and sagittal reformats were performed. FINDINGS: LOWER CHEST: Unremarkable ABDOMEN LIVER: Unremarkable GALLBLADDER AND BILE DUCTS: The gallbladder is surgically absent. No biliary duct dilatation. PANCREAS: Unremarkable. SPLEEN: Unremarkable. ADRENAL GLANDS: Unremarkable. KIDNEYS AND URETERS: No evidence of hydronephrosis or renal calculus. The kidneys enhance symmetrical ly. Contrast is demonstrated within both collecting systems and proximal ureters on the delayed phase . PELVIS BLADDER: Unremarkable REPRODUCTIVE: Coarse calcifications of the prostate gland are identified. Possible left varicocele. ABDOMEN & PELVIS STOMACH AND BOWEL: Stomach and duodenum are unremarkable. Postsurgical changes at the GE junction fro m hernia repair. No focal bowel wall thickening or surrounding inflammatory changes. No diverticulosi s. No evidence of bowel obstruction. PERITONEUM: No evidence of pneumoperitoneum or free fluid. VASCULATURE: Mild atherosclerotic calcifications are present throughout the abdominal aorta and its b ranches. No evidence of aortic aneurysm. MUSCULOSKELETAL: No acute osseous abnormalities. DISH of the lower thoracic spine. Left-sided facet a rthropathy at L3-L4. LYMPH NODES: No evidence for lymphadenopathy. SOFT TISSUE/ABDOMINAL WALL: Small fat filled umbilical hernia. Small fat filled right inguinal hernia with moderate sized fat filled left inguinal hernia. No inflammatory changes. IMPRESSION: 1. No CT evidence for acute abdominal/pelvic process. 2. Small fat filled umbilical hernia with small right fat filled inguinal hernia and moderate sized f at filled left inguinal hernia. [facility], , 10/21/2024 2:27 PM
[2024-10-21 15:28] VITALS: BP 158/99; PULSE 78; RESP 18; TEMP 98
== END 2024-10-21 15:27 | disposition home or self-care (01) ==
LOC: EC 12:38
DX: R11.2 Nausea with vomiting, unspecified (principal); Z88.0 Allergy status to penicillin; Z88.8 Allergy status to other drugs, medicaments and biological substances
CPT/HCPCS: 36415; 93005; 80053; 82150; 83690; 84484; 85025; 85610; 85730; 81003; 74177; 99284; 96374; 96361; J2405; Q9967